=== PATIENT | female | born 2000 | race Caucasian/White ===

== ENCOUNTER 2024-10-27 11:36 | Observation (INO) | payer OTHER, SELFPAY ==
--- NOTE | ~2024-10-27 | US_ITS ---
CLINICAL HISTORY: abnormal CT, eval right ovary US pelvis transabdominal and transvaginal with Doppler Comparison: CT/SR - CT ABDOMEN PELVIS W IV CON - 10/27/24 14:26 EST Findings: Transabdominal scanning performed for overall anatomy. Transvaginal scanning performed for additional detail. Uterus is 8.4 cm length. Normal myometrium. Endometrium 1.0 mm thickness. Right ovary 3.2 x 2.3 x 1.6 cm. Left ovary 3.3 x 2.2 x 1.7 cm. Normal color Doppler with arterial/venous spectral tracing of both ovaries. No free fluid. IMPRESSION: 1. Normal pelvic ultrasound with Doppler. No evidence of ovarian torsion. No large ovarian cyst. This document has been electronically signed by: Diann Georges MD on 10/27/2024 17:43:33
--- NOTE | ~2024-10-27 | CT_ITS ---
CLINICAL HISTORY: RLQ AP, vomiting, leukocytosis, r o acute appy CT abdomen and pelvis with contrast Comparison: None Findings: The visualized portions of the lungs are normal in appearance. The liver is normal in size without suspicious focal hepatic lesions. No intrahepatic or extrahepatic ductal dilatation is seen. The hepatic and portal veins are patent. No calcified gallstones in the gallbladder. Pancreas, spleen and adrenals are normal in appearance. No suspicious focal lesion of the kidneys. No hydronephrosis. Small left kidney stone. The abdominal aorta demonstrates no evidence of aneurysmal dilatation or dissection. The colon is normal in appearance and without wall thickening or inflammatory change. No evidence of bowel obstruction. The distal portion of the appendix is visualized and appears normal. There is loculated fluid density of the right side of the pelvis adjacent to the root of the appendix and the right adnexa measuring 2 x 3 x 4 cm in size series 3, image 74 and series 6, image 46. No intraperitoneal free air or fluid is visualized. No pathologic lymphadenopathy is seen. There are no osseous or soft tissue abnormalities. IMPRESSION: The distal portion of the appendix is visualized and appears normal. There is a loculated fluid density of the right side of the pelvis adjacent to the root of appendix and the right adnexa. The differential diagnosis includes a cyst of the ovary, fluid in the bowel and an abscess. Clinical correlation is recommended. Correlation with pelvic ultrasound finding may be of benefit. Nonobstructing small left kidney stone. This document has been electronically signed by: Diann Georges MD on 10/27/2024 15:11:52
--- OUTSIDE RECORDS SUMMARY | 2024-10-27 11:38 | XMS_ITS | Continuity of Care Document ---
Author Name [facility] Organization [facility] Care Team Providers Care Pilot Can Router Name Role Phone [facility] Unavailable Unavailable Problems Combined list of problems from Department of Defense and Veterans Affairs facilities. It does not include entries that were removed or entered in error. 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, SENIOR CARE OR SEPARATION FROM UNIFORMED SERVICE, LONG Active 07/02/2024 Diagnosis 0110[facility] ASSESSMENT, POST-DEPLOYMENT, DOCUMENTED ON DY0250 Active 07/02/2024 Diagnosis 0110 [facility] Human immunodeficiency virus antibody titer Active 07/02/2024 [facility] Contusion of left knee, initial encounter Active 05/16/[address] [place] [address] Clinic Contusion of left lower leg, initial encounter Active 05/16/[address] [place] [address] Pain in left ankle and joints of left foot Active Condition [facility] Low back pain Active Condition [facility] Medications Combined list of outpatient medications from Department of Defense and Veterans Affairs facilities.Medications provided include 1) outpatient medications from the last 15 months, and 2) patient-reported medications. Medication Details Route Status Patient Instructions Prescription Expires Prescription Number Last Dispense Date Ordering Provider Order Date Order Qty Source Gwendolyn 180 mg oral tablet 1 tab(s), Oral, Daily, PRN allergy symptoms , # 60 tab(s), 0 total refill(s ), Maintena nce, 1 tab(s) Oral Daily,[place] N:allerg y symptoms , Pharmacy : [facility] Oral (given by mouth) Complet ed 07/02/2024 60.0 0010C-D [facility] Flonase 50 mcg/inh nasal spray 50 mcg, Nostril- Both, BID, # 16 g, 5 total refill(s ), Maintena nce, 50 mcg Nostril- Both BID, Pharmacy : [facility] Nostri l-Both (into the nose) Complet ed 07/02/2024 16.0 0010C-D [facility] FLONASE-OTC (BRAND) 50 MCG PRO SPSN [9.9] Take or use exactly as directed .For the nose. 10/27/2024 [id number] 4 [address] [place] [address] FLUARIX QUAD [id number] (influenza virus vaccine quadrival 2243-8965(6 mos and up)/PF), 60MCG/.5ML, SYRINGE, INTRAMUSC, MessageCastOSMITHK LINE, .5 ml SYRINGE Active [id number] 4 2023 0.5 Pharmac y Data Transac tion Service Facilit y IBUPROFEN (ibuprofen) , 800 MG, TABLET, ORAL, STRIDES PHARMA, 500 ea. BOTTLE Cancele d [id number] : 2023 0 Pharmac y Data Transac tion Service Facilit y IBUPROFEN (ibuprofen) , 800 MG, TABLET, ORAL, STRIDES PHARMA, 500 ea. BOTTLE Active [id number] 4 2023 12 Pharmac y Data Transac tion Service Facilit y IBUPROFEN (ibuprofen) , 800 MG, TABLET, ORAL, STRIDES PHARMA, 500 ea. BOTTLE Active [id number] 4 2023 12 Pharmac y Data Transac tion Service Facilit y OXYCODONE-A CETAMINOPHE N (OXYCODONE HCL/ACETAMI NOPHEN), 5MG-325MG, TABLET, ORAL, MALLINKRT PHARM, 500 ea. BOTTLE Active [id number] 4 2023 12 Pharmac y Data Transac tion Service Facilit y PENICILLIN V POTASSIUM (PENICILLIN V POTASSIUM), 500MG, TABLET, ORAL, AUROBINDO PHARM, 500 ea. BOTTLE Active [id number] 4 2023 28 Pharmac y Data Transac tion Service Facilit y PROMETHAZIN E HCL (PROMETHAZI NE HCL), 25MG, TABLET, ORAL, [employer] 1000 ea. BOTTLE Cancele d [id number] : 2023 0 Pharmac y Data Transac tion Service Facilit y PROMETHAZIN E HCL (PROMETHAZI NE HCL), 25MG, TABLET, ORAL, [employer] 1000 ea. BOTTLE Cancele d [id number] : 2023 0 Pharmac y Data Transac tion Service Facilit y PROMETHAZIN E HCL (PROMETHAZI NE HCL), 25MG, TABLET, ORAL, [employer] 1000 ea. BOTTLE Active [id number] 4 2023 6 Pharmac y Data Transac tion Service Facilit y [place] Fexofenadin e Hydrochlori de (Telfast) Tablet 180 mg Oral Take with plenty of water.Ob tain advice for OTCs.Swa llow whole.Av oid grapefru it and grapefru it juice. 10/27/2024 [id number] 2023 60 [facility] Allergies, Adverse Reactions, Alerts Combined list of allergies from Department of Defense and Veterans Affairs facilities. It does not include entries that were removed or entered in error. Substance Category Reaction Severity Reaction type Status Date Reported Comments Source No Known Allergies Drug allergy (disorder) active 12/29/2023 DoD Immunizations Combined list of available immunizations from the Department of Defense and Veterans Affairs facilities. Immunization Series Date Given Administered By Site Reaction Lot Number CVX Code Drug Wax Blender Status Comments Source influenza, injectable, quadrivalent- pf 2020 [id number] [employer] comple t ed influenza , injectabl e, quadrival ent-pf 09/09/21 Given Ambulat ory Pharmac y COVID Vaccine Pfizer 2020 [id number] PFIZER complet ed COVID Vaccine Pfizer 04/01/21 Given Ambulat ory Pharmac y COVID Vaccine Pfizer 2020 [id number] PFIZER complet ed COVID Vaccine Pfizer 03/09/21 Given Ambulat ory Pharmac y influenza, injectable, quadrivalent- pf 2019 zzLef t Arm [id number] 150 Seqirus complet ed influenza , injectabl e, quadrival ent-pf 08/22/20 Given Ambulat ory Pharmac y Influenza, injectable, quadrivalent, preservative free 1 2019 RAZ LARIOS [id number] 150 Seqirus (SEQ) complet ed Influenza , injectabl e, quadrival ent, preservat natalee free DoD Vital Signs Combined list of inpatient and outpatient Vital Signs from Department of Defense and Veterans Affairs, ranging from 12 months to all on record, depending upon the facility. Vital Sign Value Date Comments Source Systolic Blood Pressure 130mm[Hg] 12/29/2023 17:35:00 Ambulatory Pharmacy Diastolic Blood Pressure 84mm[Hg] 12/29/2023 17:35:00 Ambulatory Pharmacy BP Site 12/29/2023 17:35:00 Ambul [facility]ory Pharmacy Mean Arterial Pressure, Calc 99mm[Hg] 12/29/2023 17:35:00 Ambulatory P harmacy Systolic Blood Pressure 128mm[Hg] 10/28/2023 20:25:00 Ambulatory Pharmacy Diastolic Blood Pressure 66mm[Hg] 10/28/2023 20:25:00 Ambulatory Pharmacy Mean Arterial Pressure, Calc 87mm[Hg] 10/28/2023 20:25:00 Ambulatory P harmacy Peripheral Pulse Rate 87bpm 10/28/2023 20:25:00 Ambulatory Pharmacy Respiratory Rate 16br/min 10/28/2023 20:25:00 Ambulatory Pharmacy Temperature Oral 36.7Cel 10/28/2023 20:25:00 Ambulatory Pharmacy Peripheral Pulse Rate 66bpm 07/02/2024 14:34:00 Ambulatory Pharmacy Systolic Blood Pressure 127mm[Hg] 07/02/2024 14:34:00 Ambulatory Pharmacy Diastolic Blood Pressure 86mm[Hg] 07/02/2024 14:34:00 Ambulatory Pharmacy Systolic Blood Pressure 126mm[Hg] 05/16/2024 20:24:00 Ambulatory Pharmacy Diastolic Blood Pressure 84mm[Hg] 05/16/2024 20:24:00 Ambulatory Pharmacy Mean Arterial Pressure, Calc 98mm[Hg] 05/16/2024 20:24:00 Ambulatory P harmacy Peripheral Pulse Rate 82bpm 05/16/2024 20:24:00 Ambulatory Pharmacy Respiratory Rate 16br/min 05/16/2024 20:24:00 Ambulatory Pharmacy Temperature Oral 36.7Cel 05/16/2024 20:24:00 Ambulatory Pharmacy BP Site 05/16/2024 20:24:00 Ambul atory Pharmacy Blood Pressure Manual 05/16/2024 20:24:00 Ambulatory Pharmacy Encounters Combined list of: 1) Encounters from Department of Veterans Affairs facilities going back up to thelast 18 months. 2) Encounters from the Department of Defense facilities going back up to 280 months. Location Location Details Encounter Type Encounter Number Reason For Visit Attending Provider ADM Date DC Date Status Disposition Source [facility](IEP Primary Care) OUTPATIENT [id number] COVID TEST MESSI KIM E 04/23 Released w/o Limitations [facility](I EP Primary Care) [facility](P Optometry ) OUTPATIENT [id number] CRISTINA TORRES Nanette 04/23 Released w/o Limitations [facility] [employer] [facility](I EP Optomet ry) [facility] OUTPATIENT [id number] L Ankle Pain SUDEEP, SURYA M 05/21 Immediate Referral [facility](T MC Physica l Therapy ) [facility] [place] OUTPATIENT [id number] ankle pain XENIA AHN 05/21 Released with Work/Duty Limitations [employer](T MC Ambulat ory) [facility] OUTPATIENT [id number] Left ankle / foot--( ref: Mr. Ahn) MARY MANRIQUEZ 05/21 Released with Work/Duty Limitations [facility] [employer] [facility](T MC Physica l Therapy ) [facility] OUTPATIENT [id number] L Ankle Rehab SUDEEP, SURYA M 05/22 Released with Work/Duty Limitations [facility] [employer] [facility](T MC Physica l Therapy ) [facility] OUTPATIENT [id number] L Ankle Rehab SUDEEP, SURYA M 05/23 Released with Work/Duty Limitations [facility] [employer] [facility](T MC Physica l Therapy ) [facility] [place] [facility] OUTPATIENT [id number] L Ankle Rehab SUDEEP, SURYA M 05/26 Released with Work/Duty Limitations [facility] [employer] [facility](T MC Physica l Therapy ) [facility] OUTPATIENT [id number] L Ankle Rehab SUDEEP, SURYA M 05/27 Released with Work/Duty Limitations [facility] [employer] [facility](T MC Physica l Therapy ) [facility] [facility] [place] [facility] OUTPATIENT [id number] L Ankle Rehab SUDEEPSURYA M 05/28 Released with Work/Duty Limitations [facility] [employer] [facility](T MC Physica l Therapy ) [facility] [facility] OUTPATIENT [id number] L Ankle Rehab SUDEEPSURYA M 05/29 Released with Work/Duty Limitations [facility] [employer] [facility](T MC Physica l Therapy ) [facility]([facility] OUTPATIENT [id number] f/u L ankle MARY MANRIQUEZ 05/30 Released with Work/Duty Limitations [facility] [employer] [facility](T MC Physica l Therapy ) [facility] [facility] [place] [facility] OUTPATIENT [id number] L Ankle Rehab SURYA SHEETS M 06/02 Released with Work/Duty Limitations [facility] [facility](T MC Physica l Therapy ) [employer]([facility] OUTPATIENT [id number] L Ankle Rehab SURYA SHEETS M 06/03 Released with Work/Duty Limitations [facility] [employer] [facility](T MC Physica l Therapy ) [employer]([facility] OUTPATIENT [id number] Follow up MARY MANRIQUEZ 06/11 Released with Work/Duty Limitations [facility] [employer] [facility](T MC Physica l Therapy ) [employer]([facility] OUTPATIENT [id number] Follow up results MARY MANRIQUEZ 06/17 Released with Work/Duty Limitations [employer](T MC Physica l Therapy ) [employer] [employer] [facility](PES Physical Therapy/P TRP) OUTPATIENT [id number] Notes Entered by: Dayron BAÑUELOS 25 Jun 2020 1033 ------- ------- ------- ------- -- BFDAISY BALLARD 06/25 Released w/o Limitations [employer](P ES Physica l Therapy /PTRP) [facility] [employer] [facility] Physical Therapy/P TRP) OUTPATIENT [id number] Notes Entered by: Dayron BAÑUELOS 26 Jun 2020 1050 ------- ------- ------- ------- -- DAISY PAIZ 06/26 Released w/o Limitations [employer] [facility](P ES Physica l Therapy /PTRP) [facility] [employer] [facility] Physical Therapy/P TRP) OUTPATIENT [id number] Notes Entered by: Dayron BAÑUELOS 01 Jul 2020 1031 ------- ------- ------- ------- -- DAISY PAIZ 07/01 Released w/o Limitations [employer] [facility](P ES Physica l Therapy /PTRP) [employer] [employer] [facility](PES Physical Therapy/P TRP) OUTPATIENT [id number] Notes Entered by: Dayron BAÑUELOS 04 Jul 2020 1350 ------- ------- ------- ------- -- DAISY Martinez 07/04 Released w/o Limitations [facility] [employer] [facility](P ES Physica l Therapy /PTRP) [employer] [facility] Physical Therapy/P TRP) OUTPATIENT [id number] Notes Entered by: Dayron BAÑUELOS 07 Jul 2020 1346 ------- ------- ------- ------- -- OBDULIA So 07/07 Released w/o Limitations [facility] [facility](P ES Physica l Therapy /PTRP) [facility] [employer] [facility](C Physical Therapy) OUTPATIENT [id number] WT--f /u MARY MANRIQUEZ 07/07 Released with Work/Duty Limitations [employer](T MC Physica l Therapy ) [employer]([facility] Physical Therapy/P TRP) OUTPATIENT [id number] Notes Entered by: Dayron BAÑUELOS 08 Jul 2020 1344 ------- ------- ------- ------- -- DAISY MARROQUIN 07/08 Released w/o Limitations [employer](P ES Physica l Therapy /PTRP) [employer] [facility] Physical Therapy/P TRP) OUTPATIENT [id number] Notes Entered by: Dayron BAÑUELOS 10 Jul 2020 1014 ------- ------- ------- ------- -- OBDULIA TOBAR 07/10 Released w/o Limitations [employer] [facility](P ES Physica l Therapy /PTRP) [employer] [facility] Physical Therapy/P TRP) OUTPATIENT [id number] Notes Entered by: Dayron BAÑUELOS 11 Jul 2020 1059 ------- ------- ------- ------- -- OBDULIA So 07/11 Released w/o Limitations [employer] [facility](P ES Physica l Therapy /PTRP) [employer] [employer] [facility] Physical Therapy/P TRP) OUTPATIENT [id number] Notes Entered by: Dayron BAÑUELOS 15 Jul 2020 1048 ------- ------- ------- ------- -- DAISY MARROQUIN 07/15 Released w/o Limitations [employer] [facility](P ES Physica l Therapy /PTRP) [employer] [employer] [facility] Physical Therapy/P TRP) OUTPATIENT [id number] Notes Entered by: Dayron BAÑUELOS 16 Jul 2020 1119 ------- ------- ------- ------- -- OBDULIA So 07/16 Released w/o Limitations [facility] [employer] [facility](P ES Physica l Therapy /PTRP) [employer]([facility] OUTPATIENT [id number] Ankle F/U MARY MANRIQUEZ 07/17 Released with Work/Duty Limitations [employer](T MC Physica l Therapy ) [facility] OUTPATIENT [id number] Notes En[address]: ST YANELI GARRISON 18 Jul 2020 1140 ------- ------- ------- ------- -- BONI KIDD 07/18 Released w/o Limitations [employer]([facility]) [employer]([facility] Primary Care) OUTPATIENT [id number] back pain after lifting PAVLAKOVIC H, ALEX B 07/21 Released w/o Limitations [employer](I EP Primary Care) [employer]([facility]) OUTPATIENT [id number] [facility] TOBIDHARMESH AGUILARDANO Fitzpatrick 07/22 Released w/o Limitations [employer]([facility]) [employer](PES Physical Therapy/P TRP) OUTPATIENT [id number] Notes Entered by: Dayron BAÑUELOS 23 Jul 2020 1136 ------- ------- ------- ------- -- DAISY Martinez 07/23 Released w/o Limitations [employer](P ES Physica l Therapy /PTRP) [facility]) OUTPATIENT [id number] Notes Entered by: PINKY Murdock YAHIR 24 Jul 2020 0944 ------- ------- ------- ------- -- Guillermo DHARMESH PETTITDANO Fitzpatrick 07/24 Released w/o Limitations [facility]) [employer] [employer] [facility] Physical Therapy/P TRP) OUTPATIENT [id number] Notes Entered by: Dayron BAÑUELOS 30 Jul 2020 1318 ------- ------- ------- ------- -- OBDULIA So 07/30 Released w/o Limitations [facility] [facility](P ES Physica l Therapy /PTRP) [employer]([facility]) OUTPATIENT [id number] WT--F /u-(JOSHUA Perry 07/31 Released w/o Limitations [employer] [facility](T MC Physica l Therapy ) [facility] [employer] [facility](C Physical Therapy) OUTPATIENT [id number] Inserts (women' s 8) GETACHEW LIZ 07/31 Released w/o Limitations [employer] [employer] [facility](T MC Physica l Therapy ) [employer] [employer] [facility] Physical Therapy/P TRP) OUTPATIENT [id number] Notes Entered by: Dayron BAÑUELOS 06 Aug 2020 1041 ------- ------- ------- ------- -- Therex OBDULIA BAÑUELOS 08/06 Released w/o Limitations [facility] [employer] [facility](P ES Physica l Therapy /PTRP) [facility]/P TRP) OUTPATIENT [id number] Notes Entered by: Dayron BAÑUELOS 08 Aug 2020 1312 ------- ------- ------- ------- -- OBDULIA So 08/08 Released w/o Limitations [facility](P ES Physica l Therapy /PTRP) [facility] Flu Clinic) OUTPATIENT [id number] JOSE LARIOS 08/22 Released w/o Limitations [facility] Flu Clinic) [facility](IEP Primary Care) OUTPATIENT [id number] Notes Entered by: ANCA VÁSQUEZ 26 Aug 2020 1007 ------- ------- ------- ------- -- IET IMM ANCA MONROY 08/26 Released w/o Limitations [facility](I EP Primary Care) [facility](C-2 Optometry [place]) OUTPATIENT [id number] Notes Entered by: ROMAN CLINE 13 Nov 2020 0656 ------- ------- ------- ------- -- Eye exam VINICIO WEEKS 11/13 Released w/o Limitations [facility] -2 Optomet ry [place]) [facility]([address] [place]) OUTPATIENT [id number] Notes Entered by: SUZY MONTESINOS 25 Nov 2020 1015 ------- ------- ------- ------- -- Ankle Pain ARNAUD MORENO 11/25 Released with Work/Duty Limitations [facility]([address] [place]) [facility] [employer] [facility](IEP Primary Care) OUTPATIENT [id number] Notes Entered by: Michel KIM 01 Jan 2021 0629 ------- ------- ------- ------- -- DEF IMM MESSI KIM 01/01 Released w/o Limitations [facility](I EP Primary Care) [facility] Dental [id number] CHAPINCITO ASTORGA 05/11 Discharge Disposition: Home or Self Care 0010C-[facility] 0C[facility] Clinic [id number] Contusi on of left lower leg, initial encount er,Cont usion of left knee, initial encount er ZOE JARVISAXHALIE 05/16 Discharge Disposition: Home or Self Care 0010C-[facility] 0-[facility] Between Visit [id number] 05/18 Discharge Disposition: Home or Self Care 0010C-[facility] Between Visit [id number] 05/18 Discharge Disposition: Home or Self Care 0010C-D [facility] 0110A[facility] Dargenl-Logan avazos [place] [facility] [id number] ASSESSM ENT, POST-DE PLOYMEN T, DOCUMEN JANNET ON [id number], EXAM, OCCUPAT IONAL, RETIREM ENT OR SEPARAT ION FROM [facility] ED SERVICE , LONG,En counter for screeni ng for human immunod eficien cy virus [HIV] 07/02 Discharge Disposition: Returned to Duty 0110A-A RHONDA murdock Procedures Combined list of: 1) Procedures from Department of Veterans Affairs facilities going back up to thelast 18 months, not all VA non-surgical procedures are included; 2) All procedures from the Department of Defense facilities. Procedure Procedure Type Code Date Perfomer Comments Sourc e Ophthalmological New Patient Start Intermediate Level Care Ophthalmological New Patient Start Intermediate Level Care 28562 NILSON CHEN I [facility] Spectacles Services Fitting Monofocal Except For Aphakia Spectacles Services Fitting Monofocal Except For Aphakia 39668 NILSON CHEN I [facility] Determination Of Refractive State Determination Of Refractive State 83746 NILSON CHEN I [facility] Athletic Training Evaluation Low Complexity Athletic Training Evaluation Low Complexity 05994 SURYA SHEETS [facility] Ankle control orthosis, stirrup style, rigid, includes any type interface (e.g., pneumatic, gel), prefabricated, [id number]-[id number] MARY LEE [facility] Physical Therapy Education Orthotics Training Physical Therapy Education Orthotics Training 31048 MARY LEE [facility] Physical Therapy Service Evaluation Low Complexity Physical Therapy Service Evaluation Low Complexity 94278 MARY LEE [facility] Physical Therapy: ___ Se ion Segments, 15 Minutes Each Physical Therapy: ___ Session Segments, 15 Minutes Each 86953 SURYA SHEETS [facility] Modalities Cryotherapy Cold Packs Modalities Cryotherapy Cold Packs 19888 SUDEEPSURYA [facility] Taping Ankle Taping Ankle 46767 SURYA SHEETS KT Tape to Decrease Swelling [facility] Physical Therapy Service Re-Evaluation Physical Therapy Service Re-Evaluation 76051 MARY LEE [facility] Lower extremity orthoses, not otherwise specified MARY LEE [facility] Physical Therapy Neuromuscular Re-education Physical Therapy Neuromuscular Re-education 01334 DAISY TAN 25 mins [facility] Physical Therapy: ___ Se ion Segments, 15 Minutes Each Physical Therapy: ___ Session Segments, 15 Minutes Each 63656 DAISY TNA 15 mins [facility] Physical Therapy Neuromuscular Re-education Physical Therapy Neuromuscular Re-education 95174 OBDULIA BAÑUELOS 20 min [facility] Physical Medicine - Group Physical Therapy Se ion Physical Medicine - Group Physical Therapy Session 91887 OBDULIA BAÑUELOS [facility] Physical Therapy Neuromuscular Re-education Physical Therapy Neuromuscular Re-education 55075 DAISY TAN 20 mins [facility] Physical Therapy Neuromuscular Re-education Physical Therapy Neuromuscular Re-education 61333 OBDULIA BAÑUELOS 10 min [facility] Physical Therapy Neuromuscular Re-education Physical Therapy Neuromuscular Re-education 80812 DAISY TAN 10 mins [facility] Patient education, not otherwise cla ified, non-physician provider, group, per se ion BONI GARRISON [facility] Bioelectrical Impedance Analysis Whole Body Supine With Interpretation And Report Bioelectrical Impedance Analysis Whole Body Supine With Interpretation And Report [id number] RON PETTIT [facility] Vital Signs Recorded Vital Signs Recorded RON PETTIT [facility] Pulmon Function - O2 Uptake - Gas Analysis Rest, Ind Pulmon Function - [place] [address] RON PETTIT [facility] Nutrition cla es, non-physician provider, per se ion RON PETTIT [facility] Physical Therapy Education Orthotics Training Physical Therapy Education Orthotics Training 76950 GETACHEW MORTON 10min [facility] Foot, arch support, removable, premolded, longitudinal, each GETACHEW MORTON 1 pair dispensed [facility] Physical Therapy Neuromuscular Re-education Physical Therapy Neuromuscular Re-education 70259 OBDULIA BAÑUELOS 25 min [facility] Influenza Split Virus Vaccine IM Preserv Free 0.5mL Dosage Quadrivalent Influenza Split Virus Vaccine IM Preserv Free 0.5mL Dosage Quadrivalent 51897 RAZ LARIOS Influenza, Inj., quad., preservative free (Afluria); Series #: 1; 0.5 mL; IM; Left Arm; Mfg: Seqirus; Lot: [id number]; VIS given (Vic: 06/07/2019). [facility] Immunization Administration By Injection, One Vaccine Immunization Administration By Injection, One Vaccine 36434 RAZ LARIOS [facility] Immunization Administration By Injection, Each Additional Vaccine Immunization Administration By Injection, Each Additional Vaccine 96858 ANCA MONROY [facility] Hepatitis A And Hepatitis B (Intramuscular Use) Adult Dosage Hepatitis A And Hepatitis B (Intramuscular Use) Adult Dosage 75024 ANCA MONROY [facility] Vaccines Viral Polio, Inactivated Vaccines Viral Polio, Inactivated 27628 ANAC MONROY [facility] Meningococcal Conjugate Vaccine Quadrivalent Serogroups A, C, Y, W-135 Meningococcal Conjugate Vaccine Quadrivalent Serogroups A, C, Y, W-135 76906 ANCA MONROY [facility] Vaccines Viral Measles, Mumps and Rubella, Live Vaccines Viral Measles, Mumps and Rubella, Live 77494 ANCA MONROY [facility] Tdap Vaccine Tdap Vaccine 19459 ANCA MONROY [facility] Vaccines Viral Varicella (Active) Vaccines Viral Varicella (Active) 68399 ANCA MONROY [facility] Immunization Admin Intranasal / Oral Each Additional Vaccine Immunization Admin Intranasal / Oral Each Additional Vaccine 75558 ANCA MONROY [facility] Vaccines Adenovirus Type 4 Live, For Oral Use Vaccines Adenovirus Type 4 Live, For Oral Use 89224 ANCA MONROY Vaccines Adenovirus Type 7 Live, For Oral Use Vaccines Adenovirus Type 7 Live, For Oral Use 07448 ANCA MONROY [facility] Ophthalmological New Patient Start Comprehensive Care Ophthalmological New Patient Start Comprehensive Care 61894 VINICIO WEEKS [facility] FITTING OF SPECTACLES, EXCEPT FOR APHAKIA; MONOFOCAL 2020 [facility] VARICELLA VIRUS VACCINE (FREDDIE), LIVE, FOR SUBCUTANEOUS USE 2020 [facility] ADENOVIRUS VACCINE, TYPE 7, LIVE, FOR ORAL USE 2019 [facility] IMMUNIZATION ADMINISTRATION (INCLUDES PERCUTANEOUS, INTRADERMAL, SUBCUTANEOUS, OR INTRAMUSCULAR INJECTIONS); 1 VACCINE (SINGLE OR COMBINATION VACCINE/TOXOID) 2019 [facility] APPLICATION OF A MODALITY TO 1 OR MORE AREAS; HOT OR COLD PACKS 2019 [facility] THERAPEUTIC PROCEDURE(S), GROUP (2 OR MORE INDIVIDUALS) 2019 [facility] FOOT, ARCH SUPPORT, REMOVABLE, PREMOLDED, LONGITUDINAL, EACH 2019 [facility] RE-EVAL,PHYSICAL THERAPY EST PLAN OF CARE,REQ:EXAM,REV, HX & USE,STAND TESTS &DANITA REQ;REV PLAN OF CARE USING STAND PAT ASSESS INSTR &/DANITA ASSESS FUNC OUTCOME TYP,20 MIN SPENT [id number] W PAT&/FAM 2019 [facility] THERAPEUTIC PROCEDURE(S), GROUP (2 OR MORE INDIVIDUALS) 2019 [facility] NUTRITION CLASSES, NON-PHYSICIAN PROVIDER, PER SESSION 2019 [facility] THERAPEUTIC PROCEDURE(S), GROUP (2 OR MORE INDIVIDUALS) 2019 [facility] OXYGEN UPTAKE, GAS ANALYSIS; REST, INDIRECT (SEPARATE PROCEDURE) 2019 [facility] PATIENT EDUCATION, NOT OTHERWISE CLASSIFIED, NON-PHYSICIAN PROVIDER, GROUP, PER SESSION 2019 [facility] RE-EVAL,PHYSICAL THERAPY EST PLAN OF CARE,REQ:EXAM,REV, HX & USE,STAND TESTS &DANITA REQ;REV PLAN OF CARE USING STAND PAT ASSESS INSTR &/DANITA ASSESS FUNC OUTCOME TYP,20 MIN SPENT [id number] W PAT&/FAM 2019 [facility] THERAPEUTIC PROCEDURE(S), GROUP (2 OR MORE INDIVIDUALS) 2019 [facility] THERAPEUTIC PROCEDURE(S), GROUP (2 OR MORE INDIVIDUALS) 2019 [facility] THERAPEUTIC PROCEDURE(S), GROUP (2 OR MORE INDIVIDUALS) 2019 [facility] THERAPEUTIC PROCEDURE(S), GROUP (2 OR MORE INDIVIDUALS) 2019 [facility] THERAPEUTIC PROCEDURE(S), GROUP (2 OR MORE INDIVIDUALS) 2019 [facility] THERAPEUTIC PROCEDURE(S), GROUP (2 OR MORE INDIVIDUALS) 2019 [facility] THERAPEUTIC PROCEDURE(S), GROUP (2 OR MORE INDIVIDUALS) 2019 [facility] RE-EVAL,PHYSICAL THERAPY EST PLAN OF CARE,REQ:EXAM,REV, HX & USE,STAND TESTS &DANITA REQ;REV PLAN OF CARE USING STAND PAT ASSESS INSTR &/DANITA ASSESS FUNC OUTCOME TYP,20 MIN SPENT [id number] W PAT&/FAM 2019 [facility] THERAPEUTIC PROCEDURE, 1 OR MORE AREAS, EACH 15 MINUTES; THERAPEUTIC EXERCISES TO DEVELOP STRENGTH AND ENDURANCE, RANGE OF MOTION AND FLEXIBILITY 2019 [facility] THERAPEUTIC PROCEDURE, 1 OR MORE AREAS, EACH 15 MINUTES; THERAPEUTIC EXERCISES TO DEVELOP STRENGTH AND ENDURANCE, RANGE OF MOTION AND FLEXIBILITY 2019 [facility] THERAPEUTIC PROCEDURE, 1 OR MORE AREAS, EACH 15 MINUTES; THERAPEUTIC EXERCISES TO DEVELOP STRENGTH AND ENDURANCE, RANGE OF MOTION AND FLEXIBILITY 2019 [facility] RE-EVAL,PHYSICAL THERAPY EST PLAN OF CARE,REQ:EXAM,REV, HX & USE,STAND TESTS &DANITA REQ;REV PLAN OF CARE USING STAND PAT ASSESS INSTR &/DANITA ASSESS FUNC OUTCOME TYP,20 MIN SPENT [id number] W PAT&/FAM 2019 [facility] LOWER EXTREMITY ORTHOSES, NOT OTHERWISE SPECIFIED 2019 [facility] APPLICATION OF A MODALITY TO 1 OR MORE AREAS; HOT OR COLD PACKS 2019 [facility] APPLICATION OF A MODALITY TO 1 OR MORE AREAS; HOT OR COLD PACKS 2019 [facility] RE-EVAL,PHYSICAL THERAPY EST PLAN OF CARE,REQ:EXAM,REV, HX & USE,STAND TESTS &DANITA REQ;REV PLAN OF CARE USING STAND PAT ASSESS INSTR &/DANITA ASSESS FUNC OUTCOME TYP,20 MIN SPENT [id number] W PAT&/FAM 2019 [facility] APPLICATION OF A MODALITY TO 1 OR MORE AREAS; HOT OR COLD PACKS 2019 [facility] APPLICATION OF A MODALITY TO 1 OR MORE AREAS; HOT OR COLD PACKS 2019 [facility] APPLICATION OF A MODALITY TO 1 OR MORE AREAS; HOT OR COLD PACKS 2019 [facility] APPLICATION OF A MODALITY TO 1 OR MORE AREAS; HOT OR COLD PACKS 2019 [facility] STRAPPING; ANKLE AND/OR FOOT 2019 [facility] APPLICATION OF A MODALITY TO 1 OR MORE AREAS; HOT OR COLD PACKS 2019 [facility] PHYSICAL THERAPY EVALUATION:LOW COMPLEXITY,REQ:HIS T W NO PERS FACT &/COMORB THAT IMPACT PLAN OF CARE;CLIN DECIS MAKING OF LOW COMPLEXITY,TYPICAL LY,20 MIN ARE SPENT [id number]-US-YZTZ W THE PATIENT &/FAMILY 2019 [facility] ATHLETIC TRAINING EVALUATION, LOW COMPLEXITY,REQ:HIS T & PHYS ACT PROFILE W NO COMORB;EXAM AFF BODY AREA,ADDRESS 1-2 ELEMENTS;CLIN DEC TIFFANI,LOW,TYP,15 MIN ARE SPENT [id number] W THE PATIENT &/FAMILY 2019 [facility] DETERMINATION OF REFRACTIVE STATE 2019 [facility] HEARING SERVICE, MISCELLANEOUS 2019 [facility] No data available for this section Ambulato ry Pharmacy Social History Combined list of available smoking, tobacco, and other social history from [facility] of Defense and Veterans Affairs facilities. Social History Type Response Date Comment Sourc e Female 05/25/2022 Ambulatory Pha rmacy This section is an empty social history section. DoD Tobacco Cigarette use: Never-cigarette user. Other Tobacco use: Never-other tobacco user (not cigarettes). Ambulatory Pharma cy Sexual Orientation Ambula tory Pharmacy Gender identity Ambulator y Pharmacy Assessment and Plan Combined list of future care activities from Department of Defense and Veterans Affairs facilities (e.g., assessment and plan notes, appointments, orders, and referrals). Additional future care activities may be listed in the Plan of Care section. Result Assessment and Plan Date Source Assessment and Plan Extracted from:Title : Left leg pain Author: ZOE GAFFNEY, Capt, [employer], MC, FS, [employer]th MDG Date: 05/16/24 1.?Contusion of left lower leg, initial encounter Left knee pain s/p 3 foot fall at work. Unlikely fracture, but will x-ray. Discussed diagnosis and treatment. She has a PT test due next month. - XR left knee and tib/fib - Pain control with acetaminophen and NSAIDs PRN - Cautioned on compartment syndrome - Will email with profile - Follow-up in 1 week if no improvement ? Ordered: XR Knee Complete 4+ Views Left XR Tibia/Fibula Left ? 2.?Contusion of left knee, initial encounter As above. Ordered: XR Knee Complete 4+ Views Left XR Tibia/Fibula Left ? ? ? 20-29?minutes spent in chart review, direct patient care, discussion with other providers, and/or documentation for this encounter. ? [place] Screen -? ?Negative ? Home medications updated at the beginning of the visit. ? Active Duty Medical Readiness Disposition - Member IS NOT on PRP/PSP/SOD status. Member? ?IS NOT?on flying/controlling/jumping status. -?WWQ.?FR as above. No DR/MR resulting from this encounter.? Meets?retention standards. - Aeromedical Disposition ? Non-flyer ? ? Speech recognition software was utilized in the creation of this note. Despite proofreading, minor remediation bioanalytics consultant errors may be present. Please call with any clinical questions or concerns.? Capt Zoe Gaffney, DO E Flight Surgeon [employer] [place], [place] ? Extracted from:Title: Cough Author: VINICIO CROCKER, TRUST OFFICER Date: 10/28/23 Cough, unspecified 23 year old female in no acute distress reported one month of non-productive cough, denies fever, body aches, recent weight loss, repported recently moving to [facility]. Patient denies chest pain and shortness of breath. ? Plan: based on my physical exam, VS WNL, length of symptoms, non-smoking hx, with high suspicion for a cough related to allergies will trial Gwendolyn and Flonase will update images with chest XR WNL will have patient follow up in two to four weeks if symptoms persist could consider further work up vs referral for ongoing cough. Patient agreed and was thankful. ? Ordered: fexofenadine(Gwendolyn 180 mg oral tablet), 1 tab(s), Oral, Daily, PRN allergy symptoms, # 60 tab(s), 0 total refill(s), Maintenance, 1 tab(s) Oral Daily,PRN:allergy symptoms, Pharmacy: [facility] [Not filled] fluticasone nasal(Flonase 50 mcg/inh nasal spray), 50 mcg, Nostril-Both, BID, # 16 g, 5 total refill(s), Maintenance, 50 mcg Nostril-Both BID, Pharmacy: [facility] [Not filled] XR Chest 2 Views ? 10/27/2024 Ambulatory Pharmacy Functional Status Combined list of recent functional and cognitive assessments recorded at [facility] of Defense and Veterans Affairs (VA).VA Functional [place] Measurement (FIM) Scale: 1 = Total Assistance (Subject = 0% +), 2 = Maximal Assistance (Subject = 25% +), 3 = Moderate Assistance (Subject = 50% +), 4 = Minimal Assistance (Subject = 75% +), 5 = Supervision, 6 = Modified Bannock (Device), 7 = Complete [place] (Timely, Safely). Assessment Date/Time Source Assessment Type Assessment Skill Assessment Score Assessment Details No data available for this section
--- OUTSIDE RECORDS SUMMARY | 2024-10-27 11:39 | XMS_ITS ---
Author Organization [facility] Address [address] [place] [address] Care Team Providers Care Pot Feeder Name Role Phone Royal Nolasco Unavailable [phone] REASON FOR VISIT 2 WK F/U Encounters Encounter Location Date Provider Diagnosis [facility] [address] [place] [address] 05/26/2023 Royal Nolasco Plan Of Treatment No Information Progress Notes * Felipe LANCASTER MDOB:0 2000 (24 yo F)Acc No.[id number]:05/26/2023 Progress Notes Patient:?Al LANCASTER Jumana Provider:?Royal Nolasco DPM :2000???Age:23 Y???Sex:Female D ate:05/26/2023 Address:[address], [facility] Subjective: * Chief Complaints: * ???1. 2 WK F/U. * Medical History:? Objective: * Vitals:? Assessment: Plan: * Treatment: * * Electronic signature of Komal Nolasco DPM on 10/27/2024 at 10:38 AM LINUX NETWORK SYSTEMS ADMINISTRATOR Sign off status: Pending * Provider:?Royal Nolasco DPM Date:?0 05/26/2023 Generated for Gurmeet wynne/Azael/Linneaitting on:?10/27/2024 10:38 AM LINUX NETWORK SYSTEMS ADMINISTRATOR
--- OUTSIDE RECORDS SUMMARY | 2024-10-27 11:39 | XMS_ITS ---
Author Organization [facility] Address [address] [place] [address] Care Team Providers Care Staff Physical Therapy Assistant Name Role Phone Royal Nolasco Unavailable [phone] REASON FOR VISIT NO SHOW FEE Encounters Encounter Location Date Provider Diagnosis [facility] [address] [place] [address] 05/26/2023 Royal Nolsaco Plan Of Treatment No Information Progress Notes * Felipe LANCASTER MDOB:0 2000 (24 yo F)Acc No.[id number]:05/26/2023 Progress Notes Patient:?Al LANCASTER Provider:?Royal Nolasco DPM :2000???Age:23 Y???Sex:Female D ate:05/26/2023 Address:[address], [address], [id number] Subjective: * Chief Complaints: * ???1. NO SHOW FEE. * Medical History:? Objective: * Vitals:? Assessment: Plan: * Treatment: * * Electronic signature of Komal Nolasco DPM on 10/27/2024 at 10:38 AM CLOTH SHRINKING MACHINE OPERATOR HELPER Sign off status: Pending * Provider:?Royal Nolasco DPM Date:?0 05/26/2023 Generated for Gurmeet wynne/Azael/Tusmitting on:?10/27/2024 10:38 AM CLOTH SHRINKING MACHINE OPERATOR HELPER
--- OUTSIDE RECORDS SUMMARY | 2024-10-27 11:39 | XMS_ITS ---
Author Organization [facility] Address [address] [place] [address] Care Team Providers Care [employer] Name Role Phone Royal Nolasco Unavailable [phone] Allergies No Known Allergies REASON FOR VISIT Infected Ingrown Toenail Social History Tobacco Use: Social History Observation Description Date Details (start date - stop date) Never Smoker NA - NA smoking Question Answer Notes Are you a: nonsmoker Problems Problem Type SNOMED Code ICD Code Onset Dates Problem Status W/U Status Risk Notes Problem Ingrowing nail (228006270) Ingrowing nail (L60.0) Active confirmed Problem Nail dystrophy (45999937) 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 Problem Pain in limb (53856585) Pain in right toe(s) (M79.674) Active confirmed Vital Signs Weight 200 lbs 05/13/2023 Weight 200 lbs 05/13/2023 Height 5ft 6in in 05/13/2023 Height 5ft 6in in 05/13/2023 BMI 32.28 05/13/2023 Encounters Encounter Location Date Provider Diagnosis [facility] [address] [place] [address] 05/13/2023 Royal Nolasco Ingrowing nail L60.0 ; Toenail Dystrophy L60.3 and Pain in right toe(s) M79.674 Assessments Encounter Date Diagnosis (ICD Code) Assessment Notes Treatment Notes Treatment Clinical Notes Section Notes 05/13/2023 Ingrowing nail (ICD-10 - L60.0) Discussed all treatment options with patient. Patient ultimately elects to perform partial toenail avulsion. Discussed all risks and complications of the procedure with the patient. Patient freely consents to the procedure. The patient's right 1st toe toe was anesthetized using 3 mL 1% lidocaine. The toe was the prepped using chloraprep. The medial border border(s) was freed from the nail bed using a freer elevator. An faroese anvil was then utilized to resect the nail border, which was then removed from the toe. The nail fold was examined to ensure no nail remnants remained. A dressing was the applied consisting of silvadene ointment, sterile gauze, and coban. Thorough aftercare instructions were given. Patient will return to clinic in 2 weeks for continued monitoring of this issue. 05/13/2023 Toenail Dystrophy (ICD-10 - L60.3) 05/13/2023 Pain in right toe(s) (ICD-10 - M79.674) Plan Of Treatment Treatment Notes Assessment Notes Ingrowing nail Discussed all treatm ent options with patient. Patient ultimately elects to perform partial toenail avulsion. Discussed all risks and complications of the procedure with the patient. Patient freely consents to the procedure. The patient's right 1st toe toe was anesthetized using 3 mL 1% lidocaine. The toe was the prepped using chloraprep. The medial border border(s) was freed from the nail bed using a freer elevator. An faroese anvil was then utilized to resect the nail border, which was then removed from the toe. The nail fold was examined to ensure no nail remnants remained. A dressing was the applied consisting of silvadene ointment, sterile gauze, and coban. Thorough aftercare instructions were given. Patient will return to clinic in 2 weeks for continued monitoring of this issue. Next Appt Details Follow Up: 2 Weeks, Reason: Progress Notes * Felipe LANCASTER MDOB:0 2000 (24 yo F)Acc No.[id number]:05/13/2023 New Patient Notes Patient:?Al LANCASTER Provider:?Royal Nolasco DPM :2000???Age:23 Y???Sex:Female D ate:05/13/2023 Address:[facility] [address], [place], [id number] Subjective: * Chief Complaints: * ???1. Infected Ingrown Toena il. * HPI: ???Ingrown Nail:? This 23 year old female presents to clinic with primary complain of painful, ingrowing toenails of the right 1st toe. Patient states this issue has been present for several weeks, and has become increasingly pain. Patient admits that they have had this issue in the past, and has become a recurrent problem for them. They admit to drainage, redness, and pus coming from the toenail. They have attempted at home debridement of the ingrowing toenail without successful alleviation of symptoms. Patient denies any recent nausea, vomiting, fever and shortness of breath. Patient has no other complaints on today's appointment. * ROS:?Constitutional:?no?Fever.?no?Chills.?no?Vomitting.?no?Nausea.?no?Night sweats.?no?Fatigue.?no?Weight loss.?no?Weight gain.?no?Loss of appetite.?no?Insomnia.?no?Weakness.?Musculoskeletal:?no?Joint swelling.?no?Joint pain.?no?Joint stiffness.?no?Joint redness.?Foot Pain?yes.?no?Ankle Pain.?no?Limping.?no?Difficulty or Pain with Walking.?no?Foot Deformity.?no Ankle Deformity.?no?Foot or Ankle Injury.?no?Leg pain.?no?Back pain.?no?Cramping and/or Fatigue.?ENT:?no?Scalp tenderness.?no?Dry mouth.?no?Jaw claudication.?no?Alopecia.?no?Headache.?no?Sore throat.?no?Cold.?no?Cough.?no?Nose bleed.?no?Hearing loss.?no?Change in voice.?no?Ringing in ears.?Opthamology:?no?Diminished vision.?no?Red eyes.?no?Blurring of vision.?no?Vision loss.?no?Dry eyes.?no?Seasonal eye sx.?Respiratory:?no?Shortness of breath.?no?Chest pain.?no?Cough.?Cardiology:?no?Chest pain.?no?Palpitations.?no?Leg swelling.?no?Dizziness.?no?Shortness of breath.?no?Pain, cramping in legs with walking.?Gastroenterology:?no?Nausea.?no?Heartburn.?no?Vomiting.?no?Diarrhea.?no?Difficulty swallowing.?no?Abdominal pain.?no?Constipation.?no?Change in bowel habits.?no?Blood in stool.?Dermatology:?no?Rash.?no?Hives.?no?Raynaud's.?no?Alopecia.?no?Corns, Calluses.?no?Skin Infection.?no?Wounds/Ulcers.?no?fungal toenails.?Ingrown Toenails?yes.?no?Painful Skin Lesion. no?Abnormal Appearing Skin Lesion.?no?Discolored Skin.?no?Toenail Abnormality.?no?Skin Problem.?no?Itching, peeling skin.?Neurology:?no?Headache.?no?Radiating Pain.?no?Numbness in Feet.?no?Burning Pain.?no?Spasms or Twitching.?no?Tingling numbness.?no?Weakness.?no?Gait difficulties.?no?Dizziness.?no?Tremor.?no?Restless leg symptoms.?no?Peripheral neuropathy.?no?Memory loss.?no?Seizures.?Urology:?no?Dysuria.?no?Hematuria.?no?Frequent urination.?no?Urinary incontinence.?no?Recurrent UTI.?no?Nocturia.?Endocrinology:?no?Fatigue.?no?Excessive sweating.?no?Excessive thirst.?no?Excessive urination.?no?Weight loss.?no?Cold intolerance.?no?Heat intolerence.?Hematology/Lymph:?no?Swollen glands.?no?Fatigue.?no?Loss of appetite.?no?Night sweats.?no?Fevers.?Psychology:?no?High stress level.?no?Depression.?no?Sleep disturbances.?no?Suicidal ideation.?no?Eating disorder.?no?Panic attacks.?no?Anxiety.?no?Manic Depression.?no?Psychosis.?no?Mental impairments.?no?Communication Deficits.?Allergy:?no?Runny nose.?no?Scratchy throat.?no?Itchy eyes.?no?Ear fullness.?no?Sinus congestion.? * Medical History:?Medical His tory Verified. * Surgical History:?Left Clavi any Repair . * Family History:?Family Histo ry of: diagnosed with Diabetes, unspecified, Cardiopathy, Arthritis, Osteoarthritis.? * Social History:?Smoking?Are you a:?nonsmoker.?Alcohol: no. Marital status: single. 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 Exercise: no. Recreational drug use: no. * Medications:?None * Allergies:?N.K.D.A. Objective: * Vitals:?Wt: 200, Wt: 200, Ht : 5ft 6in, Ht: 5ft 6in, BMI: 32.28, Shoe Size: 8. * Examination: ???General examination: ?General appearance:?WD NAD, Pleasant, Well nourished and hydrated, A & O x 3.?Lymph nodes:?Non-palpable popliteal lymph nodes, No lymphangitis, No generalized lower extremity lymphedema.?Neurologic:?Gross sensation intact, Normal sensation and strength for age and race, Normal epicritic sensation and reflexes for age and race, Normal strength, tone and reflexes for age and race, Symmetrical DTR's for age and race, Normal Babinski bilaterally, No clonus noted left or right feet/ankles, Gait normal for age and race.?Skin:?Normal tone, texture, turgor for age/race, No rash, No open wounds at this time, No local signs of infection, No cellulitis, Positive digital/pedal hair growth.?Extremities:?No clubbing, no generalized lower extremity edema, No cyanosis, Normal lower extremity hair growth for age/race.?Peripheral pulses:?Pedal pulses normal (2+) bilateral lower extremity, No pedal or lower extremity trophic skin changes bilateral lower extremity, Pedal and lower extremity skin warm bilateral lower extremity, Prompt capillary refill time to all digits bilateral lower extremity.?Musculoskeletal?No gross structural deformities, Normal ROM all foot/ankle joints for age/race, muscle strength 5/5 all pedal compartments bilateral lower extremity.?Toenails?, Right hallux , medial border , Painful ingrowing toenails with nail fold hypertrophy and inflammation; painful with palpation and manipulation.? Assessment: * Assessment: 1.?Ingrowing nail - L60.0 (P rimary)???2.?Toenail Dystrophy - L60.3???3.?Pain in right toe(s) - M79.674??? Plan: * Treatment: * Procedure Codes:?18272 [place] Avulsion, Modifiers: T5 , A4550 Sterile Tray * Preventive Medicine:? ??Counseling:?Wound Care Instructions Given and Taught to Patient?.?Thorough Discussion on Pedal Hygiene and Antifungal Tips for Feet and Shoegear?.?Extensive Education on Shoes and Shoe Recommendations Given to Patient. Shoe fit and appropriate nature discussed and evaluated?.? * Follow Up:?2 Weeks * * Electronic signature of Komal Nolasco DPM on 10/27/2024 at 10:39 AM SUPERVISOR SPECIAL EFFECTS Sign off status: Pending * Provider:?Royal Nolasco DPM Date:?0 05/13/2023 Generated for Gurmeet wynne/Azael/eTransmitting on:?10/27/2024 10:39 AM SUPERVISOR SPECIAL EFFECTS History and Physical Notes * HPI (History of Present Illness) Category Sub-Category Detail Notes Category Not es Ingrown Nail This 23 year ol d female presents to clinic with primary complain of painful, ingrowing toenails of the right 1st toe. Patient states this issue has been present for several weeks, and has become increasingly pain. Patient admits that they have had this issue in the past, and has become a recurrent problem for them. They admit to drainage, redness, and pus coming from the toenail. They have attempted at home debridement of the ingrowing toenail without successful alleviation of symptoms. Patient denies any recent nausea, vomiting, fever and shortness of breath. Patient has no other complaints on today's appointment. Examination Category Sub-Category Detail Notes Category Not es General examination Extremities: No clubbing, no generalized lower extremity edema, No cyanosis, Normal lower extremity hair growth for age/race General appearance: WD NAD, Pleasant, We ll nourished and hydrated, A & O x 3 Skin: Normal tone, texture , turgor for age/race, No rash, No open wounds at this time, No local signs of infection, No cellulitis, Positive digital/pedal hair growth Neurologic: Gross sensation inta ct, Normal sensation and strength for age and race, Normal epicritic sensation and reflexes for age and race, Normal strength, tone and reflexes for age and race, Symmetrical DTR's for age and race, Normal Babinski bilaterally, No clonus noted left or right feet/ankles, Gait normal for age and race Peripheral pulses: Pedal pulses normal (2+) bilateral lower extremity, No pedal or lower extremity trophic skin changes bilateral lower extremity, Pedal and lower extremity skin warm bilateral lower extremity, Prompt capillary refill time to all digits bilateral lower extremity Musculoskeletal No gross structural deformities, Normal ROM all foot/ankle joints for age/race, muscle strength 5/5 all pedal compartments bilateral lower extremity Lymph nodes: Non-palpable poplite al lymph nodes, No lymphangitis, No generalized lower extremity lymphedema Toenails , Right hallux , med ial border , Painful ingrowing toenails with nail fold hypertrophy and inflammation; painful with palpation and manipulation
--- OUTSIDE RECORDS SUMMARY | 2024-10-27 11:39 | XMS_ITS | Patient Health Record ---
Author Organization [facility] Address [address] [place] [address] Care Team Providers Care Lawn Care Professional Name Role Phone Royal Nolasco Unavailable [phone] Allergies No Known Allergies Reason For Referral No Information Social History Tobacco Use: Social History Observation Description Date Details (start date - stop date) Never Smoker NA - NA smoking Question Answer Notes Are you a: nonsmoker Problems Problem Type SNOMED Code ICD Code Onset Dates Problem Status W/U Status Risk Notes Problem Ingrowing nail (484864247) Ingrowing nail (L60.0) Active confirmed Problem Pain in limb (56536462) Pain in right toe(s) (M79.674) Active confirmed Problem Nail dystrophy (85990813) 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 Plan Of Treatment No Information Insurance Providers Payer Name Payer Address Payer Phone Subscriber Number Group Number Insured Name Patient Relationship to Insured Coverage Start Date Coverage End Date [facility] PPO [address] [place] [address] [id number] Felipe Narayan Self - patient is the insured 3 [address] [place] [address] [id number] Felipe Narayan Self - patient is the insured 3 Medical (General) History Surgical History Surgery Date(Month/Year) Left Clavicle Repair Hospitalization History Reason Date(Month/Year) as listed in surgical history
[2024-10-27 12:07] VITALS: BP 121/78; PULSE 93; RESP 16; TEMP 37.1; O2SAT 97; BMI 33.1
--- NOTE | 2024-10-27 12:09 | ED_ITS ---
HPI - Nausea/Vomiting/Diarrhea General Chief complaint: Abdominal Pain Stated complaint: vomiting Time Seen by Provider: 10/27/24 13:36 Source: patient Mode of arrival: ambulatory Limitations: no limitations History of Present Illness ED Provider: Donna Carrion APRN HPI Narrative: 24-year-old female with a history of mild intermittent asthma presents the ER with complaints of multiple episodes of nonbloody, nonbilious vomiting, several episodes of nonbloody diarrhea and lower abdominal pain since last evening. Also complaining of low back pain and body aches. Fevers, chills, upper respiratory symptoms, urinary symptoms, vaginal discharge. No recent travel. No sick contact. Went to [facility] ER and left without completing treatment d/t long wait Associated nausea: Yes Related Data Allergies Allergy/AdvReac Type Severity Reaction Status Date / Time No Known Allergies Allergy Verified 10/27/24 12:12 Review of Systems 2 Review of Systems: Yes all other systems are reviewed and are negative Constitutional: Constitutional: Reports no additional constitutional complaints, Reports body ache(s), Denies chills, Denies fever(s), Denies headache(s) and Denies weakness Eyes: Eyes: Reports no additional eye complaints and Denies change in vision ENT: Reports system reviewed and no additional complaints, except as documented, Denies dizziness, Denies headache(s), Denies nasal congestion, Denies nasal discharge and Denies neck pain Cardiovascular: Cardiovascular: Reports no additional cardiovascular complaints, Denies chest pain, Denies leg edema and Denies dyspnea Respiratory: Respiratory: Reports no additional respiratory complaints, Denies cough and Denies dyspnea Gastrointestinal: Gastrointestinal: Reports no additional gastrointestinal complaints, Reports abdominal pain, Reports diarrhea, Reports nausea and Reports vomiting Genitourinary: Genitourinary: Reports no additional female genitourinary complaints and Denies urinary incontinence Musculoskeletal: Musculoskeletal: Reports no additional musculoskeletal complaints, Reports back pain, Denies arthralgias, Denies joint swelling, Denies neck pain, Denies numbness and Denies tingling Integumentary/Breasts: Skin/Breast: Reports system reviewed and no additional complaints, except as docu and Denies rash Neurologic: Reports system reviewed and no additional complaints, except as documented, Denies Abnormal speech present, Denies dizziness, Denies headache(s), Denies numbness, Denies tingling and Denies weakness PMFSH Past Medical History Attestation statement: The following information was validated with the patient. Source: old records reviewed and nursing notes reviewed Social History Social History Smoked in Last 30 Days: No Use of substances other than those prescribed or required for medical reasons: Yes Substance Use Type: Marijuana Advance Directives: No Advance Directives Information Provided: No Do you have a plan to hurt others: No Plan Patient : No Physical Exam 2 Vital Signs: Vital Signs: Last Vital Signs Temp 98.4 F 10/27/24 16:21 Pulse 82 10/27/24 16:21 Resp 14 10/27/24 16:21 BP 113/72 10/27/24 16:21 Pulse Ox 99 10/27/24 16:21 O2 Del Method Room Air 10/27/24 16:21 BMI result Body Mass Index 33.1 Const: General: cooperative, healthy appearing, comfortable and no acute distress Orientation/consciousness: patient oriented x3 Limitations: no limitations HEENT: Head: Yes normal to inspection Ears: hearing grossly normal bilaterally General nose exam: Normal external nose present Face and sinus: Yes normal facial exam Mouth: Normal oral and palatal mucosa present Throat: Yes posterior oropharynx normal Eyes: General: appearance normal, both eyes and all related structures P upils: Equal, round and reactive pupils present Neck: Neck: Yes normal visual inspection Chest: Chest palpation & inspection: normal inspection of the chest Resp: Effort & Inspection: normal respiratory effort Auscultation: clear to auscultation bilaterally Cardio: Rate: regular rate Rhythm: regular rhythm Peripheral pulses: P eripheral pulses 2+ throughout GI: Inspection: Yes normal to inspection Palpation (GI): Soft to palpation, Tenderness to palpation present (GI) in the RLQ; with no rebound tenderness and no guarding Auscultation: normal bowel sounds : Other: Performed with finishing lab technician Speculum Exam - Vagina: normal appearance of the vagina Speculum Exam - Cervix: normal appearance of the cervix Bimanual exam- vagina & uterus: n ormal bimanual exam and no cervical motion tenderness Bimanual Exam- Adnexa, other: normal adnexae and no tenderness Back/Spine/Pelvis: Thoracic/Lumbar Spine: thoracic and lumbar spine normal to inspection Skin: General skin exam: no rashes or lesions noted Neuro: General: patient oriented x3, no focal motor deficits and normal sensation to monofilament Cranial nerves: Yes Equal, round and reactive pupils present Cognition (Neuro): normal cognition Speech: No Abnormal speech present Gait exam (Neuro): Normal gait present Motor exam (neuro): 5/5 motor strength present throughout Extrem: General: Yes normal to inspection Course Course Course Narrative: This is a Rapid Medical Exam performed in triage by Pauline Lozada PA-C. Full HPI, ROS and PE to be performed by primary ED provider. 24 yo F presenting to the ED c/o nausea, vomiting, diarrhea, abdominal pain, back pain, myalgias since last night. Unable to keep anything down. Went to [place] this AM however LWCT. denies travel, sick contacts PE: abdomen soft, mild RLQ ttp Plan: EKG, labs, UA, IVF Reevaluation(s) Reevaluation #1: CT shows IMPRESSION: The distal portion of the appendix is visualized and appears normal. There is a loculated fluid density of the right side of the pelvis adjacent to the root of appendix and the right adnexa. The differential diagnosis includes a cyst of the ovary, fluid in the bowel and an abscess. Clinical correlation is recommended. Correlation with pelvic ultrasound finding may be of benefit. Nonobstructing small left kidney stone. I think this is likely an incidental finding. 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 However, I will perform a pelvic exam, obtain pelvic US. Patient already feeling better. Tolerating PO. She has not had any new sexual partners and does not have concerns for STI. Reevaluation #2: 1600-Normal Pelvic Exam. Will sign out to Dontae RAMÍREZ pending pelvic US results. Patient's ultrasound did not show any abnormal pathology including ovarian cysts or adnexal mass. I reviewed the CT scan and saw a 2 x 3 x 4 cm cystic lesion adjacent to the appendix[place] [address], I discussed with general surgery, Dr. Ann, who agrees the patient requires admission for observation. I ordered blood cultures, lactic acid and a dose of Zosyn Time: 19:18 Medications Administered Discontinued Medications Generic Name Dose Route Start Last Admin Trade Name Freq PRN Reason Stop Dose Admin Sodium Chloride 1,000 mls @ 999 mls/hr 10/27/24 13:43 10/27/24 15:16 Ns IV 10/27/24 14:43 Infused .Q1H1M STA Infusion Iohexol 100 ml 10/27/24 14:33 10/27/24 14:33 Iohexol 350 Mg/Ml 100 Ml Infus..Btl IV 10/27/24 14:34 85 ml ONCE ONE Administration Ketorolac Tromethamine 15 mg 10/27/24 13:43 10/27/24 14:00 Ketorolac Tromethamine 15 Mg/Ml Vial IVPUSH 10/27/24 13:44 15 mg ONCE ONE Administration Ondansetron HCl 4 mg 10/27/24 13:43 10/27/24 14:00 Ondansetron Hcl 4 Mg/2 Ml Vial IVPUSH 10/27/24 13:44 4 mg ONCE ONE Administration Medical Decision Making Medical Decision Making [facility] Narrative: 24-year-old female with a history of mild intermittent asthma presents the ER with complaints vomiting, diarrhea, abdominal pain, low back pain and body aches since last evening. RLQ with TTP. No rebound or guarding. Abdomen is soft nondistended. Will obtain labs, UA, urine , viral testing, CT Will provide analgesia, antiemetic and IV fluids Differential Diagnosis Differential Diagnoses: The differential diagnosis associated with the presentation includes Gastroenteritis, appendicitis Low suspicion for ectopic , ovarian torsion, PID, TOA Admission/Observation Consideration of admission/observation: Escalation of care including admission/observation considered Lab Data [facility] Lab Attestation statement: I reviewed the patient's lab results. 10/27/24 12:30 10/27/24 12:29 Labs: Lab Results 10/27/24 10/27/24 10/27/24 Range/Units 12:29 12:30 14:02 WBC 20.5 H (4.8-10.8) X10*3/uL RBC 4.80 (4.20-5.50) X10*6/uL Hgb 13.4 (12.0-16.0) g/dl Hct 40.0 (37.0-47.0) % MCV 83.3 (80.0-98.0) fL MCH 27.9 (27.0-33.0) pg MCHC 33.5 (31.0-35.0) g/dl RDW 13.5 (11.0-16.0) % Plt Count 418 H (160-400) X10*3/uL MPV 8.7 L (9.4-12.3) fL Immature Gran % (Auto) 0.5 H (0.0-0.4) % Neut % (Auto) 93.3 H (45-73) % Lymph % (Auto) 2.6 L (20-40) % [place] % (Auto) 3.2 (2-11) % Eos % (Auto) 0.2 (0-4) % Baso % (Auto) 0.2 (0-2) % Lymph # (Auto) 0.5 L (1.2-4.9) X10*3/uL [place] # (Auto) 0.7 (0.1-1.2) X10*3/uL Eos # (Auto) 0.1 (0.0-0.4) X10*3/uL Baso # (Auto) 0.1 (0.0-0.2) X10*3/uL Abs Immat Gran (auto) 0.11 H (0.00-0.03) X10*3/uL Absolute Neuts (auto) 19.1 H (2.0-8.3) x10*3/uL Absolute Nucleated RBC 0.000 (0.0-0.012) X10*3/uL Nucleated RBC % (auto) 0.0 (0.0-0.2) /100WBC Smear Tech's Comments VERIFIED Sodium 141 (135-145) mmol/L Potassium 4.4 (3.3-5.1) mmol/L Chloride 111 H (96-108) mmol/L Carbon Dioxide 21 L (22-29) mmol/L Anion Gap 13 (12-20) BUN 14 (9-16) mg/dL Creatinine 0.69 (0.5-1.4) mg/dL Estim Creat Clear Calc 146.9 Estimated GFR > 60 Random Glucose 103 (60-115) mg/dL Calcium 9.5 (8.4-10.2) mg/dL Magnesium 1.9 (1.6-2.6) mg/dL Total Bilirubin 1.3 H (0.0-1.0) mg/dL Direct Bilirubin 0.4 (0.0-0.5) mg/dL AST 19 (5-31) U/L ALT 19 (0-31) U/L Alkaline Phosphatase 68 (39-117) U/L Total Protein 8.0 (6.5-8.0) g/dL Albumin 4.5 (3.5-5.0) g/dL Lipase 19 (8-78) U/L Urine Color Yellow Urine Appearance Clear Urine pH 8.5 (5.0-9.0) Ur Specific [place] 1.020 (1.005-1.025) Urine Protein Trace (Neg-Trace) mg/dL Urine Glucose (UA) Negative (Negative) mg/dL Urine Ketones Negative (Negative) mg/dL Urine Blood Negative (Negative) Urine Nitrite Negative (Negative) Ur Leukocyte Esterase Negative (Negative) Urine Test NEGATIVE (NEGATIVE) Influenza Type A (PCR) NEGATIVE (Negative) Influenza Type B (PCR) NEGATIVE (Negative) RSV RNA Qual (PCR) NEGATIVE (Negative) SARS-CoV-2 RNA (RT-PCR) NEGATIVE (Negative) Independent Interpretation I performed an independent interpretation of an: Ultrasound and CT Scan Interpretation: I independently viewed the CT scan agree with the radiology report Radiology Impression Discussion of test interpretation with radiology: I have reviewed the radiologist's reading. Radiologist Impression: [place] [id number] CT Scan Report Signed Patient: Felipe Narayan MR#: [id number] : 2000 Acct:[id number] Age/Sex: 24 / F ADM Date: 10/27/24 Loc: .ED Attending Dr: Ordering Physician: Donna Carrion NP Date of Service: 10/27/24 Procedure(s): CT abdomen pelvis w IV con Accession Number(s): [id number] cc: Donna Carrion NP; Physician,Unknown ~ Report Number: [id number]: Total DLP = 900.00 mGy-cm CLINICAL HISTORY: RLQ AP, vomiting, leukocytosis, r o acute appy CT abdomen and pelvis with contrast Comparison: None Findings: The visualized portions of the lungs are normal in appearance. The liver is normal in size without suspicious focal hepatic lesions. No intrahepatic or extrahepatic ductal dilatation is seen. The hepatic and portal veins are patent. No calcified gallstones in the gallbladder. Pancreas, spleen and adrenals are normal in appearance. No suspicious focal lesion of the kidneys. No hydronephrosis. Small left kidney stone. The abdominal aorta demonstrates no evidence of aneurysmal dilatation or dissection. The colon is normal in appearance and without wall thickening or inflammatory change. No evidence of bowel obstruction. The distal portion of the appendix is visualized and appears normal. There is loculated fluid density of the right side of the pelvis adjacent to the root of the appendix and the right adnexa measuring 2 x 3 x 4 cm in size series 3, image 74 and series 6, image 46. No intraperitoneal free air or fluid is visualized. No pathologic lymphadenopathy is seen. There are no osseous or soft tissue abnormalities. IMPRESSION: The distal portion of the appendix is visualized and appears normal. There is a loculated fluid density of the right side of the pelvis adjacent to the root of appendix and the right adnexa. The differential diagnosis includes a cyst of the ovary, fluid in the bowel and an abscess. Clinical correlation is recommended. Correlation with pelvic ultrasound finding may be of benefit. Nonobstructing small left kidney stone. This document has been electronically signed by: Diann Georges MD on 10/27/2024 15:11:52 Findings: Transabdominal scanning performed for overall anatomy. Transvaginal scanning performed for additional detail. Uterus is 8.4 cm length. Normal myometrium. Endometrium 1.0 mm thickness. Right ovary 3.2 x 2.3 x 1.6 cm. Left ovary 3.3 x 2.2 x 1.7 cm. Normal color Doppler with arterial/venous spectral tracing of both ovaries. No free fluid. IMPRESSION: 1. Normal pelvic ultrasound with Doppler. No evidence of ovarian torsion. No large ovarian cyst. This document has been electronically signed by: Diann Georges MD on 10/27/2024 17:43:33 Discharge Plan Discharge Clinical Impression: Intra-abdominal abscess Patient Disposition: Admitted As Inpatient Instructions: Gastroenteritis (ED) Referrals: Physician,Unknown J [Primary Care Provider] - 1 week Print Language: Latvian
[2024-10-27 12:37] LABS: Basophils Absolute Auto 0.1 X10*3/uL (0.0-0.2); Basophils Percent Auto 0.2 % (0-2); Eosinophils Absolute Auto 0.1 X10*3/uL (0.0-0.4); Eosinophils Percent Auto 0.2 % (0-4); Hemoglobin 13.4 g/dl (12.0-16.0); Imm Gran Abs Auto 0.11 X10*3/uL (0.00-0.03); Imm Gran Pct Auto 0.5 % (0.0-0.4); Lymphocytes Absolute Auto 0.5 X10*3/uL (1.2-4.9); Lymphocytes Percent Auto 2.6 % (20-40); MANUAL DIFF FLAG SCAN; Mean Corpuscular HGB Conc 33.5 g/dl (31.0-35.0); Mean Corpuscular Hemoglobin 27.9 pg (27.0-33.0); Mean Corpuscular Volume 83.3 fL (80.0-98.0); Mean Platelet Volume 8.7 fL (9.4-12.3); Monocytes Absolute Auto 0.7 X10*3/uL (0.1-1.2); Monocytes Percent Auto 3.2 % (2-11); Neutrophils Absolute Auto 19.1 x10*3/uL (2.0-8.3); Neutrophils Percent Auto 93.3 % (45-73); Platelet Count 418 X10*3/uL (160-400); Red Cell Distribution Width 13.5 % (11.0-16.0); SCAN SMEAR FLAG 1; White Blood Count 20.5 X10*3/uL (4.8-10.8)
[2024-10-27 12:39] LABS: UPreg QC Valid YES
[2024-10-27 12:40] LABS: Appearance Urine Clear; Color Urine Yellow; Glucose Urine UA Negative (Negative); Leukocyte Esterase Urine Negative (Negative); Nitrite Urine Negative (Negative); PH 8.5 (5.0-9.0); Urine Blood Negative (Negative); Urine Ketones Negative (Negative); Urine Pregnancy NEGATIVE (NEGATIVE); Urine Protein Trace mg/dL (Neg-Trace)
[2024-10-27 12:54] LABS: Alanine Aminotransferase 19 U/L (0-31); Albumin Level 4.5 g/dL (3.5-5.0); Alkaline Phosphatase 68 U/L (39-117); Anion Gap 13 (12-20); Aspartate Amino Transferase 19 U/L (5-31); Bilirubin Direct 0.4 mg/dL (0.0-0.5); Bilirubin Total 1.3 mg/dL (0.0-1.0); Blood Urea Nitrogen 14 mg/dL (9-16); Calcium 9.5 mg/dL (8.4-10.2); Carbon Dioxide 21 mmol/L (22-29); Chloride 111 mmol/L (96-108); Creatinine Clr Calc Pharmacy 146.9; Estimated Glomerular Filt Rate > 60; Glucose Random 103 mg/dL (60-115); Lipase 19 U/L (8-78); Magnesium 1.9 mg/dL (1.6-2.6); Potassium 4.4 mmol/L (3.3-5.1); Sodium 141 mmol/L (135-145)
--- OUTSIDE RECORDS SUMMARY | 2024-10-27 13:12 | XMS_ITS | Continuity of Care Document ---
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 It does not include entries that were removed or entered in error. 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 Active 07/02/2024 Diagnosis 0110[facility] ASSESSMENT, POST-DEPLOYMENT, DOCUMENTED ON [id number] Active 07/02/2024 Diagnosis 0110 [facility] Human immunodeficiency virus antibody titer Active 07/02[facility]24 [facility] Contusion of left knee, initial encounter Active 05/16/[address] [place] [address] Clinic Contusion of left lower leg, initial encounter Active 05/16/[address] [place] [address] Pain in left ankle and joints of left foot Active Condition [facility] Low back pain Active Condition [facility] Medications Combined list [...] refill(s ), Maintena nce, 1 tab(s) Oral Daily,OR N:allerg y symptoms , Pharmacy : [facility] Oral (given by mouth) Complet ed 07/02/2024 60.0 0010C-D [facility] Flonase 50 mcg/inh nasal spray 50 mcg, Nostril- Both, BID, # 16 g, 5 total refill(s ), Maintena nce, 50 mcg Nostril- Both BID, Pharmacy : [facility] Nostri l-Both (into the nose) Complet ed 07/02/2024 16.0 0010C-D [facility] FLONASE-OTC (BRAND) 50 MCG PRO SPSN [9.9] Take or use exactly as directed .For the nose. 10/27/2024 [id number] [address] [place] [address] FLUARIX QUAD [id number] (influenza virus vaccine quadrival [id number](6 mos and up)/PF), 60MCG/.5ML, SYRINGE, INTRAMUSC, Identec SolutionsOSMITHK LINE, .5 ml SYRINGE Active [id number] 4 2023 0.5 Pharmac y Data Transac tion Service Facilit y IBUPROFEN (ibuprofen) , 800 MG, TABLET, ORAL, STRIDES PHARMA, 500 ea. BOTTLE Cancele d [id number] : 2023 0 Pharmac y Data Transac tion Service Facilit y IBUPROFEN (ibuprofen) , 800 MG, TABLET, ORAL, STRIDES PHARMA, 500 ea. BOTTLE Active [id number] 4 2023 12 Pharmac y Data Transac tion Service Facilit y IBUPROFEN (ibuprofen) , 800 MG, TABLET, ORAL, STRIDES PHARMA, 500 ea. BOTTLE Active [id number] 4 2023 12 Pharmac y Data Transac tion Service Facilit y OXYCODONE-A CETAMINOPHE N (OXYCODONE HCL/ACETAMI NOPHEN), 5MG-325MG, TABLET, ORAL, MALLINKRT PHARM, 500 ea. BOTTLE Active [id number] 4 2023 12 Pharmac y Data Transac tion Service Facilit y PENICILLIN V POTASSIUM (PENICILLIN V POTASSIUM), 500MG, TABLET, ORAL, AUROBINDO PHARM, 500 ea. BOTTLE Active [id number] 4 2023 28 Pharmac y Data Transac tion Service Facilit y PROMETHAZIN E HCL (PROMETHAZI NE HCL), 25MG, TABLET, ORAL, [employer] 1000 ea. BOTTLE Cancele d [id number] : 2023 0 Pharmac y Data Transac tion Service Facilit y PROMETHAZIN E HCL (PROMETHAZI NE HCL), 25MG, TABLET, ORAL, [employer] 1000 ea. BOTTLE Cancele d [id number] : 2023 0 Pharmac y Data Transac tion Service Facilit y PROMETHAZIN E HCL (PROMETHAZI NE HCL), 25MG, TABLET, ORAL, [employer] 1000 ea. BOTTLE Active [id number] 4 2023 6 Pharmac y Data Transac tion Service Facilit y [place] Fexofenadin e Hydrochlori de (Telfast) Tablet 180 mg Oral Take with plenty of water.Ob tain advice for OTCs.Swa llow whole.Av oid grapefru it and grapefru it juice. 10/27/2024 [id number] [facility] Allergies, Adverse Reactions, Alerts Combined [...] Site Reaction Lot Number CVX Code Drug Consulting Practice Director Status Comments Source influenza, injectable, quadrivalent- pf 2020 [id number] 150 ID Biomedical comple t ed influenza , injectabl e, quadrival ent-pf 09/09/21 Given Ambulat ory Pharmac y COVID Vaccine Pfizer 2020 [id number] 208 PFIZER complet ed COVID Vaccine Pfizer 04/01/21 Given Ambulat ory Pharmac y COVID Vaccine Pfizer 2020 [id number] 208 PFIZER complet ed COVID Vaccine Pfizer 03/09/21 Given Ambulat ory Pharmac y influenza, injectable, quadrivalent- pf 2019 zzLef t Arm [id number] 150 Seqirus complet ed influenza , injectabl e, quadrival ent-pf 08/22/20 Given Ambulat ory Pharmac y Influenza, injectable, quadrivalent, preservative free 1 2019 RAZ LARIOS [id number] 150 Seqirus (SEQ) complet ed Influenza [...] Source [employer](IEP Primary Care) OUTPATIENT [id number] COVID TEST MESSI KIM E 04/23 Released w/o Limitations [facility](I EP Primary Care) [facility](P Optometry ) OUTPATIENT [id number] CRISTINA TORRES Nanette 04/23 Released w/o Limitations [employer](I EP Optomet ry) [facility] Physical Therapy) OUTPATIENT [id number] L Ankle Pain SUDEEP, SURYA M 05/21 Immediate Referral [employer](T MC Physica l Therapy ) [facility] Ambulator y) OUTPATIENT [id number] ankle pain XENIA AHN 05/21 Released with Work/Duty Limitations [employer](T MC Ambulat ory) [facility] Physical Therapy) OUTPATIENT [id number] Left ankle / foot--( ref: Mr. Ahn) MARY MANRIQUEZ 05/21 Released with Work/Duty Limitations [employer](T MC Physica l Therapy ) [facility] Physical Therapy) OUTPATIENT [id number] L Ankle Rehab SUDEEP, SURYA M 05/22 Released with Work/Duty Limitations [employer](T [facility] Physica l Therapy ) [facility] Physical Therapy) OUTPATIENT [id number] L Ankle Rehab SUDEEP, SURYA M 05/23 Released with Work/Duty Limitations [employer](T MC Physica l Therapy ) [facility] Physical Therapy) OUTPATIENT [id number] L Ankle Rehab SUDEEP, SURYA M 05/26 Released with Work/Duty Limitations [employer](T MC Physica l Therapy ) [facility] Physical Therapy) OUTPATIENT [id number] L Ankle Rehab SUDEEP, SURYA M 05/27 Released with Work/Duty Limitations [employer](T MC Physica l Therapy ) [employer]([facility] Physical Therapy) OUTPATIENT [id number] L Ankle Rehab SUDEEPSURYA M 05/28 Released with Work/Duty Limitations [employer](T MC Physica l Therapy ) [employer]([facility] Physical Therapy) OUTPATIENT [id number] L Ankle Rehab SUDEEPSURYA M 05/29 Released with Work/Duty Limitations [employer](T MC Physica l Therapy ) [employer]([facility] Physical Therapy) OUTPATIENT [id number] f/u L ankle MARY MANRIQUEZ 05/30 Released with Work/Duty Limitations [employer](T MC Physica l Therapy ) [employer]([facility] Physical Therapy) OUTPATIENT [id number] L Ankle Rehab SURYA SHEETS M 06/02 Released with Work/Duty Limitations [employer](T MC Physica l Therapy ) [employer]([facility] Physical Therapy) OUTPATIENT [id number] L Ankle Rehab SURYA HSEETS M 06/03 Released with Work/Duty Limitations [employer](T MC Physica l Therapy ) [employer]([facility] Physical Therapy) OUTPATIENT [id number] Follow up MARY MANRIQUEZ 06/11 Released with Work/Duty Limitations [employer](T MC Physica l Therapy ) [employer]([facility] Physical Therapy) OUTPATIENT [id number] Follow up results MARY MANRIQUEZ 06/17 Released with Work/Duty Limitations [employer](T MC Physica l Therapy ) [employer](PES Physical Therapy/P TRP) OUTPATIENT [id number] Notes Entered by: Dayron BAÑUELOS 25 Jun 2020 1033 ------- ------- ------- ------- -- BFDAISY BALLARD 06/25 Released w/o Limitations [employer](P ES Physica l Therapy /PTRP) [employer](PES Physical Therapy/P TRP) OUTPATIENT [id number] Notes Entered by: Dayron BAÑUELOS 26 Jun 2020 1050 ------- ------- ------- ------- -- DAISY PAIZ 06/26 Released w/o Limitations [employer](P ES Physica l Therapy /PTRP) [employer](PES Physical Therapy/P TRP) OUTPATIENT [id number] Notes Entered by: Dayron BAÑUELOS 01 Jul 2020 1031 ------- ------- ------- ------- -- DAISY PAIZ 07/01 Released w/o Limitations [employer](P ES Physica l Therapy /PTRP) [employer](PES Physical Therapy/P TRP) OUTPATIENT [id number] Notes Entered by: Dayron BAÑUELOS 04 Jul 2020 1350 ------- ------- ------- ------- -- DAISY Martinez 07/04 Released w/o Limitations [employer](P ES Physica l Therapy /PTRP) [employer](PES Physical Therapy/P TRP) OUTPATIENT [id number] Notes Entered by: Dayron BAÑUELOS 07 Jul 2020 1346 ------- ------- ------- ------- -- OBDULIA So 07/07 Released w/o Limitations [employer](P ES Physica l Therapy /PTRP) [employer](C Physical Therapy) OUTPATIENT [id number] WT--f /u MARY MANRIQUEZ 07/07 Released with Work/Duty Limitations [employer](T MC Physica l Therapy ) [employer](PES Physical Therapy/P TRP) OUTPATIENT [id number] Notes Entered by: Dayron BAÑUELOS 08 Jul 2020 1344 ------- ------- ------- ------- -- DAISY MARROQUIN 07/08 Released w/o Limitations [employer](P ES Physica l Therapy /PTRP) [employer](PES Physical Therapy/P TRP) OUTPATIENT [id number] Notes Entered by: Dayron BAÑUELOS 10 Jul 2020 1014 ------- ------- ------- ------- -- OBDULIA TOBAR 07/10 Released w/o Limitations [employer](P ES Physica l Therapy /PTRP) [employer](PES Physical Therapy/P TRP) OUTPATIENT [id number] Notes Entered by: Dayron BAÑUELOS 11 Jul 2020 1059 ------- ------- ------- ------- -- OBDULIA So 07/11 Released w/o Limitations [employer](P ES Physica l Therapy /PTRP) [employer](PES Physical Therapy/P TRP) OUTPATIENT [id number] Notes Entered by: Dayron BAÑUELOS 15 Jul 2020 1048 ------- ------- ------- ------- -- DAISY MARROQUIN 07/15 Released w/o Limitations [employer](P ES Physica l Therapy /PTRP) [employer](PES Physical Therapy/P TRP) OUTPATIENT [id number] Notes Entered by: Dayron BAÑUELOS 16 Jul 2020 1119 ------- ------- ------- ------- -- OBDULIA So 07/16 Released w/o Limitations [employer](P ES Physica l Therapy /PTRP) [employer]([facility] Physical Therapy) OUTPATIENT [id number] Ankle F/U MARY MANRIQUEZ 07/17 Released with Work/Duty Limitations [employer](T MC Physica l Therapy ) [facility] [facility] OUTPATIENT [id number] Notes Entered by: ST YANELI GARRISON 18 Jul 2020 1140 ------- ------- ------- ------- -- BONI KIDD 07/18 Released w/o Limitations [employer]([facility]) [employer]([facility] Primary Care) OUTPATIENT [id number] back pain after lifting PAVLAKOVIC H, ALEX B 07/21 Released w/o Limitations [employer](I EP Primary Care) [employer]([facility]) OUTPATIENT [id number] [facility] TOBIDHARMESH AGUILARDANO Fitzpatrick 07/22 Released w/o Limitations [employer]([facility]) [employer](PES Physical Therapy/P TRP) OUTPATIENT [id number] Notes Entered by: Dayron BAÑUELOS 23 Jul 2020 1136 ------- ------- ------- ------- -- DAISY Martinez 07/23 Released w/o Limitations [employer](P ES Physica l Therapy /PTRP) [facility]) OUTPATIENT [id number] Notes Entered by: PINKY Murdock YAHIR 24 Jul 2020 0944 ------- ------- ------- ------- -- Guillermo DHARMESH PETTITDANO Fitzpatrick 07/24 Released w/o Limitations [facility]) [employer](PES Physical Therapy/P TRP) OUTPATIENT [id number] Notes Entered by: Dayron BAÑUELOS 30 Jul 2020 1318 ------- ------- ------- ------- -- OBDULIA So 07/30 Released w/o Limitations [employer](P ES Physica l Therapy /PTRP) [employer]([facility] Physical Therapy) OUTPATIENT [id number] WT--F /u-(JOSHUA Perry 07/31 Released w/o Limitations [employer](T MC Physica l Therapy ) [employer](C Physical Therapy) OUTPATIENT [id number] Inserts (women' s 8) GETACHEW LIZ 07/31 Released w/o Limitations [employer](T MC Physica l Therapy ) [employer](PES Physical Therapy/P TRP) OUTPATIENT [id number] Notes Entered by: Dayron BAÑUELOS 06 Aug 2020 1041 ------- ------- ------- ------- -- Therex OBDULIA BAÑUELOS 08/06 Released w/o Limitations [employer] [facility](P ES Physica l Therapy /PTRP) [facility] Physical Therapy/P TRP) OUTPATIENT [id number] Notes Entered by: Dayron BAÑUELOS 08 Aug 2020 1312 ------- ------- ------- ------- -- OBDULIA So 08/08 Released w/o Limitations [facility](P ES Physica l Therapy /PTRP) [facility] Flu Clinic) OUTPATIENT [id number] JOSE LARIOS 08/22 Released w/o Limitations [facility] Flu Clinic) [facility](IEP Primary Care) OUTPATIENT [id number] Notes Entered by: ANCA VÁSQUEZ 26 Aug 2020 1007 ------- ------- ------- ------- -- IET IMM ANCA MONROY 08/26 Released w/o Limitations [facility](I EP Primary Care) [facility](C-2 Optometry [place]) OUTPATIENT [id number] Notes Entered by: ROMAN CLINE 13 Nov 2020 0656 ------- ------- ------- ------- -- Eye exam VINICIO WEEKS 11/13 Released w/o Limitations [facility] -[facility] [place]) [facility]([address] [place]) OUTPATIENT [id number] Notes Entered by: SUZY MONTESINOS 25 Nov 2020 1015 ------- ------- ------- ------- -- Ankle Pain ARNAUD MORENO 11/25 Released with Work/Duty Limitations [facility]([address] [place]) [employer](IEP Primary Care) OUTPATIENT [id number] Notes Entered by: Michel KIM 01 Jan 2021 0629 ------- ------- ------- ------- -- DEF IMM MESSI KIM 01/01 Released w/o Limitations [employer](I EP Primary Care) 0010C-[facility] [id number] CHAPINCITO ASTORGA 05/11 Discharge Disposition: Home or Self Care 0010C-D [facility] 0C-[facility] [id number] Contusi on of left lower leg, initial encount er,Cont usion of left knee, initial encount er ZOE JARVISAXHALIE 05/16 Discharge Disposition: Home or Self Care 0010C-D [facility] 0-Franko [facility] Between Visit [id number] 05/18 Discharge Disposition: Home or Self Care 0010C-D [facility] 0C-[facility] Between Visit [id number] 05/18 Discharge Disposition: Home or Self Care 0010C-D [facility] 0110A[facility] Dargenl-Logan avazos Mass Readiness [id number] ASSESSM ENT, POST-DE PLOYMEN T, [place] ON [id number], EXAM, OCCUPAT IONAL, RETIREM ENT OR SEPARAT ION FROM [facility] ED SERVICE , LONG,En counter [...] Ophthalmological New Patient Start Intermediate Level Care 62698 NILSON CHEN I [facility] Spectacles Services Fitting Monofocal Except For Aphakia Spectacles Services Fitting Monofocal Except For Aphakia 42789 NILSON CHEN I [facility] Determination Of Refractive State Determination Of Refractive State 63822 INLSON CHEN I [facility] Athletic Training Evaluation Low Complexity Athletic Training Evaluation Low Complexity 09332 SURYA SHEETS [facility] Ankle control orthosis, stirrup style, rigid, includes any type interface (e.g., pneumatic, gel), prefabricated, [id number] MARY LEE [facility] Physical Therapy Education Orthotics Training Physical Therapy Education Orthotics Training 82577 MARY LEE [facility] Physical Therapy Service Evaluation Low Complexity Physical Therapy Service Evaluation Low Complexity 93304 MARY LEE [facility] Physical Therapy: ___ Se ion Segments, 15 Minutes Each Physical Therapy: ___ Session Segments, 15 Minutes Each 30823 SURYA SHEETS [facility] Modalities Cryotherapy Cold Packs Modalities Cryotherapy Cold Packs 09717 SUDEEPSURYA [facility] Taping Ankle Taping Ankle 38720 SURYA SHEETS KT Tape to Decrease Swelling [facility] Physical Therapy Service Re-Evaluation Physical Therapy Service Re-Evaluation 40522 MARY LEE [facility] Lower extremity orthoses, not otherwise specified MARY LEE [facility] Physical Therapy Neuromuscular Re-education Physical Therapy Neuromuscular Re-education 66117 DAISY TAN 25 mins [facility] Physical Therapy: ___ Se ion Segments, 15 Minutes Each Physical Therapy: ___ Session Segments, 15 Minutes Each 37942 DAISY TAN 15 mins [facility] Physical Therapy Neuromuscular Re-education Physical Therapy Neuromuscular Re-education 91466 OBDULIA BAÑUELOS 20 min [facility] Physical Medicine - Group Physical Therapy Se ion Physical Medicine - Group Physical Therapy Session 16855 OBDULIA BAÑUELOS [facility] Physical Therapy Neuromuscular Re-education Physical Therapy Neuromuscular Re-education 07725 DAISY TAN 20 mins [facility] Physical Therapy Neuromuscular Re-education Physical Therapy Neuromuscular Re-education 34531 OBDULIA BAÑUELOS 10 min [facility] Physical Therapy Neuromuscular Re-education Physical Therapy Neuromuscular Re-education 54437 DAISY TAN 10 mins [facility] Patient education, not otherwise cla ified, non-physician provider, group, per se ion BONI GARRISON [facility] Bioelectrical Impedance Analysis Whole Body Supine With Interpretation And Report Bioelectrical Impedance Analysis Whole Body Supine With Interpretation And Report [id number] RON PETTIT [facility] Vital Signs Recorded Vital Signs Recorded RON PETTIT [facility] Pulmon Function - O2 Uptake - Gas Analysis Rest, Ind Pulmon Function - [place] [address] RON PETTIT [facility] Nutrition cla es, non-physician provider, per se ion RON PETTIT [facility] Physical Therapy Education Orthotics Training Physical Therapy Education Orthotics Training 43227 GETACHEW MORTON 10min [facility] Foot, arch support, removable, premolded, longitudinal, each GETACHEW MORTON 1 pair dispensed [facility] Physical Therapy Neuromuscular Re-education Physical Therapy Neuromuscular Re-education 02275 OBDULIA BAÑUELOS 25 min [facility] Influenza Split Virus Vaccine IM Preserv Free 0.5mL Dosage Quadrivalent Influenza Split Virus Vaccine IM Preserv Free 0.5mL Dosage Quadrivalent 94977 RAZ LARIOS Influenza, Inj., quad., preservative free (Afluria); Series #: 1; 0.5 mL; IM; Left Arm; Mfg: Seqirus; Lot: [id number]; VIS given (Vic: 06/07/2019). [facility] Immunization Administration By Injection, One Vaccine Immunization Administration By Injection, One Vaccine 78673 RAZ LARIOS [facility] Immunization Administration By Injection, Each Additional Vaccine Immunization Administration By Injection, Each Additional Vaccine 86999 ANCA MONROY [facility] Hepatitis A And Hepatitis B (Intramuscular Use) Adult Dosage Hepatitis A And Hepatitis B (Intramuscular Use) Adult Dosage 38283 ANCA MONROY [facility] Vaccines Viral Polio, Inactivated Vaccines Viral Polio, Inactivated 19141 ANCA MONROY [facility] Meningococcal Conjugate Vaccine Quadrivalent Serogroups A, C, Y, W-135 Meningococcal Conjugate Vaccine Quadrivalent Serogroups A, C, Y, W-135 03499 ANCA MONROY [facility] Vaccines Viral Measles, Mumps and Rubella, Live Vaccines Viral Measles, Mumps and Rubella, Live 73449 ANCA MONROY [facility] Tdap Vaccine Tdap Vaccine 63951 ANCA MONROY [facility] Vaccines Viral Varicella (Active) Vaccines Viral Varicella (Active) 31424 ANCA MONROY [facility] Immunization Admin Intranasal / Oral Each Additional Vaccine Immunization Admin Intranasal / Oral Each Additional Vaccine 90131 ANCA MONROY [facility] Vaccines Adenovirus Type 4 Live, For Oral Use Vaccines Adenovirus Type 4 Live, For Oral Use 27609 ANCA MONROY Vaccines Adenovirus Type 7 Live, For Oral Use Vaccines Adenovirus Type 7 Live, For Oral Use 74667 ANCA MONROY [facility] Ophthalmological New Patient Start Comprehensive Care Ophthalmological New Patient Start Comprehensive Care 13833 VINICIO WEEKS [facility] FITTING OF SPECTACLES, EXCEPT FOR APHAKIA; MONOFOCAL 2020 [facility] VARICELLA VIRUS VACCINE (FREDDIE), LIVE, FOR SUBCUTANEOUS USE 2020 [facility] ADENOVIRUS VACCINE, TYPE 7, LIVE, FOR ORAL USE 2019 [facility] IMMUNIZATION ADMINISTRATION (INCLUDES PERCUTANEOUS, INTRADERMAL, SUBCUTANEOUS, OR INTRAMUSCULAR INJECTIONS); 1 VACCINE (SINGLE OR COMBINATION VACCINE/TOXOID) 2019 [facility] APPLICATION OF A MODALITY TO 1 OR MORE AREAS; HOT OR COLD PACKS 2019 [facility] THERAPEUTIC PROCEDURE(S), GROUP (2 OR MORE INDIVIDUALS) 2019 [facility] FOOT, ARCH SUPPORT, REMOVABLE, PREMOLDED, LONGITUDINAL, EACH 2019 [facility] RE-EVAL,PHYSICAL THERAPY EST PLAN OF CARE,REQ:EXAM,REV, HX & USE,STAND TESTS &DANITA REQ;REV PLAN OF CARE USING STAND PAT ASSESS INSTR &/DANITA ASSESS FUNC OUTCOME TYP,20 MIN SPENT [id number] W PAT&/FAM 2019 [facility] THERAPEUTIC PROCEDURE(S), GROUP (2 OR MORE INDIVIDUALS) 2019 [facility] NUTRITION CLASSES, NON-PHYSICIAN PROVIDER, PER SESSION 2019 [facility] THERAPEUTIC PROCEDURE(S), GROUP (2 OR MORE INDIVIDUALS) 2019 [facility] OXYGEN UPTAKE, GAS ANALYSIS; REST, INDIRECT (SEPARATE PROCEDURE) 2019 [facility] PATIENT EDUCATION, NOT OTHERWISE CLASSIFIED, NON-PHYSICIAN PROVIDER, GROUP, PER SESSION 2019 [facility] RE-EVAL,PHYSICAL THERAPY EST PLAN OF CARE,REQ:EXAM,REV, HX & USE,STAND TESTS &DANITA REQ;REV PLAN OF CARE USING STAND PAT ASSESS INSTR &/DANITA ASSESS FUNC OUTCOME TYP,20 MIN SPENT DLXY-CX-WFTM W PAT&/FAM 2019 [facility] THERAPEUTIC PROCEDURE(S), GROUP [...] &/DANITA ASSESS FUNC OUTCOME TYP,20 MIN SPENT [id number] W PAT&/FAM 2019 [facility] THERAPEUTIC PROCEDURE, 1 [...] &/DANITA ASSESS FUNC OUTCOME TYP,20 MIN SPENT PFOX-OR-CFLH W PAT&/FAM 2019 [facility] LOWER EXTREMITY ORTHOSES, [...] &/DANITA ASSESS FUNC OUTCOME TYP,20 MIN SPENT [id number]-[id number] W PAT&/FAM 2019 [facility] APPLICATION OF A [...] 2019 [facility] STRAPPING; ANKLE AND/OR FOOT 2019 [facility] [facility] APPLICATION OF A MODALITY TO 1 OR MORE AREAS; HOT OR COLD PACKS 2019 DoD PHYSICAL THERAPY EVALUATION:LOW COMPLEXITY,REQ:HIS T W NO PERS FACT &/COMORB THAT IMPACT PLAN OF CARE;CLIN DECIS MAKING OF LOW COMPLEXITY,TYPICAL LY,20 MIN ARE SPENT [id number] W THE PATIENT &/FAMILY 2019 DoD ATHLETIC TRAINING EVALUATION, LOW COMPLEXITY,REQ:HIS T & PHYS ACT PROFILE W NO COMORB;EXAM AFF BODY AREA,ADDRESS 1-2 ELEMENTS;CLIN DEC TIFFANI,LOW,TYP,15 MIN ARE SPENT [id number] W THE PATIENT &/FAMILY 2019 DoD DETERMINATION [...] creation of this note. Despite proofreading, minor blanket cutter hand errors may be present. Please call with any clinical questions or concerns.? Capt Zoe Gaffney, DO E [employer] [place], [place] ? Extracted from:Title: Cough Author: VINICIO CROCKER, [employer] Date: 10/28/23 Cough, unspecified 23 year old female in no acute distress reported one month of non-productive cough, denies fever, body aches, recent weight loss, repported recently moving to [facility]. Patient denies chest pain and shortness of [...] Maintenance, 1 tab(s) Oral Daily,PRN:allergy symptoms, Pharmacy: [facility] [Not filled] fluticasone nasal(Flonase 50 mcg/inh nasal spray), 50 mcg, Nostril-Both, BID, # 16 g, 5 total refill(s), Maintenance, 50 mcg Nostril-Both BID, Pharmacy: [facility] [Not filled] XR Chest 2 Views ? 10/27/2024 Ambulatory Pharmacy Functional Status Combined list of recent functional and cognitive assessments recorded at [employer] of [employer] and [employer] (VA).VA Functional [place] Measurement (FIM) Scale: 1 = Total Assistance (Subject = 0% +), 2 = Maximal Assistance (Subject = 25% +), 3 = Moderate Assistance (Subject = 50% +), 4 = Minimal Assistance (Subject = 75% +), 5 = Supervision, 6 = Modified [place] (Device), 7 = Complete [place] (Timely, Safely). Assessment Date/Time Source Assessment Type Assessment Skill Assessment Score Assessment Details No data available for this section
[2024-10-27 13:17] LABS: SLIDE REVIEW VERIFIED
[2024-10-27] MEDS: 0.9 % Sodium Chloride 1,000 ML 999 ML IV (14:00)
[2024-10-27] MEDS: ondansetron HCL 4 MG/2 ML VIAL IVPUSH (14:00)
[2024-10-27] MEDS: Ketorolac Tromethamine 15 MG/ML VIAL IVPUSH (14:00)
[2024-10-27] MEDS: iohexoL 350 MG/ML 100 ML INFUS..BTL IV (14:33)
[2024-10-27 14:44] LABS: Influenza A PCR NEGATIVE (Negative); Influenza B PCR NEGATIVE (Negative); Resp Syncy Virus RNA Qual PCR NEGATIVE (Negative); SARS COV2 PCR INHOUSE NEGATIVE (Negative)
--- NOTE | 2024-10-27 15:33 | PC.NURSE ---
pelvic exam performed by provider - swabs obtained/sent to lab. pt tolerated well.
[2024-10-27 16:21] VITALS: BP 113/72; PULSE 82; RESP 14; TEMP 36.9; O2SAT 99
--- NOTE | 2024-10-27 16:51 | PC.NURSE ---
pt to ultrasound at this time.
[2024-10-27] MEDS: Dextrose 5 % and Lactated Ring 1,000 ML 125 ML IVCONT (19:38)
[2024-10-27] MEDS: Piperacillin Sodium/Tazobactam 3.375 GM in 0.9 % Sodium Chloride 50 ML IV (19:39)
[2024-10-27 19:43] LABS: Lactic Acid 1.1 mmol/L (0.5-2.0)
--- NOTE | 2024-10-27 19:49 | PC.NURSE ---
this rn assumed care of pt at this time, pt sitting up and drinking water, tolerating well. Iv fluids administered and iv antibiotics administered.
[2024-10-28] MEDS: Piperacillin Sodium/Tazobactam 3.375 GM in 0.9 % Sodium Chloride 50 ML IV ×3 (02:32→14:34)
[2024-10-28 02:50] LABS: CT PCR NOT DETECTED (Not Detect.); NG PCR NOT DETECTED (Not Detect.)
[2024-10-28] MEDS: Dextrose 5 % and Lactated Ring 1,000 ML 125 ML IVCONT ×2 (03:29→13:01)
[2024-10-28 04:33] LABS: MANUAL DIFF FLAG NO
[2024-10-28 04:36] LABS: Basophils Percent Auto 0.3 % (0-2); Eosinophils Absolute Auto 0.1 X10*3/uL (0.0-0.4); Eosinophils Percent Auto 0.8 % (0-4); Hemoglobin 11.1 g/dl (12.0-16.0); Imm Gran Abs Auto 0.03 X10*3/uL (0.00-0.03); Imm Gran Pct Auto 0.3 % (0.0-0.4); Lymphocytes Absolute Auto 1.8 X10*3/uL (1.2-4.9); Lymphocytes Percent Auto 20.3 % (20-40); Mean Corpuscular HGB Conc 32.6 g/dl (31.0-35.0); Mean Corpuscular Hemoglobin 27.8 pg (27.0-33.0); Monocytes Absolute Auto 0.7 X10*3/uL (0.1-1.2); Monocytes Percent Auto 7.6 % (2-11); Neutrophils Absolute Auto 6.1 x10*3/uL (2.0-8.3); Neutrophils Percent Auto 70.7 % (45-73); Platelet Count 353 X10*3/uL (160-400); Red Cell Distribution Width 13.5 % (11.0-16.0); White Blood Count 8.7 X10*3/uL (4.8-10.8)
[2024-10-28 06:14] VITALS: BP 123/64; PULSE 62; RESP 17; TEMP 36.6; O2SAT 97
[2024-10-28] MEDS: 0.9 % Sodium Chloride Flush 3 ML SYRINGE IVFLUSH ×2 (07:55→20:02)
[2024-10-28 08:41] VITALS: BP 119/68; PULSE 68; RESP 16; TEMP 36.4; O2SAT 97
--- NOTE | 2024-10-28 08:43 | PHA.MEDREC ---
Addendum entered by Osmel Pack RPh 10/28/24 09:55: MED REC CHECKED BY [facility] Original Note: Pharmacy Consult ? Medication Reconciliation Pharmacy has completed the medication reconciliation. Spoke with patient to confirm.
[2024-10-28] MEDS: ondansetron HCL 4 MG/2 ML VIAL IVPUSH (09:18)
[2024-10-28 09:23] LABS: Bacterial Vaginosis PCR NEGATIVE (Negative); Candida Group PCR NOT DETECTED (Not Detect); Candida glab krusei PCR NOT DETECTED (Not Detect); Trichomonas vaginalis PCR NOT DETECTED (Not Detect)
--- NOTE | 2024-10-28 09:24 | P.HPGS_ITS ---
History of Present Illness History of Present Illness Date of Service: 10/28/24 Chief complaint: Abdominal pain RLQ Narrative: Felipe Narayan is a 24 year old female previously healthy presenting to the emergency department with complaints of multiple episodes of nonbilious vomiting as well as diarrhea and lower abdominal pain which began on the evening prior to presentation. Pain is located mainly in the right lower quadrant but she also complains of back pain and generalized body aches. She reports subjective fever and chills. She was subsequently presented to the emergency department and was found to have an elevated WBC. CT abdomen and pelvis revealed a normal-appearing distal appendix with a loculated fluid density in the right side of the pelvis adjacent to the root of the appendix in the right adnexa., and an abscess. She was admitted for observation and IV antibiotics. This morning she continues to have some abdominal pain but overall feels much improved. She denies any further nausea or vomiting. Pelvic examination and pelvic ultrasound were described as normal. Review of Systems Review of Systems: Yes all other systems are reviewed and are negative [facility] Social History Social History Patient Tobacco Use Status: Never used Tobacco Smoked in Last 30 Days: No Use of substances other than those prescribed or required for medical reasons: Yes Substance Use Type: Marijuana Advance Directives: No Advance Directives Information Provided: No Do you have a plan to hurt others: No Plan Nutrition Risks: No Nutritional Risk Patient : No Meds Allergies Allergy/AdvReac Type Severity Reaction Status Date / Time No Known Allergies Allergy Verified 10/27/24 12:12 Active Medications: Current Medications Acetaminophen (Acetaminophen 325 Mg Tablet) 650 mg PO Q6H PRN PRN Reason: Pain, Mild 1-3,fever,headache Calcium Carbonate (Calcium Carbonate 750 Mg Tab.Chew) 750 mg PO Q4H PRN PRN Reason: Heartburn Dextrose/Lactated Ringer's (D5lr) 1,000 mls @ 125 mls/hr IVCONT .Q8H [facility] Last Admin: 10/28/24 03:29 Dose: 125 mls/hr Piperacillin Sod/Tazobactam (Sod 3.375 gm/ Sodium Chloride) 50 mls @ 100 mls/hr IV Q6H [facility] Last Infusion: 10/28/24 08:52 Dose: Infused Magnesium Hydroxide (Milk Of Magnesia 30 Ml Oral.Susp) 30 ml PO DAILY PRN PRN Reason: Constipation Melatonin (Melatonin 3 Mg Tablet) 6 mg PO BEDTIME PRN PRN Reason: Insomnia Morphine Sulfate (Morphine Sulfate 4 Mg/Ml Cartridge) 2 mg IVPUSH Q4H PRN; Protocol PRN Reason: Pain, Severe (Pain Scale 7-10) Ondansetron HCl (Ondansetron Hcl 4 Mg/2 Ml Vial) 4 mg IVPUSH Q8H PRN PRN Reason: Nausea and Vomiting Last Admin: 10/28/24 09:18 Dose: 4 mg Oxycodone HCl (Oxycodone Hcl Immed Release 5 Mg Tablet) 5 mg PO Q6H PRN PRN Reason: Pain, Moderate(Pain Scale 4-6) Sodium Chloride (0.9 % Sodium Chloride Flush 3 Ml Syringe) 3 ml IVFSH [facility] Last Admin: 10/28/24 07:55 Dose: 3 ml Home Medications ?Medication ?Instructions ?Recorded ?Confirmed ?Last Taken ?Type melatonin 5 mg tablet 5 mg PO BEDTIME PRN Sleep 10/28/24 10/28/24 Unknown History Physical Exam Vital Signs: Vital Signs: Last Vital Signs Temp 97.5 F 10/28/24 08:41 Pulse 68 10/28/24 08:41 Resp 16 10/28/24 08:41 BP 119/68 10/28/24 08:41 Pulse Ox 97 10/28/24 08:41 O2 Del Method Room Air 10/28/24 08:41 BMI result Body Mass Index 33.1 Const: General: cooperative and no acute distress Nutritional Appearance: well nourished Orientation/consciousness: patient oriented x3 Limitations: no limitations HEENT: Head: Yes normocephalic and Yes atraumatic Ears: hearing grossly normal bilaterally Resp: Effort & Inspection: normal respiratory effort, no audible wheezes, no cough and no respiratory distress Cardio: Jugular venous distension: no JVD GI: Inspection: Yes normal to inspection Palpation (GI): Soft to palpation, Tenderness to palpation present (GI) in the LLQ and in the RLQ; Erazo's sign negative, with no rebound tenderness and Rovsing's sign negative, no guarding, not rigid and No hepatosplenomegaly present Percussion: Yes normal to percussion Auscultation: normal bowel sounds Skin: Other: Warm, dry, no rash Neuro: General: patient oriented x3 Extrem: General: Yes no clubbing, cyanosis or edema Results Results Labs: Short CBC 10/27/24 10/28/24 Range/Units 12:30 03:54 WBC 20.5 H 8.7 (4.8-10.8) X10*3/uL Hgb 13.4 11.1 L (12.0-16.0) g/dl Hct 40.0 34.0 L (37.0-47.0) % Plt Count 418 H 353 (160-400) X10*3/uL BMP 10/27/24 12:29 Sodium 141 Potassium 4.4 Chloride 111 H Carbon Dioxide 21 L BUN 14 Creatinine 0.69 Calcium 9.5 Liver Function 10/27/24 Range/Units 12:29 Total Bilirubin 1.3 H (0.0-1.0) mg/dL Direct Bilirubin 0.4 (0.0-0.5) mg/dL AST 19 (5-31) U/L ALT 19 (0-31) U/L Alkaline Phosphatase 68 (39-117) U/L Albumin 4.5 (3.5-5.0) g/dL Urine 10/27/24 Range/Units 12:29 Urine Color Yellow Urine Appearance Clear Urine pH 8.5 (5.0-9.0) Ur Specific [place] 1.020 (1.005-1.025) Urine Protein Trace (Neg-Trace) mg/dL Urine Glucose (UA) Negative (Negative) mg/dL Urine Test NEGATIVE (NEGATIVE) Assessment and Plan (1) Intra-abdominal abscess: Status: Acute Plan 24-year-old female patient presenting with complaints of nausea, vomiting, abdominal pain and diarrhea. Workup with CT abdomen and pelvis revealed a fluid collection at the root of the appendix and adjacent to the right ovary. Differential included an appendiceal abscess, ovarian cyst or bowel fluid. This morning her WBC is normalized and her abdominal pain is much improved. I will start her on clear liquids and advance as tolerated. We will continue with the antibiotics for another 24 hours. Patient expressed understanding and agrees with the plan. Quality Stroke Does the patient have a stroke diagnosis?: No VTE Prior VTE?: No VTE Risk Level:: Surgical - low VTE Device Contraindication: N/A - Device Ordered VTE Drug Contraindication: Treatment Not Indicated Procedures Date of Service Date of Service: 10/28/24
[2024-10-28 10:17] VITALS: BMI 33.1
[2024-10-28 12:00] VITALS: BP 118/77; PULSE 75; RESP 16; TEMP 36.3; O2SAT 98
--- NOTE | 2024-10-28 13:02 | MHC.CM.PN ---
Patient comes from home alone. Functionally independent. Denies use of DME or services. PCP @ [facility] in [place] No HCP. Declines to complete at this time. DP: Goal is home self care. Mom to transport. CM will continue to follow.
[2024-10-28 15:39] VITALS: BP 120/77; PULSE 79; RESP 16; TEMP 36.3; O2SAT 97
[2024-10-28] MEDS: Acetaminophen 325 MG TABLET 650 MG PO (16:57)
[2024-10-28 19:37] VITALS: BP 137/83; PULSE 77; RESP 18; TEMP 36.5; O2SAT 98
[2024-10-28 23:30] VITALS: BP 124/68; PULSE 72; RESP 18; TEMP 36.5; O2SAT 98
[2024-10-29 04:00] VITALS: BP 115/60; PULSE 63; RESP 18; TEMP 36.6; O2SAT 98
[2024-10-29 07:48] VITALS: BP 120/60; PULSE 58; RESP 16; TEMP 36.4; O2SAT 98
[2024-10-29] MEDS: 0.9 % Sodium Chloride Flush 3 ML SYRINGE IVFLUSH (08:36)
--- NOTE | 2024-10-29 10:32 | PM.DS ---
DS: Providers Provider Date of Service: 10/29/24 Date of admission: 10/27/24 19:06 Date of discharge: 10/29/24 Primary care physician: Unknown Physician Attending physician on admission: Maxi Ann Attending physician on discharge: Maxi Ann DS: Diagnosis Discharge Diagnosis (1) Intra-abdominal abscess: Status: Acute DS: Summary Hospital Course Hospital Course: HPI AT ADMISSION: Felipe Narayan is a 24 year old female previously healthy presenting to the emergency department with complaints of multiple episodes of nonbilious vomiting as well as diarrhea and lower abdominal pain which began on the evening prior to presentation. Pain is located mainly in the right lower quadrant but she also complains of back pain and generalized body aches. She reports subjective fever and chills. She was subsequently presented to the emergency department and was found to have an elevated WBC. CT abdomen and pelvis revealed a normal-appearing distal appendix with a loculated fluid density in the right side of the pelvis adjacent to the root of the appendix in the right adnexa., and an abscess. This morning she continues to have some abdominal pain but overall feels much improved. She denies any further nausea or vomiting. Pelvic examination and pelvic ultrasound were described as normal. HOSPITAL COURSE: She was admitted to the surgical service for observation and IV antibiotics. Differential included an appendiceal abscess, ovarian cyst or bowel fluid. Her WBC normalized and her abdominal pain significantly improved. She was therefore started on clear liquids and then advanced later in the day. Her abx were discontinued. The following day she had no abd pain and was tolerating a solid diet. Her abdomen was benign and nontender. She was hemodynamically stable. She felt ready for discharge to home and was discharged on 10/29/24. She can follow up with her PCP. Status at Discharge Functional status at discharge: independent ambulation Overall status at discharge: patient is back to baseline Time Attestation Discharge Coordination Time (in mins): 30 Quality: Safe Use of Opioids Does Pt have an Active Cancer Diagnosis on the Problem List?: No Quality: Stroke Does the patient have a stroke diagnosis?: No Physical Exam Vital Signs: Vital Signs: Last Vital Signs Temp 97.5 F 10/29/24 07:48 Pulse 58 10/29/24 07:48 Resp 16 10/29/24 07:48 BP 120/60 10/29/24 07:48 Pulse Ox 98 10/29/24 07:48 O2 Del Method Room Air 10/29/24 07:48 BMI result Body Mass Index 33.1 Const: General: comfortable, no acute distress and alert Orientation/consciousness: patient oriented x3 Resp: Effort & Inspection: normal respiratory effort GI: Inspection: No distended Palpation (GI): Soft to palpation, nontender and no guarding Skin: General skin exam: no rashes or lesions noted Neuro: General: patient oriented x3 and moves all extremities DS: Data Data Completed and Pending Labs on day of discharge: Preliminary micro results at discharge 10/27/24 19:34 Blood Culture - Preliminary Blood - Venous No growth after 48 hours. 10/27/24 19:25 Blood Culture - Preliminary Blood - Venous No growth after 48 hours. Discharge Plan Discharge Anticipated Discharge Date/Time: 10/29/24 10:54 Patient Disposition: Home, Self-Care Referrals: Maxi Ann MD [Physician] - 1 Week PhysicianJarvis [Primary Care Provider] - 1 week Discharge Medications: Continued melatonin 5 mg Tablet 5 mg PO BEDTIME PRN (Reason: Sleep) Discharge Orders: Discharge Order (Routine); Ordered 10/29/24 Ordered By: Maxi Ann Diet: Advance to usual diet Activity on Discharge: As tolerated Stand Alone Forms: Patient Portal Discharge page, Work/School Release Print Language: Luxembour[place] Care Plan Goals: return to normal diet and activity Health Concerns: abdominal pain, possible fluid collection right lower abdomen Plan of Treatment: antibiotics, bowel rest Assessment: Resolved abdominal pain Patient Instructions: Gastroenteritis (ED) Discharge Date/Time: 10/29/24 12:43
--- NOTE | 2024-10-29 10:58 | MHC.CM.PN ---
PT TO [place] HOME TODAY WITH NO SERVICES VIA PRIVATE TRANSPORT
== END 2024-10-29 12:43 | disposition home or self-care (01) ==
LOC: HO.ED 19:19 → HO.EDOVER 19:24 → HO.S3 10-28 07:32
PROVIDERS: Nurse Practitioner Family; Physician Assistant; Admitting Provider Surgery; Emergency Provider Emergency Medicine; PCP Internal Medicine; Visit Provider Surgery
DX: K65.1 Peritoneal abscess (principal); R11.10 Vomiting, unspecified; R19.7 Diarrhea, unspecified; R50.9 Fever, unspecified; N89.8 Other specified noninflammatory disorders of vagina; R10.31 Right lower quadrant pain; Z03.818 Encounter for observation for suspected exposure to other biological agents ruled out
CPT/HCPCS: 0241U; 36415; 74177; 76830; 76856; 80048; 80076; 81003; 81025; 81515; 83605; 83690; 83735; 85025; 87040; 87491; 87591; 96361; 96365; 96366; 96375; 96376; 99221; 99285; J1885; J2405; J2543; Q9967

== ENCOUNTER → 2024-10-27 13:42 | Outpatient (BNV) | payer OTHER, SELFPAY | PROVIDERS: Emergency Provider Emergency Medicine; Visit Provider Nuclear Medicine | DX: R10.31 Right lower quadrant pain (principal) | CPT/HCPCS: 74177; 76830; 76856 ==

== ENCOUNTER → 2024-10-27 19:06 | Outpatient (BNV) | payer OTHER, SELFPAY | PROVIDERS: Admitting Provider Surgery; Emergency Provider Emergency Medicine; Visit Provider Surgery | DX: K65.1 Peritoneal abscess (principal) | CPT/HCPCS: 99222; 99238 ==

== ENCOUNTER 2024-11-05 13:07 | Outpatient (AMB) | payer OTHER, SELFPAY ==
--- NOTE | 2024-11-05 13:10 | MHC.OFFVIS ---
Vital Signs 11/05/24 13:18 Height 5 ft 6 in Weight 203 lb BMI 32.8 BP 134/73 Blood Pressure Location Rt brachial Position Sitting Pulse 69 Intake Visit Reasons: intra abdominal abscess Intake Note: Patient scheduled for follow up intra-abdominal abscess. Patient c/o: pain, nausea, diarrhea, feels weak. Finished abx. 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 Ann. She was recently hospitalized within the last week because abdominal pain and question of a pelvic collection. She states that her abdominal symptoms are somewhat improved although she still has occasional discomfort and nausea. Denies any fever, chills, night sweats, weight loss. She is otherwise ambulating without difficulty. [facility] Medical History (Updated 11/05/24 @ 13:18 by NEGIN Jhaveri) Open left clavicular fracture Social History Household Members: None Housing: Apartment Do you presently have visiting nurse or other home services: No Patient Tobacco Use Status: Never used Tobacco Substance Use Type: Marijuana service: No Physical Exam Vital Signs: Last Vital Signs Pulse 69 11/05/24 13:18 BP 134/73 11/05/24 13:18 BMI result Body Mass Index 32.8 GI Other: Abdomen mildly corpulent, soft, benign. No evidence of any guarding, rebound, or rigidity. 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 Current plan is to have her follow up with Dr. Ann within the next 1-2 weeks just to assure that her chest symptoms are improving. All questions answered. Patient will follow-up as directed or p.r.n.. Coding Level of Care Code New Pt Level 4 (48019) Diagnoses Intra-abdominal abscess K65.1
[2024-11-05 13:18] VITALS: BP 134/73; PULSE 69; BMI 32.8
== END 2024-11-05 13:28 | disposition home or self-care (01) ==
PROVIDERS: PCP Internal Medicine; Visit Provider Surgery
DX: K65.1 Peritoneal abscess (principal)
CPT/HCPCS: 99204

== ENCOUNTER → 2024-11-05 13:07 | Outpatient (BNVA) | payer OTHER, SELFPAY | PROVIDERS: PCP Internal Medicine; Visit Provider Surgery | DX: K65.1 Peritoneal abscess (principal) | CPT/HCPCS: 99202 ==

== ENCOUNTER 2024-11-13 10:49 | Outpatient (AMB) | payer OTHER, SELFPAY ==
--- NOTE | 2024-11-13 10:57 | MHC.OFFVIS ---
Vital Signs 11/13/24 11:05 Height 5 ft 6 in Weight 204 lb BMI 32.9 BP 132/86 Blood Pressure Location Lt brachial Position Sitting Pulse 67 Intake Visit Reasons: intra abdominal abscess Intake Note: Patient is seen in office for ER follow up visit, following Intra-abdominal abscess. 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 Workup in the emergency department with CT abdomen and pelvis revealed a fluid collection at the root of the appendix and adjacent to the right ovary. Differential included appendiceal abscess, ovarian cyst or bowel fluid. She was observed for 24 hours and subsequently her abdominal pain improved. WBC returned to normal as well she was subsequently discharged to home. She returns today for follow-up examination. She continues to report nausea when eating as well as lower abdominal cramping. She reports frequent loose stools but denies bleeding per rectum. She is uncertain about fever or chills but occasionally does feel warm. [facility] Medical History Open left clavicular fracture Social History Household Members: None Housing: Apartment Do you presently have visiting nurse or other home services: No Patient Tobacco Use Status: Never used Tobacco Substance Use Type: Marijuana service: No Review of Systems Const All systems reviewed & are unremarkable except as noted in HPI and below Physical Exam Const General: no acute distress Nutritional Appearance: well nourished Orientation/consciousness: patient oriented x3 Resp Effort & Inspection: normal respiratory effort, no audible wheezes, no cough and no respiratory distress GI Inspection: Yes normal to inspection Palpation (GI): Soft to palpation, Tenderness to palpation present (GI) in the LLQ and in the RLQ; not at McBurney's point, Erazo's sign negative, with no rebound tenderness and Rovsing's sign negative, no guarding and not rigid Skin General skin exam: no rashes or lesions noted Neuro General: patient oriented x3 Extrem General: Yes no clubbing, cyanosis or edema Assessment & Plan Assessment & Plan (1) Intra-abdominal abscess: Code(s): K65.1 - Peritoneal abscess Category: Surgical Plan 24-year-old female patient with a fluid collection at the root of the appendix and near the ovary possibly due to early appendicitis, ovarian cyst, or bowel fluid. She initially improved with antibiotics and her WBC normalized. She returns today for follow-up examination and continues to report abdominal symptoms including nausea, vomiting, and abdominal cramping with diarrhea. On examination she does have lower abdominal tenderness without peritoneal signs. I recommended further evaluation with a repeat CT with oral and IV contrast to better evaluate the apparent fluid collection. If this is normal, she may require evaluation by Gastroenterology. She expressed understanding and agrees with the plan. I will call her with the results of the CT once they are available. She was provided with a letter to return to work as of 11/15/2024 without restrictions. Orders: Orders CT abdomen pelvis w IV con Today K65.1 - Peritoneal abscess Coding Level of Care Code Est Pt Level 3 (68804) Diagnoses Intra-abdominal abscess K65.1
[2024-11-13 11:05] VITALS: BP 132/86; PULSE 67; BMI 32.9
--- OUTSIDE RECORDS SUMMARY | 2024-11-13 12:22 | XMS_ITS | Continuity of Care Document ---
Author Name [facility] Organization [facility] Care Team Providers Care Tile Roofer Name Role Phone [facility] Unavailable Unavailable Problems Combined list of problems from Department of Defense and Veterans Affairs facilities. It does not include entries that were removed or entered in error. 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, HALFWAY OR SEPARATION FROM UNIFORMED SERVICE, LONG Active 07/02/2024 Diagnosis [facility] ASSESSMENT, POST-DEPLOYMENT, DOCUMENTED ON [id number] Active 07/02/2024 Diagnosis [facility] [place] Human immunodeficiency virus antibody titer Active 07/02/2024 [facility] Contusion of left knee, initial encounter Active 05/16/[address] [place] [address] Contusion of left lower leg, initial encounter Active 05/16/[address] [place] [address] Pain in left ankle and joints of left foot Active Condition [facility] Low back pain Active Condition [facility] Medications Combined list of outpatient medications from Department of [facility] and Veterans Affairs facilities.Medications provided include 1) outpatient medications from the last 15 months, and 2) patient-reported medications. Medication Details Route Status Patient Instructions Prescription Expires Prescription Number Last Dispense Date Ordering Provider Order Date Order Qty Source Gwendolyn 180 mg oral tablet 1 tab(s), Oral, Daily, PRN allergy symptoms , # 60 tab(s), 0 total refill(s ), Maintena nce, Pharmacy : [facility] Oral (given by mouth) Complet ed 07/02/2024 60.0 0010C-D [facility] Flonase 50 mcg/inh nasal spray 50 mcg, Nostril- Both, BID, # 16 g, 5 total refill(s ), Maintena nce, Pharmacy : [facility] Nostri l-Both (into the nose) Complet ed 07/02/2024 16.0 0010C-D [facility] FLONASE-OTC (BRAND) 50 MCG PRO SPSN [9.9] Take or use exactly as directed .For the nose. 10/27/2024 [id number] [address] [place] [address] Group FLUARIX QUAD 4914-3583 (influenza virus vaccine quadrival 8364-1906(6 mos and up)/PF), 60MCG/.5ML, SYRINGE, INTRAMUSC, [employer] One[employer] LINE, .5 ml SYRINGE Active [id number] 4 2023 0.5 Pharmac y Data Transac tion Service Facilit y IBUPROFEN (ibuprofen) , 800 MG, TABLET, ORAL, STRIDES PHARMA, 500 ea. BOTTLE Cancele d [id number] : 2023 0 Pharmac y Data Transac tion Service Facilit y IBUPROFEN (ibuprofen) , 800 MG, TABLET, ORAL, STRIDES PHARMA, 500 ea. BOTTLE Active [id number] 4 2023 12 Pharmac y Data Transac tion Service Facilit y IBUPROFEN (ibuprofen) , 800 MG, TABLET, ORAL, STRIDES PHARMA, 500 ea. BOTTLE Active [id number] 4 2023 12 Pharmac y Data Transac tion Service Facilit y OXYCODONE-A CETAMINOPHE N (OXYCODONE HCL/ACETAMI NOPHEN), 5MG-325MG, TABLET, ORAL, MALLINKRT PHARM, 500 ea. BOTTLE Active [id number] 4 2023 12 Pharmac y Data Transac tion Service Facilit y PENICILLIN V POTASSIUM (PENICILLIN V POTASSIUM), 500MG, TABLET, ORAL, AUROBINDO PHARM, 500 ea. BOTTLE Active [id number] 4 2023 28 Pharmac y Data Transac tion Service Facilit y PROMETHAZIN E HCL (PROMETHAZI NE HCL), 25MG, TABLET, ORAL, [employer] 1000 ea. BOTTLE Cancele d [id number] : 2023 0 Pharmac y Data Transac tion Service Facilit y PROMETHAZIN E HCL (PROMETHAZI NE HCL), 25MG, TABLET, ORAL, [employer] 1000 ea. BOTTLE Cancele d [id number] : 2023 0 Pharmac y Data Transac tion Service Facilit y PROMETHAZIN E HCL (PROMETHAZI NE HCL), 25MG, TABLET, ORAL, [employer] 1000 ea. BOTTLE Active [id number] 4 2023 6 Pharmac y Data Transac tion Service Facilit y UK Fexofenadin e Hydrochlori de (Telfast) Tablet 180 mg Oral Take with plenty of water.Ob tain advice for OTCs.Swa llow whole.Av oid grapefru it and grapefru it juice. 10/27/2024 [id number] 2023 60 [facility] Allergies, Adverse Reactions, Alerts Combined [...] Site Reaction Lot Number CVX Code Drug Hand Etcher Helper Status Comments Source influenza, injectable, quadrivalent- pf 2020 [id number] ID Biomedical comple t ed influenza , injectabl e, quadrival ent-pf 09/09/21 Given Ambulat ory Pharmac y COVID Vaccine Pfizer 2020 [id number] 208 PFIZER complet ed COVID Vaccine Pfizer 04/01/21 Given Ambulat ory Pharmac y COVID Vaccine Pfizer 2020 [id number] 208 PFIZER complet ed COVID Vaccine Pfizer 03/09/21 Given Ambulat ory Pharmac y influenza, injectable, quadrivalent- pf 2019 zzLef t Arm [id number] 150 Seqirus complet ed influenza , injectabl e, quadrival ent-pf 08/22/20 Given Ambulat ory Pharmac y Influenza, injectable, quadrivalent, preservative free 1 2019 RAZ LARIOS [id number] 150 Seqirus (SEQ) complet ed Influenza [...] Veterans Affairs facilities going back up to [facility] 18 months. 2) Encounters from the Department of Defense facilities going back up to 280 months. Location Location Details Encounter Type Encounter Number Reason For Visit Attending Provider ADM Date DC Date Status Disposition Source [employer](IEP Primary Care) OUTPATIENT [id number] COVID TEST MESSI KIM 04/23 Released w/o Limitations [employer](I EP Primary Care) [employer](IEP Optometry ) OUTPATIENT [id number] CRISTINA TORRES N 04/23 Released w/o Limitations [employer](I EP Optomet ry) [facility] [place] OUTPATIENT [id number] L Ankle Pain SUDEEP, SURYA M 05/21 Immediate Referral [employer](T [facility] Physica l Therapy ) [facility] Ambulator y) OUTPATIENT [id number] ankle pain XENIA AHN 05/21 Released with Work/Duty Limitations [employer](T MC Ambulat ory) [facility] [place] [facility] OUTPATIENT [id number] Left ankle / foot--( ref: Mr. Ahn) KALEE MARY Villafuerte E 05/21 Released with Work/Duty Limitations [employer](T [facility] Physica l Therapy ) [facility] OUTPATIENT [id number] L Ankle Rehab SUDEEP, SURYA M 05/22 Released with Work/Duty Limitations [employer](T [facility] Physica l Therapy ) [facility] [place] [facility] OUTPATIENT [id number] L Ankle Rehab SUDEEP, SURYA M 05/23 Released with Work/Duty Limitations [employer](T [facility] Physica l Therapy ) [facility] OUTPATIENT [id number] L Ankle Rehab SUDEEP, SURYA M 05/26 Released with Work/Duty Limitations [employer](T MC Physica l Therapy ) [facility] [place] [facility] OUTPATIENT [id number] L Ankle Rehab SUDEEP, SURYA M 05/27 Released with Work/Duty Limitations [employer](T MC Physica l Therapy ) [facility] [place] [facility] OUTPATIENT [id number] L Ankle Rehab SUDEEPSURYA M 05/28 Released with Work/Duty Limitations [employer](T [facility] Physica l Therapy ) [employer]([facility]) OUTPATIENT [id number] L Ankle Rehab SUDEEPSURYA M 05/29 Released with Work/Duty Limitations [employer](T [facility] Physica l Therapy ) [employer]([facility]) OUTPATIENT [id number] f/u L ankle MARY MANRIQUEZ 05/30 Released with Work/Duty Limitations [employer](T [facility] Physica l Therapy ) [employer]([facility]) OUTPATIENT [id number] L Ankle Rehab SUDEEPSURYA M 06/02 Released with Work/Duty Limitations [employer](T MC Physica l Therapy ) [employer]([facility]) OUTPATIENT [id number] L Ankle Rehab SURYA HSEETS M 06/03 Released with Work/Duty Limitations [employer](T MC Physica l Therapy ) [employer]([facility]) OUTPATIENT [id number] Follow up MARY MANRIQUEZ 06/11 Released with Work/Duty Limitations [employer](T MC Physica l Therapy ) [employer]([facility]) OUTPATIENT [id number] Follow up results MARY MANRIQUEZ 06/17 Released with Work/Duty Limitations [employer](T MC Physica l Therapy ) [employer](PES Physical Therapy/P TRP) OUTPATIENT [id number] Notes Entered by: Dayron BAÑUELOS 25 Jun 2020 1033 ------- ------- ------- ------- -- DAISY PAIZ 06/25 Released w/o Limitations [employer](P ES Physica l Therapy /PTRP) [employer](PES Physical Therapy/P TRP) OUTPATIENT [id number] Notes Entered by: Dayron BAÑUELOS 26 Jun 2020 1050 ------- ------- ------- ------- -- DAISY PAIZ 06/26 Released w/o Limitations [employer](P ES Physica l Therapy /PTRP) [employer](PES Physical Therapy/P TRP) OUTPATIENT [id number] Notes Entered by: Dayron BAÑUELOS 01 Jul 2020 1031 ------- ------- ------- ------- -- DAISY PAIZ 07/01 Released w/o Limitations [employer](P ES Physica l Therapy /PTRP) [employer](PES Physical Therapy/P TRP) OUTPATIENT [id number] Notes Entered by: Dayron BAÑUELOS 04 Jul 2020 1350 ------- ------- ------- ------- -- DAISY Martinez 07/04 Released w/o Limitations [employer](P ES Physica l Therapy /PTRP) [employer](PES Physical Therapy/P TRP) OUTPATIENT [id number] Notes Entered by: Dayron BAÑUELOS 07 Jul 2020 1346 ------- ------- ------- ------- -- OBDULIA So 07/07 Released w/o Limitations [employer](P ES Physica l Therapy /PTRP) [employer](C Physical Therapy) OUTPATIENT [id number] [facility]--f /u MARY MANRIQUEZ 07/07 Released with Work/Duty Limitations [employer](T MC Physica l Therapy ) [employer](PES Physical Therapy/P TRP) OUTPATIENT [id number] Notes Entered by: Dayron BAÑUELOS 08 Jul 2020 1344 ------- ------- ------- ------- -- DAISY MARROQUIN 07/08 Released w/o Limitations [employer](P ES Physica l Therapy /PTRP) [employer](PES Physical Therapy/P TRP) OUTPATIENT [id number] Notes Entered by: Dayron BAÑUELOS 10 Jul 2020 1014 ------- ------- ------- ------- -- OBDULIA TOBAR 07/10 Released w/o Limitations [employer](P ES Physica l Therapy /PTRP) [employer](PES Physical Therapy/P TRP) OUTPATIENT [id number] Notes Entered by: Dayron BAÑUELOS 11 Jul 2020 1059 ------- ------- ------- ------- -- OBDULIA So 07/11 Released w/o Limitations [employer](P ES Physica l Therapy /PTRP) [employer](PES Physical Therapy/P TRP) OUTPATIENT [id number] Notes Entered by: Dayron BAÑUELOS 15 Jul 2020 1048 ------- ------- ------- ------- -- DAISY MARROQUIN 07/15 Released w/o Limitations [employer](P ES Physica l Therapy /PTRP) [employer](PES Physical Therapy/P TRP) OUTPATIENT [id number] Notes Entered by: Dayron BAÑUELOS 16 Jul 2020 1119 ------- ------- ------- ------- -- OBDULIA So 07/16 Released w/o Limitations [employer](P ES Physica l Therapy /PTRP) [employer]([facility]) OUTPATIENT [id number] Ankle F/U MARY MANRIQUEZ 07/17 Released with Work/Duty Limitations [employer](T MC Physica l Therapy ) [employer] OUTPATIENT [id number] Notes En[address]: ST YANELI GARRISON 18 Jul 2020 1140 ------- ------- ------- ------- -- BONI KIDD 07/18 Released w/o Limitations [employer]([facility]) [employer](IEP Primary Care) OUTPATIENT [id number] back pain after lifting ALEX MCNULTY 07/21 Released w/o Limitations [employer](I EP Primary Care) [employer]([facility]) OUTPATIENT [id number] [facility] DHARMESH PETTITDANO Fitzpatrick 07/22 Released w/o Limitations [employer](A [facility]) [employer](PES Physical Therapy/P TRP) OUTPATIENT [id number] Notes Entered by: Dayron BAÑUELOS 23 Jul 2020 1136 ------- ------- ------- ------- -- DAISY Martinez 07/23 Released w/o Limitations [employer](P ES Physica l Therapy /PTRP) [employer]([facility]) OUTPATIENT [id number] Notes Entered by: PINKY Goddard YAHIR 24 Jul 2020 0944 ------- ------- ------- ------- -- [facility] SUJATHA PETTITGENEVA Fitzpatrick 07/24 Released w/o Limitations [employer](A [facility]) [employer](PES Physical Therapy/P TRP) OUTPATIENT [id number] Notes Entered by: Dayron BAÑUELOS 30 Jul 2020 1318 ------- ------- ------- ------- -- OBDULIA So 07/30 Released w/o Limitations [employer](P ES Physica l Therapy /PTRP) [employer](C Physical Therapy) OUTPATIENT [id number] WTRP--F /u-(JOSHUA Perry 07/31 Released w/o Limitations [employer](T MC Physica l Therapy ) [employer](C Physical Therapy) OUTPATIENT [id number] Inserts (women' s 8) GETACHEW LIZ 07/31 Released w/o Limitations [employer](T MC Physica l Therapy ) [employer](PES Physical Therapy/P TRP) OUTPATIENT [id number] Notes Entered by: Dayron BAÑUELOS 06 Aug 2020 1041 ------- ------- ------- ------- -- Therex OBDULIA BAÑUELOS 08/06 Released w/o Limitations [employer](P ES Physica l Therapy /PTRP) [employer](PES Physical Therapy/P TRP) OUTPATIENT [id number] Notes Entered by: Dayron BAÑUELOS 08 Aug 2020 1312 ------- ------- ------- ------- -- OBDULIA So 08/08 Released w/o Limitations [employer](P ES Physica l Therapy /PTRP) [employer]([facility]) OUTPATIENT [id number] JOSE LARIOS 08/22 Released w/o Limitations [employer]([facility]) [facility](P Primary Care) OUTPATIENT [id number] Notes Entered by: ANCA VÁSQUEZ 26 Aug 2020 1007 ------- ------- ------- ------- -- IET ANCA RIVERA 08/26 Released w/o Limitations [facility](I Primary Care) [facility](TM-2 Optometry [place]) OUTPATIENT [id number] Notes Entered by: ROMAN CLINE 13 Nov 2020 0656 ------- ------- ------- ------- -- Eye exam VINICIO WEEKS 11/13 Released w/o Limitations [facility] [place]) [facility]([address] [place]) OUTPATIENT [id number] Notes Entered by: SUZY MONTESINOS 25 Nov 2020 1015 ------- ------- ------- ------- -- Ankle Pain ARNAUD MORENO 11/25 Released with Work/Duty Limitations [facility]([address] [place]) [facility](IEP Primary Care) OUTPATIENT [id number] Notes Entered by: Michel KIM 01 Jan 2021 0629 ------- ------- ------- ------- -- DEF IMM MESSI KIM 01/01 Released w/o Limitations [employer](I EP Primary Care) 0010C-Franko is [facility] [id number] CHAPINCITO TANAJR 05/11 Discharge Disposition: Home or Self Care 0C-D [facility] 0-Franko is [facility] [id number] Contusi on of left lower leg, initial encount er,Cont usion of left knee, initial encount er ZOE OROPEZA 05/16 Discharge Disposition: Home or Self Care 0010C-D [facility] 0-Franko [facility] Between Visit [id number] 05/18 Discharge Disposition: Home or Self Care 0010C-D [facility] 0-[facility] Between Visit [id number] 05/18 Discharge Disposition: Home or Self Care 0010C-D [facility] [place] [place] [facility] [id number] ASSESSM ENT, POST-DE PLOYMEN T, [place] ON [id number], EXAM, OCCUPAT IONAL, RETIREM ENT OR SEPARAT ION FROM [facility] SERVICE , LONG,En counter for screeni ng for human immunod eficien cy virus [HIV] 07/02 Discharge Disposition: Returned to Duty 0110A-A RHONDA Montez s Procedures Combined list of: 1) Procedures from Department of Veterans Affairs facilities going back up to thelast 18 months, not all VA non-surgical procedures are included; 2) All procedures from the Department of Defense facilities. Procedure Procedure Type Code Date Perfomer Comments Sourc e No data available for this section Ambulato ry Pharmacy VARICELLA VIRUS VACCINE (FREDDIE), LIVE, FOR SUBCUTANEOUS USE 2020 [facility] ADENOVIRUS VACCINE, TYPE 7, LIVE, FOR ORAL USE 2019 [facility]D IMMUNIZATION ADMINISTRATION (INCLUDES PERCUTANEOUS, INTRADERMAL, SUBCUTANEOUS, OR INTRAMUSCULAR INJECTIONS); 1 VACCINE (SINGLE OR COMBINATION VACCINE/TOXOID) 2019 [facility] APPLICATION OF A MODALITY TO 1 OR MORE AREAS; HOT OR COLD PACKS 2019 [facility] THERAPEUTIC PROCEDURE(S), GROUP (2 OR MORE INDIVIDUALS) 2019 [facility] FOOT, ARCH SUPPORT, REMOVABLE, PREMOLDED, LONGITUDINAL, EACH 2019 [facility] RE-EVAL,PHYSICAL THERAPY EST PLAN OF CARE,REQ:EXAM,REV, HX & USE,STAND TESTS &DANITA REQ;REV PLAN OF CARE USING STAND PAT ASSESS INSTR &/DANITA ASSESS FUNC OUTCOME TYP,20 MIN SPENT [id number] W PAT&/FAM 2019 [facility] THERAPEUTIC PROCEDURE(S), GROUP (2 OR MORE INDIVIDUALS) 2019 [facility] NUTRITION CLASSES, NON-PHYSICIAN PROVIDER, PER SESSION 2019 [facility] THERAPEUTIC PROCEDURE(S), GROUP (2 OR MORE INDIVIDUALS) 2019 [facility] OXYGEN UPTAKE, GAS ANALYSIS; REST, INDIRECT (SEPARATE PROCEDURE) 2019 [facility] PATIENT EDUCATION, NOT OTHERWISE CLASSIFIED, NON-PHYSICIAN PROVIDER, GROUP, PER SESSION 2019 [facility] RE-EVAL,PHYSICAL THERAPY EST PLAN OF CARE,REQ:EXAM,REV, HX & USE,STAND TESTS &DANITA REQ;REV PLAN OF CARE USING STAND PAT ASSESS INSTR &/DANITA ASSESS FUNC OUTCOME TYP,20 MIN SPENT [id number] W PAT&/FAM 2019 [facility] THERAPEUTIC PROCEDURE(S), GROUP (2 OR MORE INDIVIDUALS) 2019 DoD THERAPEUTIC PROCEDURE(S), GROUP (2 OR MORE INDIVIDUALS) 2019 DoD THERAPEUTIC PROCEDURE(S), GROUP (2 OR MORE INDIVIDUALS) 2019 DoD THERAPEUTIC PROCEDURE(S), GROUP (2 OR MORE INDIVIDUALS) 2019 DoD THERAPEUTIC PROCEDURE(S), GROUP (2 OR MORE INDIVIDUALS) 2019 DoD THERAPEUTIC PROCEDURE(S), GROUP (2 OR MORE INDIVIDUALS) 2019 DoD THERAPEUTIC PROCEDURE(S), GROUP (2 OR MORE INDIVIDUALS) 2019 [facility] RE-EVAL,PHYSICAL THERAPY EST PLAN OF CARE,REQ:EXAM,REV, HX & USE,STAND TESTS &DANITA REQ;REV PLAN OF CARE USING STAND PAT ASSESS INSTR &/DANITA ASSESS FUNC OUTCOME TYP,20 MIN SPENT [id number] W PAT&/FAM 2019 DoD THERAPEUTIC PROCEDURE, 1 [...] &/DANITA ASSESS FUNC OUTCOME TYP,20 MIN SPENT [id number] W PAT&/FAM 2019 DoD LOWER EXTREMITY ORTHOSES, [...] &/DANITA ASSESS FUNC OUTCOME TYP,20 MIN SPENT [id number] W PAT&/FAM 2019 DoD APPLICATION OF A [...] 2019 DoD STRAPPING; ANKLE AND/OR FOOT 2019 DoD APPLICATION OF A MODALITY TO 1 OR MORE AREAS; HOT OR COLD PACKS 2019 DoD PHYSICAL THERAPY EVALUATION:LOW COMPLEXITY,REQ:HIS T W NO PERS FACT &/COMORB THAT IMPACT PLAN OF CARE;CLIN DECIS MAKING OF LOW COMPLEXITY,TYPICAL LY,20 MIN ARE SPENT [id number] W THE PATIENT &/FAMILY 2019 DoD ATHLETIC TRAINING EVALUATION, LOW COMPLEXITY,REQ:HIS T & PHYS ACT PROFILE W NO COMORB;EXAM AFF BODY AREA,ADDRESS 1-2 ELEMENTS;CLIN DEC TIFFANI,LOW,TYP,15 MIN ARE SPENT [id number] W THE PATIENT &/FAMILY 2019 [facility] DETERMINATION OF REFRACTIVE STATE 2019 [facility] HEARING SERVICE, MISCELLANEOUS 2019 [facility] FITTING OF SPECTACLES, EXCEPT FOR APHAKIA; MONOFOCAL 2020 [facility] Ophthalmological New Patient Start Intermediate Level Care Ophthalmological New Patient Start Intermediate Level Care [id number] [place]ENNILSON I [facility] Spectacles Services Fitting Monofocal Except For Aphakia Spectacles Services Fitting Monofocal Except For Aphakia 88544 [place] I [facility] Determination Of Refractive State Determination Of Refractive State 44978 SAMBURGNILSON I [facility] Athletic Training Evaluation Low Complexity Athletic Training Evaluation Low Complexity 28565 SURYA SHEETS [facility] Ankle control orthosis, stirrup style, rigid, includes any type interface (e.g., pneumatic, gel), prefabricated, [id number]-[id number] [facility] Physical Therapy Education Orthotics Training Physical Therapy Education Orthotics Training 01238 MARY LEE [facility] Physical Therapy Service Evaluation Low Complexity Physical Therapy Service Evaluation Low Complexity 90140 [facility] Physical Therapy: ___ Se ion Segments, 15 Minutes Each Physical Therapy: ___ Session Segments, 15 Minutes Each 17622 SURYA SHEETS [facility] Modalities Cryotherapy Cold Packs Modalities Cryotherapy Cold Packs 83537 SURYA SHEETS [facility] Taping Ankle Taping Ankle 90114 SURYA SHEETS KT Tape to Decrease Swelling [facility] Physical Therapy Service Re-Evaluation Physical Therapy Service Re-Evaluation 75304 [facility] Lower extremity orthoses, not otherwise specified [facility] Physical Therapy Neuromuscular Re-education Physical Therapy Neuromuscular Re-education 15228 DAISY TAN 25 mins [facility] Physical Therapy: ___ Se ion Segments, 15 Minutes Each Physical Therapy: ___ Session Segments, 15 Minutes Each 17414 DAISY TAN 15 mins [facility] Physical Therapy Neuromuscular Re-education Physical Therapy Neuromuscular Re-education 54192 OBDULIA BAÑUELOS 20 min [facility] Physical Medicine - Group Physical Therapy Se ion Physical Medicine - Group Physical Therapy Session 43454 OBDULIA BAÑUELOS [facility] Physical Therapy Neuromuscular Re-education Physical Therapy Neuromuscular Re-education 63345 DAISY TAN 20 mins [facility] Physical Therapy Neuromuscular Re-education Physical Therapy Neuromuscular Re-education 94434 OBDULIA BAÑUELOS 10 min [facility] Physical Therapy Neuromuscular Re-education Physical Therapy Neuromuscular Re-education 58986 DAISY TAN 10 mins [facility] Patient education, not otherwise cla ified, non-physician provider, group, per se monse GARRISON BONI Stafford [facility] Bioelectrical Impedance Analysis Whole Body Supine With Interpretation And Report Bioelectrical Impedance Analysis Whole Body Supine With Interpretation And Report [id number] RON PETTIT [facility] Vital Signs Recorded Vital Signs Recorded RON PETTIT [facility] Pulmon Function - O2 Uptake - Gas Analysis Rest, Ind Pulmon Function - [place] [address] RON PETTIT [facility] Nutrition cla es, non-physician provider, per se ion RON PETTIT [facility] Physical Therapy Education Orthotics Training Physical Therapy Education Orthotics Training 30333 GETACHEW MORTON 10min [facility] Foot, arch support, removable, premolded, longitudinal, each GETACHEW MORTON 1 pair dispensed [facility] Physical Therapy Neuromuscular Re-education Physical Therapy Neuromuscular Re-education 88487 OBDULIA BAÑUELOS 25 min [facility] Influenza Split Virus Vaccine IM Preserv Free 0.5mL Dosage Quadrivalent Influenza Split Virus Vaccine IM Preserv Free 0.5mL Dosage Quadrivalent 19601 RAZ LARIOS Influenza, Inj., quad., preservative free (Afluria); Series #: 1; 0.5 mL; IM; Left Arm; Mfg: Seqirus; Lot: [id number]; VIS given (Vic: 06/07/2019). [facility] Immunization Administration By Injection, One Vaccine Immunization Administration By Injection, One Vaccine 54531 RAZ LARIOS [facility] Immunization Administration By Injection, Each Additional Vaccine Immunization Administration By Injection, Each Additional Vaccine 17457 ANCA MONROY [facility] Hepatitis A And Hepatitis B (Intramuscular Use) Adult Dosage Hepatitis A And Hepatitis B (Intramuscular Use) Adult Dosage 46282 ANCA MONROY [facility] Vaccines Viral Polio, Inactivated Vaccines Viral Polio, Inactivated 89930 ANCA MONROY [facility] Meningococcal Conjugate Vaccine Quadrivalent Serogroups A, C, Y, W-135 Meningococcal Conjugate Vaccine Quadrivalent Serogroups A, C, Y, W-135 38729 [facility] Vaccines Viral Measles, Mumps and Rubella, Live Vaccines Viral Measles, Mumps and Rubella, Live 30052 FLORAL PARKDWAYNEANCA [facility] Tdap Vaccine Tdap Vaccine 12355 [facility] ANCA Chauncey [facility] Vaccines Viral Varicella (Active) Vaccines Viral Varicella (Active) 267[facility] Immunization Admin Intranasal / Oral Each Additional Vaccine Immunization Admin Intranasal / Oral Each Additional Vaccine 65274 [facility] ANCA [facility] Vaccines Adenovirus Type 4 Live, For Oral Use Vaccines Adenovirus Type 4 Live, For Oral Use 52431 [facility] Vaccines Adenovirus Type 7 Live, For Oral Use Vaccines Adenovirus Type 7 Live, For Oral Use 57082 FLORAL PARKANCA RODRÍGUEZ [facility] Ophthalmological New Patient Start Comprehensive Care Ophthalmological New Patient Start Comprehensive Care 40005 VINICIO WEEKS [facility] Social History Combined list of available smoking, tobacco, and other social history from [facility] of Defense and Veterans Affairs facilities. Social History Type Response Date Comment Sourc e Female 05/25/2022 Ambulatory Pha rmacy Tobacco Cigarette use: Never-cigarette user. Other Tobacco use: Never-other tobacco user (not cigarettes). Ambulatory Pharma cy Sexual Orientation Ambula tory Pharmacy Gender identity Ambulator y Pharmacy This section is an empty social history section. [facility] Assessment and Plan Combined list of future care activities from Department of Defense and Veterans Affairs facilities (e.g., assessment and plan notes, appointments, orders, and referrals). Additional future care activities may be listed in the Plan of Care section. Result Assessment and Plan Date Source Assessment and Plan Extracted from:Title : Left leg pain Author: ZOE GAFFNEY, , [employer], MC, FS, 355th MDG Date: 05/16/24 [...] creation of this note. Despite proofreading, minor animal warden errors may be present. Please call with any clinical questions or concerns.? Capt Zoe Gaffney, DO E [employer] [place], [place] ? Extracted from:Title: Cough Author: VINICIO CROCKER, SHAINA Date: 10/28/23 Cough, unspecified 23 year old female in no acute distress reported one month of non-productive cough, denies fever, body aches, recent weight loss, repported recently moving to [facility]. Patient denies chest pain and shortness [...] Maintenance, 1 tab(s) Oral Daily,PRN:allergy symptoms, Pharmacy: [facility] [Not filled] fluticasone nasal(Flonase 50 mcg/inh nasal spray), 50 mcg, Nostril-Both, BID, # 16 g, 5 total refill(s), Maintenance, 50 mcg Nostril-Both BID, Pharmacy: [facility] [Not filled] XR Chest 2 Views ? 11/13/2024 Ambulatory Pharmacy Functional Status Combined list of recent functional and cognitive assessments recorded at [facility] of Defense and Veterans Affairs ([facility]).VA Functional Steele Measurement (FIM) Scale: 1 = Total Assistance (Subject = 0% +), 2 = Maximal Assistance (Subject = 25% +), 3 = Moderate Assistance (Subject = 50% +), 4 = Minimal Assistance (Subject = 75% +), 5 = Supervision, 6 = Modified Steele (Device), 7 = Complete Steele (Timely, Safely). Assessment Date/Time Source Assessment Type Assessment Skill Assessment Score Assessment Details No data available for this section
--- OUTSIDE RECORDS SUMMARY | 2024-11-13 12:24 | XMS_ITS ---
Author Organization [facility] Address [address] [place] [address] Care Team Providers Care Financial Management Name Role Phone Royal Nolasco Unavailable [phone] REASON FOR VISIT NO SHOW FEE Encounters Encounter Location Date Provider Diagnosis [facility] [address] [place] [address] 05/26/2023 Royal Nolasco Plan Of Treatment No Information Progress Notes * Felipe LANCASTER MDOB:0 2000 (24 yo F)Acc No.[id number]:05/26/2023 Progress Notes Patient:?Al LANCASTER Provider:?Royal Nolasco DPM :2000???Age:23 Y???Sex:Female D ate:05/26/2023 Address:[address], [address], [place], [id number] Subjective: * Chief Complaints: * ???1. NO SHOW FEE. * Medical History:? Objective: * Vitals:? Assessment: Plan: * Treatment: * * Electronic signature of Komal Nolasco DPM on 11/13/2024 at 11:23 AM PARTS CLEANER Sign off status: Pending * Provider:?Royal Nolasco DPM Date:?0 05/26/2023 Generated for Gurmeet wynne/Azael/Linneaitting on:?11/13/2024 11:23 AM PARTS CLEANER
--- OUTSIDE RECORDS SUMMARY | 2024-11-13 12:24 | XMS_ITS | Patient Health Record ---
Author Organization [facility] Address [address] [place] [address] Care Team Providers Care Network Director Name Role Phone Royal Nolasco Unavailable [phone] Allergies No Known Allergies Reason For Referral No Information Social History Tobacco Use: Social History Observation Description Date Details (start date - stop date) Never Smoker NA - NA smoking Question Answer Notes Are you a: nonsmoker Problems Problem Type SNOMED Code ICD Code Onset Dates Problem Status W/U Status Risk Notes Problem Ingrowing nail (440489659) Ingrowing nail (L60.0) Active confirmed Problem Pain in limb (74164081) Pain in right toe(s) (M79.674) Active confirmed Problem Nail dystrophy (66677536) 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 Plan Of Treatment No Information Insurance Providers Payer Name Payer Address Payer Phone Subscriber Number Group Number Insured Name Patient Relationship to Insured Coverage Start Date Coverage End Date [facility] [address] [place] [address] [id number] Felipe Narayan Self - patient is the insured 3 [facility] [address] [place] [address] [id number] Felipe Narayan Self - patient is the insured 3 Medical (General) History Surgical History Surgery Date(Month/Year) Left Clavicle Repair Hospitalization History Reason Date(Month/Year) as listed in surgical history
--- OUTSIDE RECORDS SUMMARY | 2024-11-13 12:24 | XMS_ITS | Clinical Summary ---
Author Organization [facility] Address [address] [place] [address] Phone Care Team Providers Care Public Services Assistant Name Role Phone Esther Andre MD Primary Care Prov ider Allergies No known active allergies Medications Medication Sig Dispensed Refills Start Date End Date Status ibuprofen (ADVIL,MOTRIN) 600 mg tablet Take 1 tablet (600 mg total) by mouth every 6 (six) hours if needed. 02/24/2023 Active SUMAtriptan (IMITREX) 100 mg tablet Take 1 Tablet by mouth as needed for Migraine. May repeat dose once after 2 hours, if needed. Max 2 tabs in 24 hrs. 08/02/2023 Active Active Problems Problem Noted Date Diagnosed Date Elevated platelet count 07/28/2023 Ankle pain, chronic 04/07/2021 Overview (09/19/2024): 03/2021 NEOS - chronic ankle pain, ordering MRI of ankle for further evaluation activity 03/09/2021 Other idiopathic scoliosis, thoracolumbar region 12/04/2019 Overview (09/19/2024): 02/2021 <10 degree, stable, annual monitoring 12/04/2019 less than 10 degress, right bit higher than left, annual screening recommended Encounters Date Type Department Care Team Description 10/27/2024 9:42 AM EST - 10/27/2024 12:41 PM EST Emergency [facility] Emergency [address] [place] [address] Discharge Disposition: Home or Self Care from Last 3 Months Immunizations Name Administration Dates Next Due DTaP (Infanrix) 6wks to less than 7yo ,09/25/2003,2002,05/21,2002 [id number] (Pentacel) 2mo to less than 5yo 04/26/2003,2002,2002,04/02 H1N1 Inj Preservative Free 08/27/2009 HPV 9-valent (Gardisil) 9yo to less than 46yo 05/05/2016,10/21/2015 HPV, Quadrivalent 08/12/2014 Hepatitis B Pediatric (Enger ix B; Recombivax HB) to less than 20 yo 2002,2002,2002 Hib (HbOC) 04/26/2003, 2,2002,04/02 IPV Inactivated polio (Ipol) 6wks and older 11/17/2006,07/18/2003,2002,05/02 Influenza Quadravalent, MDCK , 0.5ml, preservative free (Flucelvax) 6mo and older 08/02/2023 Influenza Quadrivalent, 0.5m l, preservative free (Fluarix; FluLaval; Fluzone) ages 6mo and older (Afluria) 3yo and older 07/31/2018 Influenza trivalent, 0.5mL, preservative free (Fluarix; FluLaval; Fluzone) ages 6mo and older (Afluria) 3 years and older 12/04/2019,07/31/2018,07/15/2017,10/22 Influenza trivalent, with pr eservative (Fluzone; Afluria) 6mo and older 07/31/2018,10/21/2015,08/12/2014,08/22,02/24/2011,08/12/2008,08/18/2007 Influenza, Unspecified 08/30/2022 Influenza, live, intranasal, trivalent (FluMist) 2yo to less than 50yo 08/04/2011 MMR, measles mumps and rubel la Live (Priorix; M-M-R II) 12mo and older 11/17/2006,04/22/2006,02/19/2003 MMRV, measles mumps rubella and varicella live (Proquad) 4yo to less than 7yo 11/17/2006,04/22/2006,02/19/2003 Meningococcal MCV4P 10/30/2018,06/28/2014 Pneumococcal Conjugate Vacci ne, 7 Valent 07/18/2003,2002,2002 Tdap Tetanus diptheria acell ular pertussis (Boostrix; Adacel) 7yo and older 06/22/2013 Varicella live (Varivax) 12m o and older 11/17/2006,04/25/2003,2002 Surgical History Surgery Date Site/Laterality Comments OTHER SURGICAL HISTORY PROCEDURE: DENIES PREVIOUS SURGERY CLAVICLE SURGERY Medical History Medical History Date Comments Asthma DX:Asthma; COMME NT: has seen [facility], on Qvar, neg CXR at ER 01/04 Overweight(278.02) DX:Overweight (278.02) Injury of left shoulder 11/28/2019 DX:Injur y of left shoulder; COMMENT: 2-20 Headache 05/17/2017 DX:Headache; COM MENT: 12/04/2019 resolved now that she wears her glasses daily 05/09 - to keep journal for one month, eat regularly, exercise, sleep regularly, and wear glasses 11/10 - less DAMON's - no longer needing periactin Collar bone fracture 10/30/2018 DX:Collar b one fracture; COMMENT: Left collar bone fracture reported in February, followed by Dr.Nickles ARNOLDO is her surgeon. Had x2 rods and x8 screws placed. Plans to return for surgery to remove all met Asthma DX:Asthma; COMME NT: 12/04/2019 ACT 25, has not used any inhalers in yrs as seen [facility], not on Qvar 10/04 Oral steroids 10/04 06/05 - no longer on any meds 12/07 - seen by [facility] for flare - generous albuterol and time 01/04 - seen in ER at [facility], neg CXR 07/07 - no flares since 12/07 10/07 - no controller meds, minimal albuterol usage 07/09 - returned to [facility], prednisone burst with albuterol, no cont* ACL tear 10/30/2016 DX:ACL tear; COM MENT: 11/09 - Referred to ortho, brace and PT, recheck in 3-4 weeks 11/10 - wears a brace for sports/lifting Family History Medical History Relation Name Comments Diabetes Maternal Grandmother Other: bp Other 1 Hypertension Other 2 Diabetes Uncle Breast cancer Neg Hx Cancer of Small Bowel Neg Hx Colon cancer Neg Hx Kidney cancer Neg Hx Ovarian cancer Neg Hx Pancreatic cancer Neg Hx Uterine cancer Neg Hx Relation Name Status Comments Maternal Grandmother Alive stephen to es Mother Alive marianela victoria Other 1 Other 2 Uncle Social History Tobacco Use Types Packs/Day Years Used Date Smoking Tobacco: Never Smokeless Tobacco: Current Tobacco Cessation:Ready to Q uit: Not Asked; Counseling Given: Not Answered Alcohol Use Standard Drinks/Week Comments Never 0 (1 standard drink = 0.6 oz pur e alcohol) Sex and Gender Information Value Date Recorded Sex Assigned at Not on file Gender Identity Not on file Sexual Orientation Not on file Job Start Date Occupation Industry Not on file Not on file Not on file Obstetrics History Last Filed Vital Signs Vital Sign Reading Time Taken Comments Blood Pressure 135/78 10/27/2024 10:04 AM EST Pulse 98 10/27/2024 10:04 AM EST Temperature 36.6 ??C (97.9 ??F) 10/27/2024 10:[address] Respiratory Rate 16 10/27/2024 10:04 AM EST Oxygen Saturation 99% 10/27/2024 10:04 AM EST Inhaled Oxygen Concentration - - Weight 93 kg (205 lb) 10/27/2024 10:04 AM EST Height 167.6 cm (5' 6 ) 10/27/2024 10:04 AM EST Body Mass Index 33.09 10/27/2024 10:04 AM EST Plan of Treatment Upcoming Encounters Date Type Department Care Team (Late st Contact Info) Description 04/11/2025 12:00 PM EDT Office Visit Adult Medicine [address] [phone] Bessy Blanca PA [address] [place] [address] Health Maintenance Due Date Last Done Comments Depression Screening 10/02/2022 Social Influencers of Health Screening 10/02/2022 DTaP,Tdap,and Td Vaccines (7 - Td or Tdap) 06/22/2023 06/22/2013, 11/07/2006, 09/25/2003, Additional history exists COVID-19 Vaccine ( season) 2024 04/01/2021, 03/09/2021 Gonorrhea/Chlamydia Screening 07/26/2024 07/26/2023 Cholesterol Screening (Lipid Panel) 03/09/2026 03/09/2021 Cervical Cancer Screening: Pap Smear 07/26/2026 07/26/2023, 07/26/2023 Hepatitis B Vaccines Completed 2002, 2002, 2002 HIB Vaccines Completed 04/26/2003, 01/2003, 2002, Additional history exists Pneumococcal Vaccine: Pediatrics (0 to 5 Years) and At-Risk Patients (6 to 64 Years) Completed 07/18/2003, 2002, 2002 IPV Vaccines Completed 11/17/2006, 06/25, 04/26/2003, Additional history exists MMR Vaccines Completed 11/17/2006, 10/25, 04/22/2006, Additional history exists Varicella Vaccines Completed 11/17/2006, 0 11/17/2006, 04/22/2006, Additional history exists HPV Vaccines Completed 05/05/2016, 09/24, 08/12/2014 Meningococcal ACWY Vaccine Completed 10/30/2018, HIV Screening Completed 07/27/2023 Hepatitis C Screening Completed 07/27/2023 Influenza Vaccine Completed 08/06/2024, , 08/30/2022, Additional history exists Hepatitis A Vaccines Aged Out No long er eligible based on patient's age to complete this topic RSV Immunization Patients Under 20 months Aged Out No longer eligible based on patient's age to complete this topic Procedures Procedure Name Priority Date/Time Associated Diagnosis Comments CBC WITH AUTO DIFFERENTIAL STAT 10/27/2024 10:25 AM EST LIPASE STAT 10/27/2024 10:25 AM EST COMPREHENSIVE METABOLIC PANEL STAT 10/27/2024 10:25 AM EST CBC AND DIFFERENTIAL STAT 10/27/2024 10:25 AM EST RESPIRATORY VIRUS PANEL MOLECULAR STUDY STAT 10/27/2024 10:14 AM EST HEPATITIS C SCREENING Routine 07/27/2023 HIV SCREENING Routine 07/27/2023 HM HPV Routine 07/26/2023 HM GONORRHEA/CHLAMYDIA SCRREENING Routine 07/26/2023 LIPID PANEL Routine 03/09/2021 from Last 3 Months or Most Recently Relevant to Health Maintenance Results * (ABNORMAL) CBC auto differential (10/27/2024 10:25 AM EST) WBC 20.1(H) 4.8 - 10.8 K/mcL LAB HEMETOLOGY METHOD 10/27/2024 10:44 AM [facility] RBC 4.80 3.80 - 4.80 M/mcL LAB HEMETOLOGY METHOD 10/27/2024 10:44 AM [facility] Hemoglobin 13.1 11.5 - 16.0 g/dL LAB HEMETOLOGY METHOD 10/27/2024 10:44 AM [facility] Hematocrit 40.4 35.0 - 47.0 % LAB HEMETOLOGY METHOD 10/27/2024 10:44 AM [facility] MCV 84.5 79.0 - 98.0 FL LAB HEMETOLOGY METHOD 10/27/2024 10:44 AM [facility] MCH 27.4 27.0 - 32.0 pcg LAB HEMETOLOGY METHOD 10/27/2024 10:44 AM [facility] MCHC 32.4 32.0 - 37.0 g/dL LAB HEMETOLOGY METHOD 10/27/2024 10:44 AM [facility] RDW 13.5 11.0 - 15.0 % LAB HEMETOLOGY METHOD 10/27/2024 10:44 AM [facility] Platelets 452(H) 130 - 400 K/mcL LAB HEMETOLOGY METHOD 10/27/2024 10:44 AM [facility] MPV 8.6 7.0 - 11.0 FL LAB HEMETOLOGY METHOD 10/27/2024 10:44 AM [facility] NRBC 0.0 <1.0 % LAB HEMETOLOGY METHOD 10/27/2024 10:44 AM [facility] NRBC Absolute 0.00 <0.10 K/mcL LAB HEMETOLOGY METHOD 10/27/2024 10:44 AM [facility] Neutrophils Relative 88.9 % LAB HEMETOLOGY METHOD 10/27/2024 10:44 AM [facility] Lymphocytes Relative 4.3 % LAB HEMETOLOGY METHOD 10/27/2024 10:44 AM [facility] Monocytes Relative 5.0 % LAB HEMETOLOGY METHOD 10/27/2024 10:44 AM [facility] Eosinophils Relative 1.2 % LAB HEMETOLOGY METHOD 10/27/2024 10:44 AM [facility] Basophils Relative 0.2 % LAB HEMETOLOGY METHOD 10/27/2024 10:44 AM [facility] Immature Granulocytes Relative 0.4 % LAB HEMETOLOGY METHOD 10/27/2024 10:44 AM [facility] Neutrophils Absolute 17.80(H) 1.50 - 7.00 K/mcL LAB HEMETOLOGY METHOD 10/27/2024 10:44 AM EST [facility] Lymphocytes Absolute 0.86(L) 1.00 - 5.00 K/mcL LAB HEMETOLOGY METHOD 10/27/2024 10:44 AM EST [facility] Monocytes Absolute 1.01(H) 0.20 - 1.00 K/mcL LAB HEMETOLOGY METHOD 10/27/2024 10:44 AM EST [facility] Eosinophils Absolute 0.24 0.00 - 0.50 K/[facility] LAB HEMETOLOGY METHOD 10/27/2024 10:44 AM EST [facility] Basophils Absolute 0.05 0.00 - 0.20 K/[facility] LAB HEMETOLOGY METHOD 10/27/2024 10:44 AM EST [facility] Immature Granulocytes Absolute 0.09(H) 0.00 - 0.03 K/[facility] LAB HEMETOLOGY METHOD 10/27/2024 10:44 AM EST [facility] Blood Venous blood specimen / Unknown Venipuncture / Unknown 10/27/2024 10:25 AM EST 10/27/2024 10:40 AM EST Joey Palacio MD LAB BLOOD ORDERABLES [facility] [address] [place] [address], * Lipase (10/27/2024 10:25 AM EST) Lipase 28 13 - 75 unit/L LAB CHEMISTRY METHOD 10/27/2024 11:04 AM EST [facility] Blood Venous blood specimen / Unknown Venipuncture / Unknown 10/27/2024 10:25 AM EST 10/27/2024 10:39 AM EST Joey Palacio MD LAB BLOOD ORDERABLES [facility] [address] [place] [address], * (ABNORMAL) Comprehensive metabolic panel (10/27/2024 10:25 AM EST) Sodium 140 133 - 145 mmol/L LAB CHEMISTRY METHOD 10/27/2024 11:05 AM [facility] Potassium 4.4 3.5 - 5.5 mmol/L LAB CHEMISTRY METHOD 10/27/2024 11:05 AM [facility] Chloride 110 96 - 110 mmol/L LAB CHEMISTRY METHOD 10/27/2024 11:05 AM [facility] CO2 22 21 - 32 mmol/L LAB CHEMISTRY METHOD 10/27/2024 11:05 AM [facility] Anion Gap 8 3 - 11 LAB CHEMISTRY METHOD 10/27/2024 11:05 AM [facility] Glucose 108(H) 70 - 100 mg/dL LAB CHEMISTRY METHOD 10/27/2024 11:05 AM [facility] BUN 17 5 - 25 mg/dL LAB CHEMISTRY METHOD 10/27/2024 11:05 AM [facility] Creatinine 0.81 0.50 - 1.10 mg/dL LAB CHEMISTRY METHOD 10/27/2024 11:05 AM [facility] eGFR 105 >=60 mL/min/1. 73m2 LAB CHEMISTRY METHOD 10/27/2024 11:05 AM [facility] Comment:Calculation based on the??Chronic Kidney Disease Epidemiology Collaboration (CKD-EPI) equation refit??without adjustment for race. BUN/Creatinine Ratio 21.0 LAB CHEMISTRY METHOD 10/27/2024 11:05 AM [facility] Calcium 9.6 8.5 - 10.5 mg/dL LAB CHEMISTRY METHOD 10/27/2024 11:05 AM [facility] AST (SGOT) 13 10 - 42 unit/L LAB CHEMISTRY METHOD 10/27/2024 11:05 AM [facility] ALT (SGPT) 23 10 - 60 unit/L LAB CHEMISTRY METHOD 10/27/2024 11:05 AM [facility] Alkaline Phosphatase 72 42 - 121 unit/L LAB CHEMISTRY METHOD 10/27/2024 11:05 AM [facility] Total Protein 7.9 6.0 - 8.0 g/dL LAB CHEMISTRY METHOD 10/27/2024 11:05 AM [facility] Albumin 4.2 3.2 - 5.0 g/dL LAB CHEMISTRY METHOD 10/27/2024 11:05 AM [facility] Total Bilirubin 1.1 0.0 - 1.4 mg/dL LAB CHEMISTRY METHOD 10/27/2024 11:05 AM [facility] Blood Venous blood specimen / Unknown Venipuncture / Unknown 10/27/2024 10:25 AM EST 10/27/2024 10:39 AM EST Joey Palacio MD LAB BLOOD ORDERABLES [facility] [address] [place] [address], * Respiratory virus panel molecular study (10/27/2024 10:14 AM EST) Adenovirus Detection by PCR Not Detected Not Detected LAB MICROBIOLOGY METHOD 10/27/2024 11:25 AM [facility] Influenza A PCR Not Detected Not Detected LAB MICROBIOLOGY METHOD 10/27/2024 11:25 AM [facility] Influenza B PCR Not Detected Not Detected LAB MICROBIOLOGY METHOD 10/27/2024 11:25 AM [facility] Coronavirus 229E Not Detected Not Detected LAB MICROBIOLOGY METHOD 10/27/2024 11:25 AM [facility] Coronavirus HKU1 Not Detected Not Detected LAB MICROBIOLOGY METHOD 10/27/2024 11:25 AM [facility] Coronavirus OC43 Not Detected Not Detected LAB MICROBIOLOGY METHOD 10/27/2024 11:25 AM [facility] Coronavirus NL63 Not Detected Not Detected LAB MICROBIOLOGY METHOD 10/27/2024 11:25 AM [facility] Parainfluenza Virus 1 Not Detected Not Detected LAB MICROBIOLOGY METHOD 10/27/2024 11:25 AM [facility] Parainfluenza Virus 2 Not Detected Not Detected LAB MICROBIOLOGY METHOD 10/27/2024 11:25 AM [facility] Parainfluenza Virus 3 Not Detected Not Detected LAB MICROBIOLOGY METHOD 10/27/2024 11:25 AM [facility] Parainfluenza Virus 4 Not Detected Not Detected LAB MICROBIOLOGY METHOD 10/27/2024 11:25 AM [facility] RSV PCR Not Detected Not Detected LAB MICROBIOLOGY METHOD 10/27/2024 11:25 AM [facility] Human Metapneumovirus A and B Not Detected Not Detected LAB MICROBIOLOGY METHOD 10/27/2024 11:25 AM [facility] Rhinovirus/Entero virus Not Detected Not Detected LAB MICROBIOLOGY METHOD 10/27/2024 11:25 AM [facility] Bordetella pertussis Not Detected Not Detected LAB MICROBIOLOGY METHOD 10/27/2024 11:25 AM [facility] Bordetella parapertussis Not Detected Not Detected LAB MICROBIOLOGY METHOD 10/27/2024 11:25 AM [facility] Mycoplasma pneumo by PCR Not Detected Not Detected LAB MICROBIOLOGY METHOD 10/27/2024 11:25 AM [facility] Chlamydia pneumoniae Not Detected Not Detected LAB MICROBIOLOGY METHOD 10/27/2024 11:25 AM [facility] SARS COV-2 Not Detected Not Detected LAB MICROBIOLOGY METHOD 10/27/2024 11:25 AM [facility] Swab Both anterior nares / Unknown Non-blood Collection / Unknown 10/27/2024 10:14 AM EST 10/27/2024 10:26 AM EST Narrative [facility] - 10/27/2024 11:25 AM EST Testing was performed using the Browse[employer] Respiratory Pathogen PCR Assay. All results must be correlated with the clinical findings. Results should not be used as the sole basis for diagnosis. False Negative results may occur from the presence of sequence variants in the region targeted by the assay or the presence of inhibitors. Results may be affected by concurrent antiviral/antimicrobial therapy or levels of organisms that are below the limit of detection. Joey Palacio MD LAB MICROBIOLOGY - G ENERAL ORDERABLES [facility] [address] [place] [address], * HIV Screening (07/27/2023) [facility] HIV Screening abstracted [facility] Provider [facility] Hepatitis C Screening (07/27/2023) [facility] Hepatitis C Screening abstracted [facility] Provider [facility] Cervical Cancer Screening: HPV (07/26/2023) [facility] Cervical Cancer Screening: HPV negative abstracted [facility] Provider [facility] * Gonorrhea/Chlamydia Screening (07/26/2023) [facility] Gonorrhea/Chla mydia Screening abstracted [facility] Provider [facility] Lipid panel (03/09/2021) [facility] LDL/HDL Ratio 3 0 - 4 Triglycerides 48 0 - 150 mg/dL Cholesterol 128 0 - 200 mg/dL HDL 50 40 mg/dL LDL Cholesterol 69 0 - 100 mg/dL Blood Venous blood specimen / Unknown Historical Provider LAB BLOOD ORDERAB LES from Last 3 Months or Most Recently Relevant to Health Maintenance Care Teams Public Services Assistant Relationship Specialty Start Date End Date Esther Andre MD [address] [place] [phone] PCP - General Internal Medicine 05/24/22
--- OUTSIDE RECORDS SUMMARY | 2024-11-13 12:24 | XMS_ITS ---
Author Organization [facility] Address [address] [place] [address] Care Team Providers Care Vamp Wetter Name Role Phone Royal Nolasco Unavailable [phone] Allergies No Known Allergies REASON FOR VISIT Infected Ingrown Toenail Social History Tobacco Use: Social History Observation Description Date Details (start date - stop date) Never Smoker NA - NA smoking Question Answer Notes Are you a: nonsmoker Problems Problem Type SNOMED Code ICD Code Onset Dates Problem Status W/U Status Risk Notes Problem Ingrowing nail (852021351) Ingrowing nail (L60.0) Active confirmed Problem Nail dystrophy (24613565) 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 Problem Pain in limb (34554206) Pain in right toe(s) (M79.674) Active confirmed Vital Signs Weight 200 lbs 05/13/2023 Weight 200 lbs 05/13/2023 Height 5ft 6in in 05/13/2023 Height 5ft 6in in 05/13/2023 BMI 32.28 05/13/2023 Encounters Encounter Location Date Provider Diagnosis [facility] [address] [place] [address] 05/13/2023 Royal Nolasco Ingrowing nail L60.0 ; [...] nail bed using a freer elevator. An egyptian anvil was then utilized to resect the [...] nail bed using a freer elevator. An egyptian anvil was then utilized to resect the [...] Felipe LANCASTER MDOB:0 2000 (24 yo F)Acc No.[id number]:05/13/2023 New Patient Notes Patient:?Al LANCASTER Provider:?Royal Nolasco DPM :2000???Age:23 Y???Sex:Female D ate:05/13/2023 Address[address] [address], [id number] Subjective: * Chief Complaints: * ???1. Infected [...] you a:?nonsmoker.?Alcohol: no. Marital status: single. 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 Exercise: no. Recreational drug use: no. * [...] - M79.674??? Plan: * Treatment: * Procedure Codes:?[address]62 [place] [address] Av[place], Modifiers: T5 , A4550 Sterile Tray * Preventive Medicine:? ??Counseling:?Wound Care Instructions Given and Taught to Patient?.?Thorough Discussion on Pedal Hygiene and Antifungal Tips for Feet and Shoegear?.?Extensive Education on Shoes and Shoe Recommendations Given to Patient. Shoe fit and appropriate nature discussed and evaluated?.? * Follow Up:?2 Weeks * * Electronic signature of Komal Nolasco DPM on 11/13/2024 at 11:24 AM MECHANICAL MAINTENANCE SUPERVISOR Sign off status: Pending * Provider:?Royal Nolasco DPM Date:?0 05/13/2023 Generated for Gurmeet wynne/Azael/eTransmitting on:?11/13/2024 11:24 AM MECHANICAL MAINTENANCE SUPERVISOR History and Physical Notes * HPI (History [...]
--- OUTSIDE RECORDS SUMMARY | 2024-11-13 12:24 | XMS_ITS | Clinical Summary ---
Author Organization [facility] Address [address] [place] [address] Phone Care Team Providers Care Chop Saw Operator Name Role Phone Margo Allen MD Primary Care Prov ider Social History Tobacco Use Types Packs/Day Years Used Date Smoking Tobacco: Never Assessed Comments Unknown Sex and Gender Information Value Date Recorded Sex Assigned at Not on file Legal Sex Female 12:18 PM EST Gender Identity Not on file Sexual Orientation Not on file Last Filed Vital Signs Vital Sign Reading Time Taken Comments Blood Pressure - - Pulse - - Temperature - - Respiratory Rate - - Oxygen Saturation - - Inhaled Oxygen Concentration - - Weight 34.5 kg (76 lb) 06/23/2011 12:00 AM EDT Height - - Body Mass Index - - Plan of Treatment Health Maintenance Due Date Last Done Comments Hepatitis A Vaccines (2 of 2 - 2-dose series) 04/15/2014 10/15/2013, 10/15/2013 HPV Vaccines (1 - 3-dose series) 2017 Men B Vaccine (1 of 2 - Standard) 2018 DTaP,Tdap,and Td Vaccines (11 - Tdap) 10/15/2023 10/15/2013, 10/15/2013, 10/15/2013, Additional history exists Influenza Vaccines (#1) 2024 10/15/20 13, 10/15/2013, 02/24/2011, Additional history exists COVID-19 Vaccine (2023- season) 2024 MMR Vaccines Completed 11/17/2006, 03/26, 02/19/2003 HIB Vaccines Completed 10/15/2013, 070 01/2003, 2002, Additional history exists Hepatitis B Vaccines Completed 10/15/2013, 10/15/2013, 2002, Additional history exists IPV Vaccines Completed 10/15/2013, 09/24, 10/15/2013, Additional history exists Meningococcal Vaccine Aged Out 10/15/2013, 013 No longer eligible based on patient's age to complete this topic Pneumococcal Vaccine Completed 10/15/2013, 10/15/2013, 10/15/2013, Additional history exists Varicella Vaccines Completed 10/15/2013, 0 11/17/2006, 2002 Care Teams Chop Saw Operator Relationship Specialty Start Date End Date Margo Allen MD [address] [place] [id number] PCP - General 12/14/17
--- OUTSIDE RECORDS SUMMARY | 2024-11-13 12:24 | XMS_ITS | Encounter Summary ---
Author Organization [employer] Address [address] [place] [address] Care Team Providers Care Assistant Manager/Embalmer Name Role Phone Esther Andre MD Primary Care Prov ider Reason for Visit * Reason Comments Vomiting Abdominal Pain Encounter Details Date Type Department Care Team (Late st Contact Info) Description 10/27/2024 9:42 AM EST - 10/27/2024 12:41 PM EST Emergency [facility] Emergency [address] [place] [phone] Discharge Disposition: Home or Self Care Social History Tobacco Use Types Packs/Day Years [...] file Not on file Not on file documented as of this encounter Last Filed Vital Signs Vital Sign Reading [...] Mass Index 33.09 10/27/2024 10:04 AM EST documented in this encounter Medications at Time of Discharge Medication Sig Dispensed Refills Start Date End Date ibuprofen (ADVIL,MOTRIN) 600 mg tablet Take 1 tablet (600 mg total) by mouth every 6 (six) hours if needed. 02/24/2023 SUMAtriptan (IMITREX) 100 mg tablet Take 1 Tablet by mouth as needed for Migraine. May repeat dose once after 2 hours, if needed. Max 2 tabs in 24 hrs. 08/02/2023 documented as of this encounter Discharge Disposition Disposition Code Departure Means Destination Home or Self Care documented in this encounter Progress Notes * Ysabel Juan RN - 10/27/2024 11:16 AM EST Pt leaving at this time with boyfriend due to wait time * Magaly Brumfield RN - 10/27/2024 10:07 AM EST She started having vomiting and diarrhea last night and is unable to keep down water. She feels weak and has lower back pain. She has generalized body aches. documented in this encounter Plan of Treatment Upcoming Encounters Date Type Department Care Team (Late st Contact Info) Description 04/11/2025 12:00 PM EDT Office Visit Adult Medicine [facility] [address] [place] [address] Bessy Blanca PA [address] [place], [place] Pending Results Name Type Priority Associated Diagnoses Date /Time POC , urine manually resulted Point of Care Testing STAT 10/27/2024 10:45 AM EST Scheduled Orders Name Type Priority Associated Diagnoses Orde r Schedule POC , urine manually resulted Point of Care Testing STAT Once for 1 Occurrences starting 10/27/2024 until 10/27/2024 documented as of this encounter Procedures Procedure Name Priority Date/Time Associated Diagnosis Comments CBC WITH AUTO DIFFERENTIAL STAT 10/27/2024 10:25 AM EST CBC AND DIFFERENTIAL STAT 10/27/2024 10:25 AM EST LIPASE STAT 10/27/2024 10:25 AM EST COMPREHENSIVE METABOLIC PANEL STAT 10/27/2024 10:25 AM EST RESPIRATORY VIRUS PANEL MOLECULAR STUDY STAT 10/27/2024 10:14 AM EST documented in this encounter Results * (ABNORMAL) CBC auto differential (10/27/2024 10:25 AM EST) WBC 20.1(H) 4.8 - 10.8 K/mcL LAB HEMETOLOGY METHOD 10/27/2024 10:44 AM [facility] RBC 4.80 3.80 - 4.80 M/mcL LAB HEMETOLOGY METHOD 10/27/2024 10:44 AM [facility] Hemoglobin 13.1 11.5 - 16.0 g/dL LAB HEMETOLOGY METHOD 10/27/2024 10:44 AM [facility] Hematocrit 40.4 35.0 - 47.0 % LAB HEMETOLOGY METHOD 10/27/2024 10:44 AM [facility] MCV 84.5 79.0 - 98.0 FL LAB HEMETOLOGY METHOD 10/27/2024 10:44 AM [facility] MCH 27.4 27.0 - 32.0 pcg LAB HEMETOLOGY METHOD 10/27/2024 10:44 AM [facility] MCHC 32.4 32.0 - 37.0 g/dL LAB HEMETOLOGY METHOD 10/27/2024 10:44 AM [facility] RDW 13.5 11.0 - 15.0 % LAB HEMETOLOGY METHOD 10/27/2024 10:44 AM [facility] Platelets 452(H) 130 - 400 K/mcL LAB HEMETOLOGY METHOD 10/27/2024 10:44 AM [facility] MPV 8.6 7.0 - 11.0 FL LAB HEMETOLOGY METHOD 10/27/2024 10:44 AM [facility] NRBC 0.0 <1.0 % LAB HEMETOLOGY METHOD 10/27/2024 10:44 AM [facility] NRBC Absolute 0.00 <0.10 K/mcL LAB HEMETOLOGY METHOD 10/27/2024 10:44 AM [facility] Neutrophils Relative 88.9 % LAB HEMETOLOGY METHOD 10/27/2024 10:44 AM [facility] Lymphocytes Relative 4.3 % LAB HEMETOLOGY METHOD 10/27/2024 10:44 AM [facility] Monocytes Relative 5.0 % LAB HEMETOLOGY METHOD 10/27/2024 10:44 AM [facility] Eosinophils Relative 1.2 % LAB HEMETOLOGY METHOD 10/27/2024 10:44 AM [facility] Basophils Relative 0.2 % LAB HEMETOLOGY METHOD 10/27/2024 10:44 AM [facility] Immature Granulocytes Relative 0.4 % LAB HEMETOLOGY METHOD 10/27/2024 10:44 AM [facility] Neutrophils Absolute 17.80(H) 1.50 - 7.00 K/mcL LAB HEMETOLOGY METHOD 10/27/2024 10:44 AM [facility] Lymphocytes Absolute 0.86(L) 1.00 - 5.00 K/mcL LAB HEMETOLOGY METHOD 10/27/2024 10:44 AM EST [facility] Monocytes Absolute 1.01(H) 0.20 - 1.00 K/[facility] LAB HEMETOLOGY METHOD 10/27/2024 10:44 AM EST [facility] Eosinophils Absolute 0.24 0.00 - 0.50 K/[facility] LAB HEMETOLOGY METHOD 10/27/2024 10:44 AM EST [facility] Basophils Absolute 0.05 0.00 - 0.20 K/[facility] LAB HEMETOLOGY METHOD 10/27/2024 10:44 AM EST [facility] Immature Granulocytes Absolute 0.09(H) 0.00 - 0.03 K/[facility] LAB HEMETOLOGY METHOD 10/27/2024 10:44 AM EST [facility] Blood Venous blood specimen / Unknown Venipuncture / Unknown 10/27/2024 10:25 AM EST 10/27/2024 10:40 AM EST Joey Palacio MD LAB BLOOD ORDERABLES Performing Organization Address City/[facility]/ZIP Co de Phone Number [facility] [address] [place] [address], * Lipase (10/27/2024 10:25 AM EST) Lipase 28 13 - 75 unit/L LAB CHEMISTRY METHOD 10/27/2024 11:04 AM EST [facility] Blood Venous blood specimen / Unknown Venipuncture / Unknown 10/27/2024 10:25 AM EST 10/27/2024 10:39 AM EST Joey Palacio MD LAB BLOOD ORDERABLES [facility] [address] [place] [address], [place] [phone] * (ABNORMAL) Comprehensive metabolic panel (10/27/2024 10:25 AM EST) Sodium 140 133 - 145 mmol/L LAB CHEMISTRY METHOD 10/27/2024 11:05 AM [facility] Potassium 4.4 3.5 - 5.5 mmol/L LAB CHEMISTRY METHOD 10/27/2024 11:05 AM [facility] Chloride 110 96 - 110 mmol/L LAB CHEMISTRY METHOD 10/27/2024 11:05 AM [facility] CO2 22 21 - 32 mmol/L LAB CHEMISTRY METHOD 10/27/2024 11:05 AM [facility] Anion Gap 8 3 - 11 LAB CHEMISTRY METHOD 10/27/2024 11:05 AM [facility] Glucose 108(H) 70 - 100 mg/dL LAB CHEMISTRY METHOD 10/27/2024 11:05 AM [facility] BUN 17 5 - 25 mg/dL LAB CHEMISTRY METHOD 10/27/2024 11:05 AM [facility] Creatinine 0.81 0.50 - 1.10 mg/dL LAB CHEMISTRY METHOD 10/27/2024 11:05 AM [facility] eGFR 105 >=60 mL/min/1. 73m2 LAB CHEMISTRY METHOD 10/27/2024 11:05 AM [facility] Comment:Calculation based on the??Chronic Kidney Disease Epidemiology Collaboration (CKD-EPI) equation refit??without adjustment for race. BUN/Creatinine Ratio 21.0 LAB CHEMISTRY METHOD 10/27/2024 11:05 AM [facility] Calcium 9.6 8.5 - 10.5 mg/dL LAB CHEMISTRY METHOD 10/27/2024 11:05 AM [facility] AST (SGOT) 13 10 - 42 unit/L LAB CHEMISTRY METHOD 10/27/2024 11:05 AM [facility] ALT (SGPT) 23 10 - 60 unit/L LAB CHEMISTRY METHOD 10/27/2024 11:05 AM [facility] Alkaline Phosphatase 72 42 - 121 unit/L LAB CHEMISTRY METHOD 10/27/2024 11:05 AM [facility] Total Protein 7.9 6.0 - 8.0 g/dL LAB CHEMISTRY METHOD 10/27/2024 11:05 AM [facility] Albumin 4.2 3.2 - 5.0 g/dL LAB CHEMISTRY METHOD 10/27/2024 11:05 AM [facility] Total Bilirubin 1.1 0.0 - 1.4 mg/dL LAB CHEMISTRY METHOD 10/27/2024 11:05 AM [facility] Blood Venous blood specimen / Unknown Venipuncture / Unknown 10/27/2024 10:25 AM EST 10/27/2024 10:39 AM EST Joey Palacio MD LAB BLOOD ORDERABLES [facility] [address] [place] [address], * Respiratory virus panel molecular study (10/27/2024 10:14 AM EST) Adenovirus Detection by PCR Not Detected Not Detected LAB MICROBIOLOGY METHOD 10/27/2024 11:25 AM [facility] Influenza A PCR Not Detected Not Detected LAB MICROBIOLOGY METHOD 10/27/2024 11:25 AM [facility] Influenza B PCR Not Detected Not Detected LAB MICROBIOLOGY METHOD 10/27/2024 11:25 AM [facility] Coronavirus 229E Not Detected Not Detected LAB MICROBIOLOGY METHOD 10/27/2024 11:25 AM [facility] Coronavirus HKU1 Not Detected Not Detected LAB MICROBIOLOGY METHOD 10/27/2024 11:25 AM [facility] Coronavirus OC43 Not Detected Not Detected LAB MICROBIOLOGY METHOD 10/27/2024 11:25 AM [facility] Coronavirus NL63 Not Detected Not Detected LAB MICROBIOLOGY METHOD 10/27/2024 11:25 AM [facility] Parainfluenza Virus 1 Not Detected Not Detected LAB MICROBIOLOGY METHOD 10/27/2024 11:25 AM [facility] Parainfluenza Virus 2 Not Detected Not Detected LAB MICROBIOLOGY METHOD 10/27/2024 11:25 AM [facility] Parainfluenza Virus 3 Not Detected Not Detected LAB MICROBIOLOGY METHOD 10/27/2024 11:25 AM [facility] Parainfluenza Virus 4 Not Detected Not Detected LAB MICROBIOLOGY METHOD 10/27/2024 11:25 AM [facility] RSV PCR Not Detected Not Detected LAB MICROBIOLOGY METHOD 10/27/2024 11:25 AM [facility] Human Metapneumovirus A and B Not Detected Not Detected LAB MICROBIOLOGY METHOD 10/27/2024 11:25 AM [facility] Rhinovirus/Entero virus Not Detected Not Detected LAB MICROBIOLOGY METHOD 10/27/2024 11:25 AM [facility] Bordetella pertussis Not Detected Not Detected LAB MICROBIOLOGY METHOD 10/27/2024 11:25 AM [facility] Bordetella parapertussis Not Detected Not Detected LAB MICROBIOLOGY METHOD 10/27/2024 11:25 AM [facility] Mycoplasma pneumo by PCR Not Detected Not Detected LAB MICROBIOLOGY METHOD 10/27/2024 11:25 AM [facility] Chlamydia pneumoniae Not Detected Not Detected LAB MICROBIOLOGY METHOD 10/27/2024 11:25 AM [facility] SARS COV-2 Not Detected Not Detected LAB MICROBIOLOGY METHOD 10/27/2024 11:25 AM [facility] Swab Both anterior nares / Unknown Non-blood Collection / Unknown 10/27/2024 10:14 AM EST 10/27/2024 10:26 AM [facility] - 10/27/2024 11:25 AM EST Testing was performed using the [employer] Respiratory Pathogen PCR Assay. All results must [...] Joey Palacio MD LAB MICROBIOLOGY - [facility] ORDERABLES [facility] ([facility] [address] [place] [address], documented in this encounter Visit Diagnoses Not on filedocumented in this encounter Additional Health Concerns Infection Onset Date Last Indicated Resolved Time Respiratory Rule-Out 10/27/2024 10/27/2024 025 11:25 AM EST COVID-19 Rule-Out 10/27/2024 10/27/2024 10/27/2024 11:25 AM EST documented as of this encounter Care Teams Assistant Manager/Embalmer Relationship Specialty Start Date End Date Esther Andre MD [address] [place] [id number] PCP - General Internal Medicine 05/24/22 documented as of this encounter
--- OUTSIDE RECORDS SUMMARY | 2024-11-13 12:24 | XMS_ITS ---
Author Organization [facility] Address [address] [place] [address] Care Team Providers Care Hot Stick Man Name Role Phone Royal Nolasco Unavailable [phone] REASON FOR VISIT 2 WK F/U Encounters Encounter Location Date Provider Diagnosis [facility] [address] [place] [address] 05/26/2023 Royal Nolasco Plan Of Treatment No Information Progress Notes * Felipe LANCASTER MDOB:0 2000 (24 yo F)Acc No.[id number]:05/26/2023 Progress Notes Patient:?Al LANCASTER Jumana Provider:?Royal Nolasco DPM :2000???Age:23 Y???Sex:Female D ate:05/26/2023 Address:[address], [facility] Subjective: * Chief Complaints: * ???1. 2 WK F/U. * Medical History:? Objective: * Vitals:? Assessment: Plan: * Treatment: * * Electronic signature of Komal Nolasco DPM on 11/13/2024 at 11:23 AM FIRE FIGHTING EQUIPMENT SPECIALIST Sign off status: Pending * Provider:?Royal Nolasco DPM Date:?0 05/26/2023 Generated for Gurmeet wynne/Azael/Linneaitting on:?11/13/2024 11:23 AM FIRE FIGHTING EQUIPMENT SPECIALIST
== END 2024-11-13 11:31 | disposition home or self-care (01) ==
PROVIDERS: PCP Internal Medicine; Visit Provider Surgery
DX: K65.1 Peritoneal abscess (principal)
CPT/HCPCS: 99213

== ENCOUNTER → 2024-11-13 10:49 | Outpatient (BNVA) | payer OTHER, SELFPAY | PROVIDERS: PCP Internal Medicine; Visit Provider Surgery | DX: K65.1 Peritoneal abscess (principal) | CPT/HCPCS: 99212 ==

== ENCOUNTER 2025-01-03 15:16 | Outpatient (REF) | payer OTHER, SELFPAY ==
--- NOTE | ~2025-01-03 | CT_ITS ---
CLINICAL HISTORY: K65.1 - Peritoneal abscess CT abdomen and pelvis with IV contrast. COMPARISON: CT abdomen and pelvis dated 10/27/24 at 14:26 EST FINDINGS: Minimal linear atelectasis along the lung bases bilaterally. Normal gallbladder. No focal hepatic lesion. Normal spleen. Normal pancreas. Normal adrenal glands. Symmetric renal enhancement. No hydronephrosis. Interval resolution of previously seen loculated fluid collection in the right lower quadrant. No organizing or drainable fluid collection within the abdomen or pelvis. Normal appendix. Mild colonic stool burden. No bowel obstruction. Oral contrast has progressed into the cecum. No mesenteric or retroperitoneal lymphadenopathy. Normal abdominal aorta. Normal appearance of the urinary bladder. No adnexal mass. Dominant left ovarian cyst/follicle measuring up to 2.5 cm. Small fat containing umbilical hernia. No acute fracture or suspicious bone lesion. IMPRESSION: 1. Interval resolution of previously seen organizing fluid collection along the right lower quadrant. No peritoneal abscess identified. 2. Normal appendix. This document has been electronically signed by: Mrakell Simmons MD on 01/04/2025 16:39:06
[2025-01-03] MEDS: iohexoL 350 MG/ML 100 ML INFUS..BTL 85 ML IV (16:24)
--- OUTSIDE RECORDS SUMMARY | 2025-01-03 18:57 | XMS_ITS | Clinical Summary ---
Author Organization [facility] Address [address] [place] [address] Phone Care Team Providers Care Green House Manager Name Role Phone Margo Allen MD Primary [...] Completed 10/15/2013, 0 11/17/2006, 2002 Care Teams Green House Manager Relationship Specialty Start Date End Date Margo Allen MD [address] [place] [id number] PCP - General 12/14/17
--- OUTSIDE RECORDS SUMMARY | 2025-01-03 18:57 | XMS_ITS | Continuity of Care Document ---
Author Name [employer] Organization [facility] Care Team Providers Care Firer Portable Boiler Name Role Phone [employer] Unavailable Unavailable Problems Combined list of problems from Department of [facility] and Veterans Affairs facilities. It does not include entries that were removed or entered in error. 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, INTERMEDIATE OR SEPARATION FROM UNIFORMED SERVICE, LONG Active 07/02/2024 Diagnosis [facility]-Cav azos ASSESSMENT, POST-DEPLOYMENT, DOCUMENTED ON [id number] Active 07/02/2024 Diagnosis [facility]av [facility] Human immunodeficiency virus antibody titer Active 07/02/2024 [facility] Contusion of left knee, initial encounter Active 05/16/[address] [place] [address] Contusion of left lower leg, initial encounter Active 05/16/[address] [place] [address] Medications Combined list of outpatient medications from Department [facility] and [facility] facilities.Medications provided include 1) outpatient medications from the last 15 months, and 2) patient-reported medications. Medication Details Route Status Patient Instructions Prescription Expires Prescription Number Last Dispense Date Ordering Provider Order Date Order Qty Source Gwendolyn 180 mg oral tablet 1 tab(s), Oral, Daily, PRN allergy symptoms , # 60 tab(s), 0 total refill(s ), Maintena nce, Pharmacy : [facility] Oral (given by mouth) Complet ed 07/02/2024 4 2023 60.0 0010C-D [facility] Flonase 50 mcg/inh nasal spray 50 mcg, Nostril- Both, BID, # 16 g, 5 total refill(s ), Maintena nce, Pharmacy : [facility] Nostri l-Both (into the nose) Complet ed 07/02/2024 4 2023 16.0 [facility] Immunizations Combined list of available immunizations from the Department of Defense and Veterans Affairs facilities. Immunization Series Date Given Administered By Site Reaction Lot Number CVX Code Drug Flight Information Expediter Status Comments Source influenza, injectable, quadrivalent- pf 2020 [id number] ID Biomedical comple t ed influenza , injectabl e, quadrival ent-pf 09/09/21 Given Ambulat ory Pharmac y COVID Vaccine Pfizer 2020 [id number] PFIZER complet ed COVID Vaccine Pfizer 04/01/21 Given Ambulat ory Pharmac y COVID Vaccine Pfizer 2020 [id number] 208 PFIZER complet ed COVID Vaccine Pfizer 03/09/21 Given Ambulat ory Pharmac y influenza, injectable, quadrivalent- pf 2019 [id number] t Arm [id number] 150 Seqirus complet ed influenza , injectabl e, quadrival ent-pf 08/22/20 Given Ambulat ory Pharmac y Vital Signs Combined list of inpatient and outpatient Vital Signs from Department of Defense and Veterans Affairs, ranging from 12 months to all on record, depending upon the facility. Vital Sign Value Date Comments Source Systolic Blood Pressure 130 mm[Hg] 12/29/19 24 17:35:[address] [place] [address] Diastolic Blood Pressure 84 mm[Hg] 024 17:35:[address] [place] [address] Mean Arterial Pressure, Calc 99 mm[Hg] 12/29/2023 17:35:[address] [place] [address] BP Site Left upper leg 12/29/2023 17:35:[address] [place] [address] Mean Arterial Pressure, Calc 87 mm[Hg] 10/28/2023 20:25:[address] [place] [address] Temperature Oral 36.7 Gisselle 10/28/2023 20:25:[address] [place] [address] Systolic Blood Pressure 128 mm[Hg] 10/28/19 24 20:25:[address] [place] [address] Diastolic Blood Pressure 66 mm[Hg] 024 20:25:[address] [place] [address] Respiratory Rate 16 br/min 10/28/2023 20:25:[address] [place] [address] Peripheral Pulse Rate 87 bpm 10/28/2023 20:25:[address] [place] [address] Peripheral Pulse Rate 66 bpm 07/02/2024 14:34:00 [facility]-Michelle Systolic Blood Pressure 127 mm[Hg] 07/02/20 24 14:34:00 [facility] Diastolic Blood Pressure 86 mm[Hg] 024 14:34:00 [facility]le Mean Arterial Pressure, Calc 98 mm[Hg] 05/16/2024 20:24:[address] [place] [address] Blood Pressure Manual Automatic 05/16/2024 20:24:[address] [place] [address] BP Site Right arm 05/16/2024 20:24:[address] [place] [address] Temperature Oral 36.7 Gisselle 05/16/2024 20:24:[address] [place] [address] Peripheral Pulse Rate 82 bpm 05/16/2024 20:24:[address] [place] [address] Systolic Blood Pressure 126 mm[Hg] 05/16/20 24 20:24:[address] [place] [address] Diastolic Blood Pressure 84 mm[Hg] 024 20:24:[address] [place] [address] Respiratory Rate 16 br/min 05/16/2024 20:24:[address] [place] [address] Encounters Combined list of: 1) Encounters from Department of Veterans Affairs facilities going backup to the last 18 months, not all VA inpatient encounters are included; 2) Encounters from the Department of Defense facilities going backup to 280 months. Location Location Details Encounter Type Encounter Number Reason For Visit Attending Provider ADM Date DC Date Status Disposition Source -[facility] [id number] CHAPINCITO ASTORGA 05/11 Discharge Disposition: Home or Self Care 0C-D [facility] [id number] Contusi on of left lower leg, initial encount er,Cont usion of left knee, initial encount er ZOE OROPEZA 05/16 Discharge Disposition: Home or Self Care 0010C-D [facility] Between Visit [id number] 05/18 Discharge Disposition: Home or Self Care 9C-D [facility] 9C-Franko [facility] Between Visit [id number] 05/18 Discharge Disposition: Home or Self Care -D [facility]-C avazos Mass Readiness [id number] ASSESSM ENT, POST-DE PLOYMEN T, DOCUMEN JANNET ON [id number], EXAM, OCCUPAT IONAL, RETIREM ENT OR SEPARAT ION FROM [facility] , LONG,En counter for screeni ng for human immunod eficien cy virus [HIV] 07/02 Discharge Disposition: Returned to Duty 0A- RHONDA murdock Procedures Combined list of: 1) Procedures from Department of Veterans Affairs facilities [facility], not all [place] non-surgical procedures are included; 2) All procedures from the Department of Defense facilities. Procedure Procedure Type Code Date Perfomer Comments Sourc e No data available for this section Ambulatory P harmacy Social History Combined list of available smoking, tobacco, and other social history from Department of Defense and Veterans Affairs facilities. Social History Type Response Date Comment Sourc e Sex Representation Female 05/25/2022 Unknow n Organization Tobacco Cigarette use: Never-cigarette user. Other Tobacco use: Never-other tobacco user (not cigarettes). Ambulatory Pharmacy Sexual Orientation Ambula tory Pharmacy Gender identity [...] from:Title : Left leg pain Author: ZOE GAFFNEY Capt, [employer], [employer], FS, 355th MDG Date: [...] creation of this note. Despite proofreading, minor prior authorization nurse errors may be present. Please call with any clinical questions or concerns.? Capt Zoe Gaffney, DO E Flight Surgeon [employer] [place], [place] ? Extracted from:Title: Cough Author: VINICIO CROCKER, DIPLOMA DENTAL ASSISTANT Date: 10/28/23 Cough, unspecified 23 year old female in no acute distress reported one month of non-productive cough, denies fever, body aches, recent weight loss, repported recently moving to [facility]. Patient denies chest pain and shortness of [...] Maintenance, 1 tab(s) Oral Daily,PRN:allergy symptoms, Pharmacy: [facility] [Not filled] fluticasone nasal(Flonase 50 mcg/inh nasal spray), 50 mcg, Nostril-Both, BID, # 16 g, 5 total refill(s), Maintenance, 50 mcg Nostril-Both BID, Pharmacy: [facility] [Not filled] XR Chest 2 Views ? 01/03/2025 [facility] Functional Status Combined list of recent functional and cognitive assessments recorded at Department of Defense and Veterans Affairs (VA).VA Functional [place] Measurement (FIM) Scale: 1 = Total Assistance (Subject = 0% +), 2 = Maximal Assistance (Subject = 25% +), 3 = Moderate Assistance (Subject = 50% +), 4 = Minimal Assistance (Subject = 75% +), 5 = Supervision, 6 = Modified [place] (Device), 7 = Complete [place] (Timely, Safely). Assessment Date/Time Source Assessment Type Assessment Skill Assessment Score Assessment Details No data available for this section
--- OUTSIDE RECORDS SUMMARY | 2025-01-03 18:57 | XMS_ITS | Patient Health Record ---
Author Organization [facility] Address [address] [place] [place] [address] Care Team Providers Care Cook Tortilla Name Role Phone Royal Nolasco Unavailable [phone] Allergies No Known Allergies Reason For Referral No Information Social History Tobacco Use: Social History Observation Description Date Details (start date - stop date) Never Smoker NA - NA smoking Question Answer Notes Are you a: nonsmoker Problems Problem Type SNOMED Code ICD Code Onset Dates Problem Status W/U Status Risk Notes Problem Ingrowing nail (070512293) Ingrowing nail (L60.0) Active confirmed Problem Pain in limb (79197011) Pain in right toe(s) (M79.674) Active confirmed Problem Nail dystrophy (83343056) 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 Plan Of Treatment No Information Insurance Providers Payer Name Payer Address Payer Phone Subscriber Number Group Number Insured Name Patient Relationship to Insured Coverage Start Date Coverage End Date [facility] [address] [place] [address] [id number] Felipe Narayan Self - patient is the insured [facility] [address] [place] [address] [id number] Felipe Narayan Self - patient is the insured 3 Medical (General) History Surgical History Surgery Date(Month/Year) Left Clavicle Repair Hospitalization History Reason Date(Month/Year) as listed in surgical history
--- OUTSIDE RECORDS SUMMARY | 2025-01-03 18:57 | XMS_ITS | Clinical Summary ---
Author Organization [facility] Address [address] [place] [address] Phone Care Team Providers Care Corporate Librarian Name Role Phone Esther Andre MD Primary Care Prov ider Allergies No known active allergies Medications ibuprofen (ADVIL,MOTRIN) 600 mg tablet Take 1 [...] Encounters Date Type Department Care Team Description 11/15/2024 1:00 PM EST Office Visit Adult Medicine [address] [phone] Erica Mckenzie, FIELD IDENTIFICATION SPECIALIST Dysuria (Primary Dx); Screen for STD (sexually transmitted disease) 10/27/2024 9:42 AM EST - 10/27/2024 12:41 PM EST [facility] Emergency [address] [place] [id number] Discharge Disposition: Home or Self Care from Last 3 Months Immunizations Name Administration Dates Next Due DTaP (Infanrix) 6wks to less than 7yo ,09/25/2003,2002,05/21,2002 [id number] (Pentacel) 2mo to less than 5yo 04/26/2003,2002,2002,04/02 [...] 11/28/2019 DX:Injur y of left shoulder; COMMENT: 12-13 Headache 05/17/2017 DX:Headache; COM MENT: 12/04/2019 resolved [...] time 01/04 - seen in ER at [facility], neg CXR 07/07 - no flares since 12/07 10/07 - no controller meds, minimal albuterol usage 07/09 - returned to [facility], prednisone burst with albuterol, no cont* ACL [...] Grandmother Alive stephen to es Mother Alive radha victoria Other 1 Other 2 Uncle Social History Tobacco Use Types Packs/Day Years Used Date Smoking Tobacco: Never Smokeless Tobacco: Current Tobacco Cessation:Ready to Q uit: Not Asked; Counseling Given: Not Answered Alcohol Use Standard Drinks/Week Comments Never 0 (1 standard drink = 0.6 oz pur e alcohol) Comments Unknown Sex and Gender Information Value Date Recorded Sex Assigned at Not on file Legal Sex Female 1:02 PM EST Gender Identity Not on file Sexual Orientation Not on file Obstetrics History Last Filed Vital Signs Vital Sign Reading Time Taken Comments Blood Pressure 114/64 11/15/2024 1:07 PM EST Pulse 60 11/15/2024 1:07 PM EST Temperature 36.9 ??C (98.4 ??F) 11/15/2024 1:07 PM ES T Respiratory Rate 14 11/15/2024 1:07 PM EST Oxygen Saturation 99% 10/27/2024 10:04 AM EST Inhaled Oxygen Concentration - - Weight 93.4 kg (206 lb) 11/15/2024 1:07 PM EST Height 167.6 cm (5' 6 ) 11/15/2024 1:07 PM EST Body Mass Index 33.25 11/15/2024 1:07 PM EST Plan of Treatment Upcoming Encounters Date Type Department Care Team (Late st Contact Info) Description 04/11/2025 12:00 PM EDT Office Visit Adult Medicine [facility] [address] [place] [address] Bessy Blanca PA [address] [place] [address] Health Maintenance Due Date Last Done Comments Meningococcal B Vacine (1 of 2 - Standard) 2018 Depression Screening 10/02/2022 Social Influencers of Health [...] 09/24, 08/12/2014 Meningococcal ACWY Vaccine Completed 10/30/2018, Influenza Vaccine Completed 08/06/2024, , 08/30/2022, Additional history exists HIV Screening Completed 11/15/2024, 07/27/2023 Hepatitis C Screening Completed 11/15/2024, 023 Hepatitis A Vaccines Aged Out No long er eligible based on patient's age to complete this topic RSV Immunization Patients Under 20 months Aged Out No longer eligible based on patient's age to complete this topic Procedures Procedure Name Priority Date/Time Associated Diagnosis Comments CESPEDES URINE CULTURE TUBE Routine 11/15/19 25 1:57 PM EST Dysuria URINALYSIS WITH REFLEX MICROSCOPIC AND CULTURE Routine 11/15/2024 1:57 PM EST Dysuria URINALYSIS WITH REFLEX MICROSCOPIC AND CULTURE Routine 11/15/2024 1:57 PM EST Dysuria CULTURE URINE Routine 11/15/2024 1:57 PM EST Dysuria HEPATITIS A ANTIBODY IGM Routine 11/15/2024 1:54 PM EST Dysuria Screen for STD (sexually transmitted disease) TREPONEMA PALLIDUM ANTIBODY WITH REFLEX TO RPR AND PARTICLE AGGLUTINATION Routine 11/15/2024 1:54 PM EST Screen for STD (sexually transmitted disease) HIV 1, 2 ANTIBODY, P24 ANTIGEN WITH REFLEX TO DIFFERENTIATION Routine 11/15/2024 1:54 PM EST Screen for STD (sexually transmitted disease) HEPATITIS B SURFACE ANTIBODY Routine 11/15/2024 1:54 PM EST Dysuria Screen for STD (sexually transmitted disease) HEPATITIS B SURFACE ANTIGEN WITH CONFIRMATION Routine 11/15/2024 1:54 PM EST Dysuria Screen for STD (sexually transmitted disease) HEPATITIS B CORE ANTIBODY, TOTAL Routine 11/15/2024 1:54 PM EST Dysuria Screen for STD (sexually transmitted disease) HEPATITIS A ANTIBODY TOTAL WITH REFLEX IGM Routine 11/15/2024 1:54 PM EST Dysuria Screen for STD (sexually transmitted disease) HEPATITIS C ANTIBODY Routine 11/15/2024 1:54 PM EST Dysuria Screen for STD (sexually transmitted disease) POC URINE AUTO W/O MICRO Routine 11/15/2024 1:18 PM EST Dysuria CBC WITH AUTO DIFFERENTIAL STAT 10/27/2024 10:25 AM EST LIPASE STAT 10/27/2024 10:25 AM EST COMPREHENSIVE METABOLIC PANEL STAT 10/27/2024 10:25 AM EST CBC AND DIFFERENTIAL STAT 10/27/2024 10:25 AM EST RESPIRATORY VIRUS PANEL MOLECULAR STUDY STAT 10/27/2024 10:14 AM EST HM HPV Routine 07/26/2023 HM GONORRHEA/CHLAMYDIA SCRREENING Routine 07/26/2023 LIPID PANEL Routine 03/09/2021 from Last 3 Months or Most Recently Relevant to Health Maintenance Results * (ABNORMAL) Urinalysis with reflex microscopic and culture (11/15/2024 1:57 PM EST) Specific Whittaker Urine 1.016 1.003 - 1.030 LAB URINALYSIS - AUTOMATED METHOD 11/15/2024 4:13 PM [facility] pH, Urine 6.5 5.0 - 8.0 pH LAB URINALYSIS - AUTOMATED METHOD 11/15/2024 4:13 PM [facility] Leukocytes, Urine Large(A) Negative LAB URINALYSIS - AUTOMATED METHOD 11/15/2024 4:13 PM [facility] Nitrite, Urine Negative Negative LAB URINALYSIS - AUTOMATED METHOD 11/15/2024 4:13 PM [facility] Protein, Urine Negative <=Trace mg/dL LAB URINALYSIS - AUTOMATED METHOD 11/15/2024 4:13 PM [facility] Glucose, Urine Negative Negative mg/dL LAB URINALYSIS - AUTOMATED METHOD 11/15/2024 4:13 PM [facility] Ketones, Urine Negative Negative mg/dL LAB URINALYSIS - AUTOMATED METHOD 11/15/2024 4:13 PM [facility] Urobilinogen, Urine 1.0 0.2 - 1.0 mg/dL LAB URINALYSIS - AUTOMATED METHOD 11/15/2024 4:13 PM [facility] Bilirubin, Urine Negative Negative LAB URINALYSIS - AUTOMATED METHOD 11/15/2024 4:13 PM [facility] Blood, Urine Negative Negative LAB URINALYSIS - AUTOMATED METHOD 11/15/2024 4:13 PM [facility] RBC, Urine 2.6 0 - 4 /HPF LAB URINALYSIS - AUTOMATED METHOD 11/15/2024 4:13 PM [facility] WBC, Urine 40.0(H) 0 - 4 /HPF LAB URINALYSIS - AUTOMATED METHOD 11/15/2024 4:13 PM [facility] Squamous Epithelial, Urine 44 0 - 60 /LPF LAB URINALYSIS - AUTOMATED METHOD 11/15/2024 4:13 PM [facility] Bacteria, Urine Few(A) Negative /HPF LAB URINALYSIS - AUTOMATED METHOD 11/15/2024 4:13 PM [facility] Hyaline Casts, Urine 0.4 0 - 3 /LPF LAB URINALYSIS - AUTOMATED METHOD 11/15/2024 4:13 PM [facility] Urine Urine specimen obtained by clean catch procedure / Unknown Non-blood Collection / Unknown 11/15/2024 1:57 PM EST 11/15/2024 1:57 PM EST us Erica Mckenzie FIELD IDENTIFICATION SPECIALIST LAB URINE ORDERABLES Final R esult [facility] [address] [place] [address], [place] [phone] * Cespedes urine culture tube (11/15/2024 1:57 PM EST) [facility] Extra Tube Hold for add-ons. 11/15/2024 4:02 PM EST [facility] Comment:Auto resulted. Urine Urine specimen obtained by clean catch procedure / Unknown Non-blood Collection / Unknown 11/15/2024 1:57 PM EST 11/15/2024 1:57 PM EST us Erica Mckenzie FIELD IDENTIFICATION SPECIALIST LAB URINE ORDERABLES Final R esult [facility] [address] [place] [address], [place] [phone] * Culture urine (11/15/2024 1:57 PM EST) [facility] Culture, Urine No growth 11/16/2024 8:52 AM EST [facility] Urine Urine specimen obtained by clean catch procedure / Unknown Non-blood Collection / Unknown 11/15/2024 1:57 PM EST 11/15/2024 4:13 PM EST us Erica Mckenzie FIELD IDENTIFICATION SPECIALIST LAB MICROBIOLOGY - GENERAL O RDERABLES Final Result [facility] [address] [place] [address], [place] [phone] * Hepatitis C antibody (11/15/2024 1:54 PM EST) [facility] Hepatitis C Antibody Negative Negative LAB CHEMISTRY METHOD 11/15/2024 5:05 PM EST [facility] Blood Venous blood specimen / Unknown Venipuncture / Unknown 11/15/2024 1:54 PM EST 11/15/2024 1:54 PM EST us Erica Mckenzie FIELD IDENTIFICATION SPECIALIST LAB BLOOD ORDERABLES Final R esult Performing Organization Address [facility]ZIP Co de Phone Number [facility] [address] [place] [address], [place] [phone] * HIV 1,2 antibody, p24 antigen with reflex to differentiation (11/15/2024 1:54 PM EST) HIV Combo AB/AG Negative Negative LAB CHEMISTRY METHOD 11/15/2024 5:05 PM EST [facility] Blood Venous blood specimen / Unknown Venipuncture / Unknown 11/15/2024 1:54 PM EST 11/15/2024 1:54 PM EST Narrative [facility] - 11/15/2024 5:05 PM EST This assay is a 4th generation assay allowing for earlier detection of HIV infection by detecting the presence of the HIV-1 p24 antigen as well as the traditional antibodies to HIV type 1 (including group O) and type 2. ??Use of a 4th generation assay is the current CDC recommendation for HIV screening. Erica Mckenzie FIELD IDENTIFICATION SPECIALIST LAB BLOOD ORDERABLES Final R esult Performing Organization Address [facility]ZIP Co de Phone Number [facility] [address] [place] [address], [place] [phone] * Hepatitis B surface antigen with reflex to confirmation (11/15/2024 1:54 PM EST) Hepatitis B Surface Ag Negative Negative LAB CHEMISTRY METHOD 11/15/2024 4:37 PM EST [facility] Blood Venous blood specimen / Unknown Venipuncture / Unknown 11/15/2024 1:54 PM EST 11/15/2024 1:54 PM EST Narrative [facility] - 11/15/2024 4:37 PM EST Over the counter supplements containing high doses of biotin may interfere with this assay. ??If interference is suspected, patients shoud be retested after refraining from biotin supplements for 72 hours. Erica Mckenzie FIELD IDENTIFICATION SPECIALIST LAB BLOOD ORDERABLES Final R esult Performing Organization Address [facility] Co de Phone Number [facility] [address] [place] [address], [place] [phone] * Treponema pallidum antibody with reflex to RPR and particle agglutination (11/15/2024 1:54 PM EST) [facility] T. Pallidum Antibodies Negative Negative LAB CHEMISTRY METHOD 11/15/2024 4:36 PM EST [facility] Blood Venous blood specimen / Unknown Venipuncture / Unknown 11/15/2024 1:54 PM EST 11/15/2024 1:54 PM EST Erica Mckenzie FIELD IDENTIFICATION SPECIALIST LAB BLOOD ORDERABLES Final R esult Performing Organization Address [facility] de Phone Number [facility] [address] [place] [address], [place] [phone] * (ABNORMAL) Hepatitis A antibody total with reflex IgM (11/15/2024 1:54 PM EST) [facility] Hep A Total Ab Positive( A) Negative LAB CHEMISTRY METHOD 11/15/2024 5:12 PM EST [facility] Blood Venous blood specimen / Unknown Venipuncture / Unknown 11/15/2024 1:54 PM EST 11/15/2024 1:54 PM EST Narrative [facility] - 11/15/2024 5:12 PM EST Over the counter supplements containing high doses of biotin may interfere with this assay. ??If interference is suspected, patients shoud be retested after refraining from biotin supplements for 72 hours. Erica Mckenzie FIELD IDENTIFICATION SPECIALIST LAB BLOOD ORDERABLES Final R esult Performing Organization Address [facility] Co de Phone Number [facility] [address] [place] [address], [place] [phone] * Hepatitis A antibody IgM (11/15/2024 1:54 PM EST) Pathologist [facility] Hepatitis A Antibody IgM Negative Negative LAB CHEMISTRY METHOD 11/15/2024 6:18 PM EST [facility] Blood Venous blood specimen / Unknown Venipuncture / Unknown 11/15/2024 1:54 PM EST 11/15/2024 1:54 PM EST Narrative [facility] - 11/15/2024 6:18 PM EST Over the counter supplements containing high doses of biotin may interfere with this assay. ??If interference is suspected, patients shoud be retested after refraining from biotin supplements for 72 hours. Erica Mckenzie FIELD IDENTIFICATION SPECIALIST LAB BLOOD ORDERABLES Final R esult Performing Organization Address [facility]ZIP Co de Phone Number [facility] [address] [place] [address], * Hepatitis B core antibody, total (11/15/2024 1:54 PM EST) [facility] Hep B Core Total Ab Negative Negative LAB CHEMISTRY METHOD 11/15/2024 5:13 PM EST [facility] Blood Venous blood specimen / Unknown Venipuncture / Unknown 11/15/2024 1:54 PM EST 11/15/2024 1:54 PM EST Erica Mckenzie FIELD IDENTIFICATION SPECIALIST LAB BLOOD ORDERABLES Final R esult [facility] [address] [place] [address], [place] [phone] * (ABNORMAL) Hepatitis B surface antibody (11/15/2024 1:54 PM EST) Pathologist [facility] Hepatitis B Surface Ab Positive (A) Negative LAB CHEMISTRY METHOD 11/15/2024 4:26 PM EST [facility] Hepatitis B Surface Ab Quantitative >1,000.0 mIU/mL LAB CHEMISTRY METHOD 11/15/2024 4:26 PM EST [facility] Blood Venous blood specimen / Unknown Venipuncture / Unknown 11/15/2024 1:54 PM EST 11/15/2024 1:54 PM EST Narrative [facility] - 11/15/2024 4:26 PM EST >=10 mIU/mL is considered to be consistent with immunity. Erica Mckenzie FIELD IDENTIFICATION SPECIALIST LAB BLOOD ORDERABLES Final R esult [facility] [address] [place] [address], * (ABNORMAL) POC Urine Auto W/O Micro (11/15/2024 1:18 PM EST) Leukocytes UA POC Positive(A) Negative Nitrite UA POC Negative Negative Urobilinogen UA POC Negative Negative Protein UA POC Negative Negative PH UA POC 5.0 5.0 - 9.0 Blood UA POC Negative Negative, Trace Specific Whittaker UA POC 1.015 1.001 - 1.035 Ketones UA POC Negative Negative Bilirubin UA POC Negative Negative Glucose UA POC Normal Normal, Trace Urine Urine specimen obtained by clean catch procedure / Unknown 11/15/2024 1:18 PM EST Erica Mckenzie FIELD IDENTIFICATION SPECIALIST POINT OF CARE TEST ENTER/YARA T ORDERABLES Final Result * (ABNORMAL) CBC auto differential (10/27/2024 10:25 AM EST) WBC 20.1(H) 4.8 - 10.8 K/mcL LAB HEMETOLOGY METHOD 10/27/2024 10:44 AM EST [facility] RBC 4.80 3.80 - 4.80 M/mcL LAB HEMETOLOGY METHOD 10/27/2024 10:44 AM EST [facility] Hemoglobin 13.1 11.5 - 16.0 g/dL LAB HEMETOLOGY METHOD 10/27/2024 10:44 AM [facility] Hematocrit 40.4 35.0 - 47.0 % LAB HEMETOLOGY METHOD 10/27/2024 10:44 AM [facility] MCV 84.5 79.0 - 98.0 FL LAB HEMETOLOGY METHOD 10/27/2024 10:44 AM [facility] MCH 27.4 27.0 - 32.0 pcg LAB HEMETOLOGY METHOD 10/27/2024 10:44 AM [facility] MCHC 32.4 32.0 - 37.0 g/dL LAB HEMETOLOGY METHOD 10/27/2024 10:44 AM [facility] RDW 13.5 11.0 - 15.0 % LAB HEMETOLOGY METHOD 10/27/2024 10:44 AM [facility] Platelets 452(H) 130 - 400 K/mcL LAB HEMETOLOGY METHOD 10/27/2024 10:44 AM [facility] MPV 8.6 7.0 - 11.0 FL LAB HEMETOLOGY METHOD 10/27/2024 10:44 AM [facility] NRBC 0.0 <1.0 % LAB HEMETOLOGY METHOD 10/27/2024 10:44 AM [facility] NRBC Absolute 0.00 <0.10 K/mcL LAB HEMETOLOGY METHOD 10/27/2024 10:44 AM [facility] Neutrophils Relative 88.9 % LAB HEMETOLOGY METHOD 10/27/2024 10:44 AM [facility] Lymphocytes Relative 4.3 % LAB HEMETOLOGY METHOD 10/27/2024 10:44 AM [facility] Monocytes Relative 5.0 % LAB HEMETOLOGY METHOD 10/27/2024 10:44 AM [facility] Eosinophils Relative 1.2 % LAB HEMETOLOGY METHOD 10/27/2024 10:44 AM EST [facility] Basophils Relative 0.2 % LAB HEMETOLOGY METHOD 10/27/2024 10:44 AM [facility] Immature Granulocytes Relative 0.4 % LAB HEMETOLOGY METHOD 10/27/2024 10:44 AM [facility] Neutrophils Absolute 17.80(H) 1.50 - 7.00 K/mcL LAB HEMETOLOGY METHOD 10/27/2024 10:44 AM EST [facility] Lymphocytes Absolute 0.86(L) 1.00 - 5.00 K/mcL LAB HEMETOLOGY METHOD 10/27/2024 10:44 AM [facility] Monocytes Absolute 1.01(H) 0.20 - 1.00 K/mcL LAB HEMETOLOGY METHOD 10/27/2024 10:44 AM EST [facility] Eosinophils Absolute 0.24 0.00 - 0.50 K/mcL LAB HEMETOLOGY METHOD 10/27/2024 10:44 AM EST [facility] Basophils Absolute 0.05 0.00 - 0.20 K/mcL LAB HEMETOLOGY METHOD 10/27/2024 10:44 AM [facility] Immature Granulocytes Absolute 0.09(H) 0.00 - 0.03 K/mcL LAB HEMETOLOGY METHOD 10/27/2024 10:44 AM EST [facility] Blood Venous blood specimen / Unknown Venipuncture / Unknown 10/27/2024 10:25 AM EST 10/27/2024 10:40 AM EST us Joey Palacio MD LAB BLOOD ORDERABLES Final Re sult [facility] [address] [place] [address], * Lipase (10/27/2024 10:25 AM EST) Lipase 28 13 - 75 unit/L LAB CHEMISTRY METHOD 10/27/2024 11:04 AM [facility] Blood Venous blood specimen / Unknown Venipuncture / Unknown 10/27/2024 10:25 AM EST 10/27/2024 10:39 AM EST Joey Palacio MD LAB BLOOD ORDERABLES Final Re sult [facility] [address] [place] [address], [place] [phone] * (ABNORMAL) Comprehensive metabolic panel (10/27/2024 10:25 AM EST) Pathologist [facility] Sodium 140 133 - 145 mmol/L LAB CHEMISTRY METHOD 10/27/2024 11:05 AM [facility] Potassium 4.4 3.5 - 5.5 mmol/L LAB CHEMISTRY METHOD 10/27/2024 11:05 AM [facility] Chloride 110 96 - 110 mmol/L LAB CHEMISTRY METHOD 10/27/2024 11:05 AM [facility] CO2 22 21 - 32 mmol/L LAB CHEMISTRY METHOD 10/27/2024 11:05 AM [facility] Anion Gap 8 3 - 11 LAB CHEMISTRY METHOD 10/27/2024 11:05 AM [facility] Glucose 108(H) 70 - 100 mg/dL LAB CHEMISTRY METHOD 10/27/2024 11:05 AM [facility] BUN 17 5 - 25 mg/dL LAB CHEMISTRY METHOD 10/27/2024 11:05 AM [facility] Creatinine 0.81 0.50 - 1.10 mg/dL LAB CHEMISTRY METHOD 10/27/2024 11:05 AM [facility] eGFR 105 >=60 mL/min/1. 73m2 LAB CHEMISTRY METHOD 10/27/2024 11:05 AM [facility] Comment:Calculation based on the??Chronic Kidney Disease Epidemiology Collaboration (CKD-EPI) equation refit??without adjustment for race. BUN/Creatinine Ratio 21.0 LAB CHEMISTRY METHOD 10/27/2024 11:05 AM [facility] Calcium 9.6 8.5 - 10.5 mg/dL LAB CHEMISTRY METHOD 10/27/2024 11:05 AM [facility] AST (SGOT) 13 10 - 42 unit/L LAB CHEMISTRY METHOD 10/27/2024 11:05 AM [facility] ALT (SGPT) 23 10 - 60 unit/L LAB CHEMISTRY METHOD 10/27/2024 11:05 AM [facility] Alkaline Phosphatase 72 42 - 121 unit/L LAB CHEMISTRY METHOD 10/27/2024 11:05 AM [facility] Total Protein 7.9 6.0 - 8.0 g/dL LAB CHEMISTRY METHOD 10/27/2024 11:05 AM [facility] Albumin 4.2 3.2 - 5.0 g/dL LAB CHEMISTRY METHOD 10/27/2024 11:05 AM [facility] Total Bilirubin 1.1 0.0 - 1.4 mg/dL LAB CHEMISTRY METHOD 10/27/2024 11:05 AM [facility] Blood Venous blood specimen / Unknown Venipuncture / Unknown 10/27/2024 10:25 AM EST 10/27/2024 10:39 AM EST us Joey Palacio MD LAB BLOOD ORDERABLES Final Re sult [facility] [address] [place] [address], * Respiratory virus panel molecular study (10/27/2024 10:14 AM EST) Adenovirus Detection by PCR Not Detected Not Detected LAB MICROBIOLOGY METHOD 10/27/2024 11:25 AM [facility] Influenza A PCR Not Detected Not Detected LAB MICROBIOLOGY METHOD 10/27/2024 11:25 AM [facility] Influenza B PCR Not Detected Not Detected LAB MICROBIOLOGY METHOD 10/27/2024 11:25 AM [facility] Coronavirus 229E Not Detected Not Detected LAB MICROBIOLOGY METHOD 10/27/2024 11:25 AM [facility] Coronavirus HKU1 Not Detected Not Detected LAB MICROBIOLOGY METHOD 10/27/2024 11:25 AM [facility] Coronavirus OC43 Not Detected Not Detected LAB MICROBIOLOGY METHOD 10/27/2024 11:25 AM [facility] Coronavirus NL63 Not Detected Not Detected LAB MICROBIOLOGY METHOD 10/27/2024 11:25 AM [facility] Parainfluenza Virus 1 Not Detected Not Detected LAB MICROBIOLOGY METHOD 10/27/2024 11:25 AM [facility] Parainfluenza Virus 2 Not Detected Not Detected LAB MICROBIOLOGY METHOD 10/27/2024 11:25 AM [facility] Parainfluenza Virus 3 Not Detected Not Detected LAB MICROBIOLOGY METHOD 10/27/2024 11:25 AM [facility] Parainfluenza Virus 4 Not Detected Not Detected LAB MICROBIOLOGY METHOD 10/27/2024 11:25 AM [facility] RSV PCR Not Detected Not Detected LAB MICROBIOLOGY METHOD 10/27/2024 11:25 AM [facility] Human Metapneumovirus A and B Not Detected Not Detected LAB MICROBIOLOGY METHOD 10/27/2024 11:25 AM [facility] Rhinovirus/Entero virus Not Detected Not Detected LAB MICROBIOLOGY METHOD 10/27/2024 11:25 AM [facility] Bordetella pertussis Not Detected Not Detected LAB MICROBIOLOGY METHOD 10/27/2024 11:25 AM [facility] Bordetella parapertussis Not Detected Not Detected LAB MICROBIOLOGY METHOD 10/27/2024 11:25 AM EST [facility] Mycoplasma pneumo by PCR Not Detected Not Detected LAB MICROBIOLOGY METHOD 10/27/2024 11:25 AM EST [facility] Chlamydia pneumoniae Not Detected Not Detected LAB MICROBIOLOGY METHOD 10/27/2024 11:25 AM EST [facility] SARS COV-2 Not Detected Not Detected LAB MICROBIOLOGY METHOD 10/27/2024 11:25 AM EST [facility] Swab Both anterior nares / Unknown Non-blood Collection / Unknown 10/27/2024 10:14 AM EST 10/27/2024 10:26 AM EST [facility] - 10/27/2024 11:25 AM EST Testing was performed using the [employer] medical Respiratory Pathogen PCR Assay. All results must [...] detection. Joey Palacio MD LAB MICROBIOLOGY - GENERAL OR DERABLES Final Result [facility] [address] [place] [address], * Cervical Cancer Screening: HPV (07/26/2023) Pathologist [facility] Cervical Cancer Screening: HPV negative abstracted Historical Provider HEALTH MAINTENANCE Final Result * Gonorrhea/Chlamydia Screening (07/26/2023) [facility] Gonorrhea/Chla mydia Screening abstracted Historical Provider HEALTH MAINTENANCE Final Result * Lipid panel (03/09/2021) [facility] LDL/HDL Ratio 3 0 - 4 Triglycerides 48 0 - 150 mg/dL Cholesterol 128 0 - 200 mg/dL HDL 50 >=40 mg/dL LDL Cholesterol 69 0 - 100 mg/dL Blood Venous blood specimen / Unknown us Historical Provider LAB BLOOD ORDERABLES Ann sanchez Result from Last 3 Months or Most Recently Relevant to Health Maintenance Insurance [email or web address] Care Teams Corporate Librarian Relationship Specialty Start Date End Date Esther Andre MD [address] [place] [id number] PCP - General Internal Medicine 05/24/22
== END 2025-01-03 15:17 | disposition home or self-care (01) ==
LOC: HO.CT 15:16
PROVIDERS: PCP Internal Medicine; Visit Provider Surgery
DX: K58.1 Irritable bowel syndrome with constipation (principal)
CPT/HCPCS: 74177; Q9967

== ENCOUNTER → 2025-01-03 15:18 | Outpatient (BNV) | payer OTHER, SELFPAY | PROVIDERS: PCP Internal Medicine; Visit Provider Radiology Diagnostic Radiology | DX: K65.1 Peritoneal abscess (principal) | CPT/HCPCS: 74177 ==

== ENCOUNTER 2025-01-17 14:41 | Outpatient (AMB) | payer OTHER, SELFPAY ==
--- NOTE | 2025-01-17 14:41 | MHC.OFFVIS ---
Vital Signs 01/17/25 15:06 Height 5 ft 6 in Weight 218 lb BMI 35.2 BP 130/81 Blood Pressure Location Lt brachial Position Sitting Pulse 86 Intake Visit Reasons: CT scan f/up, sched 01/03/25 intra-abd abscess Intake Note: Patient is seen in office for CT scan results, intra abdominal abscess. Pt c/o: denies any concerns or changes, here for results CT:01/04/25 Respiratory Therapy Manager Required: No Accompanied by: Self / Same As Patient Allergies No Known Allergies Allergy (Verified 01/17/25 14:42) Medication List - Last Reconciled 01/22/25 by Maxi Ann MD melatonin 5 mg PO BEDTIME PRN HPI Comments Details: 24-year-old female patient returning following a recent hospitalization for abdominal pain in the lower abdomen, associated with nausea, vomiting, and diarrhea. Workup in the emergency department with CT abdomen and pelvis revealed a fluid collection at the root of the appendix and adjacent to the right ovary. Differential included appendiceal abscess, ovarian cyst or bowel fluid. She was observed for 24 hours and subsequently her abdominal pain improved. WBC returned to normal as well she was subsequently discharged to home. She returns today for follow-up examination. Overall she feels improved with only occasional discomfort in the lower abdomen. She underwent CT abdomen and pelvis and returns today to review the results. [facility] Medical History Open left clavicular fracture Social History Household Members: None Housing: Apartment Do you presently have visiting nurse or other home services: No Patient Tobacco Use Status: Never used Tobacco Substance Use Type: Marijuana service: No Physical Exam Vital Signs: Last Vital Signs Pulse 86 01/17/25 15:06 BP 130/81 01/17/25 15:06 BMI result Body Mass Index 35.2 Const General: no acute distress Nutritional Appearance: well nourished Orientation/consciousness: patient oriented x3 Resp Effort & Inspection: normal respiratory effort, no audible wheezes, no cough and no respiratory distress GI Inspection: Yes normal to inspection Palpation (GI): Soft to palpation, nontender, no guarding and not rigid Skin General skin exam: no rashes or lesions noted Neuro General: patient oriented x3 Extrem General: Yes no clubbing, cyanosis or edema Assessment & Plan Assessment & Plan (1) Intra-abdominal abscess: Code(s): K65.1 - Peritoneal abscess Category: Surgical Plan 24-year-old female patient with a fluid collection at the root of the appendix and near the ovary possibly due to early appendicitis, ovarian cyst, or bowel fluid. She initially improved with antibiotics and her WBC normalized. A repeat CT abdomen and pelvis reveals resolution of the previous fluid collection with a normal appendix with no evidence of abscess or perforation. Results were reviewed with the patient. Overall she is much improved and therefore should follow up as needed. She is welcome to return for any recurrence of the abdominal pain. Coding Level of Care Code Est Pt Level 3 (37123) Diagnoses Intra-abdominal abscess K65.1
[2025-01-17 15:06] VITALS: BP 130/81; PULSE 86; BMI 35.2
== END 2025-01-17 15:12 | disposition home or self-care (01) ==
LOC: HO.HGS 14:42
PROVIDERS: PCP Internal Medicine; Visit Provider Surgery
DX: K65.1 Peritoneal abscess (principal)
CPT/HCPCS: 99213

== ENCOUNTER → 2025-01-17 14:41 | Outpatient (BNVA) | payer OTHER, SELFPAY | PROVIDERS: PCP Internal Medicine; Visit Provider Surgery | DX: K65.1 Peritoneal abscess (principal); R10.30 Lower abdominal pain, unspecified; R19.7 Diarrhea, unspecified; R11.2 Nausea with vomiting, unspecified | CPT/HCPCS: 99212 ==

== ENCOUNTER 2025-04-22 08:32 | Emergency (ER) | payer OTHER, SELFPAY ==
--- NOTE | ~2025-04-22 | CT_ITS ---
EXAMINATION: CT ABDOMEN AND PELVIS WITH CONTRAST CLINICAL INFORMATION: Abdominal pain. Left upper quadrant pain. COMPARISON: January 03, 2025. TECHNIQUE: Multidetector volumetric images were obtained from the superior aspect of the liver through the pubic symphysis following administration 85 mL of Omnipaque 350 intravenous contrast. Sagittal and coronal reformatted images were obtained on the technologist's workstation. Oral contrast: No This CT examination was performed using dose optimization techniques as appropriate, variously including the following: *Automated exposure control *Adjustment of mA and/or kV according to patient size (this includes techniques or standardized protocols for targeted exams where dose is matched to indication/reason for exam; i.e. extremities or head) *Use of iterative reconstruction technique DLP: 781 mGy centimeter. FINDINGS: LUNG BASES: Linear and patchy groundglass attenuation. LIVER, GALLBLADDER, AND BILIARY TREE: Liver measures 18 cm. No focal mass. No intrahepatic biliary ductal dilatation. The portal vein and intrahepatic portion of the IVC are patent. No pericholecystic fluid collection or gallbladder wall thickening. Common bile duct measures 2 mm. PANCREAS: No focal mass. No peripancreatic fluid collection. No main pancreatic ductal dilatation. SPLEEN: 9 cm. No focal lesion. ADRENAL GLANDS: No nodular lesion. KIDNEYS AND URETERS: No renal mass. No hydronephrosis. Questionable 1 mm nonobstructing calculus, left kidney. Normal enhancement pattern of the renal parenchyma. BLADDER: Fluid-filled. GASTROINTESTINAL TRACT: Appendix is normal. Terminal ileum is normal. No intestinal obstruction pattern. No intestinal wall thickening. Stool throughout the large intestine. No pneumatosis intestinalis. No pneumoperitoneum. No ascites. Small hiatal hernia. ABDOMINAL WALL: No gross umbilical hernia. LYMPH NODES: No lymphadenopathy, mesenteric or retroperitoneal. VASCULAR: No aneurysm or dissection. No gross calcified plaques. PELVIC VISCERA: No gross masses. OSSEOUS STRUCTURES: No acute fracture or listhesis. Mild spondylosis L5-S1 and L4-5 with a broad-based disc bulging at L4-5. CT/CT abdomen pelvis w IV con IMPRESSION: Hepatomegaly. Questionable 1 mm nonobstructing nephrolithiasis, left kidney. Small hilar hernia. Fleischner guidelines were followed. Electronically signed by: Luc Jones MD 04/22/2025 11:13 AM EDT
[2025-04-22 08:43] VITALS: BP 107/68; PULSE 57; RESP 18; TEMP 36.6; O2SAT 99; BMI 33.9
--- NOTE | 2025-04-22 09:02 | ED_ITS ---
HPI - General Adult General Chief complaint: General Medical Stated complaint: vomiting diarrhea Time Seen by Provider: 04/22/25 08:45 Source: patient and RN notes reviewed Mode of arrival: ambulatory Limitations: no limitations History of Present Illness ED Provider: Pooja Bonilla PA-C [facility] narrative: This is a 25-year-old female, with no known medical problems, who presents emergency department with complaints of headache, body ache, nausea, vomiting, and diarrhea which started this morning. Patient reports that she was in her usual state of health yesterday. Denies any consumption of undercooked or raw food. No sick contacts. Patient states that this morning she awoke with all of her symptoms. She does report some diffuse abdominal pain throughout. She states that she has a history of a abdominal abscess, that was monitored, not requiring surgery this year. She denies any fevers, chills, chest pain, shortness of breath, urinary symptoms. No abnormal vaginal discharge or bleeding. No other complaints or concerns at this time. MD complaint: Nausea, vomiting, diarrhea Onset (ago): day(s) Relieving factors: none Exacerbating factors: none Associated symptoms: denies other symptoms Treatments prior to arrival: none Related Data Home Medications ?Medication ?Instructions ?Recorded ?Confirmed melatonin 5 mg tablet 5 mg PO BEDTIME PRN Sleep 01/22/25 Previous Rx's ?Medication ?Instructions ?Recorded ondansetron 4 mg disintegrating 4 mg PO Q6H PRN nausea and 04/22/25 tablet vomiting #12 tabs Allergies Allergy/AdvReac Type Severity Reaction Status Date / Time No Known Allergies Allergy Verified 04/22/25 08:46 Review of Systems 2 Review of Systems: Yes all other systems are reviewed and are negative Constitutional: Constitutional: Reports as per [facility] Past Medical History Attestation statement: The following information was validated with the patient. Medical History Open left clavicular fracture Social History Social History Household Members: None Housing: Apartment Do you presently have visiting nurse or other home services: No Patient Tobacco Use Status: Never used Tobacco Substance Use Type: Marijuana service: No Physical Exam ED Vital Signs: Vital Signs - 24 hr 04/22/25 08:43 04/22/25 12:59 Temperature 97.8 F 98 F Pulse Rate 57 76 Respiratory Rate 18 18 Blood Pressure 107/68 117/76 Pulse Oximetry 99 98 BMI result Body Mass Index 33.9 Const General: cooperative, comfortable and no acute distress Orientation/consciousness: patient oriented x3 Limitations: no limitations [facility] Head: Yes normal to inspection, Yes normocephalic and Yes atraumatic Ears: hearing grossly normal bilaterally General nose exam: Normal external nose present Face and sinus: Yes normal facial exam Mouth: Normal oral and palatal mucosa present, oropharynx normal and moist mucous membranes Throat: Yes posterior oropharynx normal Eyes General: appearance normal, both eyes and all related structures Eyelids: Yes eyelids normal Conjunctivae: conjunctivae normal Sclerae: sclerae normal Pupils: Equal, round and reactive pupils present EOM: EOMs intact bilaterally Neck Neck: Yes normal visual inspection, Yes full ROM and Yes no lymphadenopathy Lymphatic: no lymphadenopathy noted Chest Chest palpation & inspection: normal inspection of the chest Resp Effort & Inspection: normal respiratory effort and able to speak in complete sentences Auscultation: clear to auscultation bilaterally, no crackles, no rales, no rhonchi and no wheezes Cardio Rate: regular rate Rhythm: regular rhythm Heart sounds: S1 normal heart sound present and S2 normal heart sound present GI Other: Abdomen is soft, with tenderness palpation in the epigastrium and left upper quadrant also diffusely throughout. No rebound or guarding. Inspection: Yes normal to inspection Skin General skin exam: no rashes or lesions noted Trauma: no lacerations or abrasions Wounds: no wounds Neuro General: patient oriented x3 and moves all extremities Cranial nerves: Yes Equal, round and reactive pupils present Extrem General: Yes normal to inspection Right upper extremity: normal to inspection Left upper extremity: normal to inspection Right lower extremity: normal to inspection Left lower extremity: normal to inspection Medications Administered Discontinued Medications Generic Name Dose Route Start Last Admin Trade Name Freq PRN Reason Stop Dose Admin Sodium Chloride 1,000 mls @ 999 mls/hr 04/22/25 09:14 04/22/25 10:06 Ns IV 04/22/25 10:14 999 mls/hr .Q1H1M ONE Administration Acetaminophen 1,000 mg in 100 mls @ 400 mls/hr 04/22/25 10:54 04/22/25 11:35 Ofirmev IV 04/22/25 11:08 400 mls/hr ONCE ONE Administration Iohexol 100 ml 04/22/25 10:55 04/22/25 10:55 Iohexol 350 Mg/Ml 100 Ml Infus..Btl IV 04/22/25 10:56 85 ml ONCE ONE Administration Ondansetron HCl 4 mg 04/22/25 09:13 04/22/25 10:07 Ondansetron Hcl 4 Mg/2 Ml Vial IVPUSH 04/22/25 09:14 4 mg ONCE ONE Administration Medical Decision Making Medical Decision Making [facility] Narrative: This is a 25-year-old female who presents emergency department with complaints of headache, body aches, nausea, vomiting, and diarrhea which started this morning. On arrival, patient is well-appearing, appears to be under no acute distress. Vital signs within normal limits. Abdomen is soft with diffuse tenderness throughout. She was in her usual state of health yesterday. No known sick contacts or food exposures. Differential diagnoses include gastroenteritis, gastritis, electrolyte derangement. Patient does have a history of a abdominal abscess, was observed, did not require surgical intervention this year. Given this unusual presentation with diffuse tenderness throughout, will obtain CT abdomen with IV contrast to rule out any acute abdominal pathology. Plan: Labs, IV fluids, IV Zofran Course: Labs returned, no leukocytosis, normocytic anemia with an H&H of 11.9/36.8, chemistry with no significant electrolyte derangement. Patient is not . Ct scan revealing hepatomegaly, Questionable 1 mm nonobstructing nephrolithiasis, left kidney. Small hital hernia. Patient just receiving IV Tylenol, will monitor, and p.o. challenge patient. Patient re-evaluated, she is feeling much better, tolerating p.o. without difficulty. Patient discharged with Zofran, given strict return precautions. Patient stable for discharge. Differential Diagnosis Differential Diagnoses: The differential diagnosis associated with the presentation includes See above Lab Data [facility] Lab Attestation statement: I reviewed the patient's lab results. See MDM and course 04/22/25 10:04 04/22/25 10:04 Labs: Lab Results 04/22/25 04/22/25 Range/Units 10:02 10:04 WBC 8.8 (4.8-10.8) X10*3/uL RBC 4.39 (4.20-5.50) X10*6/uL Hgb 11.9 L (12.0-16.0) g/dl Hct 36.8 L (37.0-47.0) % MCV 83.8 (80.0-98.0) fL MCH 27.1 (27.0-33.0) pg MCHC 32.3 (31.0-35.0) g/dl RDW 13.6 (11.0-16.0) % Plt Count 375 (160-400) X10*3/uL MPV 8.5 L (9.4-12.3) fL Immature Gran % (Auto) 0.3 (0.0-0.4) % Neut % (Auto) 67.4 (45-73) % Lymph % (Auto) 23.2 (20-40) % Brule % (Auto) 6.3 (2-11) % Eos % (Auto) 1.9 (0-4) % Baso % (Auto) 0.9 (0-2) % Lymph # (Auto) 2.1 (1.2-4.9) X10*3/uL Brule # (Auto) 0.6 (0.1-1.2) X10*3/uL Eos # (Auto) 0.2 (0.0-0.4) X10*3/uL Baso # (Auto) 0.1 (0.0-0.2) X10*3/uL Abs Immat Gran (auto) 0.03 (0.00-0.03) X10*3/uL Absolute Neuts (auto) 5.9 (2.0-8.3) x10*3/uL Absolute Nucleated RBC 0.000 (0.0-0.012) X10*3/uL Nucleated RBC % (auto) 0.0 (0.0-0.2) /100WBC Sodium 140 (135-145) mmol/L Potassium 4.2 (3.3-5.1) mmol/L Chloride 110 H (96-108) mmol/L Carbon Dioxide 25 (22-29) mmol/L Anion Gap 9 L (12-20) BUN 12 (9-16) mg/dL Creatinine 0.68 (0.5-1.4) mg/dL Estim Creat Clear Calc 149.6 Estimated GFR > 60 Random Glucose 95 (60-115) mg/dL Calcium 8.8 D (8.4-10.2) mg/dL Magnesium 1.8 (1.6-2.6) mg/dL Total Bilirubin 0.6 (0.0-1.0) mg/dL Direct Bilirubin 0.2 (0.0-0.5) mg/dL AST 21 (5-31) U/L ALT 19 (0-31) U/L Alkaline Phosphatase 68 (39-117) U/L Total Protein 7.2 (6.5-8.0) g/dL Albumin 4.2 (3.5-5.0) g/dL Lipase 20 (8-78) U/L Beta HCG, Quant < 2 mIU/mL Influenza Type A (PCR) NEGATIVE (Negative) Influenza Type B (PCR) NEGATIVE (Negative) RSV RNA Qual (PCR) NEGATIVE (Negative) SARS-CoV-2 RNA (RT-PCR) NEGATIVE (Negative) Radiology Impression Discussion of test interpretation with radiology: I have reviewed the radiologist's reading. Radiologist Impression: FINDINGS: LUNG BASES: Linear and patchy groundglass attenuation. LIVER, GALLBLADDER, AND BILIARY TREE: Liver measures 18 cm. No focal mass. No intrahepatic biliary ductal dilatation. The portal vein and intrahepatic portion of the IVC are patent. No pericholecystic fluid collection or gallbladder wall thickening. Common bile duct measures 2 mm. PANCREAS: No focal mass. No peripancreatic fluid collection. No main pancreatic ductal dilatation. SPLEEN: 9 cm. No focal lesion. ADRENAL GLANDS: No nodular lesion. KIDNEYS AND URETERS: No renal mass. No hydronephrosis. Questionable 1 mm nonobstructing calculus, left kidney. Normal enhancement pattern of the renal parenchyma. BLADDER: Fluid-filled. GASTROINTESTINAL TRACT: Appendix is normal. Terminal ileum is normal. No intestinal obstruction pattern. No intestinal wall thickening. Stool throughout the large intestine. No pneumatosis intestinalis. No pneumoperitoneum. No ascites. Small hiatal hernia. ABDOMINAL WALL: No gross umbilical hernia. LYMPH NODES: No lymphadenopathy, mesenteric or retroperitoneal. VASCULAR: No aneurysm or dissection. No gross calcified plaques. PELVIC VISCERA: No gross masses. OSSEOUS STRUCTURES: No acute fracture or listhesis. Mild spondylosis L5-S1 and L4-5 with a broad-based disc bulging at L4-5. CT/CT abdomen pelvis w IV con IMPRESSION: Hepatomegaly. Questionable 1 mm nonobstructing nephrolithiasis, left kidney. Small hilar hernia. Fleischner guidelines were followed. Electronically signed by: Luc Jones MD 04/22/2025 11:13 AM EDT RP Dictated By: Luc Power MD Discharge Plan Discharge Clinical Impression: Nausea and vomiting Patient Disposition: Home, Self-Care Instructions: Acute Nausea and Vomiting (ED), Acute Abdominal Pain (ED) Additional Instructions: You were seen in the emergency department due to abdominal pain, nausea, vomiting and diarrhea. You tested negative for COVID, flu, RSV. Your labs are reassuring. Your CAT scan shows several incidental findings, you do have any slightly enlarged liver, as well as a nonobstructing kidney stone on your left kidney. You also have a small hiatal hernia. You also have some degenerative changes in your spine as well as a broad-based disc bulge at L4-L5. These are all incidental findings, nothing to do urgently however I would follow-up with your primary care physician. Stick to a bland diet over the next several days, bananas, rice, applesauce, tea, toast. Drink plenty of fluids get plenty of rest. Take Zofran as needed for nausea. If any new or worsening symptoms occur including but not limited to severe chest pain, shortness of breath, abdominal pain, please seek emergent care. Prescriptions: New ondansetron 4 mg tablet,disintegrating 4 mg PO Q6H PRN (Reason: nausea and vomiting) Qty: 12 0RF No Action melatonin 5 mg Tablet 5 mg PO BEDTIME PRN (Reason: Sleep) Stand Alone Forms: Work/School Release Interventions: ED Discharge Assessment Last Done: 04/22/25 12:59 Discharge Date/Time: 04/22/25 13:01 Print Language: Turkmen
--- OUTSIDE RECORDS SUMMARY | 2025-04-22 09:12 | XMS_ITS | Patient Health Record ---
Author Organization [facility] Address [address] [place] [address] Care Team Providers Care Shearer Screen Measurer And Trimmer Name Role Phone Royal Nolasco Unavailable [phone] Allergies No Known Allergies Reason For Referral No Information Social History Tobacco Use: Social History Observation Description Date Details (start date - stop date) Never Smoker NA - NA smoking Question Answer Notes Are you a: nonsmoker Problems Problem Type SNOMED Code ICD Code Onset Dates Problem Status W/U Status Risk Notes Problem Ingrowing nail (235923637) Ingrowing nail (L60.0) Active confirmed Problem Pain in limb (13710755) Pain in right toe(s) (M79.674) Active confirmed 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 [address] [place] [address] [id number] Felipe Narayan Self - patient is the insured 3 [facility] [address] [place] [address] [id number] Felipe Narayan Self - patient is the insured 3 Medical (General) History Surgical History Surgery Date(Month/Year) Left Clavicle Repair Hospitalization History Reason Date(Month/Year) as listed in surgical history
[2025-04-22] MEDS: 0.9 % Sodium Chloride 1,000 ML 999 ML IV (10:06)
[2025-04-22] MEDS: ondansetron HCL 4 MG/2 ML VIAL IVPUSH (10:07)
[2025-04-22 10:08] LABS: MANUAL DIFF FLAG NO
[2025-04-22 10:12] LABS: Basophils Absolute Auto 0.1 X10*3/uL (0.0-0.2); Basophils Percent Auto 0.9 % (0-2); Eosinophils Absolute Auto 0.2 X10*3/uL (0.0-0.4); Eosinophils Percent Auto 1.9 % (0-4); Hematocrit 36.8 % (37.0-47.0); Hemoglobin 11.9 g/dl (12.0-16.0); Imm Gran Abs Auto 0.03 X10*3/uL (0.00-0.03); Imm Gran Pct Auto 0.3 % (0.0-0.4); Lymphocytes Absolute Auto 2.1 X10*3/uL (1.2-4.9); Lymphocytes Percent Auto 23.2 % (20-40); Mean Corpuscular HGB Conc 32.3 g/dl (31.0-35.0); Mean Corpuscular Hemoglobin 27.1 pg (27.0-33.0); Mean Corpuscular Volume 83.8 fL (80.0-98.0); Mean Platelet Volume 8.5 fL (9.4-12.3); Monocytes Absolute Auto 0.6 X10*3/uL (0.1-1.2); Monocytes Percent Auto 6.3 % (2-11); Neutrophils Absolute Auto 5.9 x10*3/uL (2.0-8.3); Neutrophils Percent Auto 67.4 % (45-73); Platelet Count 375 X10*3/uL (160-400); Red Blood Count 4.39 X10*6/uL (4.20-5.50); Red Cell Distribution Width 13.6 % (11.0-16.0); White Blood Count 8.8 X10*3/uL (4.8-10.8)
[2025-04-22 10:33] LABS: Alanine Aminotransferase 19 U/L (0-31); Albumin Level 4.2 g/dL (3.5-5.0); Alkaline Phosphatase 68 U/L (39-117); Anion Gap 9 (12-20); Aspartate Amino Transferase 21 U/L (5-31); Bilirubin Direct 0.2 mg/dL (0.0-0.5); Bilirubin Total 0.6 mg/dL (0.0-1.0); Blood Urea Nitrogen 12 mg/dL (9-16); Calcium 8.8 mg/dL (8.4-10.2); Carbon Dioxide 25 mmol/L (22-29); Chloride 110 mmol/L (96-108); Creatinine Clr Calc Pharmacy 149.6; Estimated Glomerular Filt Rate > 60; Glucose Random 95 mg/dL (60-115); Lipase 20 U/L (8-78); Magnesium 1.8 mg/dL (1.6-2.6); Potassium 4.2 mmol/L (3.3-5.1); Sodium 140 mmol/L (135-145); Total Protein 7.2 g/dL (6.5-8.0)
[2025-04-22 10:37] LABS: HCG Quantitative < 2 mIU/mL
[2025-04-22 10:47] LABS: Influenza A PCR NEGATIVE (Negative); Influenza B PCR NEGATIVE (Negative); Resp Syncy Virus RNA Qual PCR NEGATIVE (Negative); SARS COV2 PCR INHOUSE NEGATIVE (Negative)
[2025-04-22] MEDS: iohexoL 350 MG/ML 100 ML INFUS..BTL IV (10:55)
[2025-04-22] MEDS: Acetaminophen 1,000 MG/100 ML PIGGYBACK 400 MG IV (11:35)
[2025-04-22 12:59] VITALS: BP 117/76; PULSE 76; RESP 18; TEMP 36.6; O2SAT 98
--- NOTE | 2025-04-26 07:24 | PC.NURSE ---
ns bolus infusion was complete at 1014 and tylenol was complete at 1108
== END 2025-04-22 13:01 | disposition home or self-care (01) ==
PROVIDERS: Physician Assistant Medical; Emergency Provider Emergency Medicine; PCP Internal Medicine
DX: R11.2 Nausea with vomiting, unspecified (principal); Z03.818 Encounter for observation for suspected exposure to other biological agents ruled out; R19.7 Diarrhea, unspecified
CPT/HCPCS: 0241U; 74177; 80048; 80076; 83690; 83735; 84702; 85025; 96374; 96375; 99284; J0131; J2405; Q9967

== ENCOUNTER → 2025-04-22 09:55 | Outpatient (BNV) | payer OTHER, SELFPAY | PROVIDERS: Emergency Provider Emergency Medicine; PCP Internal Medicine; Visit Provider Radiology Diagnostic Radiology | DX: R16.0 Hepatomegaly, not elsewhere classified (principal); K44.9 Diaphragmatic hernia without obstruction or gangrene | CPT/HCPCS: 74177 ==

== ENCOUNTER 2025-05-06 11:35 | Emergency (ER) | payer OTHER, SELFPAY ==
--- NOTE | ~2025-05-06 | XR_ITS ---
EXAMINATION: XR CHEST 2 VIEWS HISTORY: Productive cough COMPARISON: There are no prior studies available for comparison. FINDINGS: PA and lateral views of the chest are submitted. The lungs are expanded and clear. There is no pleural effusion, pneumothorax, or pulmonary vascular congestion. The heart is normal in size. The patient is status post internal fixation of the left clavicle. XR/XR chest 2V IMPRESSION: Clear lungs. Electronically signed by: Tomas Mendez MD 05/06/2025 11:56 AM EDT
[2025-05-06 11:44] VITALS: BP 137/83; PULSE 70; RESP 18; TEMP 36.2; O2SAT 97; BMI 29.0
--- NOTE | 2025-05-06 11:45 | ED.ASTHMA ---
HPI - Asthma General Chief Complaint: Upper Respiratory Symptoms Stated Complaint: asthma Time Seen by Provider: 05/06/25 13:09 Related Data Home Medications ?Medication ?Instructions ?Recorded ?Confirmed melatonin 5 mg tablet 5 mg PO BEDTIME PRN Sleep 10/28/24 01/22/25 Previous Rx's ?Medication ?Instructions ?Recorded ondansetron 4 mg disintegrating 4 mg PO Q6H PRN nausea and 04/22/25 tablet vomiting #12 tabs Allergies Allergy/AdvReac Type Severity Reaction Status Date / Time No Known Allergies Allergy Verified 05/06/25 11:45 PMF Past Medical History Medical History Open left clavicular fracture Social History Social History Household Members: None Housing: Apartment Do you presently have visiting nurse or other home services: No Patient Tobacco Use Status: Never used Tobacco Smoked in Last 30 Days: No Use of substances other than those prescribed or required for medical reasons: No Substance Use Type: Marijuana Do you have a plan to hurt others: No Plan Patient : No service: No Physical Exam Vital Signs: Vital Signs: Last Vital Signs Temp 97.7 F 05/06/25 13:13 Pulse 77 05/06/25 13:13 Resp 14 05/06/25 13:13 BP 137/79 05/06/25 13:13 Pulse Ox 99 05/06/25 13:13 O2 Del Method Room Air 05/06/25 13:13 BMI result Body Mass Index 29.0 Course Course Course Narrative: 05/06/25 1146 DESIREE Patel This is a Rapid Medical Examination (RME) performed by Sammy Szymanski PA-C in triage. Full HPI, ROS, assessment and treatment plan per primary provider in the Main ED. Hx: 25 yo F hx asthma here for concern of worsening asthma - reports SOB, chest tightness, cough productive of green sputum. using her inhaler at home without relief. no known sick contacts. PE/vitals: lungs clear. bronchospastic cough. Plan: viral swabs, cxr, ed bronch tx Medications Administered Generic Name Dose Route Start Last Admin Trade Name Freq PRN Reason Stop Dose Admin Magnesium Sulfate 2 gm in 50 mls @ 25 mls/hr 05/06/25 13:37 05/06/25 14:03 Magnesium Sulfate/H2o IV 05/06/25 15:36 25 mls/hr ONCE ONE Administration Discontinued Medications Generic Name Dose Route Start Last Admin Trade Name Freq PRN Reason Stop Dose Admin Albuterol Sulfate 2.5 mg/ 0 mg 05/06/25 12:01 05/06/25 12:04 Albuterol/Ipratropium 3 ml INHALE 05/06/25 12:02 1 dose ONCE ONE Administration Methylprednisolone Sodium Succinate 125 mg 05/06/25 13:37 05/06/25 14:03 Methylprednisolone Sod Succ 125 Mg/2 Ml Vial IVPUSH 05/06/25 13:38 125 mg ONCE ONE Administration Discharge Plan Discharge Prescriptions: No Action melatonin 5 mg Tablet 5 mg PO BEDTIME PRN (Reason: Sleep) ondansetron 4 mg tablet,disintegrating 4 mg PO Q6H PRN (Reason: nausea and vomiting) Qty: 12 0RF Print Language: Malay
[2025-05-06] MEDS: Albuterol Sulfate 2.5 MG, Albuterol/Iprat 2.5/0.5MG 3 ML 3 ML INHALE (12:04)
[2025-05-06 12:07] VITALS: PULSE 83; RESP 22; O2SAT 99
[2025-05-06 13:13] VITALS: BP 137/79; PULSE 77; RESP 14; TEMP 36.5; O2SAT 99
--- NOTE | 2025-05-06 13:45 | ED.GENADULT ---
HPI - General Adult General Chief complaint: Upper Respiratory Symptoms Stated complaint: asthma Time Seen by Provider: 05/06/25 13:09 Source: patient, RN notes reviewed and old records reviewed Mode of arrival: ambulatory Limitations: no limitations History of Present Illness ED Provider: Anabela JETER narrative: Patient is a 25 y/o female with pmhx of asthma who presents to the ED for SOB x 5 days. Pt has felt constantly SOB for the past 5 days and has been waking up from sleep SOB. Pt has also had a cough and chest tightness. She reports the cough is causing back soreness. She has used her albuterol inhaler 3 times a day for the past 3 days without relief. She denies sick contacts, recent sickness, new exposures/triggers. Denies fever/chills. MD complaint: dyspnea Onset (ago): day(s) Related Data Home Medications ?Medication ?Instructions ?Recorded ?Confirmed melatonin 5 mg tablet 5 mg PO BEDTIME PRN Sleep 10/28/24 01/22/25 Previous Rx's ?Medication ?Instructions ?Recorded ondansetron 4 mg disintegrating 4 mg PO Q6H PRN nausea and 04/22/25 tablet vomiting #12 tabs prednisone 20 mg tablet 20 mg PO DAILY #7 tabs 05/06/25 Allergies Allergy/AdvReac Type Severity Reaction Status Date / Time No Known Allergies Allergy Verified 05/06/25 11:45 Review of Systems Review of Systems: As per HPI Yes all other systems are reviewed and are negative Constitutional: Constitutional: Reports as per HPI [facility] Past Medical History Medical History Open left clavicular fracture Social History Social History Household Members: None Housing: Apartment Do you presently have visiting nurse or other home services: No Patient Tobacco Use Status: Never used Tobacco Smoked in Last 30 Days: No Use of substances other than those prescribed or required for medical reasons: No Substance Use Type: Marijuana Advance Directives: No Advance Directives Information Provided: Yes Do you have a plan to hurt others: No Plan Patient : No service: No Physical Exam ED Vital Signs: Vital Signs - 24 hr 05/06/25 11:44 05/06/25 12:07 05/06/25 13:13 Temperature 97.2 F Pulse Rate 70 83 Respiratory Rate 18 22 H Blood Pressure 137/83 Pulse Oximetry 97 99 Oxygen Delivery Method Room Air Room Air 05/06/25 13:13 Temperature 97.7 F Pulse Rate 77 Respiratory Rate 14 Blood Pressure 137/79 Pulse Oximetry 99 Oxygen Delivery Method Room Air BMI result Body Mass Index 29.0 Vital signs have been reviewed and appear to be correct. Blood pressure normal. Heart rate normal. Respiratory rate normal. Temperature normal. Oxygen saturation normal. Const General: cooperative, healthy appearing and no acute distress Orientation/consciousness: oriented to person, oriented to place, oriented to time and patient oriented x3 Limitations: no limitations HENMT Head: Yes normocephalic and Yes atraumatic Ears: external ears normal General nose exam: Normal external nose present Face and sinus: Yes face symmetric Mouth: oropharynx normal and moist mucous membranes Throat: Yes uvula midline Eyes Pupils: Equal, round and reactive pupils present Neck Neck: Yes normal visual inspection and Yes supple Resp Effort & Inspection: normal respiratory effort, able to speak in complete sentences, not labored, no retractions and no use of accessory muscles Auscultation: clear to auscultation bilaterally Cardio Rate: regular rate Rhythm: regular rhythm Heart sounds: S1 normal heart sound present and S2 normal heart sound present GI Palpation (GI): Soft to palpation and nontender Auscultation: normoactive bowel sounds General: Yes no CVA tenderness Back/Spine/Pelvis Back: no CVA tenderness Skin General skin exam: elasticity normal and turgor normal Neuro General: oriented to person, oriented to place, oriented to time, patient oriented x3, moves all extremities, no focal motor deficits and CN's II-XI intact bilaterally Cranial nerves: Yes Equal, round and reactive pupils present Cognition (Neuro): normal cognition Extrem General: Yes full ROM, Yes no pedal edema and Yes no calf tenderness Psych Mental Status: mental status grossly normal Affect: normal affect Thought process: Normal thought process present Course Course Course Narrative: 05/06/25 1146 DESIREE Patel This is a Rapid Medical Examination (RME) performed by Sammy Szymanski PA-C in triage. Full HPI, ROS, assessment and treatment plan per primary provider in the Main ED. Hx: 25 yo F hx asthma here for concern of worsening asthma - reports SOB, chest tightness, cough productive of green sputum. using her inhaler at home without relief. no known sick contacts. PE/vitals: lungs clear. bronchospastic cough. Plan: viral swabs, cxr, ed bronch tx Medications Administered Generic Name Dose Route Start Last Admin Trade Name Freq PRN Reason Stop Dose Admin Magnesium Sulfate 2 gm in 50 mls @ 25 mls/hr 05/06/25 13:37 05/06/25 14:03 Magnesium Sulfate/H2o IV 05/06/25 15:36 25 mls/hr ONCE ONE Administration Discontinued Medications Generic Name Dose Route Start Last Admin Trade Name Freq PRN Reason Stop Dose Admin Albuterol Sulfate 2.5 mg/ 0 mg 05/06/25 12:01 05/06/25 12:04 Albuterol/Ipratropium 3 ml INHALE 05/06/25 12:02 1 dose ONCE ONE Administration Methylprednisolone Sodium Succinate 125 mg 05/06/25 13:37 05/06/25 14:03 Methylprednisolone Sod Succ 125 Mg/2 Ml Vial IVPUSH 05/06/25 13:38 125 mg ONCE ONE Administration Medical Decision Making Medical Decision Making [facility] Narrative: Patient is a 25 y/o female with pmhx of asthma who presents to the ED for SOB x 5 days. On exam patient is awake, A+Ox3, VS WNL, afebrile, normal neurological exam without focal deficits, physical exam findings as above. Given reported symptoms and physical exam findings, initial differential includes but is not limited to viral illness, COVID, flu, RSV, bronchitis, pneumonia, asthma exacerbation. Viral panel negative. X-ray chest notable for no evidence of pneumonia. My interpretation is in agreement with the radiologist's interpretation. Patient reports symptoms improved after breathing treatment and medications given in the ED. no wheezing on physical exam. She is comfortable with discharge home. Oxygenation 99% on room air. Will discharge on course of prednisone. Advised follow up with PCP. Patient reports she has adequate albuterol inhaler at home. Return precautions discussed at bedside. Patient verbalized understanding of and agreement with plan. Differential Diagnosis Differential Diagnoses: The differential diagnosis associated with the presentation includes As per [facility] Admission/Observation Consideration of admission/observation: Escalation of care including admission/observation considered Patient would have been admitted to the hospital had their clinical presentation warranted hospital admission. Lab Data [facility] Lab Attestation statement: I reviewed the patient's lab results. As per [facility] Labs: Lab Results 05/06/25 Range/Units 13:21 Influenza Type A (PCR) NEGATIVE (Negative) Influenza Type B (PCR) NEGATIVE (Negative) RSV RNA Qual (PCR) NEGATIVE (Negative) SARS-CoV-2 RNA (RT-PCR) NEGATIVE (Negative) Independent Interpretation I performed an independent interpretation of an: Plain X-Ray Interpretation: No evidence of pneumonia on chest x-ray Radiology Impression Discussion of test interpretation with radiology: I have reviewed the radiologist's reading. Radiologist Impression: XR/XR chest 2V IMPRESSION: Clear lungs. External Record Review External record reviewed: Inpatient record, Office record and Outpatient record Prescription Management I considered prescription management with: Other Discharge Plan Discharge Clinical Impression: Asthma exacerbation Qualifiers: Asthma severity: mild Asthma persistence: unspecified Qualified Code(s): J45.901 - Unspecified asthma with (acute) exacerbation Patient Disposition: Home, Self-Care Instructions: Asthma (DC) Additional Instructions: You were evaluated in the emergency department today for cough, wheezing and shortness of breath. You are being treated for an asthma exacerbation with a short course of steroids to decrease inflammation. Please follow-up with your primary care provider this week. Return to the emergency department if you develop worsening shortness of breath, difficulty breathing, chest pain, fever not improved with Tylenol or ibuprofen, or any other concerning symptoms. Prescriptions: New prednisone 20 mg tablet 20 mg PO DAILY Qty: 7 0RF No Action melatonin 5 mg Tablet 5 mg PO BEDTIME PRN (Reason: Sleep) ondansetron 4 mg tablet,disintegrating 4 mg PO Q6H PRN (Reason: nausea and vomiting) Qty: 12 0RF Stand Alone Forms: Work/School Release Print Language: Frisian
[2025-05-06] MEDS: Magnesium Sulfate/H2O 2 GM/50 ML PIGGYBACK IV (14:03)
[2025-05-06 14:40] LABS: Resp Syncy Virus RNA Qual PCR NEGATIVE (Negative); SARS COV2 PCR INHOUSE NEGATIVE (Negative)
[2025-05-06 15:10] VITALS: BP 137/79; PULSE 77; RESP 14; TEMP 36.5; O2SAT 99
[2025-05-06 15:11] VITALS: BP 122/76; PULSE 74; RESP 14; TEMP 36.4; O2SAT 99
--- OUTSIDE RECORDS SUMMARY | 2025-05-06 16:05 | XMS_ITS | Patient Health Record ---
Author Organization [facility] Address [address] [place] [address] Care Team Providers Care Metalsmith Name Role Phone Royal Nolasco Unavailable [phone] Allergies No Known Allergies Reason For Referral No Information Social History Tobacco Use: Social History Observation Description Date Details (start date - stop date) Never Smoker NA - NA smoking Question Answer Notes Are you a: nonsmoker Problems Problem Type SNOMED Code ICD Code Onset Dates Problem Status W/U Status Risk Notes Problem Ingrowing nail (090228856) Ingrowing nail (L60.0) Active confirmed Problem Pain in limb (00248227) Pain in right toe(s) (M79.674) Active confirmed 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 Plan Of Treatment No Information Insurance Providers Payer Name Payer Address Payer Phone Subscriber Number Group Number Insured Name Patient Relationship to Insured Coverage Start Date Coverage End Date [facility] [address] [place] [address] [id number] Felipe Narayan Self - patient is the insured 3 [facility] [address] [place] [address] [id number] Felipe Narayan Self - patient is the insured 3 Medical (General) History Surgical History Surgery Date(Month/Year) Left Clavicle Repair Hospitalization History Reason Date(Month/Year) as listed in surgical history
--- OUTSIDE RECORDS SUMMARY | 2025-05-06 16:05 | XMS_ITS | Clinical Summary ---
Author Organization [facility] [address] [facility] Address [address] [place] [phone] Phone Care Team Providers Care Transport Analyst Name Role Phone Esther Andre MD Primary Care Prov ider Allergies No known active allergies Medications ibuprofen (ADVIL,MOTRIN) 600 mg tablet Take 1 tablet (600 mg total) by mouth every 6 (six) hours if needed. 3 Active albuterol HFA (PROAIR HFA ; PROVENTIL HFA ; VENTOLIN HFA) 90 mcg/actuation inhaler Inhale 2 puffs by mouth every 6 (six) hours if needed for wheezing. Active fluticasone-sa lmeterol (ADVAIR DISKUS) 250-50 mcg/dose diskus inhaler Inhale 1 puff by mouth 2 (two) times a day. Rinse mouth with water after use to reduce aftertaste and incidence of candidiasis. Do not swallow. Active SUMAtriptan (IMITREX) 100 mg tablet Take 1 Tablet by mouth as needed for Migraine. May repeat dose once after 2 hours, if needed. Max 2 tabs in 24 hrs. 3 04/15/20 25 Discontinu ed(Therapy completed) Active Problems Problem Noted Date Diagnosed Date Mild persistent asthma without complication 03/25 Assessment & Plan (04/15/2025 7:24 PM EDT): Orders: Ambulatory referral to Pulmonology; Future Obesity (BMI 30.0-34.9) 04/15/2025 Assessment & Plan (04/15/2025 7:24 PM EDT): Orders: Basic metabolic panel; Future CBC and differential; Future Hemoglobin A1c; Future Ambulatory referral to Nutrition Services; Future Elevated platelet count 07/28/2023 Ankle pain, chronic 04/07/2021 Overview (09/19/2024): 03/2021 [facility]OS - chronic ankle pain, ordering MRI of ankle for further evaluation activity 03/09/2021 Other idiopathic scoliosis, thoracolumbar region 12/04/2019 Overview (09/19/2024): 02/2021 <10 degree, stable, annual monitoring 12/04/2019 less than 10 degress, right bit higher than left, annual screening recommended Encounters Date Type Department Care Team Description 04/15/2025 8:45 AM EDT Office Visit Adult Medicine [address] [phone] Esther Casanova MD Mild persistent asthma without complication (Primary Dx); Snoring; Elevated glucose; Obesity (BMI 30.0-34.9); Need for tetanus, diphtheria, and acellular pertussis (Tdap) vaccine; Encounter for screening involving social determinants of health (SDoH); Screening for depression from Last 3 Months Immunizations Name Administration Dates Next Due DTaP (Infanrix) 6wks to less than 7yo ,09/25/2003,2002,05/21,2002 [id number] (Pentacel) 2mo to less than 5yo 04/26/2003,2002,2002,04/02 [...] ular pertussis (Boostrix; Adacel) 7yo and older 04/15/2025,06/22/2013 Varicella live (Varivax) 12m o and older [...] time 01/04 - seen in ER at [facility], neg CXR 07/07 - no flares [...] Status Comments Maternal Grandmother Alive stephen to rres Mother Alive [facility] Other 1 Other 2 Uncle Social History Tobacco Use Types Packs/Day Years Used Date Smoking Tobacco: Never Smokeless Tobacco: Current Tobacco Cessation:Ready to Q uit: Not Asked; Counseling Given: Not Answered Alcohol Use Standard Drinks/Week Comments Never 0 (1 standard drink = 0.6 oz pur e alcohol) Housing Instability Answer Date Recorde d Are you worried that in the next 2 months you may not have stable housing? No 04/15/2025 Food Access & Nutrition Answer Date Rec orded Do you have access to a vari ety of food including fruits and vegetables? Yes 04/15/2025 Health Literacy Answer Date Recorded How often do you need to hav e someone help you when you read instructions, pamphlets, or other written material from your doctor or pharmacy? Never 04/15/2025 Caregiver: How often do you need to have someone help you when you read instructions, pamphlets, or other written material from your doctor or pharmacy? Not on file 04/15/2025 Financial Risk Answer Date Recorded How hard is it for you to pa y for the very basics like food, housing, medical care, and air conditioning / heating? Not very hard 04/15/2025 Transportation Answer Date Recorded Has the lack of transportati on kept you from meetings, work, or from getting things needed for daily living? No Has the lack of transportati on kept you from medical appointments or from getting medications? No 04/15/2025 Social Isolation Answer Date Recorded How often do you feel lonely or isolated from th ose around you? Never 04/15/2025 Food Risk Answer Date Recorded Within the past 12 months we worried whether our food would run out before we got money to buy more. Never true 04/15/2025 Within the past 12 months th e food we bought just didn't last and we didn't have money to get more. Never true 04/15/2025 Dependent Care Answer Date Recorded Do you need help finding or paying for care for your loved ones. For example, child attendant or elderly care for an older adult? No 04/15/2025 Education Answer Date Recorded Do you think completing more education or training, like finishing a GED, going to college, or learning a trade, would be helpful for you? N/A 04/15/2025 Employment and Income Answer Date Recor ded During the last four weeks, have you been actively looking for work? No 04/15/2025 Living Situation Answer Date Recorded What is your living situation? 0 04/15/2025 Comments No Sex and Gender Information Value Date Recorded Sex Assigned at Not on file Legal Sex Female 1:02 PM EST Gender Identity Not on file Sexual Orientation Not on file Obstetrics History Last Filed Vital Signs Vital Sign Reading Time Taken Comments Blood Pressure 107/72 04/15/2025 8:40 AM EDT Pulse 67 04/15/2025 8:40 AM EDT Temperature 36.1 C (97 F) 04/15/2025 8:40 AM EDT Respiratory Rate 15 04/15/2025 8:40 AM EDT Oxygen Saturation 99% 10/27/2024 10: 04 AM EST Inhaled Oxygen Concentration - - Weight 95.6 kg (210 lb 12.8 oz) 04/15/2025 8:40 AM EDT Height 167.6 cm (5' 6 ) 04/15/2025 8:40 AM EDT Body Mass Index 34.02 04/15/2025 8:40 AM EDT Plan of Treatment Upcoming Encounters Date Type Department Care Team (Late st Contact Info) Description 05/09/2025 8:55 AM EDT Consult Pulmonolgy - [place] [address] [place] [phone] Vickie Wilde NP [address] [place] [address] 06/17/2025 10:30 AM EDT Office Visit Adult Medicine [facility] [address] [place] [phone] Bessy Blanca PA [address] [place] [address] Health Maintenance Due Date Last Done Comments Pneumococcal Vaccine: Pediatrics (0 to 5 Years) and At-Risk Patients (6 to 49 Years) (1 of 1 - PPSV23) 01/25/2008 07/18/2003, 2002, 2002 Meningococcal B Vaccine (1 of 2 - Standard) 2018 COVID-19 Vaccine ( - season) 2024 04/01/2021, 03/09/2021 Gonorrhea/Chlamydia Screening 07/26/2024 07/26/2023 Influenza Vaccine (#1) 2025 , 08/02/2023, 08/30/2022, Additional history exists Cholesterol Screening (Lipid Panel) 03/09/2026 03/09/2021 Depression Screening 04/15/2026 04/15/2025 Social Influencers of Health Screening 04/15/2026 04/15/2025 Cervical Cancer Screening: Pap Smear 07/26/2026 07/26/2023, 07/26/2023 DTaP,Tdap,and Td Vaccines (8 - Td or Tdap) 04/15/2035 04/15/2025, 06/22/2013, 11/07/2006, Additional history exists Hepatitis B Vaccines Completed 2002, 2002, 2002 HIB Vaccines Completed 04/26/2003, 01/2003, 2002, Additional history exists IPV Vaccines Completed 11/17/2006, 06/25, 04/26/2003, Additional history exists MMR Vaccines Completed 11/17/2006, 10/25, 04/22/2006, Additional history exists Varicella Vaccines Completed 11/17/2006, 0 11/17/2006, 04/22/2006, Additional history exists HPV Vaccines Completed 05/05/2016, 09/24, 08/12/2014 Meningococcal ACWY Vaccine Completed 10/30/2018, HIV Screening Completed 11/15/2024, 07/27/2023 Hepatitis C Screening Completed 11/15/2024, 023 Hepatitis A Vaccines Aged Out No long er eligible based on patient's age to complete this topic RSV Immunization Patients Under 20 months Aged Out No longer eligible based on patient's age to complete this topic Procedures Procedure Name Priority Date/Time Associated Diagnosis Comments CBC WITH AUTO DIFFERENTIAL Routine 04/15/2025 9:37 AM EDT Elevated glucose Obesity (BMI 30.0-34.9) HEMOGLOBIN A1C Routine 04/15/2025 9:37 AM EDT Elevated glucose Obesity (BMI 30.0-34.9) CBC AND DIFFERENTIAL Routine 04/15/2025 9:37 AM EDT Elevated glucose Obesity (BMI 30.0-34.9) BASIC METABOLIC PANEL Routine 04/15/2025 9:37 AM EDT Elevated glucose Obesity (BMI 30.0-34.9) HEPATITIS C ANTIBODY Routine 11/15/2024 1:54 PM EST Dysuria Screen for STD (sexually transmitted disease) HIV 1, 2 ANTIBODY, P24 ANTIGEN WITH REFLEX TO DIFFERENTIATION Routine 11/15/2024 1:54 PM EST Screen for STD (sexually transmitted disease) HM HPV Routine 07/26/2023 HM GONORRHEA/CHLAMYDIA SCRREENING Routine 07/26/2023 LIPID PANEL Routine 03/09/2021 from Last 3 Months or Most Recently Relevant to Health Maintenance Results * (ABNORMAL) CBC auto differential (04/15/2025 9:37 AM EDT) [facility] Signature WBC 9.0 4.8 - 10.8 K/mcL LAB HEMETOLOGY METHOD 04/15/2025 1:14 PM EDT [facility] RBC 4.40 3.80 - 4.80 M/mcL LAB HEMETOLOGY METHOD 04/15/2025 1:14 PM EDT [facility] Hemoglobin 12.3 11.5 - 16.0 g/dL LAB HEMETOLOGY METHOD 04/15/2025 1:14 PM EDT [facility] Hematocrit 38.3 35.0 - 47.0 % LAB HEMETOLOGY METHOD 04/15/2025 1:14 PM EDT [facility] MCV 86.7 79.0 - 98.0 FL LAB HEMETOLOGY METHOD 04/15/2025 1:14 PM EDT [facility] MCH 27.8 27.0 - 32.0 pcg LAB HEMETOLOGY METHOD 04/15/2025 1:14 PM EDT [facility] MCHC 32.1 32.0 - 37.0 g/dL LAB H[facility]OLOGY [facility] RDW 13.7 11.0 - 15.0 % LAB HEMETOLOGY METHOD [facility]/15[facility]2025 [facility] Platelets 434(H) 130 - 400 K/mcL LAB HEMETOLOGY METHOD [facility] MPV 9.7 7.0 - 11.0 FL LAB HEMETOLOGY METHOD [facility]/15[facility]25 [facility] NRBC 0.0 <1.0 % LAB HEMETOLOGY METHOD 04/15/2025 1:14 PM [facility] NRBC Absolute 0.00 <0.10 K/mcL LAB HEMETOLOGY METHOD [facility]/15[facility] Neutrophils Relative 57.4 % LAB HEMETOLOGY METHOD 04/15/2025 1:14 PM [facility] Lymphocytes Relative 29.2 % LAB HEMETOLOGY METHOD 04/15/2025 1:14 PM [facility] Monocytes Relative 8.4 % LAB HEMETOLOGY METHOD 04/15/2025 1:14 PM [facility] Eosinophils Relative 3.7 % LAB HEMETOLOGY METHOD 04/15/2025 1:14 PM [facility] Basophils Relative 1.0 % LAB HEMETOLOGY METHOD [facility]/15[facility] Immature Granulocytes Relative 0.3 % LAB HEMETOLOGY METHOD 04/15/2025 1:14 PM [facility] Neutrophils Absolute 5.17 1.50 - 7.00 K/mcL LAB HEMETOLOGY METHOD 04/15/2025 1:14 PM EDT [facility] Lymphocytes Absolute 2.63 1.00 - 5.00 K/mcL LAB HEMETOLOGY METHOD 04/15/2025 1:14 PM EDT [facility] Monocytes Absolute 0.76 0.20 - 1.00 K/mcL LAB HEMETOLOGY METHOD 04/15/2025 1:14 PM EDT [facility] Eosinophils Absolute 0.33 0.00 - 0.50 K/[facility] LAB HEMETOLOGY METHOD 04/15/2025 1:14 PM EDT [facility] Basophils Absolute 0.09 0.00 - 0.20 K/mcL LAB HEMETOLOGY METHOD 04/15/2025 1:14 PM EDT [facility] Immature Granulocytes Absolute 0.03 0.00 - 0.03 K/mcL LAB HEMETOLOGY METHOD 04/15/2025 1:14 PM EDT [facility] Blood Venous blood specimen / Unknown Venipuncture / Unknown 04/15/2025 9:37 AM EDT 04/15/2025 9:37 AM EDT Esther Andre MD LAB BLOOD ORDERABL ES Final Result [facility] [address] [place] [address], * Hemoglobin A1c (04/15/2025 9:37 AM EDT) Hemoglobin A1C 5.6 <6.5 % LAB CHEMISTRY METHOD 04/15/2025 2:12 PM EDT [facility] Mean Bld Glu Estim. 114 mg/dL LAB CHEMISTRY METHOD 04/15/2025 2:12 PM EDT [facility] Blood Venous blood specimen / Unknown Venipuncture / Unknown 04/15/2025 9:37 AM EDT 04/15/2025 9:37 AM EDT us Esther Andre MD LAB BLOOD ORDERABL ES Final Result [facility] [address] [place] [address], [place] [phone] * Basic metabolic panel (04/15/2025 9:37 AM EDT) Sodium 141 133 - 145 mmol/L LAB CHEMISTRY METHOD [facility] Potassium 4.4 3.5 - 5.5 mmol/L LAB CHEMISTRY METHOD 04/15/2025 7:57 PM [facility] Chloride 110 96 - 110 mmol/L LAB CHEMISTRY METHOD 04/15/2025 7:57 PM [facility] CO2 24 21 - 32 mmol/L LAB CHEMISTRY METHOD 04/15/2025 7:57 PM [facility] Anion Gap 7 3 - 11 LAB CHEMISTRY METHOD 04/15/2025 7:57 PM [facility] Glucose 78 70 - 100 mg/dL LAB CHEMISTRY METHOD 04/15/2025 7:57 PM [facility] BUN 13 5 - 25 mg/dL LAB CHEMISTRY METHOD 04/15/2025 7:57 PM [facility] Creatinine 0.84 0.50 - 1.10 mg/dL LAB CHEMISTRY METHOD 04/15/2025 7:57 PM [facility] eGFR 100 >=60 mL/min/1. 73m2 LAB CHEMISTRY METHOD 04/15/2025 7:57 PM [facility] Comment:Calculation based on the Chronic Kidney Disease Epidemiology Collaboration (CKD-EPI) equation refit without adjustment for race. BUN/Creatinine Ratio 15.5 LAB CHEMISTRY METHOD 04/15/2025 7:57 PM [facility] Calcium 8.8 8.5 - 10.5 mg/dL LAB CHEMISTRY METHOD 04/15/2025 7:57 PM EDT [facility] Blood Venous blood specimen / Unknown Venipuncture / Unknown 04/15/2025 9:37 AM EDT 04/15/2025 9:37 AM EDT Esther Andre MD LAB BLOOD ORDERABL ES Final Result Performing Organization Address City/[facility]/ZIP Co de Phone Number [facility] [address] [place] [address], [place] [phone] * Hepatitis C antibody (11/15/2024 1:54 PM EST) [facility] Hepatitis C Antibody Negative Negative LAB CHEMISTRY METHOD 11/15/2024 5:05 PM EST [facility] Blood Venous blood specimen / Unknown Venipuncture / Unknown 11/15/2024 1:54 PM EST 11/15/2024 1:54 PM EST Erica Mckenzie NP LAB BLOOD ORDERABLES Final R esult Performing Organization Address City/[facility]/ZIP Co de Phone Number [facility] [address] [place] [address], [place] [phone] * HIV 1,2 antibody, p24 antigen with reflex to differentiation (11/15/2024 1:54 PM EST) Pathologist [facility] HIV Combo AB/AG Negative Negative LAB CHEMISTRY METHOD 11/15/2024 5:05 PM EST [facility] Blood Venous blood specimen / Unknown Venipuncture / Unknown 11/15/2024 1:54 PM EST 11/15/2024 1:54 PM EST Narrative [facility] - 11/15/2024 5:05 PM EST This assay is a 4th generation assay allowing for earlier detection of HIV infection by detecting the presence of the HIV-1 p24 antigen as well as the traditional antibodies to HIV type 1 (including group O) and type 2. Use of a 4th generation assay is the current CDC recommendation for HIV screening. Erica Mckenzie NP LAB BLOOD ORDERABLES Final R esult [facility] [address] [place] [address], [place] [phone] * Cervical Cancer Screening: HPV (07/26/2023) Cervical Cancer Screening: HPV negative abstracted Historical Provider MD HEALTH MAINTENANCE Final Result * Gonorrhea/Chlamydia Screening (07/26/2023) Pathologist [facility] Gonorrhea/Chla mydia Screening abstracted Historical Provider HEALTH MAINTENANCE Final Result * Lipid panel (03/09/2021) LDL/HDL Ratio 3 0 - 4 Triglycerides 48 0 - 150 mg/dL Cholesterol 128 0 - 200 mg/dL HDL 50 >=40 mg/dL LDL Cholesterol 69 0 - 100 mg/dL Blood Venous blood specimen / Unknown Historical Provider LAB BLOOD ORDERABLES Ann l Result from Last 3 Months or Most Recently Relevant to Health Maintenance Insurance [facility] [employer] Care Teams Transport Analyst Relationship Specialty Start Date End Date Esther Andre MD [address] [place] [phone] PCP - General Internal Medicine 05/24/22
--- OUTSIDE RECORDS SUMMARY | 2025-05-06 16:05 | XMS_ITS | Clinical Summary ---
Author Organization [facility] Address [address] [place] [address] Phone Care Team Providers Care Engineering Coordinator Name Role Phone Margo Allen MD Primary [...] 10/15/2023 10/15/2013, 10/15/2013, 10/15/2013, Additional history exists COVID-19 Vaccine ( - season) 2024 Influenza Vaccines (#1) 2025 10/15/20 13, 10/15/2013, 02/24/2011, Additional history exists MMR Vaccines Completed 11/17/2006, 03/26, 02/19/2003 HIB [...] Completed 10/15/2013, 0 11/17/2006, 2002 Care Teams Engineering Coordinator Relationship Specialty Start Date End Date Margo Allen MD [address] [place] [id number] PCP - General 12/14/17
== END 2025-05-06 15:20 | disposition home or self-care (01) ==
PROVIDERS: Physician Assistant Medical; Emergency Provider Emergency Medicine; PCP Internal Medicine
DX: J45.901 Unspecified asthma with (acute) exacerbation (principal); R05.9 Cough, unspecified; R06.02 Shortness of breath
CPT/HCPCS: 71046; 87637; 94640; 96365; 96366; 96375; 99284; 99285; J2919; J3475

== ENCOUNTER → 2025-05-06 11:45 | Outpatient (BNV) | payer OTHER, SELFPAY | PROVIDERS: PCP Internal Medicine; Visit Provider Radiology Diagnostic Radiology | DX: R05.1 Acute cough (principal) | CPT/HCPCS: 71046 ==

== ENCOUNTER 2025-07-11 16:33 | Emergency (ER) | payer OTHER, SELFPAY ==
[2025-07-11 17:13] VITALS: BP 112/55; PULSE 67; RESP 16; TEMP 36.7; O2SAT 99; BMI 33.9
--- NOTE | 2025-07-11 17:49 | ED.GENADULT ---
HPI - General Adult General Chief complaint: General Medical Stated complaint: inhaled fire extinguisher by accident Time Seen by Provider: 07/11/25 19:18 Source: patient Mode of arrival: ambulatory Limitations: no limitations History of Present Illness ED Provider: Donna Carrion APRN HPI narrative: this is a 25-year-old female who has a history of asthma presents to the ER with complaints of headache and cough after accidentally hit inhaling a fire extinguisher at 03:30 this afternoon while working. Patient denies any need for her inhaler. She denies any shortness of breath, chest pain, vomiting. Related Data Home Medications ?Medication ?Instructions ?Recorded ?Confirmed melatonin 5 mg tablet 5 mg PO BEDTIME PRN Sleep 10/28/24 01/22/25 Previous Rx's ?Medication ?Instructions ?Recorded ondansetron 4 mg disintegrating 4 mg PO Q6H PRN nausea and 04/22/25 tablet vomiting #12 tabs prednisone 20 mg tablet 20 mg PO DAILY #7 tabs 05/06/25 Allergies Allergy/AdvReac Type Severity Reaction Status Date / Time No Known Allergies Allergy Verified 07/11/25 17:14 Review of Systems Review of Systems: Yes all other systems are reviewed and are negative Constitutional: Constitutional: Reports no additional constitutional complaints, Denies body ache(s), Denies chills, Denies fever(s), Reports headache(s) and Denies weakness Eyes: Eyes: Reports no additional eye complaints and Denies change in vision ENT: Reports system reviewed and no additional complaints, except as documented, Denies dizziness, Reports headache(s), Denies nasal congestion, Denies nasal discharge and Denies neck pain Cardiovascular: Cardiovascular: Reports no additional cardiovascular complaints, Denies chest pain, Denies leg edema and Denies dyspnea Respiratory: Respiratory: Reports no additional respiratory complaints, Reports cough and Denies dyspnea Gastrointestinal: Gastrointestinal: Reports no additional gastrointestinal complaints, Denies abdominal pain, Denies diarrhea, Denies nausea and Denies vomiting Genitourinary: Genitourinary: Reports no additional female genitourinary complaints and Denies urinary incontinence Musculoskeletal: Musculoskeletal: Reports no additional musculoskeletal complaints, Denies back pain, Denies arthralgias, Denies joint swelling, Denies neck pain, Denies numbness and Denies tingling Integumentary/Breasts: Skin/Breast: Reports system reviewed and no additional complaints, except as docu and Denies rash Neurologic: Reports system reviewed and no additional complaints, except as documented, Denies Abnormal speech present, Denies dizziness, Reports headache(s), Denies numbness, Denies tingling and Denies weakness PMFSH Past Medical History Attestation statement: The following information was validated with the patient. Source: old records reviewed and nursing notes reviewed Medical History Open left clavicular fracture Social History Social History Household Members: None Housing: Apartment Do you presently have visiting nurse or other home services: No Patient Tobacco Use Status: Never used Tobacco Substance Use Type: Marijuana Advance Directives: No Advance Directives Information Provided: No service: No Physical Exam ED Vital Signs: Vital Signs - 24 hr 07/11/25 17:13 07/11/25 19:29 Temperature 98.1 F 98.1 F Pulse Rate 67 67 Respiratory Rate 16 16 Blood Pressure 112/55 L 112/55 L Pulse Oximetry 99 99 Oxygen Delivery Method Room Air Room Air BMI result Body Mass Index 33.9 Const General: cooperative, healthy appearing, comfortable and no acute distress Orientation/consciousness: patient oriented x3 Limitations: no limitations HENMT Head: Yes normal to inspection Ears: hearing grossly normal bilaterally and TM's normal bilaterally General nose exam: Normal external nose present Face and sinus: Yes normal facial exam Mouth: Normal oral and palatal mucosa present Throat: Yes posterior oropharynx normal, Yes tonsils normal and Yes uvula midline Eyes General: appearance normal, both eyes and all related structures Pupils: Equal, round and reactive pupils present Neck Neck: Yes normal visual inspection Chest Chest palpation & inspection: normal inspection of the chest Resp Other: Mild expiratory wheezing Effort & Inspection: normal respiratory effort Cardio Rate: regular rate Rhythm: regular rhythm Peripheral pulses: Peripheral pulses 2+ throughout GI Inspection: Yes normal to inspection Palpation (GI): Soft to palpation and nontender Auscultation: normal bowel sounds Back/Spine/Pelvis Thoracic/Lumbar Spine: thoracic and lumbar spine normal to inspection Skin General skin exam: no rashes or lesions noted Neuro General: patient oriented x3, no focal motor deficits and normal sensation to monofilament Cranial nerves: Yes Equal, round and reactive pupils present Cognition (Neuro): normal cognition Speech: No Abnormal speech present Gait exam (Neuro): Normal gait present Motor exam (neuro): 5/5 motor strength present throughout Extrem General: Yes normal to inspection Medical Decision Making Medical Decision Making MDM Narrative: this is a 25-year-old female who has a history of asthma presents to the ER with complaints of headache and cough after accidentally hit inhaling a fire extinguisher at 03:30 this afternoon while working. Patient denies any need for her inhaler. She denies any shortness of breath, chest pain, vomiting. patient has mild wheezing on exam. She has an albuterol inhaler on hand. I did recommend that she use a spacer in addition to this. Her vitals are stable. She is well-appearing. Normal neuro exam with no focal deficits. Recommend supportive measures at home. Reviewed worrisome signs and symptoms and when to return to the emergency room. Comfortable plan for discharge home. Differential Diagnosis Differential Diagnoses: The differential diagnosis associated with the presentation includes Admission/Observation Consideration of admission/observation: Escalation of care including admission/observation considered Tests considered The following testing was considered but not selected: No hypoxia or complaints of shortness of breath or chest pain requiring chest x-ray Discharge Plan Discharge Clinical Impression: Wheezing Patient Disposition: Home, Self-Care Instructions: How to Use a Metered-Dose Inhaler and a Spacer (ED), Wheezing (ED) Additional Instructions: You did have some wheezing in the right lung. Use albuterol 2 puffs every hours as needed for cough or wheezing with the spacer Return for shortness of breath or chest pain or any change of symptoms Prescriptions: No Action melatonin 5 mg Tablet 5 mg PO BEDTIME PRN (Reason: Sleep) ondansetron 4 mg tablet,disintegrating 4 mg PO Q6H PRN (Reason: nausea and vomiting) Qty: 12 0RF prednisone 20 mg tablet 20 mg PO DAILY Qty: 7 0RF Referrals: Esther Horner MD [Primary Care Provider, Internal Medicine] Referral Note: as needed Stand Alone Forms: Work/School Release Interventions: ED Discharge Assessment Last Done: 07/11/25 19:29 Discharge Date/Time: 07/11/25 19:38 Print Language: Pashto
[2025-07-11 19:29] VITALS: BP 112/55; PULSE 67; RESP 16; TEMP 36.7; O2SAT 99
--- OUTSIDE RECORDS SUMMARY | 2025-07-11 19:38 | XMS_ITS ---
Author Name [facility] Organization Unknown Care Team Organization Name Specialty Phone Email Start Date End Da te [facility] Esther Horner Primary Care 04/01/2023 06/11/2024 [facility] Saud Mcghee Primary Care 12/29/20222023 [facility] Radha Herzog Primary Care 08/31/20222023
== END 2025-07-11 19:38 | disposition home or self-care (01) ==
LOC: HO.ED 19:35
PROVIDERS: Emergency Provider Emergency Medicine; PCP Internal Medicine
DX: R06.2 Wheezing (principal); R51.9 Headache, unspecified
CPT/HCPCS: 99282

== ENCOUNTER 2025-08-17 09:36 | Emergency (ER) | payer OTHER, SELFPAY ==
--- OUTSIDE RECORDS SUMMARY | 2024-06-29 11:20 | XMS_ITS | Continuity of Care Document ---
Author Organization [facility] Address [address] [place] [address] Phone Care Team Providers Care Shoe Handler Name Role Phone No Information Unavailable Unavailable Allergies, Adverse Reactions, Alerts Substance Reaction Status Criticality No Known allergies Procedures Procedure Date Offic/outpt E&m Estab Low-mod 4 Services provided in an urgent care [facility] Ua Dip Stik/tablet; Wo Micro A 24 Handl/convey Specmn-offic To L 24 Offic/outpt E&m New Mod Sever 4 Services provided in an urgent care [facility] Advance Directives Directive Yes / No Effective Date File Name No Information Encounters Encounter Description Practice Location Reason(s) For Visit Diagnoses Date Provider Providers Copied on Encounter [facility], [address], [place], [place], [id number], [place] tel:[phone] [facility] No Information 4 No Information Offic/outpt E&m Estab Low-mod [facility], [address], [place], [place], [id number], [place] tel:[phone] [facility] Vaginal bleeding (chief complaint) Irregular menstrual bleeding 4 Austin Gutierrez. [address], [address], [place], [address], [place]. tel:[phone] Referring Provider: Matt PUGA, [address] [facility] [address], [place], [address]. tel:[phone] Offic/outpt E&m [facility], [address], [place], [place], [id number], [place] tel:[phone] [facility] Dysuria (chief complaint) DysuriaAcute cystitis without hematuria Barbara VIVIEN Vangie. [address], [address], [place], [address], [place]. tel:[phone] Family History Family Member Type Diagnosis Age At Onset No Information Payers Payer name Insurance type Covered republican ID Authoriza tion(s) No Information Social History Type Description Quantity Date Captured Comments Sex Female Smoking Status No Information Chief Complaint And Reason For Visit No Information Reason For Referral Reason For Referral No Information History Of Present Illness Encounter Date Complaint History Of Prese nt Illness Vaginal bleeding Onset: 1 week a go. The patient describes it as spotting. Frequency: intermittent. The problem is improved. Pertinent negatives include abdominal pain, back pain, bloating, bruising, constipation, cramps, diarrhea, dizziness, dyspnea, fatigue, headache, nausea, pallor, pelvic pain and swelling. Dysuria Onset: 1 Week. T he severity of the problem is mild. Presenting/Initial symptoms include dysuria and flank pain. Denies aggravating factors. Associated symptoms include dysuria and flank pain. Pertinent negatives include abdominal pain, dribbling, fatigue, fever, frequency, hematuria, hesitancy, nausea, pelvic pain, pressure, retention, urgency or vomiting. Functional Status Date Functional Assessmen t No Information Instructions Date Instruction Additional Infor víctor PLEASE FOLLOW UP WIT H YOUR PCP/SPECIALIST FOR FURTHER EVALUATION OF YOUR SYMPTOMS SOON POSSIBLE. YOU CAN ALSO PRESENT TO THE EMERGENCY ROOM IF SYMPTOMS WORSEN. Related to Irregular menstrual bleeding URINE CULTURE WILL B E CALLED TO YOU IN 2-3 DAYS ONCE AVAILABLE. Related to Dysuria DRINK PLENTY OF FLUI DS. EMPTY YOUR BLADDER FREQUENTLY. YOU MAY USE A HEATING PAD FOR COMFORT. AVOID CAFFEINE, ALCOHOL, NICOTINE AND SPICY FOODS THEY MAY IRRITATE THE BLADDER. PLEASE GO THE ER IF YOUR SYMPTOMS WORSEN (E.G. FEVER, NAUSEA/VOMITING, BACK/FLANK PAIN, ETC) DESPITE ANTIBIOTC TREATMENT. Related to Acute cystitis without hematuria Assessments Type Assessment Date No Information Patient Care Teams Name Effective Dates (start - stop) Status Members No Information
--- OUTSIDE RECORDS SUMMARY | 2025-08-12 09:00 | XMS_ITS | Encounter Summary ---
Author Organization [facility] Address [address] [place] [address] Care Team Providers Care Inspector Filter Tip Name Role Phone Esther Andre MD Primary Care Prov ider Reason for Visit * Reason Comments Weight Check Follow up Encounter Details Date Type Department Care Team ([facility] st Contact Info) Description 08/12/2025 9:00 AM EDT Office Visit Adult Medicine [address] [phone] Esther Andre MD [address] [place] [address] Class 2 obesity due to excess calories without serious comorbidity with body mass index (BMI) of 35.0 to 35.9 in adult (Primary Dx); Mild persistent asthma without complication; Need for prophylactic vaccination and inoculation against influenza Social History Tobacco Use Types Packs/Day Years [...] do you feel lonely or isolated from ose around you? Never 04/15/2025 Food Risk [...] care for your loved ones. For example, care rep or elderly care for an older adult? [...] Date Recorded What is your living situation? Unrecognized valu e 04/15/2025 Comments No Sex and Gender Information Value Date Recorded Sex Assigned at Not on file Legal Sex Female 1:02 PM EST Gender Identity Not on file Sexual Orientation Not on file Travel History Travel Start Travel End [place] 07/22/2025 07/31/2025 documented as of this encounter Last Filed Vital Signs Vital Sign Reading Time Taken Comments Blood Pressure 105/67 08/12/2025 9:05 AM EDT Pulse 97 08/12/2025 9:05 AM EDT Temperature 36 C (96.8 F) 08/12/2025 9:05 AM EDT Respiratory Rate 14 08/12/2025 9:05 AM EDT Oxygen Saturation 98% 08/12/2025 9:05 AM EDT Inhaled Oxygen Concentration - - Weight 99.2 kg (218 lb 9.6 oz) 08/12/2025 9:05 A M EDT Height 167.6 cm (5' 6 ) 08/12/2025 9:05 AM EDT Body Mass Index 35.28 08/12/2025 9:05 AM EDT documented in this encounter Ordered Prescriptions Prescription Sig Dispense Quantity Refills Last Filled Start Date End Date phentermine-topira mate (Qsymia) 7.5-46 mg capsule, ER multiphase 24 hr Take 1 capsule by mouth 1 (one) time each day. Max Daily Amount: 1 capsule 30 capsule 2 08/26/2025 phentermine-topira mate 3.75-23 mg capsule, ER multiphase 24 hr Take 1 capsule by mouth 1 (one) time each day. Max Daily Amount: 1 capsule 14 capsule 08/12/2025 phentermine-topira mate (Qsymia) 7.5-46 mg capsule, ER multiphase 24 hr Take 1 capsule by mouth 1 (one) time each day. Max Daily Amount: 1 capsule 30 capsule 2 08/12/2025 documented in this encounter Progress Notes * Esther Andre MD - 08/12/2025 9:00 AM EDTAssociated Problem(s): Obesity (BMI 30.0-34.9) Patient with BMI 35.2, 216lb. Waist circumference 114cm Wegovy and Zepbound denied previously by her insurance. Will prescribe Qsymia escalated dose start 3.75 mg for 2 weeks, increase to 7.5 mg until next appointment. Follow up in one month. Possible side effects were discussed. If there is not at least 3% weight loss in 12 weeks, we will taper up the dose. Continue low carb, high protein diet. Exercise routine at least 150 mins a week. Patient is reestablished with behavioral health. She encouraged to keep appointments. Will follow up in 1 month. * Esther Andre MD - 08/12/2025 9:00 AM EDTAssociated Problem(s): Mild persistent asthma without complication ACT is 20, no recent exacerbations. Continue albuterol as needed Trelegy Ellipta * Desiree Wilson MA - 08/12/2025 9:00 AM EDT INFLUENZA VACCINE The patient acknowledges that they will be receiving the Influenza (Flu) vaccine today: yes Flu vaccine formulation is: Flucelvax (preservative free): Patient denies allergy to previous flu vaccine. yes Immunization tab reviewed: Patient acknowledges they have NOT received a flu vaccine for the . yes Denies history of Guillain-[place] Syndrome (severe muscle weakness). yes Acknowledges reviewing the VIS Seasonal Flu (copy made available). yes Patient Denies moderate or severe illness or fever of >100 degrees F. yes Agrees to wait in the office/car for 20 minutes after receiving the influenza injection. yes No restriction for Influenza vaccine administered IM See Imm/Inj tab. Electronically signed by: Desiree Wilson MA 08/12/2025 9:08 AM EDT * Esther Andre MD - 08/12/2025 9:00 AM EDT Images from the original note were not included. Chief Complaint Angeleeyah Narayan is a 25 y.o. female presenting for Weight Check (Follow up ) Subjective Patient with a pmh of obesity, asthma, comes for follow up. Feels well, follows the recommended diet, exercises regularly, however she has been unable to lose weight. 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 Exercises 4-5 times a week one hour. She lives with her aunt Currently she keeps track of her calories, follows a low carb diet, does not drink soda, or eat sweets. Eats aprox 200gr of protein. BMI 35.2, 218 lbs. The following portions of the patient's history were reviewed by a provider in this encounter and updated as appropriate: Allergies: She has no known allergies. Medications: Current Outpatient Medications Medication Instructions albuterol HFA (PROAIR HFA ; PROVENTIL HFA ; VENTOLIN HFA) 90 mcg/actuation inhaler 2 puffs, inhalation, Every 6 hours PRN albuterol 2.5 mg, nebulization, Every 4 hours PRN, Take if have severe symptoms and Albuterol inhaler is not relieving them. dxvgakgrixh-pyrkywpyvtsu-hiklutitqx (Trelegy Ellipta) 100-62.5-25 mcg inhaler 100 mcg, inhalation, Daily, Rinse mouth with water after use to reduce aftertaste and incidence of candidiasis. Do not swallow. ibuprofen (ADVIL,MOTRIN) 600 mg tablet 1 tablet, Every 6 hours PRN [START ON 08/26/2025] phentermine-topiramate (Qsymia) 7.5-46 mg capsule, ER multiphase 24 hr 1 capsule, oral, Daily phentermine-topiramate 3.75-23 mg capsule, ER multiphase 24 hr 1 capsule, oral, Daily Objective BP 105/67 Pulse 97 Temp 36 ??C (96.8 ??F) (Temporal) Resp 14 Ht 1.676 m (66 ) Wt 99.2 kg (218 lb 9.6 oz) BMI 35.28 kg/m?? SpO2: 98 % Physical Exam Vitals reviewed. Constitutional: Appearance: Normal appearance. Cardiovascular: Rate and Rhythm: Normal rate and regular rhythm. Heart sounds: Normal heart sounds. Pulmonary: Effort: Pulmonary effort is normal. Breath sounds: Normal breath sounds. Musculoskeletal: General: No swelling. Normal range of motion. Cervical back: Neck supple. Skin: General: Skin is warm. Neurological: General: No focal deficit present. Mental Status: She is alert. Assessment/Plan Assessment & Plan Class 2 obesity due to excess calories without serious comorbidity with body mass index (BMI) of 35.0 to 35.9 in adult Patient with BMI 35.2, 216lb. Waist circumference 114cm Wegovy and Zepbound denied previously by her insurance. Will prescribe Qsymia escalated dose start 3.75 mg for 2 weeks, increase to 7.5 mg until next appointment. Follow up in one month. Possible side effects were discussed. If there is not at least 3% weight loss in 12 weeks, we will taper up the dose. Continue low carb, high protein diet. Exercise routine at least 150 mins a week. Patient is reestablished with behavioral health. She encouraged to keep appointments. Will follow up in 1 month. Mild persistent asthma without complication ACT is 20, no recent exacerbations. Continue albuterol as needed Trelegy Ellipta Need for prophylactic vaccination and inoculation against influenza Orders: Influenza trivalent, MDCK, 0.5mL, preservative free (Flucelvax) 6mo and older All questions and concerns were addressed. Patient verbalizes understanding and agrees with above treatment plan. Patient was advised to contact the office with any worsening symptoms or if new or existing problems arise. Patient to follow- up in 1 month. I have applied the code G2211 to this patient???s visit as the primary care provider, associated with longitudinal, non-procedural care. Our team has an ongoing relationship with the patient in the management of her medical conditions. Esther Peralta MD ADULT MEDICINE [address] [address] Dept: [phone] Dept Date of Visit: 08/12/2025 documented in this encounter Plan of Treatment Upcoming Encounters Date Type Department Care Team (Late st Contact Info) Description 08/19/2025 10:30 AM EDT Hospital Encounter [facility] [address] [place] [address] 09/16/2025 8:30 AM EST Office Visit Adult Medicine [facility] [address] [place], [place] [phone] Bessy Blanca PA [address] [place], [place] 11/22/2025 9:00 AM EST Clinical Support Pulmonology [facility] [address] [phone] 11/22/2025 9:45 AM EST Office Visit [address] [phone] Vickie Wilde, SHAINA [address] [place] [address] documented as of this encounter Visit Diagnoses Diagnosis Class 2 obesity due to excess calories without serious comorbidity with body mass index (BMI) of 35.0 to 35.9 in adult- Primary Mild persistent asthma without complication Need for prophylactic vaccination and inoculation against influenza documented in this encounter Discontinued Medications Medication Sig Discontinue Reason Start Date End Da te tirzepatide, weight loss, (Zepbound) 2.5 mg/0.5 mL injection Inject 0.5 mL (2.5 mg total) under the skin every 7 (seven) days. 07/25/2025 08/12/2025 phentermine-topiramate (Qsymia) 7.5-46 mg capsule, ER multiphase 24 hr Take 1 capsule by mouth 1 (one) time each day. Max Daily Amount: 1 capsule 08/12/2025 08/12/2025 documented as of this encounter Orders Immunization/Injection Count Last Ordered Date First Ordered Date INFLUENZA TRIVALENT, MDCK, 0 .5ML, PRESERVATIVE FREE (FLUCELVAX) 6MO AND OLDER 1 08/12/2025 documented in this encounter Additional Health Concerns Assessment Noted Time PHQ-9 Depression Total Score: 0 06/17/20 8:59 AM EDT documented as of this encounter Care Teams Inspector Filter Tip Relationship Specialty Start Date End Date Esther Andre MD [address] [place] [address] PCP - General Internal Medicine 05/24/22 documented as of this encounter
--- OUTSIDE RECORDS SUMMARY | 2025-08-16 10:45 | XMS_ITS | Encounter Summary ---
Author Organization [facility] Address [address] [place] [address] Care Team Providers Care Catering Server Name Role Phone Esther Andre MD Primary Care Prov ider Reason for Referral * Imaging (Routine) - Pending Review Specialty Diagnoses / Procedures Referred By Contac t Referred To Contact Radiology Diagnoses Abnormal uterine bleeding (AUB) Procedures US Pelvis Non OB Complete w Transvaginal Pita Wilson CNM [address] [place] [address] Phone: tel: fax: [address] Phone: tel: Referral ID Status Reason Start Date Expiration Date V isits Requested Visits Authorized [id number] Pending Review 08/16/2025 08/16/2026 1 1 Reason for Visit * Reason Comments Vaginal Bleeding Encounter Details Date Type Department Care Team ([facility] st Contact Info) Description 08/16/2025 10:45 AM EDT Office Visit Obstetrics and Gynecology - [address] [phone] Pita Wilson CNM [address] [place] [address] Abnormal uterine bleeding (AUB) (Primary Dx) Social History Tobacco Use Types Packs/Day Years Used Date Smoking Tobacco: Never Smokeless Tobacco: Current Alcohol Use Standard Drinks/Week Comments Never 0 [...] for your loved ones. For example, child care aide or elderly care for an older adult? [...] file Travel History Travel Start Travel End [place] 07/22/2025 07/31/2025 documented as of this encounter Last Filed Vital Signs Vital Sign Reading Time Taken Comments Blood Pressure 124/83 08/16/2025 10:56 AM EDT Pulse 67 08/16/2025 10:56 AM EDT Temperature - - Respiratory Rate 14 08/16/2025 10:56 AM EDT Oxygen Saturation - - Inhaled Oxygen Concentration - - Weight 98.4 kg (217 lb) 08/16/2025 10:56 AM EDT Height - - Body Mass Index 35.02 08/12/2025 9:05 AM EDT documented in this encounter Ordered Prescriptions Prescription Sig Dispense Quantity Refills Last Filled Start Date End Date norethindrone (AYGESTIN) 5 mg tabletIndications: Abnormal uterine bleeding (AUB) Take 1 tablet (5 mg total) by mouth 1 (one) time each day. 30 each 08/16/2025 09/15/2025 documented in this encounter Progress Notes * Juan C Smith MA - 08/16/2025 10:45 AM EDTAddended by: JUAN C SMITH on: 08/16/2025 12:18 PM Modules accepted: Orders * Pita Wilson CNM - 08/16/2025 10:45 AM EDT CHIEF COMPLAINT: Vaginal Bleeding IDENTIFIER:Felipe Narayan is a 25 y.o. female. HPI: Felipe presents to office for concerns with her period. Patient's last menstrual period was 07/29/2025 (exact date). But then Tuesday of this week period returned heavy with clots. 07/29 was a little light lasted to the . She is wearing both pads and tampons and changing every hour (saturating the tampon). Having clots the size of quarters. She feels tired, denies CP, SOB, dizziness. She is sexually active with a male. She is not on contraception and not interested in contraception. Historically periods are regular coming monthly, heavy but not this heavy lasting 7 days. ROS: As stated in HPI PAST MEDICAL HISTORY: OB History Para Term AB Living 1 0 0 0 1 0 SAB IAB Ectopic Multiple Live Births 0 0 0 0 0 # Outcome Date GA Lbr Rosales/2nd Weight Sex Type Anes PTL Lv 1 AB 01/2024 Problem List[1] Surgical History[2] SOCIAL HISTORY: Social History Tobacco Use Smoking status: Never Smokeless tobacco: Current Substance Use Topics Alcohol use: Never FAMILY HISTORY: Family History[3] MEDICATIONS: There are no discontinued medications. ACTIVE MEDICATIONS: Medications Taking[4] PHYSICAL EXAM: Visit Vitals BP 124/83 Pulse 67 Resp 14 Wt 98.4 kg (217 lb) LMP 07/29/2025 (Exact Date) BMI 35.02 kg/m?? OB Status Having periods Smoking Status Never BSA 2.07 m?? APPEARANCE: Alert and in no acute distress, Normal ABDOMEN: soft, non-tender, without organomegaly or palpable masses LYMPHATICS: no inguinal adenopathy DESIGN DRAFTSMAN: Normal external genitalia and urethra Vagina without abnormality or discharge Normal cervix, no polyps Uterus with normal size, position, and consistency Normal adnexa without tenderness No CMT noted No vaginal odor or vaginal discharge noted Pooling of blood from os, 3 scopettes to clean the speculum, no clots. RECTAL: without lesion, hemorrhoid, prolapse SKIN: Skin color, texture, turgor normal. No rashes or lesions. LABS: N/A IMPRESSION: 1. Abnormal uterine bleeding (AUB) PLAN: Medication and lab orders: Orders Placed This Encounter Procedures Chlamydia trachomatis and Neisseria gonorrhoeae molecular study US Pelvis Non OB Complete w Transvaginal Complete blood count Thyroid stimulating hormone with reflex to free t4 and free t3 HCG, serum, qualitative Other orders: US PELVIS NON OB COMPLETE W TRANSVAGINAL Will r/o infection, SAB, thyroid and uterine causes, cbc ordered to assess anemia. Reviewed this can be an isolated event. Aygestin ordered to manage 5 mg daily however if no improvement 10 mg daily.Reviewed s/s to seek emergency care. Will follow up once diagnosis return. Should AUB persist I recommend contraception to manage periods. Pita Wilson CNM [1] Patient Active Problem List Diagnosis Other idiopathic scoliosis, thoracolumbar region activity Elevated platelet count Ankle pain, chronic Mild persistent asthma without complication Obesity (BMI 30.0-34.9) [2] Past Surgical History: Procedure Laterality Date CLAVICLE SURGERY OTHER SURGICAL HISTORY PROCEDURE: DENIES PREVIOUS SURGERY [3] Family History Problem Relation Name Age of Onset Diabetes Maternal Grandmother Diabetes Uncle Other (Other: bp) Other Hypertension Other Breast cancer Neg Hx Ovarian cancer Neg Hx Colon cancer Neg Hx Pancreatic cancer Neg Hx Kidney cancer Neg Hx Cancer of Small Bowel Neg Hx Uterine cancer Neg Hx [4] No outpatient medications have been marked as taking for the 08/16/25 encounter (Office Visit) Jacqueline Wilson CNM. documented in this encounter Plan of Treatment Upcoming Encounters Date Type Department Care Team (Late st Contact Info) Description 08/19/2025 10:30 AM EDT Hospital Encounter [facility]ound [facility] [address] [place] [phone] 09/16/2025 8:30 AM EST Office Visit Adult Medicine [address] [phone] Bessy Blanca PA [address] [place] [address] 11/22/2025 9:00 AM EST Clinical Support Pulmonology [address] [phone] 11/22/2025 9:45 AM EST Office Visit Pulmonology [address] [phone] Vickie Wilde, SHAINA [address] [place] [phone] Scheduled Orders Name Type Priority Associated Diagnoses Orde r Schedule US Pelvis Non OB Complete w Transvaginal Imaging Routine Abnormal uterine bleeding (AUB) Expected: 08/16/2025, Expires: 10/16/2025 documented as of this encounter Procedures Procedure Name Priority Date/Time Associated Diagnosis Comments TRICHOMONAS VAGINALIS ANTIGEN Routine 08/16/2025 12:20 PM EDT Abnormal uterine bleeding (AUB) CHLAMYDIA TRACHOMATIS AND NEISSERIA GONORRHOEAE PCR Routine 08/16/2025 11:49 AM EDT Abnormal uterine bleeding (AUB) documented in this encounter Results * Trichomonas vaginalis antigen (08/16/2025 12:20 PM EDT) Trichomonas vaginalis Negative Negative 08/16/2025 9:01 PM EDT [facility] Swab Vaginal structure / Unknown Non-blood Collection / Unknown 08/16/2025 12:20 PM EDT 08/16/2025 12:20 PM EDT Pita Wilson [facility] MICROBIOLOGY - GENERAL ORDE RABJAMEE Final Result [facility] [address] [place] [address], * (ABNORMAL) Chlamydia trachomatis and Neisseria gonorrhoeae molecular study (08/16/2025 11:49 AM EDT) Pathologist [facility] Neisseria gonorrhoeae PCR Negative Negative LAB MOLECULAR DIAGNOSTICS METHOD 08/17/2025 8:35 AM EDT [facility] Chlamydia trachomatis PCR Positive(A) Negative LAB MOLECULAR DIAGNOSTICS METHOD 08/17/2025 8:35 AM EDT [facility] Swab Cervix uteri structure / Unknown Non-blood Collection / Unknown 08/16/2025 11:49 AM EDT 08/16/2025 11:49 AM EDT us Pita YUNG LAB MICROBIOLOGY - GENERAL ORDE RABJAMEE Final Result [facility] [address] [place] [address], [place] [phone] * HCG, serum, qualitative (08/16/2025 11:26 AM EDT) [facility] hCG Qual Negative Negative 08/16/2025 4:02 PM EDT [facility] Blood Venous blood specimen / Unknown Venipuncture / Unknown 08/16/2025 11:26 AM EDT 08/16/2025 11:26 AM EDT us Pita Wilson [facility] BLOOD ORDERABLES Final Resu lt Performing Organization Address City/[facility]/ZIP Co de Phone Number [facility] [address] [place] [address], [place] [phone] * Thyroid stimulating hormone with reflex to free t4 and free t3 (08/16/2025 11:26 AM EDT) [facility] TSH 0.74 0.40 - 4.00 mcIU/mL LAB CHEMISTRY METHOD 08/16/2025 4:01 PM EDT [facility] Blood Venous blood specimen / Unknown Venipuncture / Unknown 08/16/2025 11:26 AM EDT 08/16/2025 11:26 AM EDT Pita Wilson [facility] BLOOD ORDERABLES Final Resu lt [facility] [address] [place] [address], [place] [phone] * (ABNORMAL) Complete blood count (08/16/2025 11:26 AM EDT) [facility] WBC 9.9 4.8 - 10.8 K/[facility] LAB HEMETOLOGY METHOD 08/16/2025 3:34 PM EDT [facility] RBC 4.60 3.80 - 4.80 M/[facility] LAB HEMETOLOGY METHOD 08/16/2025 3:34 PM EDT [facility] Hemoglobin 12.2 11.5 - 16.0 g/dL LAB HEMETOLOGY METHOD 08/16/2025 3:34 PM [facility] Hematocrit 38.4 35.0 - 47.0 % LAB HEMETOLOGY METHOD 08/16/2025 3:34 PM [facility] MCV 82.9 79.0 - 98.0 FL LAB HEMETOLOGY METHOD 08/16/2025 3:34 PM [facility] MCH 26.3(L) 27.0 - 32.0 pcg LAB HEMETOLOGY METHOD 08/16/2025 3:34 PM [facility] MCHC 31.8(L) 32.0 - 37.0 g/dL LAB HEMETOLOGY METHOD 08/16/2025 3:34 PM [facility] RDW 13.5 11.0 - 15.0 % LAB HEMETOLOGY METHOD 08/16/2025 3:34 PM [facility] Platelets 471(H) 130 - 400 K/mcL LAB HEMETOLOGY METHOD 08/16/2025 3:34 PM [facility] MPV 9.3 7.0 - 11.0 FL LAB HEMETOLOGY METHOD 08/16/2025 3:34 PM [facility] NRBC 0.0 <1.0 % LAB HEMETOLOGY METHOD 08/16/2025 3:34 PM [facility] NRBC Absolute 0.00 <0.10 K/mcL LAB HEMETOLOGY METHOD 08/16/2025 3:34 PM [facility] Blood Venous blood specimen / Unknown Venipuncture / Unknown 08/16/2025 11:26 AM EDT 08/16/2025 11:26 AM EDT us Pita YUNGM LAB BLOOD ORDERABLES Final Resu lt [facility] [address] [place] [address], documented in this encounter Visit Diagnoses Diagnosis Abnormal uterine bleeding (AUB)- Primary documented in this encounter Additional Health Concerns Assessment Noted Time PHQ-9 Depression Total Score: 0 06/17/20 8:59 AM EDT documented as of this encounter Care Teams Catering Server Relationship Specialty Start Date End Date Esther Andre MD [address] [place] [phone] PCP - General Internal Medicine 05/24/22 documented as of this encounter
[2025-08-17 09:42] VITALS: BP 123/82; PULSE 71; RESP 20; TEMP 36.3; O2SAT 98; BMI 34.4
[2025-08-17 10:00] LABS: MANUAL DIFF FLAG NO
[2025-08-17 10:03] LABS: Hematocrit 40.0 % (37.0-47.0); Hemoglobin 13.1 g/dl (12.0-16.0); Imm Gran Abs Auto 0.05 X10*3/uL (0.00-0.03); Imm Gran Pct Auto 0.5 % (0.0-0.4); Lymphocytes Absolute Auto 2.3 X10*3/uL (1.2-4.9); Mean Corpuscular HGB Conc 32.8 g/dl (31.0-35.0); Mean Corpuscular Hemoglobin 26.4 pg (27.0-33.0); Mean Corpuscular Volume 80.5 fL (80.0-98.0); NRBC Abs Auto 0.000 X10*3/uL (0.0-0.012); NRBC Pct Auto 0.0 /100WBC (0.0-0.2); Platelet Count 404 X10*3/uL (160-400); Red Blood Count 4.97 X10*6/uL (4.20-5.50); White Blood Count 9.2 X10*3/uL (4.8-10.8)
[2025-08-17 10:06] VITALS: BP 131/74; PULSE 73; RESP 16; TEMP 36.8; O2SAT 97
--- NOTE | 2025-08-17 10:09 | PC.NURSE ---
Patient presentws to ED c/o vaginal bleeding Patient reports bleeding started on Tuesday Blood is bright red with some clots, patient reports large amount of blood Patient experiencing ABD cramping rated 5/10 radiates toward back Patient sexually active, no control Took @ home test = negative Denies injury, thinners, urinary symptoms VSS and up to date Provider in to see patient Plan of care on going
[2025-08-17 10:16] LABS: Alanine Aminotransferase 27 U/L (0-31); Albumin Level 4.6 g/dL (3.5-5.0); Alkaline Phosphatase 69 U/L (39-117); Anion Gap 13 (12-20); Aspartate Amino Transferase 25 U/L (5-31); Blood Urea Nitrogen 10 mg/dL (9-16); Calcium 9.0 mg/dL (8.4-10.2); Carbon Dioxide 20 mmol/L (22-29); Chloride 111 mmol/L (96-108); Creatinine Clr Calc Pharmacy 146.5; Estimated Glomerular Filt Rate > 60; Potassium 4.1 mmol/L (3.3-5.1); Sodium 140 mmol/L (135-145); Total Protein 7.6 g/dL (6.5-8.0)
--- NOTE | 2025-08-17 10:28 | ED.FEMALEGU ---
HPI - Female Genitourinary General Chief complaint: Urogenital-Female Stated complaint: heavy vaginal bleeding Time Seen by Provider: 08/17/25 09:54 Source: patient Mode of arrival: ambulatory Limitations: no limitations History of Present Illness ED Provider: Donna Carrion APRN HPI Narrative: 25-year-old female with no known medical history presents the ER with complaints of vaginal bleeding since Tuesday. Patient reports she is using 1 pad every 1-2 hours. She has some lower abdominal cramping associated with this. She denies any dizziness, weakness, fevers, chills, vomiting. Patient reports her last menstrual cycle was 2 weeks ago. She is sexually active with 1 male partner. She is concern for sexually transmitted diseases and would like to be tested. She does not use any condoms. She has low suspicion for . She is not currently on any control. She is followed by gynecology at [place] and she last saw them on October of 2024 in which she had a normal Pap smear. She does have history of heavy menstrual cycles but her menstrual cycles are normally regular. Related Data Home Medications ?Medication ?Instructions ?Recorded ?Confirmed melatonin 5 mg tablet 5 mg PO BEDTIME PRN Sleep 10/28/24 01/22/25 Previous Rx's ?Medication ?Instructions ?Recorded ondansetron 4 mg disintegrating 4 mg PO Q6H PRN nausea and 04/22/25 tablet vomiting #12 tabs prednisone 20 mg tablet 20 mg PO DAILY #7 tabs 05/06/25 Allergies Allergy/AdvReac Type Severity Reaction Status Date / Time No Known Allergies Allergy Verified 08/17/25 09:45 Review of Systems Review of Systems: Yes all other systems are reviewed and are negative Constitutional: Constitutional: Reports no additional constitutional complaints, Denies body ache(s), Denies chills, Denies fever(s), Denies headache(s) and Denies weakness Eyes: Eyes: Reports no additional eye complaints and Denies change in vision ENT: Reports system reviewed and no additional complaints, except as documented, Denies dizziness, Denies headache(s), Denies nasal congestion, Denies nasal discharge and Denies neck pain Cardiovascular: Cardiovascular: Reports no additional cardiovascular complaints, Denies chest pain, Denies leg edema and Denies dyspnea Respiratory: Respiratory: Reports no additional respiratory complaints, Denies cough and Denies dyspnea Gastrointestinal: Gastrointestinal: Reports no additional gastrointestinal complaints, Reports abdominal pain, Denies diarrhea, Denies nausea and Denies vomiting Genitourinary: Genitourinary: Reports no additional female genitourinary complaints, Reports abnormal vaginal bleeding and Denies urinary incontinence Musculoskeletal: Musculoskeletal: Reports no additional musculoskeletal complaints, Denies back pain, Denies arthralgias, Denies joint swelling, Denies neck pain, Denies numbness and Denies tingling Integumentary/Breasts: Skin/Breast: Reports system reviewed and no additional complaints, except as docu and Denies rash Neurologic: Reports system reviewed and no additional complaints, except as documented, Denies Abnormal speech present, Denies dizziness, Denies headache(s), Denies numbness, Denies tingling and Denies weakness PMFSH Past Medical History Attestation statement: The following information was validated with the patient. Source: old records reviewed and nursing notes reviewed Medical History Open left clavicular fracture Social History Social History Household Members: None Housing: Apartment Do you presently have visiting nurse or other home services: No Patient Tobacco Use Status: Never used Tobacco Smoked in Last 30 Days: No Use of substances other than those prescribed or required for medical reasons: No Substance Use Type: Marijuana Advance Directives: No Advance Directives Information Provided: No Do you have a plan to hurt others: No Plan Patient : No (Took at home test = negative) service: No Physical Exam Vital Signs: Vital Signs: Last Vital Signs Temp 98.2 F 08/17/25 10:06 Pulse 73 08/17/25 10:06 Resp 16 08/17/25 10:06 BP 131/74 08/17/25 10:06 Pulse Ox 97 08/17/25 10:06 O2 Del Method Room Air 08/17/25 10:06 BMI result Body Mass Index 34.4 Const: General: cooperative, healthy appearing, comfortable and no acute distress Orientation/consciousness: patient oriented x3 Limitations: no limitations HEENT: Head: Yes normal to inspection Ears: hearing grossly normal bilaterally General nose exam: Normal external nose present Face and sinus: Yes normal facial exam Mouth: Normal oral and palatal mucosa present Throat: Yes posterior oropharynx normal Eyes: General: appearance normal, both eyes and all related structures Pupils: Equal, round and reactive pupils present Neck: Neck: Yes normal visual inspection Chest: Chest palpation & inspection: normal inspection of the chest Resp: Effort & Inspection: normal respiratory effort Auscultation: clear to auscultation bilaterally Cardio: Rate: regular rate Rhythm: regular rhythm Peripheral pulses: Peripheral pulses 2+ throughout GI: Inspection: Yes normal to inspection Palpation (GI): Soft to palpation and nontender Auscultation: normal bowel sounds : 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 Back/Spine/Pelvis: Thoracic/Lumbar Spine: thoracic and lumbar spine normal to inspection Skin: General skin exam: no rashes or lesions noted Neuro: General: patient oriented x3, no focal motor deficits and normal sensation to monofilament Cranial nerves: Yes Equal, round and reactive pupils present Cognition (Neuro): normal cognition Speech: No Abnormal speech present Gait exam (Neuro): Normal gait present Motor exam (neuro): 5/5 motor strength present throughout Extrem: General: Yes normal to inspection Course Course Course Narrative: Labs are unremarkable with a normal hemoglobin hematocrit. Patient's test is negative. Her UA is grossly contaminated. She has no UTI symptoms and so I doubt UTI. I will send a culture to stick confirm. Her STI testing is pending. I discussed this with the patient. She would like to wait for the results to return before treatment. She is aware that she will need to return to be seen as a patient if she has gonorrhea positive. As far as her bleeding she does have moderate bleeding on exam. Her blood pressure is normal. She has gynecology outpatient. She will call them on Tuesday if her symptoms continue. She will return to the emergency room if her symptoms worsened. Reviewed worrisome signs and symptoms of when to return to the emergency room. Comfortable plan for discharge home. Medical Decision Making Medical Decision Making [facility] Narrative: 25-year-old female with no known medical history presents the ER with complaints of vaginal bleeding since Tuesday. Patient reports she is using 1 pad every 1-2 hours. She has some lower abdominal cramping associated with this. She denies any dizziness, weakness, fevers, chills, vomiting. Patient reports her last menstrual cycle was 2 weeks ago. She is sexually active with 1 male partner. She is concern for sexually transmitted diseases and would like to be tested. She does not use any condoms. She has low suspicion for . She is not currently on any control. She is followed by gynecology at [facility] and she last saw them on October of 2024 in which she had a normal Pap smear. She does have history of heavy menstrual cycles but her menstrual cycles are normally regular. On exam the abdomen is soft nontender. The patient has normal conjunctiva. Her vitals are stable. She has moderate vaginal bleeding noted on her pelvic exam. Will obtain labs, UA, urine Differential Diagnosis Differential Diagnoses: The differential diagnosis associated with the presentation includes Dysfunctional uterine bleeding Menorrhagia Spontaneous Low suspicion for ectopic , TOA, PID, ovarian torsion Admission/Observation Consideration of admission/observation: Escalation of care including admission/observation considered Lab Data MDM Lab Attestation statement: I reviewed the patient's lab results. 08/17/25 09:56 08/17/25 09:56 Labs: Lab Results 08/17/25 08/17/25 Range/Units 09:56 10:35 WBC 9.2 (4.8-10.8) X10*3/uL RBC 4.97 (4.20-5.50) X10*6/uL Hgb 13.1 (12.0-16.0) g/dl Hct 40.0 (37.0-47.0) % MCV 80.5 (80.0-98.0) fL MCH 26.4 L (27.0-33.0) pg MCHC 32.8 (31.0-35.0) g/dl RDW 13.3 (11.0-16.0) % Plt Count 404 H (160-400) X10*3/uL MPV 8.3 L (9.4-12.3) fL Immature Gran % (Auto) 0.5 H (0.0-0.4) % Neut % (Auto) 65.7 (45-73) % Lymph % (Auto) 24.5 (20-40) % Hooker % (Auto) 5.4 (2-11) % Eos % (Auto) 2.8 (0-4) % Baso % (Auto) 1.1 (0-2) % Lymph # (Auto) 2.3 (1.2-4.9) X10*3/uL Hooker # (Auto) 0.5 (0.1-1.2) X10*3/uL Eos # (Auto) 0.3 (0.0-0.4) X10*3/uL Baso # (Auto) 0.1 (0.0-0.2) X10*3/uL Abs Immat Gran (auto) 0.05 H (0.00-0.03) X10*3/uL Absolute Neuts (auto) 6.0 (2.0-8.3) x10*3/uL Absolute Nucleated RBC 0.000 (0.0-0.012) X10*3/uL Nucleated RBC % (auto) 0.0 (0.0-0.2) /100WBC Sodium 140 (135-145) mmol/L Potassium 4.1 (3.3-5.1) mmol/L Chloride 111 H (96-108) mmol/L Carbon Dioxide 20 L (22-29) mmol/L Anion Gap 13 (12-20) BUN 10 (9-16) mg/dL Creatinine 0.70 (0.5-1.4) mg/dL Estim Creat Clear Calc 146.5 Estimated GFR > 60 Random Glucose 94 (60-115) mg/dL Calcium 9.0 (8.4-10.2) mg/dL Total Bilirubin 0.6 (0.0-1.0) mg/dL AST 25 (5-31) U/L ALT 27 (0-31) U/L Alkaline Phosphatase 69 (39-117) U/L Total Protein 7.6 (6.5-8.0) g/dL Albumin 4.6 (3.5-5.0) g/dL Urine Color RED Urine Appearance Cloudy Urine pH 8.5 (5.0-9.0) Ur Specific Zenia 1.020 (1.005-1.025) Urine Protein 30 (1+) H (Neg-Trace) mg/dL Urine Glucose (UA) Negative (Negative) mg/dL Urine Ketones Negative (Negative) mg/dL Urine Blood Large (3+) H (Negative) Urine Nitrite Negative (Negative) Ur Leukocyte Esterase Trace H (Negative) Urine RBC >20 H (0-2) /HPF Urine WBC 21-50 H (0-5) /HPF Ur Squamous Epith Cells 6-10 (0-2) /HPF Urine Bacteria Trace (None Seen) Hyaline Casts 0-2 (0-2) /LPF Urine Test NEGATIVE (NEGATIVE) Discharge Plan Discharge Clinical Impression: DUB (dysfunctional uterine bleeding) Patient Disposition: Home, Self-Care Instructions: Abnormal (Dysfunctional) Uterine Bleeding (ED) Additional Instructions: If bleeding continues to Tuesday please call your enterostomal therapy nurse follow-up We did send testing for sexually transmitted diseases and vaginal infections. We will call you if these are positive and if you need any additional treat If bleeding increases, you develop weakness or dizziness please return to the emergency room. Prescriptions: No Action melatonin 5 mg Tablet 5 mg PO BEDTIME PRN (Reason: Sleep) ondansetron 4 mg tablet,disintegrating 4 mg PO Q6H PRN (Reason: nausea and vomiting) Qty: 12 0RF prednisone 20 mg tablet 20 mg PO DAILY Qty: 7 0RF Referrals: Esther Horner MD [Primary Care Provider, Internal Medicine] Print Language: [place] Zealander
--- OUTSIDE RECORDS SUMMARY | 2025-08-17 10:31 | XMS_ITS | Clinical Summary ---
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 02/25/20 23 Active fluticasone-ume clidinium-vilan terol (Trelegy Ellipta) 100-62.5-25 mcg inhalerIndicati ons:Moderate persistent asthma with acute exacerbation Inhale 1 puff (100 mcg total) by mouth 1 (one) time each day. Rinse mouth with water after use to reduce aftertaste and incidence of candidiasis. Do not swallow. 1 each 2 05/09/20 25 2025 Active albuterol HFA (PROAIR HFA ; PROVENTIL HFA ; VENTOLIN HFA) 90 mcg/actuation inhalerIndicati ons:Moderate persistent asthma with acute exacerbation Inhale 2 puffs by mouth every 6 (six) hours if needed for wheezing. 18 g 1 05/09/20 25 Active albuterol 2.5 mg /3 mL (0.083 %) nebulizer solutionIndicat ions:Moderate persistent asthma with acute exacerbation Take 3 mL (2.5 mg total) by nebulization every 4 (four) hours if needed for wheezing or shortness of breath (or cough). Take if have severe symptoms and Albuterol inhaler is not relieving them. 75 mL 05/09/20 25 2025 Active phentermine-top iramate 3.75-23 mg capsule, ER multiphase 24 hr Take 1 capsule by mouth 1 (one) time each day. Max Daily Amount: 1 capsule 14 capsule 08/12/20 Active phentermine-top iramate (Qsymia) 7.5-46 mg capsule, ER multiphase 24 hr Take 1 capsule by mouth 1 (one) time each day. Max Daily Amount: 1 capsule 30 capsule 2 08/26/20 25 2024 Active norethindrone (AYGESTIN) 5 mg tabletIndicatio ns:Abnormal uterine bleeding (AUB) Take 1 tablet (5 mg total) by mouth 1 (one) time each day. 30 each 08/16/20 25 2024 Active tirzepatide, weight loss, (Zepbound) 2.5 mg/0.5 mL solution Inject 2.5 mg under the skin every 7 (seven) days. 6 mL 07/11/20 25 2024 Discontinued tirzepatide, weight loss, (Zepbound) 2.5 mg/0.5 mL injection Inject 0.5 mL (2.5 mg total) under the skin every 7 (seven) days. 6 mL 07/25/20 25 2024 Discontinued phentermine-top iramate (Qsymia) 7.5-46 mg capsule, ER multiphase 24 hr Take 1 capsule by mouth 1 (one) time each day. Max Daily Amount: 1 capsule 30 capsule 2 08/12/20 25 2024 Discontinued Active Problems Problem Noted Date Diagnosed Date Mild persistent asthma without complication 03/25 Assessment & Plan (08/12/2025 2:14 PM EDT): ACT is 20, no recent exacerbations. Continue albuterol as needed Ciara Shukla Assessment & Plan (06/17/2025 12:44 PM EDT): Patient's asthma very well-controlled. Seemingly only needing albuterol inhaler with exercise. She has pending upcoming appointment with pulmonology and pulmonary function testing which I have encouraged her to keep. She verbalizes her understanding of this. She will contact us with any additional questions or concerns. She will need a routine 6-month follow-up in office with PCP for her asthma. Assessment & Plan (04/15/2025 7:24 PM EDT): Orders: Ambulatory referral to Pulmonology; Future Obesity (BMI 30.0-34.9) 04/15/2025 Assessment & Plan (08/12/2025 2:14 PM EDT): Patient with BMI 35.2, 216lb. Waist circumference [...] appointments. Will follow up in 1 month. Assessment & Plan (06/17/2025 12:44 PM EDT): The patient is obese. Approaches towards weight loss are discussed, including prescription weight loss medication in form of semaglutide. She is following a high-protein diet and is regularly exercising. We have discussed the importance of these aspects of weight loss management at today's appointment and we have discussed if these goals are not attainable for the patient we will need to discontinue prescribing GLP-1 medications. She has verbalized her understanding of this. She understands that if she is unable to do weightbearing exercise and eat a high-protein diet she is at risk for muscle loss while on GLP-1 medications. She has verbalized her understanding of this. Assessment & Plan (04/15/2025 7:24 PM EDT): [...] Encounters Date Type Department Care Team Description 08/16/2025 10:45 AM EDT Office Visit Obstetrics and Gynecology - [address] [phone] Pita Wilson CNM Abnormal uterine bleeding (AUB) (Primary Dx) 08/16/2025 Results Follow-Up Obstetrics and Gynecology - [address] [phone] Pita Wilson CNM 08/14/2025 Telephone Obstetrics & Gynecology - [facility] [address] [place] [phone] Yifan Darden CNM 08/13/2025 Telephone Pulmonology [facility] 175 [facility] [address] [place] [phone] [place] 08/12/2025 9:00 AM EDT Office Visit Adult Medicine [facility] - [address] [phone] Esther Philip MD Class 2 obesity due to excess calories without serious comorbidity with body mass index (BMI) of 35.0 to 35.9 in adult (Primary Dx); Mild persistent asthma without complication; Need for prophylactic vaccination and inoculation against influenza 08/09/2025 9:26 AM EDT - 08/09/2025 11:59 PM EDT Hospital Encounter [facility] Xr [address] [place] [phone] Moderate persistent asthma with acute exacerbation; Obesity (BMI 30.0-34.9) Discharge Disposition: Home or Self Care 08/09/2025 8:55 AM EDT Office Visit Pulmonology [address] [phone] Vickie Wilde NP Moderate persistent asthma with acute exacerbation (Primary Dx); Obesity (BMI 30.0-34.9); Abnormal PFT; Dyspnea on exertion; Decreased diffusion capacity of lung 07/25/2025 Telephone Adult Medicine [address] [phone] Esther Philip MD 07/24/2025 9:15 AM EDT Ancillary Procedure [address] [phone] Moderate persistent asthma with acute exacerbation 06/26/2025 Telephone Adult [address] [phone] Esther Philip MD 06/26/2025 Telephone Adult [address] [phone] Esther Philip MD 06/17/2025 10:30 AM EDT Telemedicine Adult [address] [phone] Bessy Blanca PA Mild persistent asthma without complication (Primary Dx); Elevated glucose; Obesity (BMI 30.0-34.9) 05/27/2025 12:44 PM EDT - 05/27/2025 1:43 PM EDT Emergency [facility] Emergency [address] [place] [phone] Eye pain, left (Primary Dx); Acute conjunctivitis of left eye, unspecified acute conjunctivitis type Discharge Disposition: Home or Self Care 05/24/[address] [phone] Vickie Wilde NP from Last 3 Months Immunizations Immunization Administration Dates Next Due DTaP (Infanrix) 6wks to less than 7yo 01 /,09/25/2003,2002,05/21,2002 [id number] (Pentacel) 2mo to less than 5yo 04/26/2003,2002,2002,04/02 [...] 3 years and older 12/04/2019,07/31/2018,07/15/2017,10/22 Influenza trivalent, MDCK, 0 .5mL, preservative free (Flucelvax) 6mo and older 08/12/2025 Influenza trivalent, with pr eservative (Fluzone; Afluria) [...] time 01/04 - seen in ER at [facility], neg CXR 07/07 - no flares [...] Grandmother Alive stephen to rres Mother Alive radha victoria Other 1 Other [...] care for your loved ones. For example, salesperson children's shoes or elderly care for an older adult? [...] file Travel History Travel Start Travel End [place] 07/22/2025 07/31/2025 Obstetrics History * This document contains information received from the source organization and may not represent a complete record from that organization. Para Term AB IAB SAB Ectopic Multiple Livin g Live Births 1 0 0 0 0 0 0 0 Date Outcome GA Total Labor Labor/2nd/3rd Weight Sex Type Anes PTL Sara A1 A5 Name Clin 01/2024 Last Filed Vital Signs Vital Sign Reading Time Taken Comments Blood Pressure 124/83 08/16/2025 10:56 AM EDT Pulse 67 08/16/2025 10:56 AM EDT Temperature 36 C (96.8 F) 08/12/2025 9:05 AM EDT Respiratory Rate 14 08/16/2025 10:56 AM EDT Oxygen Saturation 98% 08/12/2025 9:05 AM EDT Inhaled Oxygen Concentration - - Weight 98.4 kg (217 lb) 08/16/2025 10:56 AM EDT Height 167.6 cm (5' 6 ) 08/12/2025 9:05 AM EDT Body Mass Index 35.02 08/12/2025 9:05 AM EDT Plan of Treatment Upcoming Encounters Date Type Department Care Team (Late st Contact Info) Description 08/19/2025 10:30 AM EDT Hospital Encounter [facility] [address] [place] [phone] 09/16/2025 8:30 AM EST Office Visit Adult Medicine [facility] [address] [place], [place] [phone] Bessy Blanca PA [address] [place], [place] 11/22/2025 9:00 AM EST Clinical Support Pulmonology [facility] [address] [phone] 11/22/2025 9:45 AM EST Office Visit Pulmonology [facility] [address] [phone] Vickie Wilde, SHAINA [address] [place] [phone] Health Maintenance Due Date Last Done Comments Pneumococcal Vaccine: Pediatrics (0 to 5 Years) and At-Risk Patients (6 to 49 Years) (1 of 1 - PPSV23, PCV20, or PCV21) 01/25/2008 07/18/2003, 2002, 2002 Meningococcal B Vaccine (1 of 2 - Standard) 2018 COVID-19 Vaccine (3 - season) 2025 04/01/2021, 03/09/2021 Cholesterol Screening (Lipid Panel) 03/09/2026 03/09/2021 Social Influencers of Health Screening 04/15/2026 04/15/2025 Cervical Cancer Screening: Pap Smear 07/26/2026 07/26/2023, 07/26/2023 Gonorrhea/Chlamydia Screening 08/16/2026 08/16/2025, 07/26/2023 DTaP,Tdap,and Td Vaccines (8 - Td or Tdap) 04/15/2035 04/15/2025, 06/22/2013, 11/07/2006, Additional history exists RSV Immunization Adult Patients (1 - 1-dose 75+ series) 2077 Hepatitis B Vaccines Completed 2002, 2002, 2002 [...] 07/27/2023 Hepatitis C Screening Completed 11/15/2024, 023 Depression Screening Completed 06/17/2025 Influenza Vaccine Completed 08/12/2025, , 08/02/2023, Additional history exists Hepatitis A Vaccines Aged [...] 11:49 AM EDT Abnormal uterine bleeding (AUB) COMPLETE BLOOD COUNT Routine 08/16/2025 11:26 AM EDT Abnormal uterine bleeding (AUB) THYROID STIMULATING HORMONE WITH REFLEX TO FREE T4 AND FREE T3 Routine 08/16/2025 11:26 AM EDT Abnormal uterine bleeding (AUB) HCG, SERUM, QUALITATIVE Routine 08/16/20 11:26 AM EDT Abnormal uterine bleeding (AUB) XR CHEST 2 VIEWS Routine 08/09/2025 9:37 AM EDT Moderate persistent asthma with acute exacerbation Obesity (BMI 30.0-34.9) PULMONARY FUNCTION TESTING Routine 07/24/2025 11:58 AM EDT Moderate persistent asthma with acute exacerbation HEPATITIS C ANTIBODY Routine 11/15/2024 1:54 PM EST Dysuria Screen for STD (sexually transmitted disease) HIV 1, 2 ANTIBODY, P24 ANTIGEN WITH REFLEX TO DIFFERENTIATION Routine 11/15/2024 1:54 PM EST Screen for STD (sexually transmitted disease) HM HPV Routine 07/26/2023 LIPID PANEL Routine 03/09/2021 from Last 3 Months or Most Recently Relevant to Health Maintenance Results * Trichomonas vaginalis antigen (08/16/2025 12:20 PM EDT) Pathologist [facility] Trichomonas vaginalis Negative Negative 08/16/2025 9:01 PM EDT [facility] Swab Vaginal structure / Unknown Non-blood Collection / Unknown 08/16/2025 12:20 PM EDT 08/16/2025 12:20 PM EDT Pita YUNG LAB MICROBIOLOGY - GENERAL GABINO THOMAS Final Result [facility] [address] [place] [address], * (ABNORMAL) Chlamydia trachomatis and Neisseria gonorrhoeae molecular study (08/16/2025 11:49 AM EDT) Neisseria gonorrhoeae PCR Negative Negative LAB MOLECULAR DIAGNOSTICS METHOD 08/17/2025 8:35 AM EDT [facility] Chlamydia trachomatis PCR Positive(A) Negative LAB MOLECULAR DIAGNOSTICS METHOD 08/17/2025 8:35 AM EDT [facility] Swab Cervix uteri structure / Unknown Non-blood Collection / Unknown 08/16/2025 11:49 AM EDT 08/16/2025 11:49 AM EDT Pita YUNG LAB MICROBIOLOGY - GENERAL ORDE RABLES Final Result Performing Organization Address [facility]/ZIP Co de Phone Number [facility] [address] [place] [address], [place] [phone] * Thyroid stimulating hormone with reflex to free t4 and free t3 (08/16/2025 11:26 AM EDT) TSH 0.74 0.40 - 4.00 mcIU/mL LAB CHEMISTRY METHOD 08/16/2025 4:01 PM EDT [facility] Blood Venous blood specimen / Unknown Venipuncture / Unknown 08/16/2025 11:26 AM EDT 08/16/2025 11:26 AM EDT Pita Wilson [facility] BLOOD ORDERABLES Final Resu lt Performing Organization Address [facility]/ZIP Co de Phone Number [facility] [address] [place] [address], [place] [phone] * (ABNORMAL) Complete blood count (08/16/2025 11:26 AM EDT) WBC 9.9 4.8 - 10.8 K/mcL LAB HEMETOLOGY METHOD 08/16/2025 3:34 PM EDT [facility] RBC 4.60 3.80 - 4.80 M/mcL LAB HEMETOLOGY METHOD 08/16/2025 3:34 PM EDT [facility] Hemoglobin 12.2 11.5 - 16.0 g/dL LAB HEMETOLOGY METHOD 08/16/2025 3:34 PM EDT [facility] Hematocrit 38.4 35.0 - 47.0 % LAB HEMETOLOGY METHOD 08/16/2025 3:34 PM EDT [facility] MCV 82.9 79.0 - 98.0 FL LAB HEMETOLOGY METHOD 08/16/2025 3:34 PM EDT [facility] MCH 26.3(L) 27.0 - 32.0 pcg LAB HEMETOLOGY METHOD 08/16/2025 3:34 PM EDT [facility] MCHC 31.8(L) 32.0 - 37.0 g/dL LAB HEMETOLOGY METHOD 08/16/2025 3:34 PM EDT [facility] RDW 13.5 11.0 - 15.0 % LAB HEMETOLOGY METHOD 08/16/2025 3:34 PM EDT [facility] Platelets 471(H) 130 - 400 K/mcL LAB HEMETOLOGY METHOD 08/16/2025 3:34 PM EDT [facility] MPV 9.3 7.0 - 11.0 FL LAB HEMETOLOGY METHOD 08/16/2025 3:34 PM EDT [facility] NRBC 0.0 <1.0 % LAB HEMETOLOGY METHOD 08/16/2025 3:34 PM EDT [facility] NRBC Absolute 0.00 <0.10 K/mcL LAB HEMETOLOGY METHOD 08/16/2025 3:34 PM EDT [facility] Blood Venous blood specimen / Unknown Venipuncture / Unknown 08/16/2025 11:26 AM EDT 08/16/2025 11:26 AM EDT us Pita Wilson CNM LAB BLOOD ORDERABLES Final Resu lt [facility] [address] [place] [address], * HCG, serum, qualitative (08/16/2025 11:26 AM EDT) hCG Qual Negative Negative 08/16/2025 4:02 PM EDT [facility] Blood Venous blood specimen / Unknown Venipuncture / Unknown 08/16/2025 11:26 AM EDT 08/16/2025 11:26 AM EDT us Pita Wilson [facility] BLOOD ORDERABLES Final Resu lt [facility] ([facility]) [facility] [address] [place] [address], [place] [phone] * XR Chest 2 Views (08/09/2025 9:37 AM EDT) Anatomical Region Laterality Modality Body Radiographic Rashmi ging 08/12/2025 10:1 6 AM EDT Impressions 08/12/2025 10:17 AM EDT Impression: No active pulmonary process identified. No significant change. Telerad DESIREE ([id number]) -------- FINAL REPORT -------- Dictated By: Alexus Brown Dictated Date: 08/12/2025 10:16 ET Assigned Physician: Alexus Brown Reviewed and Electronically Signed By: Alexus Brown Signed Date: 08/12/2025 10:17 ET Workstation ID: [id number] Transcribed By: Self Edit Transcribed Date: 08/12/2025 10:16 ET Narrative 08/12/2025 10:17 AM EDT History: Abnormal pulmonary function tests. Dyspnea. Comparison: 01/15/14 Findings: PA and lateral views. The cardiomediastinal silhouette, hilar contours and pulmonary vascularity are within normal limits. The lungs are clear. The costophrenic angles are sharp. Surgical fixation sequela are seen in the left clavicle, with plate and screws transfixing a fracture, unchanged from a 11/27/19 left shoulder series. Procedure Note Alexus Brown MD - 08/12/2025 History: Abnormal pulmonary function tests. Dyspnea. Comparison: 01/15/14 Findings: PA and lateral views. The cardiomediastinal silhouette, hilar contours andpulmonary vascularity are within normal limits. The lungs are clear. Thecostophrenic angles are sharp. Surgical fixation sequela are seen in the left clavicle, with plate andscrews transfixing a fracture, unchanged from a 11/27/19 left shoulderseries. IMPRESSION: Impression: No active pulmonary process identified. No significant change. Telerad DESIREE ([id number]) -------- FINAL REPORT -------- Dictated By: Alexus Brown Dictated Date: 08/12/2025 10:16 ET Assigned Physician: Alexus Brown Reviewed and Electronically Signed By: Alexus Brown Signed Date: 08/12/2025 10:17 ET Workstation ID: [id number] Transcribed By: Self Edit Transcribed Date: 08/12/2025 10:16 ET Vickie Wilde MOLASSES AND CARAMEL OPERATOR IMG XR PROCEDURES Final Result * Pulmonary function testing: Carbon Monoxide Diffusing Capacity, Spirometry with Bronchodilator, Flow Volume Loop, Maximum Voluntary Ventilation, Spirometry, Vital Capacity Test (07/24/2025 11:58 AM EDT) Impressions Lisa Panda MD - 07/24/2025 11:58 AM EDT Pulmonary function test which was done on July 24, 2025 interpretation. Spirometry done today reveals FEV1 of 2.67 which is 88% of the predicted value, FVC is 3.74 which is 95% of the predicted value, FEV1 to FVC ratio is 71% of the predicted value, there is no bronchodilator response. Flow-volume is consistent with obstructive pattern. Static lung volumes are elevated [id number] including residual volume. Diffusion lung capacity is mildly reduced however was moderately reduced after correction for alveolar volume. This study is consistent with mild degree of emphysema without bronchodilator response for which clinical correlation is advised. Vickie Wilde MOLASSES AND CARAMEL OPERATOR PFT ORDERABLES Final R esult * Hepatitis C antibody (11/15/2024 1:54 PM EST) [facility] Hepatitis C Antibody Negative Negative LAB CHEMISTRY METHOD 11/15/2024 5:05 PM EST [facility] Blood Venous blood specimen / Unknown Venipuncture / Unknown 11/15/2024 1:54 PM EST 11/15/2024 1:54 PM EST Erica Mckenzie MOLASSES AND CARAMEL OPERATOR LAB BLOOD ORDERABLES Final R esult [facility] [address] [place] [address], [place] [phone] * HIV 1,2 antibody, p24 antigen with reflex to differentiation (11/15/2024 1:54 PM EST) [facility] HIV Combo AB/AG Negative Negative LAB CHEMISTRY METHOD 11/15/2024 5:05 PM EST [facility] Blood Venous blood specimen / Unknown Venipuncture / Unknown 11/15/2024 1:54 PM EST 11/15/2024 1:54 PM EST Narrative [facility] - 11/15/2024 5:05 PM [...] ORDERABLES Final R esult Performing Organization Address City/[facility]/ZIP Co de Phone Number [facility] [address] [place] [address], [place] [phone] * Cervical Cancer Screening: HPV (07/26/2023) [facility] Cervical Cancer Screening: HPV negative abstracted Historical Provider MD HEALTH MAINTENANCE Final Result * Lipid panel (03/09/2021) LDL/HDL Ratio 3 0 - 4 Triglycerides 48 0 - 150 mg/dL Cholesterol 128 0 - 200 mg/dL HDL 50 >=40 mg/dL LDL Cholesterol 69 0 - 100 mg/dL Blood Venous blood specimen / Unknown us Historical Provider LAB BLOOD ORDERABLES Ann l Result from Last 3 Months or Most Recently Relevant to Health Maintenance Insurance [facility] [employer] Care Teams Iron Worker Foreman Relationship Specialty Start Date End Date Esther Andre MD [address] [place] [phone] PCP - General Internal Medicine 05/24/22
--- OUTSIDE RECORDS SUMMARY | 2025-08-17 10:31 | XMS_ITS | Encounter Summary ---
Author Organization [employer] Address [address] [place] [address] Care Team Providers Care Student Outreach Coordinator Name Role Phone Esther Andre MD Primary Care Prov ider Reason for Visit * Reason Onset Date Comments Menstrual Problem 08/14/2025 Encounter Details Date Type Department Care Team ([facility] Contact Info) Description 08/14/2025 Telephone Obstetrics & Gynecology - [address] [phone] Yifan Darden, [facility] [address] [place] [address] Social History Tobacco Use Types Packs/Day Years [...] care for your loved ones. For example, summer child caregiver or elderly care for an older adult? [...] file Travel History Travel Start Travel End [place] 07/22/2025 07/31/2025 documented as of this encounter Progress Notes * Anjali Martin RN - 08/15/2025 9:30 AM EDT Spoke with patient Pt had her menses 07/30/21 bled for 7 days light . On 08/13/25 started her menses heavier flow with cramping . Denies heavy bleeding Reviewed heavy bleeding precautions. If vaginal bleeding soaks an overnight maxi pad every hour formore than 5 hrs with blood clots, lightheadedness, chest pain, or palpitations pt should go to ED for further evaluation. Advised to take a HPT. Pt requests appt with provider. Scheduled appt 08/16/25 @ 1045 am. * Salome Diamond - 08/14/2025 8:55 AM EDT Pt calling concerned, states she has been having her cycles twice a month (normal flow). Pls advise documented in this encounter Plan of Treatment Upcoming Encounters Date Type Department Care Team (Late st Contact Info) Description 08/19/2025 10:30 AM EDT Hospital Encounter [facility]trasound - [facility] [address] [place] [phone] 09/16/2025 8:30 AM EST Office Visit Adult Medicine [address] [phone] Bessy Blanca PA [address] [place], [place] 11/22/2025 9:00 AM EST Clinical Support Pulmonology [address] [phone] 11/22/2025 9:45 AM EST Office Visit Pulmonology [address] [phone] Vickie Wilde, SHAINA [address] [place] [phone] documented as of this encounter Visit Diagnoses Not on filedocumented in this encounter Additional Health Concerns Assessment Noted Time PHQ-9 Depression Total Score: 0 06/17/20 8:59 AM EDT documented as of this encounter Care Teams Student Outreach Coordinator Relationship Specialty Start Date End Date Esther Andre MD [address] [place] [phone] PCP - General Internal Medicine 05/24/22 documented as of this encounter
--- OUTSIDE RECORDS SUMMARY | 2025-08-17 10:31 | XMS_ITS | Encounter Summary ---
Author Organization [facility] Address [address] [place] [address] Care Team Providers Care Financial Institution President Name Role Phone Esther Andre MD Primary Care Prov ider Encounter Details Date Type Department Care Team ([facility] Contact Info) Description 08/16/2025 Results Follow-Up Obstetrics and Gynecology - [address] [phone] Pita Wilson CN [address] [place] [id number] Social History Tobacco Use Types Packs/Day Years [...] for your loved ones. For example, child nutrition manager or elderly care for an older adult? [...] file Travel History Travel Start Travel End [place] 07/22/2025 07/31/2025 documented as of this encounter Plan of Treatment Upcoming Encounters Date Type Department Care Team (Late st Contact Info) Description 08/19/2025 10:30 AM EDT Hospital Encounter Ultrasound - [facility] [address] [place] [address] 09/16/2025 8:30 AM EST Office Visit Adult Medicine [address] [phone] Bessy Blanca PA [address] [place], [place] 11/22/2025 9:00 AM EST Clinical Support Pulmonology - [address] [phone] 11/22/2025 9:45 AM EST Office Visit Pulmonology [address] [phone] Vickie Wilde, SHAINA [address] [place] [phone] documented as of this encounter Visit Diagnoses Not on filedocumented in this encounter Additional Health Concerns Assessment Noted Time PHQ-9 Depression Total Score: 0 06/17/20 8:59 AM EDT documented as of this encounter Care Teams Financial Institution President Relationship Specialty Start Date End Date Esther Andre MD [address] [place] [phone] PCP - General Internal Medicine 05/24/22 documented as of this encounter
--- OUTSIDE RECORDS SUMMARY | 2025-08-17 10:31 | XMS_ITS | Encounter Summary ---
Author Organization [facility] Address [address] [place] [address] Care Team Providers Care Segment Block Layer Name Role Phone Esther Andre MD Primary Care Prov ider Encounter Details Date Type Department Care Team ([facility] Contact Info) Description 08/13/2025 Telephone Pulmonology - [place] [address] [facility] [address] [place] [address] Kacey JimenezHYRUM, [place] Social History Tobacco Use Types Packs/Day Years [...] for your loved ones. For example, child protection specialist or elderly care for an older adult? [...] Start Travel End [place] 07/22/2025 07/31/2025 documented as of this encounter Progress Notes * Kacey Espinosa MA - 08/13/2025 10:53 AM EDT Copy sent to patient * Kacey Espinosa MA - 08/13/2025 10:32 AM EDT ----- Message from Nanette Wilde NP sent at 08/12/2025 5:57 PM EDT ----- Can you please send her letter to her mailing address. thanks documented in this encounter Plan of Treatment Upcoming Encounters Date Type Department Care Team (Late st Contact Info) Description 08/19/2025 10:30 AM EDT Hospital Encounter Ultrasound - [facility] [address] [place] [address] 09/16/2025 8:30 AM EST Office Visit Adult Medicine [facility] [address] [place], [place] [phone] Bessy Blanca PA [address] [place], [place] 11/22/2025 9:00 AM EST Clinical Support [address] [phone] 11/22/2025 9:45 AM EST Office Visit [address] [phone] Vickie Wilde, SHAINA [address] [place] [address] documented as of this encounter Visit Diagnoses Not on filedocumented in this encounter Additional Health Concerns Assessment Noted Time PHQ-9 Depression Total Score: 0 06/17/20 25 8:59 AM EDT documented as of this encounter Care Teams Segment Block Layer Relationship Specialty Start Date End Date Esther Andre MD [address] [place], [place] PCP - General Internal Medicine 05/24/22 documented as of this encounter
--- OUTSIDE RECORDS SUMMARY | 2025-08-17 10:31 | XMS_ITS | Patient Health Record ---
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 Role Phone Royal Nolasco Unavailable [phone] Allergies No Known Allergies Reason For Referral No Information Social History Tobacco Use: Social History Observation Description Date Details (start date - stop date) Never Smoker NA - NA smoking Question Answer Notes Are you a: nonsmoker Problems Problem Type SNOMED Code ICD Code Onset Dates Problem Status W/U Status Risk Notes Problem Ingrowing nail (665732956) Ingrowing nail (L60.0) Active confirmed Problem Pain in limb (23136822) Pain in right toe(s) (M79.674) Active confirmed Problem Nail dystrophy (61258755) 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 Plan Of Treatment No Information Insurance Providers Payer Name Payer Address Payer Phone Subscriber Number Group Number Insured Name Patient Relationship to Insured Coverage Start Date Coverage End Date [facility] [address] [place] [address] [id number] Felipe Narayan Self - patient is the insured 3 [facility] [address] [place] [address] [id number] Felipe Narayan Self - patient is the insured 3 Medical (General) History Surgical History Surgery Date(Month/Year) Left Clavicle Repair Hospitalization History Reason Date(Month/Year) as listed in surgical history
[2025-08-17 10:47] LABS: Appearance Urine Cloudy; Glucose Urine UA Negative (Negative); PH 8.5 (5.0-9.0); Specific Gravity - Urine 1.020 (1.005-1.025); UMIC TRIGGER UACC YES
[2025-08-17 10:53] LABS: UACC Culture Trigger YES
[2025-08-17 11:23] LABS: UPreg QC Valid YES
[2025-08-17 11:49] VITALS: BP 131/74; PULSE 73; RESP 16; TEMP 36.8; O2SAT 97
[2025-08-17 11:58] LABS: Bacterial Vaginosis PCR NEGATIVE (Negative); Candida Group PCR NOT DETECTED (Not Detect); Candida glab krusei PCR NOT DETECTED (Not Detect); Trichomonas vaginalis PCR NOT DETECTED (Not Detect)
[2025-08-17 12:30] LABS: CT PCR DETECTED (Not Detect.); NG PCR NOT DETECTED (Not Detect.)
== END 2025-08-17 11:49 | disposition home or self-care (01) ==
PROVIDERS: Nurse Practitioner Family; Emergency Provider Emergency Medicine Emergency Medical Services; PCP Internal Medicine
DX: A74.9 Chlamydial infection, unspecified (principal); N93.8 Other specified abnormal uterine and vaginal bleeding
CPT/HCPCS: 36415; 80053; 81001; 81025; 81515; 85025; 87086; 87491; 87591; 99283; 99284

== ENCOUNTER 2025-10-07 08:01 | Emergency (ER) | payer OTHER, SELFPAY ==
--- NOTE | ~2025-10-07 | CT_ITS ---
EXAMINATION: CT ABDOMEN AND PELVIS WITH CONTRAST CLINICAL INFORMATION: Periumbilical abdominal pain. COMPARISON: 04/22/2025, 01/03/2025. 10/27/2024. TECHNIQUE: Multidetector volumetric images were obtained from the superior aspect of the liver through the pubic symphysis following administration 85 mL of Omnipaque 350 intravenous contrast. Sagittal and coronal reformatted images were obtained on the technologist's workstation. Oral contrast: No This CT examination was performed using dose optimization techniques as appropriate, variously including the following: *Automated exposure control *Adjustment of mA and/or kV according to patient size (this includes techniques or standardized protocols for targeted exams where dose is matched to indication/reason for exam; i.e. extremities or head) *Use of iterative reconstruction technique FINDINGS: LUNG BASES: Minor linear atelectasis noted in both lower lungs. Lung bases otherwise clear. Heart size normal. GE junction normal. LIVER, GALLBLADDER, AND BILIARY TREE: The liver is normal in size, shape, and attenuation. No focal hepatic lesion or biliary ductal dilatation is present. The gallbladder is unremarkable with no evidence of radiopaque gallstones, gallbladder wall thickening, or obvious pericholecystic inflammatory changes. PANCREAS: Unremarkable. SPLEEN: Unremarkable. ADRENAL GLANDS: Unremarkable. KIDNEYS AND URETERS: The kidneys are normal in size, shape, and attenuation. No hydronephrosis, hydroureter, or calculi seen. No perinephric stranding. BLADDER: Unremarkable. GASTROINTESTINAL TRACT: The small and large bowel are unremarkable. The appendix is unremarkable. ABDOMINAL WALL: No significant hernia is appreciated. LYMPH NODES: Normal. VASCULAR: Unremarkable. PELVIC VISCERA: Unremarkable. OSSEOUS STRUCTURES: Unremarkable. CT/CT abdomen pelvis w IV con IMPRESSION: No acute findings in the abdomen or pelvis. Electronically signed by: Al Camacho MD 10/07/2025 12:41 PM EST
[2025-10-07 08:04] VITALS: BP 134/84; PULSE 90; RESP 18; TEMP 36.1; O2SAT 99; BMI 33.9
[2025-10-07 08:39] LABS: IDNOW Serial# 152EDE1D; Influenza B2 Negative (Negative)
[2025-10-07 10:35] LABS: MANUAL DIFF FLAG NO
[2025-10-07 10:41] LABS: Hematocrit 40.8 % (37.0-47.0); Hemoglobin 13.2 g/dl (12.0-16.0); Imm Gran Abs Auto 0.05 X10*3/uL (0.00-0.03); Imm Gran Pct Auto 0.3 % (0.0-0.4); Lymphocytes Absolute Auto 1.9 X10*3/uL (1.2-4.9); Mean Corpuscular HGB Conc 32.4 g/dl (31.0-35.0); Mean Corpuscular Hemoglobin 26.7 pg (27.0-33.0); Mean Corpuscular Volume 82.4 fL (80.0-98.0); NRBC Abs Auto 0.000 X10*3/uL (0.0-0.012); NRBC Pct Auto 0.0 /100WBC (0.0-0.2); Platelet Count 409 X10*3/uL (160-400); Red Blood Count 4.95 X10*6/uL (4.20-5.50); White Blood Count 16.0 X10*3/uL (4.8-10.8)
[2025-10-07 10:55] LABS: Alanine Aminotransferase 23 U/L (0-31); Albumin Level 4.9 g/dL (3.5-5.0); Alkaline Phosphatase 73 U/L (39-117); Anion Gap 9 (12-20); Aspartate Amino Transferase 26 U/L (5-31); Blood Urea Nitrogen 15 mg/dL (9-16); Calcium 9.5 mg/dL (8.4-10.2); Carbon Dioxide 24 mmol/L (22-29); Chloride 110 mmol/L (96-108); Creatinine Clr Calc Pharmacy 125.6; Estimated Glomerular Filt Rate > 60; Lipase 24 U/L (8-78); Magnesium 2.0 mg/dL (1.6-2.6); Potassium 4.4 mmol/L (3.3-5.1); Sodium 139 mmol/L (135-145); Total Protein 8.2 g/dL (6.5-8.0)
--- NOTE | 2025-10-07 11:00 | ED.NAVMDI ---
HPI - Nausea/Vomiting/Diarrhea General Chief complaint: Nausea/Vomiting/Diarrhea Stated complaint: vomitting Time Seen by Provider: 10/07/25 10:59 Source: patient, RN notes reviewed and old records reviewed Mode of arrival: ambulatory Limitations: no limitations History of Present Illness ED Provider: QUINTIN Herndon HPI Narrative: 25-year-old female without significant medical history presents to the ED due to 3 weeks of nausea and vomiting. Patient states she went to urgent care 2 weeks ago and was given a prescription for Zofran for nausea management. Patient states she woke up today with worse nausea, and vomiting thick green fluid that made her concerned. Patient states her last bowel movement was 2 days ago and was normal for her, and last menstrual period was on 09/18. Patient denies alcohol, drug or marijuana use. Patient denies recent travel or sick contacts. Denies fevers, chills, pelvic pain, vaginal discharge, headaches, visual changes, urinary symptoms. Related Data Home Medications ?Medication ?Instructions ?Recorded ?Confirmed melatonin 5 mg tablet 5 mg PO BEDTIME PRN Sleep 10/28/24 01/22/25 Previous Rx's ?Medication ?Instructions ?Recorded ondansetron 4 mg disintegrating 4 mg PO Q6H PRN nausea and 04/22/25 tablet vomiting #12 tabs prednisone 20 mg tablet 20 mg PO DAILY #7 tabs 05/06/25 doxycycline hyclate 100 mg capsule 100 mg PO BID 7 days #14 caps 08/20/25 ondansetron HCl 4 mg tablet 4 mg PO Q8H PRN nausea and 10/07/25 vomiting 4 days #12 tabs Allergies Allergy/AdvReac Type Severity Reaction Status Date / Time No Known Allergies Allergy Verified 10/07/25 08:06 [facility] Past Medical History Attestation statement: The following information was validated with the patient. Source: old records reviewed and nursing notes reviewed Medical History Open left clavicular fracture Social History Social History Household Members: None Housing: Apartment Do you presently have visiting nurse or other home services: No Patient Tobacco Use Status: Never used Tobacco Substance Use Type: Marijuana Advance Directives: No Advance Directives Information Provided: No service: No Physical Exam Vital Signs: Vital Signs: Last Vital Signs Temp 97 F 10/07/25 08:04 Pulse 90 10/07/25 08:04 Resp 18 10/07/25 08:04 BP 134/84 10/07/25 08:04 Pulse Ox 99 10/07/25 08:04 O2 Del Method Room Air 10/07/25 08:04 BMI result Body Mass Index 33.9 GENERAL APPEARANCE: ?AxOx4, generally well-appearing, and resting comfortably on hospital stretcher working on laptop, non toxic appearing, no acute distress. HEENT: ?NC, AT. MMM. EOMI, clear conjunctiva, oropharynx clear. NECK: ?Supple without lymphadenopathy.? No stiffness or restricted ROM. HEART:? Normal rate and regular rhythm, normal S1/S2, no m/r/g LUNGS:? CTAB, moving air well. No crackles or wheezes are heard. ABDOMEN: ?Soft, non distended, no rigidity, no guarding, negative Erazo sign, no rebound tenderness, mild cramping discomfort to palpation. BACK: No CVAT, no obvious deformity. EXTREMITIES: ?Without cyanosis, clubbing or edema. NEUROLOGICAL: ?Grossly nonfocal. Alert and oriented, moving all 4 extremities. Observed to ambulate with normal gait. Skin: ?Warm and dry without any rash. Medications Administered Discontinued Medications Generic Name Dose Route Start Last Admin Trade Name Freq PRN Reason Stop Dose Admin Iohexol 100 ml 10/07/25 12:14 10/07/25 12:15 Iohexol 350 Mg/Ml 100 Ml Infus..Btl IV 10/07/25 12:15 85 ml ONCE ONE Administration Medical Decision Making Medical Decision Making MDM Narrative: 25-year-old female with medical history of asthma presents to the ED due to 3 weeks of nausea and vomiting. Patient states she went to urgent care 2 weeks ago and was given a prescription for Zofran for nausea management. Patient states she woke up today with worse nausea, and vomiting thick green fluid that made her concerned. Patient states her last bowel movement was 2 days ago and was normal for her, and last menstrual period was on 09/18. Patient denies alcohol, drug or marijuana use. Patient denies recent travel or sick contacts. Patient has follow up with PCP on 11/13/25. VS on initial observation-BP 134/84, pulse rate of 90, respiratory rate of 18, afebrile with oral temp of 97?, O2 saturation 99% on room air. On physical exam patient is very well-appearing, resting comfortably on the stretcher while working on her laptop, lungs clear to auscultation bilaterally, cardiac exam reveals normal rate and rhythm without murmurs/rubs/gallops, abdomen is soft, nondistended, without rigidity, negative Erazo's sign, no rebound tenderness with pressure and cramping like pain when palpating the periumbilical region of the abdomen, no swelling of the lower extremities Plan: Labs, UA, CT abdomen/pelvis Labs reveal leukocytosis of 16, with left shift of 80, no evidence of anemia with H&H stable, elevated chloride of 110, no electrolyte abnormalities UA reveals concentrated urine with trace leukocyte esterase, 0-2 RBC, 6-10 WBC, 11-20 squams, 2+ urine bacteria. Patient with 3 weeks of nausea, vomiting with diffuse abdominal cramping. Labs today reveal leukocytosis of 16, and elevated chloride of 110, and no electrolyte abnormalities. Patient without tenderness to palpation of her abdomen but describes it as a crampy discomfort with palpation. CT abdomen and pelvis negative for acute intra-abdominal pathology. Patient denies vaginal pain or pelvic discomfort. While the patient is in the department her nausea was controlled and she did not vomit. Patient has follow up with her primary care on 11/13, I will refer her to GI for additional evaluation and management of her nausea and vomiting. Patient feels well enough to go home for self-care today. Patient is in agreement with the plan. Differential Diagnosis Differential Diagnoses: The differential diagnosis associated with the presentation includes Gastritis Diverticulitis Appendicitis Gastroenteritis Cyclical vomiting UTI Admission/Observation Consideration of admission/observation: Escalation of care including admission/observation considered Lab Data MDM Lab Attestation statement: I reviewed the patient's lab results. 10/07/25 10:28 10/07/25 10:28 Labs: Lab Results 10/07/25 10/07/25 10/07/25 Range/Units 08:12 10:28 13:59 WBC 16.0 H (4.8-10.8) X10*3/uL RBC 4.95 (4.20-5.50) X10*6/uL Hgb 13.2 (12.0-16.0) g/dl Hct 40.8 (37.0-47.0) % MCV 82.4 (80.0-98.0) fL MCH 26.7 L (27.0-33.0) pg MCHC 32.4 (31.0-35.0) g/dl RDW 14.2 (11.0-16.0) % Plt Count 409 H (160-400) X10*3/uL MPV 8.6 L (9.4-12.3) fL Immature Gran % (Auto) 0.3 (0.0-0.4) % Neut % (Auto) 80.4 H (45-73) % Lymph % (Auto) 11.8 L (20-40) % Ware % (Auto) 5.7 (2-11) % Eos % (Auto) 1.4 (0-4) % Baso % (Auto) 0.4 (0-2) % Lymph # (Auto) 1.9 (1.2-4.9) X10*3/uL Ware # (Auto) 0.9 (0.1-1.2) X10*3/uL Eos # (Auto) 0.2 (0.0-0.4) X10*3/uL Baso # (Auto) 0.1 (0.0-0.2) X10*3/uL Abs Immat Gran (auto) 0.05 H (0.00-0.03) X10*3/uL Absolute Neuts (auto) 12.9 H (2.0-8.3) x10*3/uL Absolute Nucleated RBC 0.000 (0.0-0.012) X10*3/uL Nucleated RBC % (auto) 0.0 (0.0-0.2) /100WBC Sodium 139 (135-145) mmol/L Potassium 4.4 (3.3-5.1) mmol/L Chloride 110 H (96-108) mmol/L Carbon Dioxide 24 (22-29) mmol/L Anion Gap 9 L (12-20) BUN 15 (9-16) mg/dL Creatinine 0.81 (0.5-1.4) mg/dL Estim Creat Clear Calc 125.6 Estimated GFR > 60 Random Glucose 84 (60-115) mg/dL Calcium 9.5 (8.4-10.2) mg/dL Magnesium 2.0 (1.6-2.6) mg/dL Total Bilirubin 0.7 (0.0-1.0) mg/dL AST 26 (5-31) U/L ALT 23 (0-31) U/L Alkaline Phosphatase 73 (39-117) U/L Total Protein 8.2 H (6.5-8.0) g/dL Albumin 4.9 (3.5-5.0) g/dL Lipase 24 (8-78) U/L Beta HCG, Quant < 2 mIU/mL Urine Color Yellow Urine Appearance Clear Urine pH 5.5 (5.0-9.0) Ur Specific [place] >= 1.030 H (1.005-1.025) Urine Protein Negative (Neg-Trace) mg/dL Urine Glucose (UA) Negative (Negative) mg/dL Urine Ketones Negative (Negative) mg/dL Urine Blood Negative (Negative) Urine Nitrite Negative (Negative) Ur Leukocyte Esterase Trace H (Negative) Urine RBC 0-2 (0-2) /HPF Urine WBC 6-10 H (0-5) /HPF Ur Squamous Epith Cells 11-20 (0-2) /HPF Urine Bacteria 2+ (None Seen) Hyaline Casts 0-2 (0-2) /LPF Influenza Type A (BEBETO) Negative (Negative) Influenza Type B (BEBETO) Negative (Negative) Influenza A & B Note See Note Independent Interpretation I performed an independent interpretation of an: CT Scan Interpretation: I personally interpreted the CT abdomen and pelvis which was negative for any acute intra-abdominal pathology, I agree with the radiologist's interpretation Radiology Impression Discussion of test interpretation with radiology: I have reviewed the radiologist's reading. Radiologist Impression: CT abdomen and pelvis FINDINGS: LUNG BASES: Minor linear atelectasis noted in both lower lungs. Lung bases otherwise clear. Heart size normal. GE junction normal. LIVER, GALLBLADDER, AND BILIARY TREE: The liver is normal in size, shape, and attenuation. No focal hepatic lesion or biliary ductal dilatation is present. The gallbladder is unremarkable with no evidence of radiopaque gallstones, gallbladder wall thickening, or obvious pericholecystic inflammatory changes. PANCREAS: Unremarkable. SPLEEN: Unremarkable. ADRENAL GLANDS: Unremarkable. KIDNEYS AND URETERS: The kidneys are normal in size, shape, and attenuation. No hydronephrosis, hydroureter, or calculi seen. No perinephric stranding. BLADDER: Unremarkable. GASTROINTESTINAL TRACT: The small and large bowel are unremarkable. The appendix is unremarkable. ABDOMINAL WALL: No significant hernia is appreciated. LYMPH NODES: Normal. VASCULAR: Unremarkable. PELVIC VISCERA: Unremarkable. OSSEOUS STRUCTURES: Unremarkable. CT/CT abdomen pelvis w IV con IMPRESSION: No acute findings in the abdomen or pelvis. Electronically signed by: Al Camacho MD 10/07/2025 12:41 [facility] Dictated By: Al Camacho MD Signed By: <Electronically signed by Al Camacho MD in OV> 10/07/25 1241 External Record Review External record reviewed: Inpatient record, Office record and Outpatient record Prescription Management I considered prescription management with: Antibiotic (Patient is afebrile, without diarrhea, patient has a leukocytosis of 16 however I believe this is reactive, no indication for antibiotics at this time) Chronic Conditions Patient?s care impacted by: Other (Asthma) Discharge Plan Discharge Clinical Impression: Nausea and vomiting Patient Disposition: Home, Self-Care Additional Instructions: You were evaluated in the emergency department today due to nausea and vomiting. Your lab work did show an elevated white blood cell count of 16, this may be due to your vomiting. Your urine showed some bacteria however it looked tibia contaminated specimen with skin vitor, your sample will be sent to the lab for culture and if specific bacteria grows we will reach out to you and start you on appropriate antibiotics. You are being prescribed a course of Zofran that you can use for nausea. I have placed referral to [facility] network cable installer for you to follow up for your nausea and vomiting, please call their office to make an appointment as they will not call you. Please return to the emergency department if you experience fevers over 100.4?, worsening abdominal pain, worsening vomiting, inability to tolerate food or liquid, or any new/worsening/concerning symptoms. Prescriptions: New ondansetron HCl 4 mg tablet 4 mg PO Q8H PRN (Reason: nausea and vomiting) 4 Days Qty: 12 0RF No Action melatonin 5 mg Tablet 5 mg PO BEDTIME PRN (Reason: Sleep) ondansetron 4 mg tablet,disintegrating 4 mg PO Q6H PRN (Reason: nausea and vomiting) Qty: 12 0RF prednisone 20 mg tablet 20 mg PO DAILY Qty: 7 0RF doxycycline hyclate 100 mg capsule 100 mg PO BID 7 Days Qty: 14 0RF Referrals: [facility] [Provider Group, Gastroenterology] Print Language: Tajik
[2025-10-07] MEDS: iohexoL 350 MG/ML 100 ML INFUS..BTL IV (12:15)
[2025-10-07 14:09] LABS: Appearance Urine Clear; Glucose Urine UA Negative (Negative); PH 5.5 (5.0-9.0); Specific Gravity - Urine >= 1.030 (1.005-1.025); UMIC TRIGGER UACC YES
[2025-10-07 14:20] LABS: UACC Culture Trigger YES
[2025-10-07 14:47] LABS: Resp Syncy Virus RNA Qual PCR NEGATIVE (Negative); SARS COV2 PCR INHOUSE NEGATIVE (Negative)
[2025-10-07 14:55] VITALS: BP 122/76; PULSE 89; RESP 16; TEMP 36.8; O2SAT 97
== END 2025-10-07 14:56 | disposition home or self-care (01) ==
PROVIDERS: Physician Assistant Medical; Emergency Provider Student in an Organized Health Care Education/Training Program; PCP Internal Medicine
DX: R11.2 Nausea with vomiting, unspecified (principal); R10.33 Periumbilical pain; Z03.818 Encounter for observation for suspected exposure to other biological agents ruled out
CPT/HCPCS: 36415; 74177; 80053; 81001; 83690; 83735; 84702; 85025; 87086; 87502; 87637; 99283; 99285; Q9967

== ENCOUNTER → 2025-10-07 11:07 | Outpatient (BNV) | payer OTHER, SELFPAY | PROVIDERS: Emergency Provider Student in an Organized Health Care Education/Training Program; PCP Internal Medicine; Visit Provider Radiology Diagnostic Radiology | DX: R10.33 Periumbilical pain (principal) | CPT/HCPCS: 74177 ==

== ENCOUNTER 2025-10-11 16:55 | Emergency (ER) | payer OTHER, SELFPAY ==
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
[2025-10-11 17:16] VITALS: BP 146/84; PULSE 97; RESP 16; TEMP 36.6; O2SAT 97; BMI 34.4
--- OUTSIDE RECORDS SUMMARY | 2025-10-11 20:21 | XMS_ITS | Encounter Summary ---
Author Organization [facility] Address [address] [place] [address] Care Team Providers Care Cook Pickled Meat Name Role Phone Esther Andre MD Primary Care Prov ider Encounter Details Date Type Department Care Team ([facility] Contact Info) Description 08/16/2025 Results Follow-Up Obstetrics and Gynecology - [address] [phone] Pita Wilson CN [address] [place] [id number] Social History Tobacco Use Types Packs/Day Years [...] care for your loved ones. For example, home child care provider or elderly care for an older adult? [...] on file Sexual Orientation Not on file documented as of this encounter Plan of Treatment Upcoming Encounters Date Type Department Care Team (Late st Contact Info) Description 11/13/2025 8:00 AM EST Office Visit Adult Medicine [place] [id number] [place], [place] [phone] Bessy Blanca PA [address] [place], [place] 11/22/2025 9:00 AM EST Clinical Support Pulmonology - [address] [place] [address] 11/22/2025 11:30 AM EST Office Visit Obstetrics and Gynecology - [place] [address] [place], [place] [phone] Pita Wilson CNM [address] [place], [place] 12/04/2025 4:00 PM EST Office Visit Pulmonology - [place] [address] [facility] [address] [place] [phone] Vickie Wilde, SHAINA [address] [place] [phone] documented as of this encounter Visit Diagnoses Not on filedocumented in this encounter Additional Health Concerns Assessment Noted Time PHQ-9 Depression Total Score: 0 06/17/20 25 8:59 AM EDT documented as of this encounter Care Teams Cook Pickled Meat Relationship Specialty Start Date End Date Esther Andre MD [address] [place] [address] PCP - General Internal Medicine 05/24/22 documented as of this encounter
--- OUTSIDE RECORDS SUMMARY | 2025-10-11 20:21 | XMS_ITS | Clinical Summary ---
Author Organization [facility] [address] [place] [address] [place] [phone] Phone Care Team Providers Care Postal Worker Name Role Phone Esther Andre MD Primary [...] them. 75 mL 05/09/20 25 2025 Active doxycycline (VIBRAMYCIN) 100 mg capsule TAKE 1 CAPSULE ORALLY TWICE A DAY FOR 7 DAYS WITH AT LEAST 8OZ OF WATER, DON'T LIE DOWN FOR 30 MIN 14 capsule 1 08/20/20 Active phentermine 15 mg capsule Take 1 capsule (15 mg total) by mouth 1 (one) time each day before breakfast. Max Daily Amount: 15 mg 90 each 09/20/20 25 2025 Active topiramate (TOPAMAX) 25 mg tablet Take 1 tablet (25 mg total) by mouth 2 (two) times a day. 180 each 09/20/20 25 2025 Active phentermine-top iramate 3.75-23 mg capsule, ER multiphase 24 hr Take 1 capsule by mouth 1 (one) time each day. Max Daily Amount: 1 capsule 14 capsule 08/12/20 25 2024 Discontinued phentermine-top iramate (Qsymia) 7.5-46 mg capsule, ER multiphase 24 hr Take 1 capsule by mouth 1 (one) time each day. Max Daily Amount: 1 capsule 30 capsule 2 08/26/20 25 2024 Discontinued norethindrone (AYGESTIN) 5 mg tabletIndicatio ns:Abnormal uterine bleeding (AUB) Take 1 tablet (5 mg total) by mouth 1 (one) time each day. 30 each 08/20/20 25 2024 Active Problems Problem Noted Date Diagnosed Date Chlamydia test positive 08/19/2025 Mild persistent asthma without complication 03/25 Assessment [...] Encounters Date Type Department Care Team Description 08/29/2025 Telephone Adult Medicine [place] - [address] [phone] Mercy Goldstein [place] 08/22/2025 10:00 AM EDT Ancillary Procedure [facility] - [facility] [address] [facility] 101 [place] [address] Abnormal PFT; Dyspnea on exertion; Decreased diffusion capacity of lung 08/20/2025 Telephone Obstetrics and Gynecology - [address] [phone] Pita Wilson CNM 08/19/2025 10:30 AM EDT - 08/19/2025 11:59 PM EDT Hospital Encounter [facility]trasound [facility] [address] [place] [phone] Abnormal uterine bleeding (AUB) Discharge Disposition: Home or Self Care 08/16/2025 10:45 AM EDT Office Visit Obstetrics and Gynecology - [address] [phone] Pita Wilson CNM Abnormal uterine bleeding (AUB) (Primary Dx) 08/16/2025 Results Follow-Up Obstetrics and Gynecology - [address] [phone] Pita Wilson CNM 08/14/2025 Telephone Obstetrics & Gynecology - [facility] [address] [place] [address] Yifan Darden CNM 08/13/2025 Telephone Pulmonology - [place] 175 [facility] 200 [place] [address] Kacey Jimenez [place] 08/12/2025 9:00 AM EDT Office Visit Adult Medicine [address] [phone] Esther Philip MD Class 2 obesity due to excess calories without serious comorbidity with body mass index (BMI) of 35.0 to 35.9 in adult (Primary Dx); Mild persistent asthma without complication; Need for prophylactic vaccination and inoculation against influenza 08/09/2025 9:26 AM EDT - 08/09/2025 11:59 PM EDT Hospital Encounter [facility] [address] [place] [phone] Moderate persistent asthma with acute exacerbation; Obesity (BMI 30.0-34.9) Discharge Disposition: Home or Self Care 08/09/2025 8:55 AM EDT Office Visit Pulmonology [facility] [address] [phone] Vickie Wilde NP Moderate persistent asthma with acute exacerbation (Primary Dx); Obesity (BMI 30.0-34.9); Abnormal PFT; Dyspnea on exertion; Decreased diffusion capacity of lung 07/25/2025 Telephone Adult Medicine [address] [phone] Esther Philip MD 07/24/2025 9:15 AM EDT Ancillary Procedure Pulmonology [address] [phone] Moderate persistent asthma with acute exacerbation from Last 3 Months Immunizations Immunization Administration Dates Next Due DTaP (Infanrix) 6wks to less than 7yo ,09/25/2003,2002,05/21,2002 [id number] (Pentacel) 2mo to less than 5yo 04/26/2003,2002,2002,04/02 [...] - seen in ER at [facility], neg CXR 07/07 - no [...] care for your loved ones. For example, housekeeper child care or elderly care for an older adult? [...] Sexual Orientation Not on file Obstetrics History * This document contains information [...] Sign Reading Time Taken Comments Blood Pressure 123/85 08/22/2025 10:05 AM EDT Pulse 67 08/16/2025 10:56 AM EDT Temperature 36 C (96.8 F) 08/12/2025 9:05 AM EDT Respiratory Rate 14 08/16/2025 10:56 AM EDT Oxygen Saturation 98% 08/12/2025 9:05 AM EDT Inhaled Oxygen Concentration - - Weight 97.1 kg (214 lb) 08/22/2025 10:05 AM EDT Height 167.6 cm (5' 6 ) 08/22/2025 10:05 AM EDT Body Mass Index 34.54 08/22/2025 10:05 AM EDT Plan of Treatment Upcoming Encounters Date Type Department Care Team (Late st Contact Info) Description 11/13/2025 8:00 AM EST Office Visit Adult Medicine [address] [phone] Bessy Blanca PA [address] [place], [place] 11/22/2025 9:00 AM EST Clinical Support Pulmonology - [address] [place] [address] 11/22/2025 11:30 AM EST Office Visit Obstetrics and Gynecology - [place] [address] [place] [phone] Pita Wilson, [facility] [address] [place] [address] 12/04/2025 4:00 PM EST Office Visit Pulmonology - [place] [address] [facility] [address] [place] [phone] Vickie Wilde, [employer] [address] [place] [phone] Health Maintenance Due Date Last Done Comments Drug Screen 2002 Non-Opioid Controlled Substance Agreement 2002 Pneumococcal Vaccine: Pediatrics (0 to 5 Years) and At-Risk Patients (6 to 49 Years) (1 of 1 - PPSV23, PCV20, or PCV21) 01/25/2008 07/18/2003, 2002, 2002 Meningococcal B Vaccine (1 of 2 - Standard) 2018 COVID-19 Vaccine (3 - season) 2025 04/01/2021, 03/09/2021 Cholesterol Screening (Lipid Panel) 03/09/2026 03/09/2021 Social Influencers of Health Screening 04/15/2026 04/15/2025 Cervical Cancer Screening: Pap Smear 07/26/2026 07/26/2023 Gonorrhea/Chlamydia Screening 08/16/2026 08/16/2025, 07/26/2023 DTaP,Tdap,and [...] Procedure Name Priority Date/Time Associated Diagnosis Comments TRANSTHORACIC ECHOCARDIOGRAM (TTE) COMPLETE Routine 08/22/2025 3:10 PM EDT Abnormal PFT Dyspnea on exertion Decreased diffusion capacity of lung US PELVIS NON OB COMPLETE W TRANSVAGINAL Routine 08/19/2025 11:09 AM EDT Abnormal uterine bleeding (AUB) TRICHOMONAS VAGINALIS ANTIGEN Routine 08/16/2025 12:20 PM [...] Screen for STD (sexually transmitted disease) HM PAP SMEAR Routine 07/26/2023 LIPID PANEL Routine 03/09/2021 from Last 3 Months or Most Recently Relevant to Health Maintenance Results * (ABNORMAL) TRANSTHORACIC ECHOCARDIOGRAM (TTE) COMPLETE (08/22/2025 3:10 PM EDT) Left Atrium Minor [place] 5.1 cm CV PACS Left Atrium Major [place] 5.3 cm CV PACS LA Area Sys (A2C) 17 cm2 CV PACS LA Area Sys (A4C) 18 cm2 CV PACS LA Volume (BP) 49 mL CV PACS LA Size 3.3 cm CV PACS RA Area 18.7 cm2 CV PACS RA 2D Volume 50 mL CV PACS AV Mean Gradient 2 mmHg CV PACS AV Mean Gradient 2 mmHg CV PACS Ao VTI 25.0 cm CV PACS AV Peak Bob 1.2 m/s CV PACS AV Peak Gradient 5 mmHg CV PACS AV Area Peak Velocity 2.8 cm2 CV PACS Aortic Arch 2.5 cm CV PACS Ascending Aorta 2.9 cm CV PACS Aortic Sinus Valsalva 3.0 cm CV PACS IVC Proximal 2.0 cm CV PACS IVSD 0.9 0.6 - 0.9 cm CV PACS LVIDD 4.7 3.8 - 5.2 cm CV PACS LVIDS 3.1 2.2 - 3.5 cm CV PACS LVOT Diameter 2.0 cm CV PACS LVOT Mean Bob 0.7 m/s CV PACS LVOT Mean Grad 2 mmHg CV PACS LVOT Mean Grad 2 mmHg CV PACS LVOT Peak VTI 22.0 cm CV PACS LVOT Peak VTI 22.0 cm CV PACS LVOT Peak Bob 1.0 m/s CV PACS LVOT Peak Gradient 4 mmHg CV PACS LVPWD 0.9 0.6 - 0.9 cm CV PACS MV E' Tissue Velocity Lateral 15 cm/s CV PACS MV E' Tissue Velocity Septal 11 cm/s CV PACS LVOT Area 3.1 cm2 CV PACS LVOT Stroke Volume 69 mL CV PACS MV Deceleration Winkler 4.7 m/s2 CV PACS E Wave Deceleration Time 176 119 - 242 ms CV PACS MV PHT 52 ms CV PACS MV Peak A Bob 0.51 m/s CV PACS MV Peak A Bob 0.51 m/s CV PACS MV Peak E Bob 0.84 m/s CV PACS MV Mean Gradient 1 mmHg CV PACS MV Mean Gradient 1 mmHg CV PACS MV VTI 20.3 cm CV PACS Mitral Valve Max Velocity 0.8 m/s CV PACS MV Peak Gradient 3 mmHg CV PACS MV Area PHT 4.2 cm2 CV PACS PV Acceleration Time 165 ms CV PACS PV Acceleration Time 197 ms CV PACS PV Acceleration Time 181 ms CV PACS PV Mean Gradient 1 mmHg CV PACS PV VTI 13.5 cm CV PACS PV Peak Velocity 0.8 m/s CV PACS PV Peak Gradient 2 mmHg CV PACS RV Diastolic Basal Dimension 4.9(A) 2.5 - 4.1 cm CV PACS RV S' 12 cm/s CV PACS E/E' Ratio Septal 8 CV PACS E/E' Ratio Averaged 7 CV PACS LVOT Stroke Index 33 mL/m2 CV PACS LA Dimension Index 2D 1.6 cm/m2 CV PACS Relative Wall Thickness ratio 0.38 CV PACS FS 34 % CV PACS LV Mass 2D 143 g CV PACS Ascending Aorta Index 1.41 cm/m2 CV PACS LVOT flow 220 mL/s CV PACS RA 2D Volume Index 24 mL/m2 CV PACS ANDRE Index (Pk Bob) 1.36 cm2/m2 CV PACS LVIDD Index 2.28 cm/m2 CV PACS LVIDS Index 1.50 cm/m2 CV PACS AV Velocity Ratio 0.83 CV PACS E/E' Ratio Lateral 6 CV PACS LA Volume Index (BP) 24 mL/m2 CV PACS LV Mass Index 2D 69 g/m2 CV PACS BSA 2.13 m2 CV PACS Est. RA Pressure 3 mmHg CV PACS Anatomical Region Laterality Modality Ultrasound Narrative 09/05/2025 2:34 PM EST 1. Normal biventricular size and systolic function. Normal left ventricular regional wall motion with an ejection fraction of 60-65 %. 2. No hemodynamically significant valve disease. 3. Normal left ventricular diastolic function. Normal pulmonary artery systolic pressure. Technically adequate, 2D, M-mode, and Doppler echocardiogram without significant pathologic findings. Left Ventricle Left ventricle cavity size is normal. Wall thickness is normal. Systolic function is normal with an ejection fraction of 60-65%. There are no regional LV wall motion abnormalities. There is no diastolic dysfunction and normal left atrial pressure. Right Ventricle Right ventricle cavity appears normal. Systolic function is normal. Left Atrium Left atrium cavity size is normal. Right Atrium Right atrium cavity is normal. IVC/SVC Inferior vena cava structure is normal. RA pressures is estimated to be 3 mmHg (IVC diameter <21 mm and decreases >50% during inspiration). Mitral Valve Mitral valve structure is normal. There is no significant mitral valve regurgitation. There is no evidence of mitral valve stenosis. Tricuspid Valve Tricuspid valve structure is normal. There is no significant regurgitation. There is no evidence of tricuspid valve stenosis. Cannot assess RVSP. Aortic Valve The aortic valve is trileaflet. There is no regurgitation or stenosis. Pulmonic Valve Pulmonic valve structure is normal. There is trace pulmonic valve regurgitation. There is no evidence of pulmonic valve stenosis. Ascending Aorta The aorta appears normal in size. Pericardium Pericardium appears normal. There is no pericardial effusion. Study Details Overall the study quality was adequate. us Vickie Wilde [employer] CV ECHO PROCEDURES Ann l Result * US Pelvis Non OB Complete w Transvaginal (08/19/2025 11:09 AM EDT) Anatomical Region Laterality Modality Body, Pelvis Ultrasound 08/19/2025 5:11 PM EDT Narrative 08/19/2025 5:13 PM EDT Pelvic ultrasound. History abnormal uterine bleeding. Examination was performed transabdominally and transvaginally. No previous studies are available for comparison. Examination is somewhat limited due to patient's body habitus. Uterus was visualized measuring 9.7 x 4.1 x 5.3 cm. Endometrium measures 7 mm. There is no focal endometrial or myometrial abnormality. There is no free fluid in the cul-de-sac. Both ovaries were visualized was normal size and echogenicity. Right ovary volume is 18 cc. Left ovary volume is 8.8 cc. CONCLUSIONS: Unremarkable pelvic ultrasound. -------- FINAL REPORT -------- Dictated By: Angela Narayan Dictated Date: 08/19/2025 17:11 ET Assigned Physician: Angela Narayan Reviewed and Electronically Signed By: Angela Narayan Signed Date: 08/19/2025 17:13 ET Workstation ID: [id number] Transcribed By: Self Edit Transcribed Date: 08/19/2025 17:11 ET Procedure Note Angela Narayan MD - 08/19/2025 Pelvic ultrasound. History abnormal uterine bleeding. Examination was performed transabdominally and transvaginally. No previousstudies are available for comparison. Examination is somewhat limited due to patient's body habitus. Uterus was visualized measuring 9.7 x 4.1 x 5.3 cm. Endometrium measures 7mm. There is no focal endometrial or myometrial abnormality. There is nofree fluid in the cul-de-sac. Both ovaries were visualized was normal size and echogenicity. Right ovaryvolume is 18 cc. Left ovary volume is 8.8 cc. CONCLUSIONS: Unremarkable pelvic ultrasound. -------- FINAL REPORT -------- Dictated By: Angela Narayan Dictated Date: 08/19/2025 17:11 ET Assigned Physician: Angela Narayan Reviewed and Electronically Signed By: Angela Narayan Signed Date: 08/19/2025 17:13 ET Workstation ID: [id number] Transcribed By: Self Edit Transcribed Date: 08/19/2025 17:11 ET us Pita Wilson CNM IMG US PROCEDURES Final Result * Trichomonas vaginalis antigen (08/16/2025 12:20 PM EDT) Pathologist [facility] Trichomonas vaginalis Negative Negative 08/16/2025 9:01 PM EDT [facility] Swab Vaginal structure / Unknown Non-blood Collection / Unknown 08/16/2025 12:20 PM EDT 08/16/2025 12:20 PM EDT Pita Wilson CNM LAB MICROBIOLOGY - GENERAL ORDE RABLES Final Result Performing Organization Address [facility]/ZIP Co de Phone Number [facility] [address] [place] [address], * (ABNORMAL) Chlamydia trachomatis and Neisseria gonorrhoeae molecular study (08/16/2025 11:49 AM EDT) [facility] Neisseria gonorrhoeae PCR Negative Negative LAB MOLECULAR DIAGNOSTICS METHOD 08/17/2025 8:35 AM EDT [facility] Chlamydia trachomatis PCR Positive(A) Negative LAB MOLECULAR DIAGNOSTICS METHOD 08/17/2025 8:35 AM EDT [facility] Swab Cervix uteri structure / Unknown Non-blood Collection / Unknown 08/16/2025 11:49 AM EDT 08/16/2025 11:49 AM EDT us Pita Wilson CNM LAB MICROBIOLOGY - GENERAL ORDE RABLES Final Result Performing Organization Address City/[facility]/ZIP Co de Phone Number [facility] [address] [place] [address], [place] [phone] * Thyroid stimulating hormone with reflex to free t4 and free t3 (08/16/2025 11:26 AM EDT) Pathologist [facility] TSH 0.74 0.40 - 4.00 mcIU/mL LAB CHEMISTRY METHOD 08/16/2025 4:01 PM EDT [facility] Blood Venous blood specimen / Unknown Venipuncture / Unknown 08/16/2025 11:26 AM EDT 08/16/2025 11:26 AM EDT Pita Wilson [facility] BLOOD ORDERABLES Final Resu lt [facility] [address] [place] [address], * (ABNORMAL) Complete blood count (08/16/2025 11:26 AM EDT) [facility] WBC 9.9 4.8 - 10.8 K/mcL LAB HEMETOLOGY METHOD 08/16/2025 3:34 PM EDT [facility] RBC 4.60 3.80 - 4.80 M/[facility] LAB HEMETOLOGY METHOD 08/16/2025 3:34 PM EDT [facility] Hemoglobin 12.2 11.5 - 16.0 g/dL LAB HEMETOLOGY METHOD 08/16/2025 3:34 PM [facility] Hematocrit 38.4 35.0 - 47.0 % LAB HEMETOLOGY METHOD 08/16/2025 3:34 PM EDT [facility] MCV 82.9 79.0 - 98.0 FL LAB HEMETOLOGY METHOD 08/16/2025 3:34 PM [facility] MCH 26.3(L) 27.0 - 32.0 pcg LAB HEMETOLOGY METHOD 08/16/2025 3:34 PM [facility] MCHC 31.8(L) 32.0 - 37.0 g/dL LAB HEMETOLOGY METHOD 08/16/2025 3:34 PM EDT [facility] RDW 13.5 11.0 - 15.0 % LAB HEMETOLOGY METHOD 08/16/2025 3:34 PM EDT [facility] Platelets 471(H) 130 - 400 K/mcL LAB HEMETOLOGY METHOD 08/16/2025 3:34 PM EDT [facility] MPV 9.3 7.0 - 11.0 FL LAB HEMETOLOGY METHOD 08/16/2025 3:34 PM EDT [facility] NRBC 0.0 <1.0 % LAB HEMETOLOGY METHOD 08/16/2025 3:34 PM EDT [facility] NRBC Absolute 0.00 <0.10 K/mcL LAB HEMETOLOGY METHOD 08/16/2025 3:34 PM EDT [facility] Blood Venous blood specimen / Unknown Venipuncture / Unknown 08/16/2025 11:26 AM EDT 08/16/2025 11:26 AM EDT us Pita Wilson [facility] BLOOD ORDERABLES Final Resu lt Performing Organization Address City/[facility]/ZIP Co de Phone Number [facility] [address] [place] [address], [place] [phone] * HCG, serum, qualitative (08/16/2025 11:26 AM EDT) hCG Qual Negative Negative 08/16/2025 4:02 PM EDT [facility] Blood Venous blood specimen / Unknown Venipuncture / Unknown 08/16/2025 11:26 AM EDT 08/16/2025 11:26 AM EDT Pita Wilson [facility] BLOOD ORDERABLES Final Resu lt [facility] [address] [place] [address], [place] [phone] * XR Chest 2 Views (08/09/2025 9:37 AM EDT) Anatomical Region Laterality Modality Body Radiographic Rashmi ging 08/12/2025 10:1 6 AM EDT Impressions 08/12/2025 10:17 AM EDT Impression: No active pulmonary process identified. No significant change. Telerad DESIREE ([id number]) -------- FINAL REPORT -------- Dictated By: Alexus Brown Dictated Date: 08/12/2025 10:16 ET Assigned Physician: Alexus Brown Reviewed and Electronically Signed By: Alexus Brown Signed Date: 08/12/2025 10:17 ET Workstation ID: [id number] Transcribed By: Self Edit Transcribed Date: 08/12/2025 [...] process identified. No significant change. Telerad DESIREE ([id number]) -------- FINAL REPORT -------- Dictated By: Alexus Brown Dictated Date: 08/12/2025 10:16 ET Assigned Physician: Alexus Brown Reviewed and Electronically Signed By: Alexus Brown Signed Date: 08/12/2025 10:17 ET Workstation ID: [id number] Transcribed By: Self Edit Transcribed Date: 08/12/2025 10:16 ET Vickie Wilde [employer] IMG XR PROCEDURES Final Result * Pulmonary [...] obstructive pattern. Static lung volumes are elevated [id number] including residual volume. Diffusion lung capacity is mildly reduced however was moderately reduced after correction for alveolar volume. This study is consistent with mild degree of emphysema without bronchodilator response for which clinical correlation is advised. Vickie Wilde [employer] PFT ORDERABLES Final R esult * Hepatitis C antibody (11/15/2024 1:54 PM EST) Hepatitis C Antibody Negative Negative LAB CHEMISTRY METHOD 11/15/2024 5:05 PM EST [facility] Blood Venous blood specimen / Unknown Venipuncture / Unknown 11/15/2024 1:54 PM EST 11/15/2024 1:54 PM EST Erica Mckenzie [employer] LAB BLOOD ORDERABLES Final R esult [facility] [address] [place] [address], [place] [phone] * HIV 1,2 antibody, p24 antigen with reflex to differentiation (11/15/2024 1:54 PM EST) Pathologist [facility] HIV Combo AB/AG Negative Negative LAB CHEMISTRY METHOD 11/15/2024 5:05 PM EST [facility] Blood Venous blood specimen / Unknown Venipuncture / Unknown 11/15/2024 1:54 PM EST 11/15/2024 1:54 PM EST Narrative [facility] - 11/15/2024 5:05 PM EST This [...] NP LAB BLOOD ORDERABLES Final R esult [facility]) [facility] [address] [place] [address], * Hm Pap Smear (07/26/2023) Pathologist [facility] Pap smear negative abstracted Historical Provider HEALTH MAINTENANCE Final Result * Lipid panel (03/09/2021) [facility] LDL/HDL Ratio 3 0 - 4 Triglycerides 48 0 - 150 mg/dL Cholesterol 128 0 - 200 mg/dL HDL 50 >=40 mg/dL LDL Cholesterol 69 0 - 100 mg/dL Blood Venous blood specimen / Unknown Historical Provider LAB BLOOD ORDERABLES Ann l Result from Last 3 Months or Most Recently Relevant to Health Maintenance Insurance [facility] Care Teams Postal Worker Relationship Specialty Start Date End Date Esther Andre MD [address] [place] [phone] PCP - General Internal Medicine 05/24/22
--- OUTSIDE RECORDS SUMMARY | 2025-10-11 20:21 | XMS_ITS | Patient Health Record ---
Author Organization [facility] Address [address] [place] [address] Phone [phone] Care Team Providers Care Clinical Applications Specialist Name Role Phone Gaurav MAGDALENARegino DenneyRoyal Unavailable [phone] Allergies No Known Allergies Reason For Referral No Information Social History Tobacco Use: Social History Observation Description Date Details (start date - stop date) Never Smoker NA - NA Sex Observation Social History Observation Description Sex Observation Female Social History Social History Social Info Question Answer Notes smoking Are you a: nonsmoker Additional Details Category Social Info Options Details Social History occupation [employer] alcohol no recreational drug use no exercise no marital status single Problems Problem Type SNOMED Code ICD Code Dates Problem Status W/U Status Risk Notes Problem Ingrowing nail (562475939) Ingrowing nail (L60.0) Added On: 023 Active confirmed Problem Pain in limb (22145639) Pain in right toe(s) (M79.674) Added On: 023 Active confirmed Problem Nail dystrophy (65282888) Toenail Dystrophy (L60.3) Added On: 023 Active confirmed Plan Of Treatment No Information Insurance Providers Payer Name Payer Address Payer Phone Subscriber Number Group Number Insured Name Patient Relationship to Insured Coverage Start Date Coverage End Date [facility] PPO [address] [place] [address] [id number] Felipe Narayan Self - patient is the insured 3 [facility] [address] [place] [address] [id number] Felipe Narayan Self - patient is the insured 3 Medical (General) History Surgical History Surgery Date(Month/Year) Left Clavicle Repair Hospitalization History Reason Date(Month/Year) as listed in surgical history
[2025-10-11 21:33] VITALS: BP 109/68; PULSE 76; RESP 16; O2SAT 98
[2025-10-11 22:10] VITALS: BP 109/68; PULSE 76; RESP 16; TEMP 36.6; O2SAT 98
== END 2025-10-11 22:10 | disposition home or self-care (01) ==
PROVIDERS: Emergency Provider Emergency Medicine Emergency Medical Services; PCP Internal Medicine
DX: S39.012A Strain of muscle, fascia and tendon of lower back, initial encounter (principal); V43.52XA Car driver injured in collision with other type car in traffic accident, initial encounter; Y93.9 Activity, unspecified; Y92.9 Unspecified place or not applicable; Y99.9 Unspecified external cause status; M54.9 Dorsalgia, unspecified; M25.551 Pain in right hip
CPT/HCPCS: 70450; 72100; 72125; 99283; 99284

== ENCOUNTER → 2025-10-11 17:18 | Outpatient (BNV) | payer OTHER, SELFPAY | PROVIDERS: PCP Internal Medicine; Visit Provider Radiology Diagnostic Radiology | DX: S09.90XA Unspecified injury of head, initial encounter (principal); R51.9 Headache, unspecified; M54.50 Low back pain, unspecified; V89.2XXA Person injured in unspecified motor-vehicle accident, traffic, initial encounter | CPT/HCPCS: 70450; 72100; 72125 ==